=== PATIENT | female | born 1945 | race African-American/Black ===

== ENCOUNTER 2017-01-02 12:40 | Inpatient (IN) | payer OTHER, BC ==
[2017-01-02] MEDS ORDERED: HALOPERIDOL LACTATE 5 MG/ML IM ONE ×2 (13:32→14:11)
[2017-01-02] MEDS ORDERED: LORazepam 2 MG/ML SDV VIAL ONE ×3 (13:34→18:58)
[2017-01-02] MEDS ORDERED: HALOPERIDOL LACTATE 5 MG/ML ONE ×2 (13:34→14:30)
--- NOTE | 2017-01-02 13:54 | PDOC ---
History of Present Illness - General Chief Complaint: Psychiatric Stated Complaint: Altered Mental Status Time Seen by Provider: 01/02/17 12:49 History Source: Patient Exam Limitations: Other (uncooperative) - History of Present Illness Initial Comments: This is a 71 YOF with unknown PMH who was brought in by police with high blood pressure and psychiatric evaluation. The patient was found in our hospital wandering around on the floor, attempting to see a family member stating they were a patient. Security was called for the patient because the person she was looking for was not on record as a patient at our hospital. She was lead out of the hospital and was sitting on a bench and belligerent. Police were called and because the patient was already physically at [facility], she as brought into our ED when she was found to be hypertensive and altered. Here in the ED she is agitated and for the most part is not combative, but does occasionally swing at the examiner with her arm. Past History - Past Medical History Allergies/Adverse Reactions: Allergies amoxicillin trihydrate [From Augmentin] Allergy (Verified 01/02/17 12:47) aspirin Allergy (Verified 01/02/17 12:47) ibuprofen [From Motrin] Allergy (Verified 01/02/17 12:47) metformin HCl [From Glucophage] Allergy (Verified 01/02/17 12:47) potassium clavulanate [From Augmentin] Allergy (Verified 01/02/17 12:47) Home Medications: Ambulatory Orders Calcitriol [Calcitriol -] 0.25 mcg PO DAILY 01/03/17 Abatacept [Orencia] 125 mg SQ WEEKLY #1 syringe 01/07/17 Amlodipine Besylate [Norvasc -] 10 mg PO DAILY #30 tablet 01/07/17 Atorvastatin Ca [Lipitor] 20 mg PO HS #30 tablet 01/07/17 Folic Acid 1 tab PO DAILY #30 tablet 01/07/17 Methotrexate [Xatmep] 2.5 mg PO WEEKLY #1 solution 01/07/17 Sitagliptin Phosphate [Januvia -] 25 mg PO DAILY@0700 #30 tab 01/07/17 - Social History Smoking History: No Smoking Status: Never smoked Number of Cigarettes Per Day: 0 *Review of Systems - Review of Systems Able to Perform ROS?: No (decreased LOC, uncoop.) *Physical Exam - Vital Signs Last Vital Signs Temp Pulse Resp BP Pulse Ox 98.2 F 105 H 18 186/79 98 01/02/17 12:49 01/02/17 12:49 01/02/17 12:49 01/02/17 12:49 01/02/17 12:49 - Physical Exam General Appearance: Yes: Appropriately Dressed, Thin, Other (patient is intermittently not responsive and uncooperative/agitated/combative). No: Alcohol on Breath HEENT: positive: EOMI, LESLEE, Hearing Grossly Normal. negative: Scleral Icterus (R), Scleral Icterus (L), Nasal Congestion Neck: positive: Trachea midline, Supple. negative: Tender, Rigid Respiratory/Chest: positive: Lungs Clear, Normal Breath Sounds. negative: Respiratory Distress, Crackles, Rhonchi, Stridor, Wheezing Cardiovascular: positive: Regular Rhythm, Regular Rate. negative: Murmur Gastrointestinal/Abdominal: positive: Normal Bowel Sounds, Flat, Soft. negative : Tender, Organomegaly, Pulsatile Mass, Guarding Musculoskeletal: positive: Normal Inspection. negative: Decreased Range of Motion, Vertebral Tenderness Extremity: positive: Normal Capillary Refill, Normal Inspection, Normal Range of Motion. negative: Tender, Cyanosis Integumentary: positive: Normal Color, Dry, Warm. negative: Erythema, Rash, Bruising Neurologic: positive: Alert (intermittently), Motor Strength 5/5, Other ( patient initially not cooperating at all with neurological exam but moving all extremities, tracks examiner with eyes when awake) Plan - Progress Note Progress Note: 71 YOF with h/o IDDM, CKD, rheumatoid arthritis, HTN, HLD presents with agitation/AMS. Was a hospital visitor wandering on 5th floor looking for her nephew who she stated was inpatient. Gave personnel his name and it was not in our EMR and she was escorted outside by security. 911 was called d/t her behavior outside the building and brought her here as they were already on campus. Pt is uncooperative and gives minimal information on current symptoms and PMH. Closes eyes and disengages during conversation with providers, awakens only to sternal rub. Screaming in department, uncooperative, likely will require sedation. Will call emergency contacts, consult with case management, likely psych consult. DDX IBNLT intoxication, metabolic disorder, ACS, CVA/TIA. Unlikely to be [id number] onset psychosis for psychiatric reason as this is rare. 01/02/17 13:43 Attempted to call emergency contacts on record on our EMR. Numbers attempted are for Gonsalo Segundo nephew at [phone] (tried twice). Also Diamond Meyers (sister) at [phone] and [phone]. No answer or disconnected lines for all three numbers. Patient is given 5 of Haldol and 2 of Ativan IM and is subsequently calm. 01/02/17 14:00 Dr. Arroyo spoke with Dr. Camp with Psychiatry. Dr. Kim recommends collaboration with PMD and medical workup before psych eval. Will likely Obs patient after medical workup completed. 01/02/17 14:[address] Dunaway who cared for patient in prior admission in 2011. Dr. Dunaway is on for Dr. Nasrin Sanders who he notes is her PMD. Dr. Dunaway does not have clinic records for the patient; states those records are accessible by Dr. Sanders. Nasrin Sanders is called. 01/02/17 14:28 Nasrin Sanders calls back and states has not seen the patient recently. She will kindly search patient's clinic records and call back. Dr. Arroyo is also speaking with the nephew Gonsalo. Gonsalo states that the patient was psychiatrically healthy to his knowledge until 2 weeks ago. 01/02/17 14:40 Spoke with front office java developer for salvage winder Dr. Almazan in [place] where Ms. Teresa is a patient. She gives most recent medication list and states there are no psychiatric problems on their record. Dr. Sanders calls back and also corroborates that the patient has no psychiatric history and no drugs/EtOH. The last time Dr. Sanders saw the patient was in 2014 and the patient was noted to have switched providers. She is notes on Dr. Sanders's records to now be a patient of Dr. Nettie Gipson in [place]. Dr. Gipson is out of our network and thus hospitalist will be microblogged. 01/02/17 18:52 Troponin and CK resulted with slight elevation. BUN and Cr significantly elevated. Spoke with Dr. Lily Crowe who confirms Pt will go to IP Med/Surg under Dr. Keith. EKG results with t wave inversions in lateral leads. Repeat cardiac profile is sent. Patient's care is signed out to Dr. Marielle Henriquez. - Order(s) Order(s): Orders last 12 hours Category Date Time Status ELECTROCARDIOGRAM [CARD] Stat Cardiology 01/02/17 13:36 Ordered CBC WITH DIFFERENTIAL Stat Lab 01/02/17 13:35 Ordered DRUG SCREEN,UR ER- [facility] Stat Lab 01/02/17 13:36 Ordered URINALYSIS ([facility] ONLY) Stat Lab 01/02/17 13:35 Ordered - Laboratory CBC & Chemistry Diagram: 01/03/17 06:00 01/10/17 07:23 - Medications Given in the ED: ED Medications Discontinued Medications Generic Name Dose Route Start Last Admin Trade Name Freq PRN Reason Stop Dose Admin Haloperidol 5 mg 01/02/17 13:32 01/02/17 13:39 Haldol Injection (Fast Acting) - IM 01/02/17 13:33 5 mg ONCE ONE Administration Lorazepam 2 mg 01/02/17 13:33 01/02/17 13:39 Ativan Injection - IM 01/02/17 13:34 2 mg ONCE ONE Administration *DC/Admit/Observation/Transfer Diagnosis at time of Disposition: Troponin level elevated, Abnormal creatine kinase level, SAL (acute kidney injury) Altered mental state Qualifiers: Altered mental status type: unspecified Qualified Code(s): R41.82 - Altered mental status, unspecified - Discharge Dispostion Admit: Yes - Prescriptions - Referrals - Patient Instructions - Post Discharge Activity
[2017-01-02 15:21] LABS: ALBUMIN 3.6 g/dl (3.4-5.0); ANION GAP 16 (8-16); BILIRUBIN,TOTAL 0.5 mg/dL (0.2-1.0); CALCIUM 9.1 mg/dL (8.5-10.1); CO2 21 mmol/L (21-32); CREATININE 3.8 mg/dL (0.55-1.02); GLUCOSE,RANDOM 223 mg/dL (74-106); PHOSPHOROUS 3.6 mg/dL (2.5-4.9); SGOT/AST 28 U/L (15-37); SGPT/ALT 19 U/L (12-78)
[2017-01-02 15:31] LABS: ALK PHOS 74 U/L (45-117); CPK 488 IU/L (26-192); THYROID STIMULATING HORMONE 1.28 uIU/ml (0.358-3.74); TROPONIN I 0.08 ng/ml (0.00-0.05)
[2017-01-02 15:32] LABS: ALCOHOL < 5.0 mg/dl (0-5)
[2017-01-02 15:37] LABS: BASOPHIL 0.5 % (0-2.0); MCHC 34.5 g/dl (32.0-36.0); MEAN PLT VOLUME 9.4 fl (7.5-11.1); NEUTROPHILS 86.3 % (42.8-82.8); PLATELET COUNT 198 K/MM3 (134-434); RDW 14.8 % (11.6-15.6); SALICYLATE < 4.0 mg/dl (0.0-30.0); WHITE BLOOD COUNT 8.5 K/mm3 (4.0-10.0)
--- NOTE | 2017-01-02 16:57 | PDOC ---
Attending Attestation - Resident Resident Name: Isabell Wray - ED Attending Attestation I have performed the following: I have examined & evaluated the patient, The case was reviewed & discussed with the resident, I agree w/resident's findings & plan, Exceptions are as noted - HPI HPI: 01/02/17 16:51 71 year old F with past medical history of HTN, DM, rheumatoid arthritis presents with disorganized behavior. Patient is alert and awake, but quite disorganized. Unable to obtain a meaningful history. History from security and EMS. The patient was here at [facility], attempting to find her nephew , Gonsalo Esquivel, on the fifth floor. However, at registration, they had informed her that there was no patient at [facility] with that name. An argument ensued, and the patient was escorted out by security to the front of the hospital. The patient then returned back to the registration and became very agitated, upset, and disorganized. [employer] police and [facility] was called, and the patient was brought to the ED. The patient is here was quite agitated and upset. Unable to cooperate. There was patient and staff safety concerns, so the patient was given chemical sedation, haldol and ativan. The patient was calm but still disorganized. We had obtained collateral information from Gonsalo Esquivel. He is currently on vacation and will be flying back to [place] [employer] [place] today. He is not at [facility] hospitalized. States that she used to work for the [employer] and is typically not like this at all. He noticed that 2 weeks ago that she had significantly deteriorated, and was concerned for her well-being. Requests that she stay at the hospital. - Physicial Exam PE: 01/02/17 16:57 GENERAL: agitated, disorganized, but speaking in full sentences, no apparent distress NEURO: CN II-XII grossly intact. Moving all extremities spontaneously PSYCH: disorganized, agitated, tangential - Medical Decision Making 01/02/17 16:58 Vital Signs Temp Pulse Resp BP Pulse Ox 98.2 F 105 H 18 186/79 98 01/02/17 12:49 01/02/17 12:49 01/02/17 12:49 01/02/17 12:49 01/02/17 12:49 We will need to investigate into a potential organic cause for the patient's disorganized behavior. Head CT demonstrates some volume loss potentially suggestive of ?dementia. CBC, BMP 01/02/17 14:50 01/02/17 14:50 CMP Sodium 139 mmol/L (136-145) 01/02/17 14:50 Potassium 4.4 mmol/L (3.5-5.1) 01/02/17 14:50 Chloride 102 mmol/L (98-107) 01/02/17 14:50 Carbon Dioxide 21 mmol/L (21-32) D 01/02/17 14:50 Anion Gap 16 (8-16) 01/02/17 14:50 BUN 56 mg/dL (7-18) H D 01/02/17 14:50 Creatinine 3.8 mg/dL (0.55-1.02) H D 01/02/17 14:50 Creat Clearance w eGFR 11.64 (>60) 01/02/17 14:50 Random Glucose 223 mg/dL (74-106) H D 01/02/17 14:50 Calcium 9.1 mg/dL (8.5-10.1) 01/02/17 14:50 Phosphorus 3.6 mg/dL (2.5-4.9) 01/02/17 14:50 Magnesium 2.0 mg/dL (1.8-2.4) 01/02/17 14:50 Total Bilirubin 0.5 mg/dL (0.2-1.0) D 01/02/17 14:50 AST 28 U/L (15-37) 01/02/17 14:50 ALT 19 U/L (12-78) D 01/02/17 14:50 Alkaline Phosphatase 74 U/L (45-117) 01/02/17 14:50 Creatine Kinase 488 IU/L (26-192) H 01/02/17 14:50 Creatine Kinase Index 0.6 % (0.0-5.0) 01/02/17 14:50 CK-MB (CK-2) 3.020 ng/mL (0.5-3.6) 01/02/17 14:50 Troponin I 0.08 ng/ml (0.00-0.05) H 01/02/17 14:50 Total Protein 7.0 g/dl (6.4-8.2) 01/02/17 14:50 Albumin 3.6 g/dl (3.4-5.0) D 01/02/17 14:50 TSH 1.28 uIU/ml (0.358-3.74) 01/02/17 14:50 Labs demonstrate a mildly elevated troponin of 0.08 (unclear what the etiology is). Creatnine is 3.8 (though there may be some history of ?CKD). The patient will need further workup for patient's AMS vs. disorganized behavior. Dr. Tejada from psych was consulted. He will see the patient as a psych executive consultant. Will admit the patient for further workup.
[2017-01-02 17:34] LABS: URINE APPEARANCE SLCLOUDY; URINE BILIRUBIN NEGATIVE (NEGATIVE); URINE BLOOD NEGATIVE (NEGATIVE); URINE COLOR YELLOW; URINE GLUCOSE (UA) NEGATIVE (NEGATIVE); URINE KETONE NEGATIVE (NEGATIVE); URINE NITRITE NEGATIVE (NEGATIVE); URINE UROBILINOGEN NEGATIVE mg/dL (0.2-1.0)
[2017-01-02 18:13] LABS: URINE MARIJUANA THC NEGATIVE ng/ml (CUTOFF=50)
[2017-01-02 18:32] LABS: URINE PROTEIN 2+ (NEGATIVE)
[2017-01-02] MEDS ORDERED: LORazepam 2 MG/ML SDV VIAL IVPUSH ONE (18:39)
--- NOTE | 2017-01-02 18:43 | HP ---
CHIEF COMPLAINT: Agitation PCP: Dr. Nasrin Sanders HISTORY OF PRESENT ILLNESS: Unable to obtain information from patient due to current medical condition. Most information obtained from ED staff and medical records. Patient is a 71 year old female with a PMHx of Rheumatoid Arthritis, HTN, IDDMII , HLD who presented today for agitation and altered mental status. According to EMS, Police, and ED staff patient earlier today was found wandering around the 5th floor of our hospital asking for her nephew who is supposedly a patient here. When the security risk analyst informed the patient that there was no patient here by that name, she walked out of the hospital upset and became very belligerent. The police officers were called and they brought her straight into the ED. In the ED patient was found to be severely agitated, combative and altered to the point she was trying to physically attack the examiner. ED staff contacted her nephew who reports that he saw her two weeks ago and she was in her usual state of health and mind. He reports that she has no psychiatric history and takes no medications for any physciatric problems. 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 Her nephew states this behavior is very new to him and has never heard or seen this happen to her. Patient's Tin Flopper was also contacted, Dr. Almazan, in [place] who confirms that she is on no antipsychotic medications and has no history of any psychiatric problems. By the time I went to examine the patient she was somnolent and drowsy from the medications. ER course was notable for: (1) haldol 5 and Ativan 2mg X2 (2) Head CT negative for acute pathology (3) Recent Travel: Unable to obtain due to current medical condition PAST MEDICAL HISTORY: HTN, HLD, IDDMII, Rheumatoid Arthritis PAST SURGICAL HISTORY: Appendectomy Social History: Unable to obtain due to patients medical condition Family History: Unable to obtain due to patients medical condition Allergies: amoxicillin trihydrate [From Augmentin] Allergy (Verified 01/02/17 12 :47) aspirin Allergy (Verified 01/02/17 12:47) ibuprofen [From Motrin] Allergy (Verified 01/02/17 12:47) metformin HCl [From Glucophage] Allergy (Verified 01/02/17 12:47) potassium clavulanate [From Augmentin] Allergy (Verified 01/02/17 12:47) HOME MEDICATIONS: Home Medications Medication Instructions Recorded Cyclobenzaprine HCl [Flexeril -] 10 mg PO DAILY 09/02/11 Sitagliptin Phosphate [Januvia -] mg PO 09/02/11 Amlodipine Besylate [Norvasc -] 10 mg PO DAILY #0 tablet 09/19/11 Furosemide [Lasix -] 20 mg PO DAILY #0 tablet 09/19/11 Hydrocortisone 1% Cream [Hytone 1% 1 applic TP BID #0 tube 09/19/11 Cream -] Insulin (Levemir) [Levemir Flexpen 12 units SQ BIDAC #0 pen 09/19/11 -] Prednisone [Deltasone -] 7.5 mg PO DAILY #0 tablet 09/19/11 Tramadol HCl [Ultram -] 50 mg PO Q6H PRN #0 tablet 09/19/11 REVIEW OF SYSTEMS: Unable to obtain due to patients medical condition PHYSICAL EXAMINATION Vital Signs - 24 hr 01/02/17 12:49 Temperature 98.2 F Pulse Rate 105 H Respiratory 18 Rate Blood Pressure 186/79 O2 Sat by Pulse 98 Oximetry (%) GENERAL: Drowsy, somnolent, intermittently opening and closing eyes HEAD: Normal with no signs of trauma. EYES: Pupils equal, round and reactive to light. LUNGS: Breath sounds equal, clear to auscultation bilaterally. No wheezes, and no crackles. No accessory muscle use. HEART: Regular rate and rhythm, normal S1 and S2 without murmur, rub or gallop. ABDOMEN: Soft, nontender, not distended, normoactive bowel sounds, no guarding, no rebound, no masses. UPPER EXTREMITIES: 2+ pulses, warm, well-perfused. No cyanosis. No clubbing. No peripheral edema. LOWER EXTREMITIES: 2+ pulses, warm, well-perfused. No calf tenderness. No peripheral edema. NEUROLOGICAL: Cranial nerves II-XII intact. Normal speech. Normal gait. PSYCHIATRIC: Unable to assess due to patients medical condition but does move extremities spontaneously SKIN: Warm, dry, normal turgor, no rashes or lesions noted, normal capillary refill. Laboratory Results - last 24 hr 01/02/17 01/02/17 01/02/17 14:50 14:50 14:50 WBC 8.5 RBC 3.50 L Hgb 10.5 L Hct 30.5 L MCV 87.0 MCH 30.0 MCHC 34.5 RDW 14.8 Plt Count 198 D MPV 9.4 Neutrophils % 86.3 H Lymphocytes % 6.9 L D Monocytes % 6.3 Eosinophils % 0.0 D Basophils % 0.5 Sodium 139 Potassium 4.4 Chloride 102 Carbon Dioxide 21 D Anion Gap 16 BUN 56 H D Creatinine 3.8 H D Creat Clearance w eGFR 11.64 Random Glucose 223 H D Calcium 9.1 Phosphorus 3.6 Magnesium 2.0 Total Bilirubin 0.5 D AST 28 ALT 19 D Alkaline Phosphatase 74 Creatine Kinase 488 H Creatine Kinase Index 0.6 CK-MB (CK-2) 3.020 Troponin I 0.08 H Total Protein 7.0 Albumin 3.6 D TSH 1.28 Urine Color Urine Appearance Urine pH Ur Specific [place] Urine Protein Urine Glucose (UA) Urine Ketones Urine Blood Urine Nitrite Urine Bilirubin Urine Urobilinogen Salicylates < 4.0 Opiates Screen Methadone Screen Acetaminophen < 10 L Barbiturate Screen Phencyclidine Screen Ur Amphetamines Screen MDMA (Ecstasy) Screen Benzodiazepines Screen Cocaine Screen U Marijuana (THC) Screen Alcohol, Quantitative < 5.0 01/02/17 01/02/17 01/02/17 14:50 17:15 17:15 WBC RBC Hgb Hct MCV MCH MCHC RDW Plt Count MPV Neutrophils % Lymphocytes % Monocytes % Eosinophils % Basophils % Sodium Potassium Chloride Carbon Dioxide Anion Gap BUN Creatinine Creat Clearance w eGFR Random Glucose Calcium Phosphorus Magnesium Total Bilirubin AST ALT Alkaline Phosphatase Creatine Kinase Cancelled Creatine Kinase Index CK-MB (CK-2) Troponin I Cancelled Total Protein Albumin TSH Cancelled Urine Color Yellow Urine Appearance Slcloudy Urine pH 5.0 Ur Specific [place] 1.017 Urine Protein 2+ H Urine Glucose (UA) Negative Urine Ketones Negative Urine Blood Negative Urine Nitrite Negative Urine Bilirubin Negative Urine Urobilinogen Negative Salicylates Opiates Screen Negative Methadone Screen Negative Acetaminophen Barbiturate Screen Negative Phencyclidine Screen Negative Ur Amphetamines Screen Negative MDMA (Ecstasy) Screen Negative Benzodiazepines Screen Negative Cocaine Screen Negative U Marijuana (THC) Screen Negative Alcohol, Quantitative IMAGES: Head CT (01/02/17): Mild to moderate volume loss without evidence of acute intracranial pathology. ASSESSMENT/PLAN: Patient is a 71 year old female who was found wondering in the hospital and became very agitated and combative. Patient admitted for further monitoring and management. Acute Psychosis -New onset with no history of psychiatric problems. R/o stroke vs. tumor -CT negative -Electrolytes wnl, calcium wnl, TSH wnl -U/A wnl, leukocyte esterase pending -Urine toxicology negative -MRI without contrast ordered (due to CKD/SAL) to rule out stroke/masses/tumor -RPR ordered to rule out neurosyphilis -B12 ordered to rule out any deficiency -Lipitor 40mg ordered. -Unable to give Aspirin due to allergy on profile -Neurology consult placed -Psych consult placed -1 to 1 observation as patient is in danger of harming herself or others -If source of acute psychosis remains unknown will need to consider LP to rule out meningitis SAL on CKD? -Last known baseline in 2011 with BUN of 1.3 and Creatinine clearance of 40. -Today BUN 3.8 and CC of 11 -Will begin IV NS @83mls/hr -Urine electrolytes ordered -Kidney/Renal U/S HTN- Controlled -Will need to confirm home medication dosages. Told by ED staff that patient is on Hydralazine and HCTZ at home -Continue to monitor BP. If BP elevated, consider giving Hydralazine and HCTZ one time doses only until home dose confirmed. HLD -Lipitor 40mg started -Lipid panel ordered IDDMII -A1C ordered -BGM -ISS Rheumatoid Arthritis -Follows buttermaker Dr. Dr. Almazan in [place] -On Methotrexate. Need to confirm dosage in the morning -On Ornecia. Need to confirm dosage in the morning F/E/N -IV NS @83mls/hr -Electrolytes wnl -NPO Prophylaxis -High risk. Heparin 5000 units sq Q8H for DVT -No GI required Disposition -Full code -MRI pending. Patient requires 1 to 1 observation. Continues to require Inpatient and will remain overnight Visit type - Emergency Visit Emergency Visit: Yes ED Registration Date: 01/02/17 Care time: The patient presented to the Emergency Department on the above date and was hospitalized for further evaluation of their emergent condition. - New Patient This patient is new to me today: Yes Date on this admission: 01/02/17 - Critical Care Critical Care patient: No
[2017-01-02] MEDS ORDERED: SODIUM CHLORIDE 1,000 ML IV SCH ×2 (18:45→22:35)
[2017-01-02 18:51] LABS: URINE BACTERIA RARE /hpf (NONE SEEN); URINE HYALINE CAST 12 /lpf; URINE MUCUS RARE; URINE RBC 1; URINE WBC 1
[2017-01-02] MEDS ORDERED: HEPARIN NA (PORCINE) 5,000 UNITS/ML 1ML VIAL ONE (18:59)
[2017-01-02] MEDS: HEPARIN NA (PORCINE) 5,000 UNITS/ML 1ML VIAL SQ SCH ×2 (19:11→22:37)
[2017-01-02 19:23] LABS: TROPONIN I 0.13 ng/ml (0.00-0.05)
[2017-01-02] MEDS: ATORVASTATIN CA 40 MG TABLET (FP) PO SCH ×2 (20:10→22:37)
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
[2017-01-02 22:05] LABS: URINE LEUK ESTERASE Negative (NEGATIVE)
[2017-01-02] MEDS: INSULIN SLIDING SCALE (NOVOLOG) 1 VIAL SQ SCH (22:57)
[2017-01-03 00:16] VITALS: BMI 24.2
[2017-01-03 02:23] LABS: TROPONIN I 0.14 ng/ml (0.00-0.05)
[2017-01-03] MEDS: INSULIN SLIDING SCALE (NOVOLOG) 1 VIAL SQ SCH ×4 (06:06→21:45)
[2017-01-03] MEDS: HEPARIN NA (PORCINE) 5,000 UNITS/ML 1ML VIAL SQ SCH ×3 (06:06→21:44)
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
[2017-01-03 08:01] LABS: MCH 29.6 pg (25.7-33.7); MCHC 33.9 g/dl (32.0-36.0); MEAN CELL VOLUME 87.4 fl (80-96); MEAN PLT VOLUME 8.5 fl (7.5-11.1); PLATELET COUNT 155 K/MM3 (134-434); RDW 14.2 % (11.6-15.6); WHITE BLOOD COUNT 5.2 K/mm3 (4.0-10.0)
[2017-01-03 08:16] LABS: ALBUMIN 3.4 g/dl (3.4-5.0)
[2017-01-03 08:21] LABS: ALK PHOS 72 U/L (45-117); ANION GAP 10 (8-16); BILIRUBIN,TOTAL 0.7 mg/dL (0.2-1.0); CALCIUM 8.6 mg/dL (8.5-10.1); CO2 24 mmol/L (21-32); CREATININE 2.9 mg/dL (0.55-1.02); GLUCOSE,RANDOM 101 mg/dL (74-106); MAGNESIUM 2.2 mg/dL (1.8-2.4); PHOSPHOROUS 3.6 mg/dL (2.5-4.9); SGOT/AST 23 U/L (15-37); SGPT/ALT 16 U/L (12-78); TOT PROT 6.7 g/dl (6.4-8.2)
[2017-01-03 08:33] LABS: CHOLESTEROL 254 mg/dL (50-200)
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
--- NOTE | 2017-01-03 10:03 | EKG ---
Test Reason : Blood Pressure : / mmHG Vent. Rate : 062 BPM Atrial Rate : 062 BPM P-R Int : 182 ms QRS Dur : 092 ms QT Int : 454 ms P-R-T Axes : 049 067 112 degrees QTc Int : 460 ms NORMAL SINUS RHYTHM T WAVE ABNORMALITY, CONSIDER LATERAL ISCHEMIA ABNORMAL ECG WHEN COMPARED WITH ECG OF 02-SEP-2011 20:18, QT HAS LENGTHENED Confirmed by ROSIO SEE MD ([id number]) on 01/03/2017 10:02:45 AM Referred By: Confirmed By:ROSIO SEE MD
[2017-01-03 10:59] LABS: URINE POTASSIUM 41.6 MEQ/L
[2017-01-03 11:30] LABS: TROPONIN I 0.09 ng/ml (0.00-0.05)
[2017-01-03] MEDS: SODIUM CHLORIDE 1,000 ML IV SCH (11:30)
--- NOTE | 2017-01-03 14:47 | PN ---
Teaching Attending Note Name of Resident: Jose Garcia ATTENDING PHYSICIAN STATEMENT I saw and evaluated the patient. I reviewed the resident's note and discussed the case with the resident. I agree with the resident's findings and plan as documented. SUBJECTIVE: no fever or chills. has no cp or SOB. still thinks her nephew was in hospital. denies [place] , CP , weakness , numbness or tingling . OBJECTIVE: NAD , awake , alert and oriented x 3 CV: RRR, 3/6 SM at base and LLSB with radiation to carotids . 3/6 SM At apex with radiation to axilla Lungs ; CTAB ext : no edema Abd : sfot, NT, ND , NL BS Neuro: EOMI, round equal pupils , reactive to light. no facial droop. strength 5 /5 in upper and lower extremities proximally and distally. sensation to light touch is nL. reflexes 2+ knee jerk and biceps b/l ASSESSMENT AND PLAN: 71 y/o lady with h/o CKD , Rheumatoid Arthritis, IDDMII, HLD and other problems who presented with AMS and agitation 1- AMS with psychotic features: no known clear etiology. could be due to metabolic encephalopathy in the setitng of worsening uremia. RPR , not reactive, TSH nl. NEuro exam nl and her mental status improved . Suspicion for seizure is very low . MRI with no stroke or MAss It is not clear whether she is on Prednisone as out pt . if yes , this could cause phsycosis ,. - cont to monitor - hold off benzos and antiphsycotics - No need for LP at this point . 2- CKD with SAL : last cr in oput system 1.3 in 2011. No more recent one . she admits to CKD Cr improved with IVF . Likely pre-renal azotemia with a base line of CKD - check urine electrolytes - check renal US - cont IVF 100 cc/hr 3- H/o DM : she takes levemir TID at home . - cont SSI - will confirm with her PCP her insulin regimen 4- Elevated CPK: likely due to statin, vs mild Rhabdo. - dc atorvastatin - cont hydration 5- Elevated trop : likely due to decreased clearance in setting of renal failure. level improved EKG with TWI in lateral leads, and J point elevation in V2 - repeat EKG - will need a stress test as outpt - can start aspirin. 6- HTN: resume norvasc Meds need to be confirmed.
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
--- NOTE | 2017-01-03 15:49 | MSN ---
Progress Note (short form) - Note Progress Note: SUBJECTIVE CC: altered mental status with psychotic symptoms HPI: 71 year old female with PMH of RA, HTN, IDDMII, HLD was admitted from the ER following acute onset of agitation and altered mental status with psychotic symptoms. She was unable to give a history at the time of admission secondary to altered mental status. EMS, police and ED staff reported patient was found wandering on the 5th floor of [facility] asking for her nephew who she believed was a patient. When staff told her that her nephew was not a patient here, she became aggressive and belligerent. She was then taken to the ER and given 2 doses of Haldol 5 mg and 2 doses of Ativan [address] was negative for acute pathology and brain MRI was negative for any masses or infarcts. EKG at the time showed normal sinus rhythm with t wave inversion in lateral leads and compared with EKG done in 2011, her QT interval has lengthened. Today, patient was seen and examined. She can recall looking for her nephew on the 5th floor of the hospital and reports she does not know why her nephew was not found nor why staff did not tell her where her nephew was. No acute changes overnight. OBJECTIVE Last Vital Signs Temp Pulse Resp BP Pulse Ox 97.5 F L 74 18 158/74 98 01/03/17 10:34 01/03/17 10:34 01/03/17 10:34 01/03/17 10:34 01/02/17 23:09 General: patient Chest: Lungs: Abdomen: Extremities: CBC, BMP 01/03/17 06:00 01/03/17 06:00 CBC,CMP WBC 5.2 K/mm3 (4.0-10.0) D 01/03/17 06:00 RBC 3.34 M/mm3 (3.60-5.2) L 01/03/17 06:00 Hgb 9.9 GM/dL (10.7-15.3) L 01/03/17 06:00 Hct 29.2 % (32.4-45.2) L 01/03/17 06:00 MCV 87.4 fl (80-96) 01/03/17 06:00 MCH 29.6 pg (25.7-33.7) 01/03/17 06:00 MCHC 33.9 g/dl (32.0-36.0) 01/03/17 06:00 RDW 14.2 % (11.6-15.6) 01/03/17 06:00 Plt Count 155 K/MM3 (134-434) D 01/03/17 06:00 MPV 8.5 fl (7.5-11.1) 01/03/17 06:00 Neutrophils % 86.3 % (42.8-82.8) H 01/02/17 14:50 Lymphocytes % 6.9 % (8-40) L D 01/02/17 14:50 Monocytes % 6.3 % (3.8-10.2) 01/02/17 14:50 Eosinophils % 0.0 % (0-4.5) D 01/02/17 14:50 Basophils % 0.5 % (0-2.0) 01/02/17 14:50 Sodium 142 mmol/L (136-145) 01/03/17 06:00 Potassium 4.0 mmol/L (3.5-5.1) 01/03/17 06:00 Chloride 108 mmol/L (98-107) H 01/03/17 06:00 Carbon Dioxide 24 mmol/L (21-32) 01/03/17 06:00 Anion Gap 10 (8-16) 01/03/17 06:00 BUN 55 mg/dL (7-18) H 01/03/17 06:00 Creatinine 2.9 mg/dL (0.55-1.02) H D 01/03/17 06:00 Creat Clearance w eGFR 15.91 (>60) 01/03/17 06:00 POC Glucometer 137 UNITS (80-120) 01/03/17 11:28 Random Glucose 101 mg/dL (74-106) D 01/03/17 06:00 Hemoglobin A1c % 5.6 % (4.8-6.0) 01/03/17 06:00 Calcium 8.6 mg/dL (8.5-10.1) 01/03/17 06:00 Phosphorus 3.6 mg/dL (2.5-4.9) 01/03/17 06:00 Magnesium 2.2 mg/dL (1.8-2.4) 01/03/17 06:00 Total Bilirubin 0.7 mg/dL (0.2-1.0) D 01/03/17 06:00 AST 23 U/L (15-37) 01/03/17 06:00 ALT 16 U/L (12-78) 01/03/17 06:00 Alkaline Phosphatase 72 U/L (45-117) 01/03/17 06:00 Creatine Kinase 625 IU/L (26-192) H 01/03/17 11:00 Creatine Kinase Index 0.7 % (0.0-5.0) 01/03/17 11:00 CK-MB (CK-2) 4.470 ng/mL (0.5-3.6) H 01/03/17 11:00 Troponin I 0.09 ng/ml (0.00-0.05) H 01/03/17 11:00 Total Protein 6.7 g/dl (6.4-8.2) 01/03/17 06:00 Albumin 3.4 g/dl (3.4-5.0) 01/03/17 06:00 Triglycerides 72 mg/dL (35-160) 01/03/17 06:00 Cholesterol 254 mg/dL (50-200) H 01/03/17 06:00 Total LDL Cholesterol 166 mg/dL (5-100) H 01/03/17 06:00 HDL Cholesterol 64 mg/dL (40-60) H 01/03/17 06:00 Vitamin B12 1178 pg/ml (180-914) H 01/02/17 14:30 TSH 1.28 uIU/ml (0.358-3.74) 01/02/17 14:50 Current Medications Heparin Sodium (Porcine) (Heparin -) 5,000 unit SQ TID [facility] Last Admin: 01/03/17 15:13 Dose: Not Given Sodium Chloride (Normal Saline -) 1,000 mls @ 100 mls/hr IV ASDIR [facility] Last Admin: 01/03/17 11:30 Dose: 100 mls/hr Insulin Aspart (Novolog Vial Sliding Scale -) 1 vial SQ ACHS [facility] PRN Reason: Protocol Last Admin: 01/03/17 11:29 Dose: Not Given Risperidone (Risperdal -) 0.5 mg PO BID [facility] Home Medications Medication Instructions Recorded Cyclobenzaprine HCl [Flexeril -] 10 mg PO DAILY 09/02/11 Sitagliptin Phosphate [Januvia -] 50 mg PO DAILY 09/02/11 Amlodipine Besylate [Norvasc -] 10 mg PO DAILY #0 tablet 09/19/11 Furosemide [Lasix -] 20 mg PO DAILY #0 tablet 09/19/11 Hydrocortisone 1% Cream [Hytone 1% 1 applic TP BID #0 tube 09/19/11 Cream -] Prednisone [Deltasone -] 7.5 mg PO DAILY #0 tablet 09/19/11 Tramadol HCl [Ultram -] 50 mg PO Q6H PRN #0 tablet 09/19/11 Abatacept [Orencia] 125 mg SQ WEEKLY 01/03/17 Atorvastatin Ca [Lipitor] 10 mg PO DAILY 01/03/17 Calcitriol [Calcitriol -] 0.25 mcg PO DAILY 01/03/17 Chlorthalidone 25 mg PO DAILY 01/03/17 Folic Acid 1 tab PO DAILY 01/03/17 Insulin (Levemir) [Levemir Flexpen 20 units SQ DAILY 01/03/17 -] Methotrexate [Xatmep] 2.5 mg PO WEEKLY 01/03/[address] 01/02: Mild to moderate volume loss without evidence of acute intracranial pathology. BRAIN MRI 01/02: no infarct identified, no discrete mass lesion. EKG 01/02: normal sinus rhythm, t wave abnormality, consider lateral ischemia, when compared with ECG 09/02/11 20:18, QT has lengthened CXR 01/02: No acute chest pathology. since prior study of 09/08/14, again noted weak inspiration with large heart, sclerotic knob and prominent ly. ECHO 01/03: Mild concentric L ventricular hypertrophy, L ventricular systolic fxn is normal , E/A reversal consistent w/ but not diagnostic of poor LV compliance, R ventricle normal in size and function. Mild dilation of L atrium. Mild mitral regurg. Moderate tricuspid regurg. R ventricular systolic pressure elevated at 50-60 mmHg. Moderate aortic sclerosis. Aortic root is normal size. No pericardial effusion. US RENAL & URINARY BLADDER 01/03: both kidneys small and echogenic compatible with clinical history of chronic medial renal disease. Small B/L simple renal cysts. No renal stones or hydronephrosis, B/L. Partially distended urinary bladder w/o wall thickening. Both ureteral jets were not visualized. Trace postvoid urine residue. Limited visualization of uterus. PSYCH CONSULT (Dr. Tejada) 01/03: slowed psychomotor activity with constricted affect. well groomed, cooperative. coherent speech. circumstantial thought process. absent hallucinations. present delusions of persecutory, bizarre type. alert attention, oriented to time. impaired memory, immediate recall. 1/3 short term memory. 1/3 memory, remote with prompting. serial sevens not intact, simple calculations not intact. Abstraction proverb interpretation impaired, judgment moderately impaired. Impulse control moderately impaired. no suicidal or homicidal ideation. --> psych rec to start risperdal 0.5 mg po bid, continue with 1:1, waiting neuro eval ASSESSMENT: Patient is a 71 year old female with PMH RA, HTN, IDDMII, HLD was admitted from the ER following acute onset of agitation and altered mental status with psychotic symptoms. PLAN: #altered mental status with psychotic symptoms - add risperdal 0.5 mg po bid as per psych rec - f/u neuro result - continue to monitor electrolytes, continue 1:1 observation #CKD - last known baseline in 2011 with BUN 1.3, Cr clearance 40 - continue to monitor BUN and Cr; today BUN 55, Cr 2.9, Cr clearance 15.91 - no acute pathology found on kidney/bladder US #HTN - confirmed home med doses; consider switching HTN med to home med - chlorthalidone - continue to monitor BP #HLD - continue Lipitor with home med dosage - 10 mg PO daily - lipid panel out of range #IDDMII - HbA1c 5.6% (01/03/17) - continue home med, confirm insulin dosage with PCP #RA - continue home med, MTX #F/E/N - IV NS @ 100 mls/hr - electrolytes wnl - diabetic diet #DVT PPX - continue heparin
[2017-01-03] MEDS ORDERED: amLODIPine BESYLATE 5 MG TABLET (FP) PO SCH (17:15)
[2017-01-03] MEDS: risperiDONE 0.5 MG TABLET (FP) PO SCH ×2 (17:51→21:45)
[2017-01-03] MEDS ORDERED: amLODIPine BESYLATE 5 MG TABLET (FP) PO ONE (23:30)
[2017-01-04] MEDS: SODIUM CHLORIDE 1,000 ML IV SCH (01:00)
[2017-01-04] MEDS: INSULIN SLIDING SCALE (NOVOLOG) 1 VIAL SQ SCH ×4 (06:23→21:38)
[2017-01-04] MEDS: HEPARIN NA (PORCINE) 5,000 UNITS/ML 1ML VIAL SQ SCH ×3 (06:25→21:38)
[2017-01-04] MEDS: amLODIPine BESYLATE 10 MG TABLET (FP) PO SCH ×2 (09:08→12:36)
[2017-01-04] MEDS: risperiDONE 0.5 MG TABLET (FP) PO SCH ×2 (09:08→21:37)
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
[2017-01-04 10:29] LABS: ANION GAP 8 (8-16); CALCIUM 8.4 mg/dL (8.5-10.1); CO2 23 mmol/L (21-32); CPK 487 IU/L (26-192); CREATININE 2.1 mg/dL (0.55-1.02); GLUCOSE,RANDOM 134 mg/dL (74-106)
--- NOTE | 2017-01-04 15:01 | PN ---
Addendum entered and electronically signed by Lily Crowe, 01/04/17 18:39: Spoke to Neurologist who agreed to do LP. Consent obtained from patient and patient's nephew. LP performed with no complications CSF specimen sent to the lab Results pending. Will follow up Patient also gave verbal consent for HIV testing Neurologist recommended Cervical MRI to be done Original Note: Physical Exam: SUBJECTIVE: Patient seen and examined by me at bedside. Overnight events noted. Patient had eleavted BP and night medical team gave norvasc with adequate control. Patient offers no complaints today but continues to have a flat affect. She denies all blood work this morning but when Dr. Stein spoke to her she agreed to have blood drawn. Otherwise, patient denies fever, chills , nausea, vomiting, abdominal pain, chest pain, palpitations, shortness of breath, headaches. OBJECTIVE: Vital Signs Period Temp Pulse Resp BP Sys/Hanna Pulse Ox Last 24 Hr 97.2 F-98.2 F 72-84 18-20 158-194/76-94 98-98 GENERAL: The patient is awake, alert, and fully oriented, in no acute distress. EYES: PERRL, eye does not pass mid-line on left gaze, sclera anicteric, conjunctiva clear. No ptosis. ENT: Oropharynx clear without exudates, moist mucous membranes. LUNGS: Breath sounds equal, clear to auscultation bilaterally, no wheezes, no crackles, no accessory muscle use. HEART: Regular rate and rhythm without murmur, rub or gallop. ABDOMEN: Soft, nontender, nondistended, normoactive bowel sounds, no guarding, no rebound. EXTREMITIES: 2+ pulses, warm, well-perfused, no edema. NEUROLOGICAL: Cranial nerves II through XII grossly intact. Normal speech. Motor strength 5/5 bilaterally, sensory intact. No facial droop PSYCH: Normal mood, Flat affect Laboratory Results - last 24 hr 01/03/17 01/03/17 01/04/17 17:46 21:43 06:04 Sodium Potassium Chloride Carbon Dioxide Anion Gap BUN Creatinine POC Glucometer 134 128 97 Random Glucose Calcium Creatine Kinase Creatine Kinase Index CK-MB (CK-2) 01/04/17 01/04/17 09:20 11:30 Sodium 141 Potassium 4.1 Chloride 110 H Carbon Dioxide 23 Anion Gap 8 BUN 43 H D Creatinine 2.1 H D POC Glucometer 114 Random Glucose 134 H D Calcium 8.4 L Creatine Kinase 487 H Creatine Kinase Index 0.5 CK-MB (CK-2) 2.914 Active Medications Generic Name Dose Route Start Last Admin Trade Name Cherie PRN Reason Stop Dose Admin Amlodipine Besylate 10 mg 01/04/17 08:45 01/04/17 12:36 Norvasc - PO Not Given DAILY [facility] Heparin Sodium (Porcine) 5,000 unit 01/02/17 18:45 01/04/17 13:41 Heparin - SQ Not Given TID [facility] Insulin Aspart 1 vial 01/02/17 22:00 01/04/17 12:36 Novolog Vial Sliding Scale - SQ Not Given ACHS [facility] Protocol Risperidone 0.5 mg 01/03/17 15:15 01/04/17 09:08 Risperdal - PO 0.5 mg BID [facility] Administration ASSESSMENT/PLAN: Patient is a 71 year old female who was found wondering in the hospital and became very agitated and combative. Patient admitted for further monitoring and management. AMS with Acute Psychosis -New onset with no history of psychiatric problems. -Unknown source as of now. -Patient started on Risperidone 0.5mg PO BID. Will need to monitor QTC as outpatient due to a QTC of 460 here. -1 to 1 observation as per psych -Discussed case with psych who would like to try to admit patient to inpatient psych due to this new onset of delusions she needs to be medically cleared by neurology. Nephew reports that the bizarre behavior started one month ago and before that she was working and independent. -Will discuss with neurology on the need for LP in order to place for inpatient psych. -EEG ordered as per neurology -Will consent for LP -Will try to obtain verbal consent for HIV testing SAL on CKD- resolved -Patient baseline 2.3 and is now 2.1 -Will continue to monitor Elevated CPK -Possibly secondary to statin. -Trending down -Will keep off statins -Continue to trend HTN -Increased Norvasc to 10mg as patient continued to have elevated BP HLD -Patient had elevated CPK and held all statins IDDMII -BGM -ISS Rheumatoid Arthritis -Follows print decorator Dr. Dr. Almazan in [place] -On Methotrexate weekly -On Ornecia weekly F/E/N -On no fluids -Electrolytes wnl -Diabetic diet Prophylaxis -Heparin 5000 units sq Q8H for DVT -No GI required Disposition -Full code -continues to have 1 to 1 obs. Will likely need inpatient psych Visit type - Emergency Visit Emergency Visit: Yes ED Registration Date: 01/02/17 Care time: The patient presented to the Emergency Department on the above date and was hospitalized for further evaluation of their emergent condition. - New Patient This patient is new to me today: No - Critical Care Critical Care patient: No
[2017-01-04 17:55] LABS: CSF APPEARANCE CLEAR; CSF COLOR COLORLESS
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
--- NOTE | 2017-01-04 17:59 | PROC ---
Lumbar Puncture Risks and Benefits Explained: Yes Consent on Chart: Yes Sterile Technique: Yes Skin prep: Betadine Position: Right lateral decubitus Site: L4-L51 Local Anesthesia: 1% Lidocaine with epi CSF Color, Appearance: Clear Sterile Dressing Applied: Yes
[2017-01-04 18:04] LABS: GLUCOSE,CSF 77 mg/dL (50-80)
[2017-01-04 18:05] LABS: GLUCOSE,CSF 78 mg/dL (50-80)
[2017-01-04 18:18] LABS: CSF APPEARANCE CLEAR; CSF COLOR COLORLESS
[2017-01-04 19:25] LABS: HIV 1 & 2 AB NEGATIVE; HIV 1 AGp24 NEGATIVE
[2017-01-04 19:49] LABS: CSF RBC 1
[2017-01-05] MEDS: HEPARIN NA (PORCINE) 5,000 UNITS/ML 1ML VIAL SQ SCH ×3 (06:17→22:01)
[2017-01-05] MEDS: INSULIN SLIDING SCALE (NOVOLOG) 1 VIAL SQ SCH ×4 (06:17→22:01)
[2017-01-05 08:19] LABS: ANION GAP 10 (8-16); CALCIUM 8.5 mg/dL (8.5-10.1); CO2 22 mmol/L (21-32); GLUCOSE,RANDOM 107 mg/dL (74-106)
[2017-01-05 08:23] LABS: CPK 366 IU/L (26-192); CREATININE 1.9 mg/dL (0.55-1.02)
[2017-01-05] MEDS: amLODIPine BESYLATE 10 MG TABLET (FP) PO SCH (09:38)
[2017-01-05] MEDS: risperiDONE 0.5 MG TABLET (FP) PO SCH ×2 (09:38→22:04)
--- NOTE | 2017-01-05 11:43 | PN ---
Progress Note (short form) - Note Progress Note: sunny franklin up: Case discussed with Colin, reviewed Neuro Consult and spoke to staff. No acute changes in patients mental status, still seems delusional. Patients Nephew reports that, She has been horboring all kinds of things including knives etc. she appears to belive that some thing ominous going to happen to her Nephew. Neuro Consult and work up is essentially Negative. including Cat Scan and MRI. Alex: Continue with 1:1 2) Continue with Risperidone3) will plan to transfer to In patient Psych on a 2PC.
--- NOTE | 2017-01-05 11:55 | PN ---
Progress Note (short form) - Note Progress Note: Addendum: patient continues to believe that her Nephew has been Homeless since he was 18yrs old and that his Mom put him out. she claims police brought him to her apartment where he is currantly living. She is uanble to respond to reality testing tyhat her Nephew told us that he is not home less and he does not look like one. Patient is alert, oriented to time , Place and person.
--- NOTE | 2017-01-05 13:45 | PN ---
Progress Note (short form) - Note Progress Note: Subjective: denied HDA< weakness, visual changes , or pain. She still believes her nephew lives with her, adn insists on this fact despite confrontation. when asked about the multiple bottles of dish washing liquid, and iced tea and water bottles found at home, she said sh bought them on sail . Objective: Vital Signs: Last Vital Signs Temp Pulse Resp BP Pulse Ox 97.7 F 75 20 141/79 98 01/05/17 09:00 01/05/17 09:00 01/05/17 09:00 01/05/17 09:00 01/04/17 21:00 Laboratory Results - last 24 hr 01/04/17 01/04/17 01/04/17 17:30 17:30 17:30 ESR Sodium Potassium Chloride Carbon Dioxide Anion Gap BUN Creatinine POC Glucometer Random Glucose Calcium Creatine Kinase Creatine Kinase Index CK-MB (CK-2) C-Reactive Protein Specimen Type Cancelled Fluid Culture Cancelled CSF Appearance Clear CSF Color Colorless CSF WBC 1 CSF RBC 1 CSF Neutrophils No Result Required. CSF Lymphocytes No Result Required. CSF Eosinophils No Result Required. CSF Basophils No Result Required. CSF Macrophages No Result Required. CSF Plasma Cells No Result Required. CSF Diff Comment No Result Required. CSF Comment CSF Glucose 78 CSF Total Protein 47 H CSF Lyme Disease DNA CSF Herpes II IgG Ab Cancelled HSV I DNA Quant (PCR) Cancelled HSV II DNA Quant (PCR) Cancelled HIV 1&2 Antibody Screen HIV P24 Antigen H.influenzae Type B Ag Cancelled N. meningitidis Antigen Cancelled Group B Strep Antigen Cancelled S. pneumoniae Antigen Cancelled Organism ID Cancelled 01/04/17 01/04/17 01/04/17 17:30 17:30 17:35 ESR Sodium Potassium Chloride Carbon Dioxide Anion Gap BUN Creatinine POC Glucometer 146 Random Glucose Calcium Creatine Kinase Creatine Kinase Index CK-MB (CK-2) C-Reactive Protein Specimen Type Fluid Culture CSF Appearance Clear CSF Color Colorless CSF WBC 1 CSF RBC 1.00 CSF Neutrophils Y CSF Lymphocytes CSF Eosinophils CSF Basophils CSF Macrophages CSF Plasma Cells CSF Diff Comment CSF Comment CSF Glucose 77 CSF Total Protein 47 H CSF Lyme Disease DNA Cancelled CSF Herpes II IgG Ab HSV I DNA Quant (PCR) HSV II DNA Quant (PCR) HIV 1&2 Antibody Screen HIV P24 Antigen H.influenzae Type B Ag N. meningitidis Antigen Group B Strep Antigen S. pneumoniae Antigen Organism ID 01/04/17 01/04/17 01/04/17 18:20 18:20 18:20 ESR 70 H Sodium Potassium Chloride Carbon Dioxide Anion Gap BUN Creatinine POC Glucometer Random Glucose Calcium Creatine Kinase Creatine Kinase Index CK-MB (CK-2) C-Reactive Protein 0.4 H Specimen Type Fluid Culture CSF Appearance CSF Color CSF WBC CSF RBC CSF Neutrophils CSF Lymphocytes CSF Eosinophils CSF Basophils CSF Macrophages CSF Plasma Cells CSF Diff Comment CSF Comment CSF Glucose CSF Total Protein CSF Lyme Disease DNA CSF Herpes II IgG Ab HSV I DNA Quant (PCR) HSV II DNA Quant (PCR) HIV 1&2 Antibody Screen Negative HIV P24 Antigen Negative H.influenzae Type B Ag N. meningitidis Antigen Group B Strep Antigen S. pneumoniae Antigen Organism ID 01/04/17 01/05/17 01/05/17 21:36 06:15 06:30 ESR Sodium 142 Potassium 4.1 Chloride 110 H Carbon Dioxide 22 Anion Gap 10 BUN 36 H Creatinine 1.9 H POC Glucometer 145 120 Random Glucose 107 H D Calcium 8.5 Creatine Kinase 366 H Creatine Kinase Index 0.7 CK-MB (CK-2) 2.640 C-Reactive Protein Specimen Type Fluid Culture CSF Appearance CSF Color CSF WBC CSF RBC CSF Neutrophils CSF Lymphocytes CSF Eosinophils CSF Basophils CSF Macrophages CSF Plasma Cells CSF Diff Comment CSF Comment CSF Glucose CSF Total Protein CSF Lyme Disease DNA CSF Herpes II IgG Ab HSV I DNA Quant (PCR) HSV II DNA Quant (PCR) HIV 1&2 Antibody Screen HIV P24 Antigen H.influenzae Type B Ag N. meningitidis Antigen Group B Strep Antigen S. pneumoniae Antigen Organism ID 01/05/17 11:57 ESR Sodium Potassium Chloride Carbon Dioxide Anion Gap BUN Creatinine POC Glucometer 132 Random Glucose Calcium Creatine Kinase Creatine Kinase Index CK-MB (CK-2) C-Reactive Protein Specimen Type Fluid Culture CSF Appearance CSF Color CSF WBC CSF RBC CSF Neutrophils CSF Lymphocytes CSF Eosinophils CSF Basophils CSF Macrophages CSF Plasma Cells CSF Diff Comment CSF Comment CSF Glucose CSF Total Protein CSF Lyme Disease DNA CSF Herpes II IgG Ab HSV I DNA Quant (PCR) HSV II DNA Quant (PCR) HIV 1&2 Antibody Screen HIV P24 Antigen H.influenzae Type B Ag N. meningitidis Antigen Group B Strep Antigen S. pneumoniae Antigen Organism ID Physical Exam: NAD, awake , alert and oriented x 3 CV: RRR, 3/6 SM at base and LLSB with radiation to carotids . 3/6 SM At apex with radiation to axilla Lungs; CTAB Ext: no edema Neuro: EOMI, round equal pupils , reactive to light. no facial droop. strength 5 /5 in upper and lower extremities proximally and distally. sensation to light touch is nL. reflexes 2+ knee jerk and biceps b/l ASSESSMENT AND PLAN: 71 y/o lady with h/o CKD , Rheumatoid Arthritis, IDDM, HLD and other problems who presented with AMS and agitation 1- AMS with psychosis: work up so far neg. - LP with no signs of infection . follow other CSF labs - cont Risperidone started last night - QTC 460 , boarder line . needs to be monitored as outpt if respirdal is continued - d/w Dr. George , plan inpatient psych. - d/w Nephew , he is agreeable 2- CKD with SAL :base line Cr per his rhumatologist is 2.4 likely prerenal component. - Cr 1.9 . - will dc IVF 3- H/o DM : she takes levemir TID at home , but per phamacy 20 daily . - cont SSI now . A1c 5.6 . at DC she will not require insulin. will switch to po meds 4- Elevated CPK: likely due to statin, vs mild Rhabdo. - off atorvastatin 5- Elevated trop : likely due to decreased clearance in setting of renal failure. level improved - will need a stress test as outpt - start aspirin tomorrow 6- HTN: cont norvasc DIspo : possible inpt psych placement Visit type - Emergency Visit Emergency Visit: Yes ED Registration Date: 01/02/17 Care time: The patient presented to the Emergency Department on the above date and was hospitalized for further evaluation of their emergent condition. - New Patient This patient is new to me today: No - Critical Care Critical Care patient: No
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
--- NOTE | 2017-01-06 06:33 | PN ---
Physical Exam: SUBJECTIVE: Patient to seen and examined by me this AM - No major overnight events. Pt with no major complaints. Endorses good energy level, sleep and appetite - Pt denies any [place]/dizziness, CP, palpitations, SOB, N/V, diarrhea/constipation , dysuria. - Initially resistant to possibility of transfer to inpatient psych [facility]. No longer endorses that her nephew lives w/ her, but states he is going to live with her when she returns home OBJECTIVE: Vital Signs Period Temp Pulse Resp BP Sys/Hanna Pulse Ox Last 24 Hr 97.7 F-98.2 F 75-82 16-20 141-153/73-91 98 GENERAL: The patient is awake, alert, and fully oriented, in no acute distress. HEAD: Normal with no signs of trauma. EYES: PERRL, extraocular movements intact, sclera anicteric, conjunctiva clear. No ptosis. ENT: Ears normal, nares patent, oropharynx clear without exudates, moist mucous membranes. NECK: Trachea midline, full range of motion, supple. No JVD noted LUNGS: Breath sounds equal, clear to auscultation bilaterally, no wheezes, no crackles, no accessory muscle use. HEART: 3/6 systolic ejection murmur noted, best heard at RUSB w/ radiation to carotids. Regular rate and rhythm, S1, S2. No gallop or rub appreciated. ABDOMEN: Soft, nontender, nondistended, normoactive bowel sounds, no guarding, no rebound, no hepatosplenomegaly, no masses. EXTREMITIES: 2+ pulses, warm, well-perfused, no edema. NEUROLOGICAL: Cranial nerves II through XII grossly intact. 5/5 strength in all flexor/extensor groups in all extremities. Sensation to light touch preserved in all extremities. Normal speech and gait. PSYCH: Constricted affect. Denies any depressive or manic symptoms. Denies auditory or visual hallucinations. Denies any thought insertion/broadcasting. Laboratory Results - last 24 hr CBC, BMP 01/03/17 06:00 01/05/17 06:30 01/04/17 01/04/17 01/04/17 17:30 17:30 17:30 Sodium Potassium Chloride Carbon Dioxide Anion Gap BUN Creatinine POC Glucometer Random Glucose Calcium Creatine Kinase Creatine Kinase Index CK-MB (CK-2) Specimen Type Cancelled Fluid Culture Cancelled CSF Lyme Disease DNA Cancelled CSF Herpes II IgG Ab Cancelled HSV I DNA Quant (PCR) Cancelled HSV II DNA Quant (PCR) Cancelled H.influenzae Type B Ag Cancelled N. meningitidis Antigen Cancelled Group B Strep Antigen Cancelled S. pneumoniae Antigen Cancelled Organism ID Cancelled 01/05/17 01/05/17 01/05/17 06:15 06:30 11:57 Sodium 142 Potassium 4.1 Chloride 110 H Carbon Dioxide 22 Anion Gap 10 BUN 36 H Creatinine 1.9 H POC Glucometer 120 132 Random Glucose 107 H D Calcium 8.5 Creatine Kinase 366 H Creatine Kinase Index 0.7 CK-MB (CK-2) 2.640 Specimen Type Fluid Culture CSF Lyme Disease DNA CSF Herpes II IgG Ab HSV I DNA Quant (PCR) HSV II DNA Quant (PCR) H.influenzae Type B Ag N. meningitidis Antigen Group B Strep Antigen S. pneumoniae Antigen Organism ID 01/05/17 01/05/17 01/06/17 17:27 20:52 05:29 Sodium Potassium Chloride Carbon Dioxide Anion Gap BUN Creatinine POC Glucometer 116 164 126 Random Glucose Calcium Creatine Kinase Creatine Kinase Index CK-MB (CK-2) Specimen Type Fluid Culture CSF Lyme Disease DNA CSF Herpes II IgG Ab HSV I DNA Quant (PCR) HSV II DNA Quant (PCR) H.influenzae Type B Ag N. meningitidis Antigen Group B Strep Antigen S. pneumoniae Antigen Organism ID Active Medications Generic Name Dose Route Start Last Admin Trade Name Freq PRN Reason Stop Dose Admin Amlodipine Besylate 10 mg 01/04/17 08:45 01/05/17 09:38 Norvasc - PO 10 mg DAILY ANGELLA Administration Aspirin 81 mg 01/06/17 10:00 Ecotrin - PO DAILY ANGELLA Heparin Sodium (Porcine) 5,000 unit 01/02/17 18:45 01/05/17 22:01 Heparin - SQ 5,000 unit TID ANGELLA Administration Insulin Aspart 1 vial 01/02/17 22:00 01/05/17 22:01 Novolog Vial Sliding Scale - SQ 2 units ACHS ANGELLA Administration Protocol Risperidone 0.5 mg 01/03/17 15:15 01/05/17 22:04 Risperdal - PO 0.5 mg BID ANGELLA Administration Microbiology 01/04/17 17:30 Cerebral Spinal Fluid - Lumbar Puncture Gram Stain - Final 01/04/17 17:30 Cerebral Spinal Fluid - Lumbar Puncture CSF Culture - Preliminary NO GROWTH OBTAINED AFTER 24 HOURS INCUBATION, REINCUBATED. 01/02/17 17:15 Urine - Urine Clean Catch Urine Culture - Final NO GROWTH OBTAINED Recent Imaging: C-spine MRI 01/04 (per radiology read) - Central/right paracentral disc extrusion at C6-C7 mildly encroaching on the right aspect of the cord and compromising the right ventral C7 nerve root. Large left foraminal disc osteophytes at C5-6 causing severe left foraminal stenosis. Central disc protrusion at C4-C5 mildly reaching the anterior aspect of the cord. Moderate posterior facet arthritic changes. ASSESSMENT/PLAN: 71 y/o woman w/ pmh of RA, CKD, IDDM and HLD who initially presented with acute agitation and AMS w/ no prior psychiatric hx. 1. AMS- Current work-up negative for medical dz. Likely due to psychiatric condition. - Serial psych assessments - Continue Risperdal 0.5 mg BID. QTc 452 ms on most recent EKG. Will require outpt ekg monitoring. - CSF culture/stain negative for infection at this point - F/u encephalitis panel - 2PC per psych recommendations. Plan for transfer to inpatient psych facility, possibly tomorrow. - Communicate plan to nephew 2. CKD w/ SAL - baseline Cr 2.4 per prior notes - Cr 1.9 (01/05). BMP tomorrow AM - IVFs d/c given correction to baseline Cr 3. IDDM - A1C 5.6 during this admission. - D/c ISS - Started on Januvia 25mg daily 4. Elevated Troponin -> elevated on admission, possibly due to decreased renal clearance. Values normalized on 01/03 - Outpt cardiology f/u. Will require stress test - Started on ASA 81 mg daily 5. Elevated CPK - possibly due to statin vs. mild rhabdomyolysis - Atorvastatin held. Will restart at lower dose. 6. HTN - Continue Norvasc 10 mg PO daily 7. Cervical disc protrusion/stenosis - Confirmed on MRI of c-spine. No physical exam findings of cervical radiculopathy, pain on extension/flexion/rotation - Referral for neurosurgery for further work-up as outpt Plan discussed with attending, Dr. Sarita Ruggiero, PGY1 Visit type - Emergency Visit Emergency Visit: No - New Patient This patient is new to me today: Yes Date on this admission: 01/06/17 - Critical Care Critical Care patient: No
[2017-01-06] MEDS: INSULIN SLIDING SCALE (NOVOLOG) 1 VIAL SQ SCH ×3 (06:49→17:54)
[2017-01-06] MEDS: HEPARIN NA (PORCINE) 5,000 UNITS/ML 1ML VIAL SQ SCH ×3 (06:49→22:02)
[2017-01-06] MEDS: risperiDONE 0.5 MG TABLET (FP) PO SCH ×2 (09:37→22:02)
[2017-01-06] MEDS: amLODIPine BESYLATE 10 MG TABLET (FP) PO SCH (09:37)
--- NOTE | 2017-01-06 09:54 | EKG ---
Test Reason : Blood Pressure : / mmHG Vent. Rate : 074 BPM Atrial Rate : 074 BPM P-R Int : 166 ms QRS Dur : 084 ms QT Int : 408 ms P-R-T Axes : 048 067 139 degrees QTc Int : 452 ms NORMAL SINUS RHYTHM ABNORMAL ECG WHEN COMPARED WITH ECG OF 02-JAN-2017 17:45, NO SIGNIFICANT CHANGE WAS FOUND Confirmed by KANE LEROY MD ([id number]) on 01/06/2017 9:53:52 AM Referred By: Ana HUI Confirmed By:KANE LEROY MD
--- NOTE | 2017-01-06 12:57 | PN ---
Progress Note (short form) - Note Progress Note: Patient is still delusional and lacks insight into reality. Patient isMedically and Neurogically stable. Plan: Continue with 1;1 2) transfer to In patient psych on a 2PC.
--- NOTE | 2017-01-06 15:54 | PN ---
Teaching Attending Note Name of Resident: Mayito Ruggiero ATTENDING PHYSICIAN STATEMENT I saw and evaluated the patient. I reviewed the resident's note and discussed the case with the resident. I agree with the resident's findings and plan as documented. SUBJECTIVE: denies any pain, SOB , weakness, numbness or tingling OBJECTIVE: NAD, awake , alert and oriented x 3 CV: RRR, 3/6 SM at base and LLSB with radiation to carotids . 3/6 SM At apex with radiation to axilla Lungs; CTAB Ext: no edema Neuro: EOMI, round equal pupils , reactive to light. no facial droop. strength 5 /5 in upper and lower extremities proximally and distally. sensation to light touch is nL. reflexes 2+ knee jerk and biceps b/l ASSESSMENT AND PLAN: 71 y/o lady with h/o CKD , Rheumatoid Arthritis, IDDM, HLD and other problems who presented with AMS and agitation 1- AMS with psychosis: organic w/u neg to date - concern for psychiatric disorder as primary cause - cont respirdal - SCF cx neg. - C spine ct with disk bulging ( although central bulge is seen, neuro exam is nL and there is no hyperreflexia ) f/u as out pt with neuro sx - other serologies an CSF studdies need to be followed : Anti HU/Yo abs, Lyme , west nile , and toxo. Javier viru s and neuromyelitis . - transfer to Inpt psych when bed is available . 2PC 2- CKD with SAL :base line Cr per his rhumatologist is 2.4 likely prerenal component. - BMP today if pt agrees 3- H/o DM : she takes levemir TID at home , but per phamacy 20 daily . - cont SSI now . A1c 5.6 . at DC she will not require insulin. possibly januvia 4- Elevated CPK: likely due to statin, vs mild Rhabdo. - off atorvastatin 5- Elevated trop : likely due to decreased clearance in setting of renal failure. level improved - will need a stress test as outpt - aspirin started 6- HTN: cont norvasc Dispo : Tx to inpt psych when available
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
[2017-01-06] MEDS: sitaGLIPtin PHOSPHATE 25 MG TABLET (FP) PO SCH (17:56)
[2017-01-07] MEDS: HEPARIN NA (PORCINE) 5,000 UNITS/ML 1ML VIAL SQ SCH ×3 (06:18→21:14)
[2017-01-07] MEDS: sitaGLIPtin PHOSPHATE 25 MG TABLET (FP) PO SCH (06:18)
--- NOTE | 2017-01-07 06:47 | PN ---
Physical Exam: SUBJECTIVE: Patient seen and examined by me this AM - No major overnight events. Wishes to go home and does not believe she should be admitted to inpatient psych service. Counseled on the importance of further psychiatric care. Continues to endorse delusion that nephew is planning on living w/ her after she leaves hospital - Denies any fevers/chills, SOB, CP, palpitations, cough, N/V, abdominal pain, dysuria, constipation/diarrhea or peripheral numbness/weakness OBJECTIVE: Vital Signs Period Temp Pulse Resp BP Sys/Hanna Pulse Ox Last 24 Hr 97.5 F-98.2 F 62-86 16-18 151-162/73-82 98-98 GENERAL: The patient is awake, A&Ox3 to person, place and date. No acute distress. HEAD: Normal with no signs of trauma. EYES: PERRL, limited deviation BL when looking left; all other sclera anicteric , conjunctiva clear. No ptosis. ENT: Ears normal, nares patent, oropharynx clear without exudates, moist mucous membranes. NECK: Trachea midline, full range of motion, supple. No JVD noted LUNGS: Breath sounds equal, clear to auscultation bilaterally, no wheezes, no crackles, no accessory muscle use. HEART: 3/6 systolic ejection murmur noted, best heard at RUSB w/ radiation to carotids. Regular rate and rhythm, S1, S2. No gallop or rub appreciated. ABDOMEN: Soft, nontender, nondistended, normoactive bowel sounds, no guarding, no rebound, no hepatosplenomegaly, no masses. EXTREMITIES: 2+ pulses, warm, well-perfused, no edema. NEUROLOGICAL: Cranial nerves II through XII grossly intact. 5/5 strength in all flexor/extensor groups in all extremities. Sensation to light touch preserved in all extremities. Normal speech and gait. PSYCH: Constricted affect. Denies any depressive or manic symptoms. Denies auditory or visual hallucinations. Denies any thought insertion/broadcasting. Denies any suicidal/homicidal ideation. Able to recall 1/3 items. Able to perform serial sevens with no errors. Intermediate and long-term memory intact ( able to recall past five presidents, dinner). Abstract thought intact. Limited insight/judgment with regard to reason for hospitalizations. Laboratory Results - last 24 hr CBC, BMP 01/03/17 06:00 01/07/17 06:00 Laboratory Results - last 24 hr 01/06/17 01/06/17 01/07/17 11:29 17:12 00:55 Sodium Chloride Carbon Dioxide Anion Gap BUN Creatinine POC Glucometer 168 120 132 Random Glucose Calcium Triglycerides Cholesterol Total LDL Cholesterol HDL Cholesterol 01/07/17 01/07/17 01/07/17 06:00 06:00 06:17 Sodium 141 Chloride 108 H Carbon Dioxide 22 Anion Gap 11 BUN 40 H Creatinine 2.0 H POC Glucometer 111 Random Glucose 116 H Calcium 9.1 Triglycerides 149 D Cholesterol 264 H Total LDL Cholesterol 177 H HDL Cholesterol 62 H Active Medications Generic Name Dose Route Start Last Admin Trade Name Freq PRN Reason Stop Dose Admin Amlodipine Besylate 10 mg 01/04/17 08:45 01/06/17 09:37 Norvasc - PO 10 mg DAILY ANGELLA Administration Aspirin 81 mg 01/06/17 10:00 Ecotrin - PO DAILY [facility] Heparin Sodium (Porcine) 5,000 unit 01/02/17 18:45 01/07/17 06:18 Heparin - SQ 5,000 unit TID [facility] Administration Risperidone 0.5 mg 01/03/17 15:15 01/06/17 22:02 Risperdal - PO 0.5 mg BID ANGELLA Administration Sitagliptin Phosphate 25 mg 01/06/17 17:45 01/07/17 06:18 Januvia - PO 25 mg DAILY@0700 ANGELLA Administration Microbiology 01/04/17 17:30 Cerebral Spinal Fluid - Lumbar Puncture Gram Stain - Final 01/04/17 17:30 Cerebral Spinal Fluid - Lumbar Puncture CSF Culture - Final NO GROWTH AFTER 48 HOURS INCUBATION 01/02/17 17:15 Urine - Urine Clean Catch Urine Culture - Final NO GROWTH OBTAINED Imaging: Recent Imaging: C-spine MRI 01/04 (per radiology read) - Central/right paracentral disc extrusion at C6-C7 mildly encroaching on the right aspect of the cord and compromising the right ventral C7 nerve root. Large left foraminal disc osteophytes at C5-6 causing severe left foraminal stenosis. Central disc protrusion at C4-C5 mildly reaching the anterior aspect of the cord. Moderate posterior facet arthritic changes. ECHO 01/03 - Mild concentric LVH. LA dilatation. Elevated RV pressures to 50- 60. Mild MR, Moderate TR ASSESSMENT/PLAN: 71 y/o woman w/ pmh of RA, CKD, IDDM and HLD who initially presented with acute agitation and AMS w/ no prior psychiatric hx. 1. AMS- Current work-up negative for medical dz. Likely due to psychiatric condition. - Serial psych assessments - Continue Risperdal 0.5 mg BID. QTc 452 ms on most recent EKG. Will require outpt ekg monitoring. - CSF culture/stain negative for infection at this point - F/u encephalitis panel - 2PC completed. Plan for transfer to inpatient psych facility awaiting placement. - Will defer to psychiatric team for placement and coordinate w/ SW 2. CKD w/ SAL - baseline Cr 2.4 per prior notes - Cr 2.0 (01/07). Continue to trend Cr. 3. IDDM - A1C 5.6 during this admission. ISS d/c'ed 2/2 risk of hypoglycemia - Started on Januvia 25mg daily yesterday. d/c'ed ISS 4. Elevated Troponin -> elevated on admission, possibly due to decreased renal clearance. Values normalized on 01/03 - Outpt cardiology f/u. Will require stress test - ASA d/c'ed 2/2 pt allergy. - Total cholesterol 264, LDL 177. Atorvastatin restarted at 20mg PO daily. Will monitor for signs of rhabdo w/ f/u CPK 5. Elevated CPK - possibly due to statin vs. mild rhabdomyolysis - Atorvastatin restarted - f/u CPK in 2 days 6. HTN - Continue Norvasc 10 mg PO daily 7. Cervical disc protrusion/stenosis - Confirmed on MRI of c-spine. No physical exam findings of cervical radiculopathy, pain on extension/flexion/rotation - Referral for neurosurgery for further work-up as outpt Plan discussed with attending, Dr. Sarita Ruggiero, PGY1 Visit type - Emergency Visit Emergency Visit: No - New Patient This patient is new to me today: No - Critical Care Critical Care patient: No
[2017-01-07 07:52] LABS: ANION GAP 11 (8-16); CALCIUM 9.1 mg/dL (8.5-10.1); CO2 22 mmol/L (21-32); GLUCOSE,RANDOM 116 mg/dL (74-106)
[2017-01-07 08:01] LABS: CHOLESTEROL 264 mg/dL (50-200)
[2017-01-07] MEDS: amLODIPine BESYLATE 10 MG TABLET (FP) PO SCH (09:54)
[2017-01-07] MEDS: risperiDONE 0.5 MG TABLET (FP) PO SCH ×2 (09:54→21:13)
--- NOTE | 2017-01-07 13:23 | PN ---
Teaching Attending Note Name of Resident: Mayito Ruggiero ATTENDING PHYSICIAN STATEMENT I saw and evaluated the patient. I reviewed the resident's note and discussed the case with the resident. I agree with the resident's findings and plan as documented. SUBJECTIVE: No fever or chills. No pain or SOB. has no weakness, numbness or tingling OBJECTIVE: NAD, awake , alert and oriented x 3 , flat affect CV: RRR, 3/6 SM at base and LLSB with radiation to carotids . 3/6 SM At apex with radiation to axilla Lungs; CTAB Ext: no edema Neuro: EOMI, round equal pupils , reactive to light. no facial droop. strength 5 /5 in upper and lower extremities proximally and distally. sensation to light touch is nL. reflexes 2+ knee jerk and biceps b/l ASSESSMENT AND PLAN: 71 y/o lady with h/o CKD , Rheumatoid Arthritis, IDDM, HLD and other problems who presented with AMS and agitation 1- AMS with psychosis: organic w/u neg to date - concern for psychiatric disorder as primary cause - cont respirdal - C spine ct with disk bulging ( although central bulge is seen, neuro exam is nL and there is no hyperreflexia ) f/u as out pt with neuro sx - Other serologies an CSF studies need to be followed: Anti HU/Yo abs, Lyme , [place] , and toxo. Javier viru s and neuromyelitis . - transfer to Inpt psych when bed is available . 2PC done 2- CKD with SAL :base line Cr 2.4 likely prerenal component. - stable cr 3- H/o DM :A1c 5.6 too controlled and risk of hypoglycemia with insulin ( has been taking levemir 3 times a day ) - changed insulin to JAnuvia . will not dc on insulin 4- HLP : 10 yr CVv risk per [place] scale 66%. - resume and increase lipitor at 20 mg 5- Elevated trop : likely due to decreased clearance in setting of renal failure. level improved - will need a stress test as outpt - allergic to asa 6- HTN: cont norvasc Dispo : Tx to inpt psych when available
[2017-01-07] MEDS: ASPIRIN COATED 81 MG TABLET.EC PO SCH (14:56)
[2017-01-07] MEDS: ATORVASTATIN CA 20 MG TABLET (FP) PO SCH ×2 (15:21→21:14)
[2017-01-08] MEDS: HEPARIN NA (PORCINE) 5,000 UNITS/ML 1ML VIAL SQ SCH ×3 (06:05→21:50)
[2017-01-08] MEDS: sitaGLIPtin PHOSPHATE 25 MG TABLET (FP) PO SCH (06:06)
--- NOTE | 2017-01-08 06:39 | PN ---
Physical Exam: SUBJECTIVE: Patient seen and examined by me this AM - No major overnight events. Pt w/ no complaints. Good energy, appetite and sleep habits. Still with delusion about nephew living with her after d/c. Informed about plan for transfer today if placement approved at [facility]. - Denies fever/chills, CP, palpitations, cough, abdominal pain, N/V, dysuria, diarrhea/constipation, peripheral weakness/numbness. Denies any hallucinations or homicidal/suicical ideation OBJECTIVE: Vital Signs Period Temp Pulse Resp BP Sys/Hanna Pulse Ox Last 24 Hr 72 F-98.0 F 72-77 18-20 150-178/66-78 98-99 GENERAL: The patient is awake, A&Ox3 to person, place and date. No acute distress. HEAD: Normal with no signs of trauma. EYES: PERRL, still w/ limited deviation BL when looking left; sclera anicteric, conjunctiva clear. No ptosis. ENT: Ears normal, nares patent, oropharynx clear without exudates, moist mucous membranes. NECK: Trachea midline, supple. No JVD noted LUNGS: Breath sounds equal, clear to auscultation bilaterally, no wheezes, no crackles, no accessory muscle use. HEART: 3/6 systolic ejection murmur noted, best heard at RUSB w/ radiation to carotids. Regular rate and rhythm, S1, S2. No gallop or rub appreciated. ABDOMEN: Soft, nontender, nondistended, normoactive bowel sounds, no guarding, no rebound, no hepatosplenomegaly, no masses. EXTREMITIES: 2+ pulses, warm, well-perfused, no edema. PSYCH: Constricted affect. No hallucinations, suicidal/homicidal ideation. Laboratory Results - last 24 hr CBC, BMP 01/03/17 06:00 01/07/17 06:00 01/07/17 01/07/17 01/07/17 06:00 06:00 06:17 Sodium 141 Potassium 4.5 Chloride 108 H Carbon Dioxide 22 Anion Gap 11 BUN 40 H Creatinine 2.0 H POC Glucometer 111 Random Glucose 116 H Calcium 9.1 Triglycerides 149 D Cholesterol 264 H Total LDL Cholesterol 177 H HDL Cholesterol 62 H 01/07/17 01/07/17 01/08/17 11:22 17:35 06:03 Sodium Potassium Chloride Carbon Dioxide Anion Gap BUN Creatinine POC Glucometer 168 110 139 Random Glucose Calcium Triglycerides Cholesterol Total LDL Cholesterol HDL Cholesterol Active Medications Generic Name Dose Route Start Last Admin Trade Name Cherie PRN Reason Stop Dose Admin Amlodipine Besylate 10 mg 01/04/17 08:45 01/07/17 09:54 Norvasc - PO 10 mg DAILY ANGELLA Administration Atorvastatin Calcium 20 mg 01/07/17 12:15 01/07/17 21:14 Lipitor - PO 20 mg HS ANGELLA Administration Heparin Sodium (Porcine) 5,000 unit 01/02/17 18:45 01/08/17 06:05 Heparin - SQ 5,000 unit TID ANGELLA Administration Risperidone 0.5 mg 01/03/17 15:15 01/07/17 21:13 Risperdal - PO 0.5 mg BID ANGELLA Administration Sitagliptin Phosphate 25 mg 01/06/17 17:45 01/08/17 06:06 Januvia - PO 25 mg DAILY@0700 ANGELLA Administration Microbiology 01/04/17 17:30 Cerebral Spinal Fluid - Lumbar Puncture Gram Stain - Final 01/04/17 17:30 Cerebral Spinal Fluid - Lumbar Puncture CSF Culture - Final NO GROWTH AFTER 48 HOURS INCUBATION 01/02/17 17:15 Urine - Urine Clean Catch Urine Culture - Final NO GROWTH OBTAINED Recent Imaging: C-spine MRI 01/04 (per radiology read) - Central/right paracentral disc extrusion at C6-C7 mildly encroaching on the right aspect of the cord and compromising the right ventral C7 nerve root. Large left foraminal disc osteophytes at C5-6 causing severe left foraminal stenosis. Central disc protrusion at C4-C5 mildly reaching the anterior aspect of the cord. Moderate posterior facet arthritic changes. ECHO 01/03 - Mild concentric LVH. LA dilatation. Elevated RV pressures to 50- 60. Mild MR, Moderate TR ASSESSMENT/PLAN: 71 y/o woman w/ pmh of RA, CKD, IDDM and HLD who initially presented with acute agitation and AMS w/ no prior psychiatric hx. 1. AMS- Current work-up negative for medical dz. Likely due to psychiatric condition. - Serial psych assessments - Continue Risperdal 0.5 mg BID. QTc 452 ms on most recent EKG. Will require outpt ekg monitoring. - CSF culture/stain negative at this point - F/u encephalitis panel - Denied placement at [facility] today due to underlying chronic medical conditions/age/possible dementia component to AMS - Will continue to coordinate w/ SW for placement at inpatient psych facility. 2. CKD w/ SAL - baseline Cr 2.4 per prior notes - Cr 2.0 (01/07). Continue to trend Cr. 3. IDDM - A1C 5.6 during this admission. ISS d/c'ed 2/2 risk of hypoglycemia - Started on Januvia 25mg daily yesterday. d/c'ed ISS 4. Elevated Troponin -> elevated on admission, possibly due to decreased renal clearance. Values normalized on 01/03 - Outpt cardiology f/u. Will require stress test - Total cholesterol 264, LDL 177. Atorvastatin restarted yesterday at 20mg PO daily. Will monitor for signs of rhabdo w/ f/u CPK - [place] score calculated at 66% 5. Elevated CPK - possibly due to statin vs. mild rhabdomyolysis - Atorvastatin restarted yesterday - f/u CPK in 2 days 6. HTN - Continue Norvasc 10 mg PO daily 7. Cervical disc protrusion/stenosis - Confirmed on MRI of c-spine. No physical exam findings of cervical radiculopathy, pain on extension/flexion/rotation - Referral for neurosurgery for further work-up as outpt Dispo: Plan for discharge today if placement at [facility] psych navar[facility]te. Will coordinate w/ social work. Plan discussed with attending, Dr. Noelle Ruggiero, PGY1 Visit type - Emergency Visit Emergency Visit: No - New Patient This patient is new to me today: No - Critical Care Critical Care patient: No
--- NOTE | 2017-01-08 08:42 | PN ---
Teaching Attending Note Name of Resident: Mayito Ruggiero ATTENDING PHYSICIAN STATEMENT I saw and evaluated the patient. I reviewed the resident's note and discussed the case with the resident. I agree with the resident's findings and plan as documented. SUBJECTIVE: Patient is comfortable with no acute distress. Awake, oriented x3. No fever or chills, no shortness of breath. has no complains. Patient stated that she was looking for her nephew in the hospital that's how she ended up in the hospital. OBJECTIVE: Vital Signs Temperature 98.6 F 01/08/17 06:00 Pulse Rate 79 01/08/17 06:00 Respiratory Rate 20 01/08/17 06:00 Blood Pressure 156/84 01/08/17 06:00 O2 Sat by Pulse Oximetry (%) 99 01/07/17 20:55 WBC 5.2 K/mm3 (4.0-10.0) D 01/03/17 06:00 RBC 3.34 M/mm3 (3.60-5.2) L 01/03/17 06:00 Hgb 9.9 GM/dL (10.7-15.3) L 01/03/17 06:00 Hct 29.2 % (32.4-45.2) L 01/03/17 06:00 MCV 87.4 fl (80-96) 01/03/17 06:00 MCHC 33.9 g/dl (32.0-36.0) 01/03/17 06:00 RDW 14.2 % (11.6-15.6) 01/03/17 06:00 Plt Count 155 K/MM3 (134-434) D 01/03/17 06:00 MPV 8.5 fl (7.5-11.1) 01/03/17 06:00 CMP Sodium 141 mmol/L (136-145) 01/07/17 06:00 Potassium 4.5 mmol/L (3.5-5.1) 01/07/17 06:00 Chloride 108 mmol/L (98-107) H 01/07/17 06:00 Carbon Dioxide 22 mmol/L (21-32) 01/07/17 06:00 Anion Gap 11 (8-16) 01/07/17 06:00 BUN 40 mg/dL (7-18) H 01/07/17 06:00 Creatinine 2.0 mg/dL (0.55-1.02) H 01/07/17 06:00 Creat Clearance w eGFR 15.91 (>60) 01/03/17 06:00 Random Glucose 116 mg/dL (74-106) H 01/07/17 06:00 Calcium 9.1 mg/dL (8.5-10.1) 01/07/17 06:00 Total Bilirubin 0.7 mg/dL (0.2-1.0) D 01/03/17 06:00 AST 23 U/L (15-37) 01/03/17 06:00 ALT 16 U/L (12-78) 01/03/17 06:00 Alkaline Phosphatase 72 U/L (45-117) 01/03/17 06:00 Total Protein 6.7 g/dl (6.4-8.2) 01/03/17 06:00 Albumin 3.4 g/dl (3.4-5.0) 01/03/17 06:00 CARDIAC ENZYMES Creatine Kinase 366 IU/L (26-192) H 01/05/17 06:30 Troponin I 0.09 ng/ml (0.00-0.05) H 01/03/17 11:00 Current Medications Generic Name Dose Route Start Last Admin Trade Name Miquelq PRN Reason Stop Dose Admin Amlodipine Besylate 10 mg 01/04/17 08:45 01/07/17 09:54 Norvasc - PO 10 mg DAILY ANGELLA Administration Atorvastatin Calcium 20 mg 01/07/17 12:15 01/07/17 21:14 Lipitor - PO 20 mg HS ANGELLA Administration Heparin Sodium (Porcine) 5,000 unit 01/02/17 18:45 01/08/17 06:05 Heparin - SQ 5,000 unit TID ANGELLA Administration Risperidone 0.5 mg 01/03/17 15:15 01/07/17 21:13 Risperdal - PO 0.5 mg BID ANGELLA Administration Sitagliptin Phosphate 25 mg 01/06/17 17:45 01/08/17 06:06 Januvia - PO 25 mg DAILY@0700 ANGELLA Administration Home Medications Medication Instructions Recorded Calcitriol [Calcitriol -] 0.25 mcg PO DAILY 01/03/17 Abatacept [Orencia] 125 mg SQ WEEKLY #1 syringe 01/07/17 Amlodipine Besylate [Norvasc -] 10 mg PO DAILY #30 tablet 01/07/17 Atorvastatin Ca [Lipitor] 20 mg PO HS #30 tablet 01/07/17 Folic Acid 1 tab PO DAILY #30 tablet 01/07/17 Methotrexate [Xatmep] 2.5 mg PO WEEKLY #1 solution 01/07/17 Risperidone [Risperdal -] 0.5 mg PO BID #60 tablet 01/07/17 Sitagliptin Phosphate [Januvia -] 25 mg PO DAILY@0700 #30 tab 01/07/17 PE: per resident's note CVD: S1S2 positive, DENA 3/ LSB-->axilla EVENT PLANNER: Cn 2-12 grossly intact EXt: pulses are 2+ Pch: AAOx3 ASSESSMENT AND PLAN: Patient is a 71 y/o female presented to ED. with acute change of status looking for her nephew in ED., Patient with PMHx of CKD , Rheumatoid Arthritis, IDDM, HLD presented with AMS and agitation # s/p AMS with psychosis: organic w/u neg. so far . Cannot r/o psychiatric disorder as primary cause , patient is on respiradol now as per psychiatrist. C spine ct with disk bulging ( although central bulge is seen, neuro exam is nL and there is no hyperreflexia ) f/u as out pt with neuro sx Other serologies an CSF studies need to be followed: Anti HU/Yo abs, Lyme , [place] , and toxo. Javier viru s and neuromyelitis . Transfer to Inpt psych when bed is available . Possible to [facility] Tx discussed with geriatric social work professor. # CKD with SAL :base line Cr 2.4-->2.0 , improving , prerenal component, stable cr at this time. # H/o DM :A1c 5.6 on insulin , high risk of hypoglycemia with insulin ( has been taking levemir 3 times a day ), switched to oral Januvia 25mg po daily , will monitor. # Hx of HLD : 10 yr CVv risk per [place] scale 66%. resume and increase lipitor at 20 mg # Elevated trop : likely due to decreased clearance in setting of renal failure , level improved , stress test as an outpt. patient is allergic to asa # HTN Uncontrolled: on norvasc Dispo : Tx to inpt psych when bed is available DVT Px; hEPARIN SQ
[2017-01-08] MEDS: amLODIPine BESYLATE 10 MG TABLET (FP) PO SCH (09:50)
[2017-01-08] MEDS: risperiDONE 0.5 MG TABLET (FP) PO SCH ×2 (09:51→21:50)
[2017-01-08] MEDS: ATORVASTATIN CA 20 MG TABLET (FP) PO SCH (21:50)
[2017-01-09 00:06] LABS: TOXOPLASMA IGG,CSF < 3.0 IU/mL (.)
[2017-01-09 00:07] LABS: LYME IGG WB INTERP. Negative (.); LYME IGM WB. INTERP Negative (.); P18 AB Absent (.); P23 AB Absent (.); P28 AB Absent (.); P30 AB Absent (.); P39 AB Absent (.); P41 AB Absent (.); P45 AB Absent (.); P58 AB Absent (.); P66 AB Absent (.); P93 AB Absent (.)
[2017-01-09] MEDS: HEPARIN NA (PORCINE) 5,000 UNITS/ML 1ML VIAL SQ SCH ×2 (06:28→15:41)
[2017-01-09] MEDS: sitaGLIPtin PHOSPHATE 25 MG TABLET (FP) PO SCH (06:29)
[2017-01-09] MEDS: amLODIPine BESYLATE 10 MG TABLET (FP) PO SCH (10:06)
[2017-01-09] MEDS: risperiDONE 0.5 MG TABLET (FP) PO SCH ×2 (10:06→21:13)
[2017-01-09 16:11] LABS: EBVAB EARLY D AG IGG <5.0 U/mL (0.0-10.9)
--- NOTE | 2017-01-09 17:03 | PN ---
Progress Note (short form) - Note Progress Note: Subjective: no pain , [place] , or SOB. no weakness Objective: Vital Signs: Last Vital Signs Temp Pulse Resp BP Pulse Ox 97.7 F 78 18 143/84 100 01/09/17 15:00 01/09/17 15:00 01/09/17 15:00 01/09/17 15:00 01/09/17 09:00 Laboratory Results - last 24 hr 01/04/17 01/04/17 01/08/17 17:30 18:20 18:09 POC Glucometer 143 CSF Lyme IgG Ab 18 kDa Absent CSF Lyme IgG Ab 23 kDa Absent CSF Lyme IgG Ab 28 kDa Absent CSF Lyme IgG Ab 30 kDa Absent CSF Lyme IgG Ab 39 kDa Absent CSF Lyme IgG Ab 41 kDa Absent CSF Lyme IgG Ab 45 kDa Absent CSF Lyme IgG Ab 58 kDa Absent CSF Lyme IgG Ab 66 kDa Absent CSF Lyme IgG Ab 93 kDa Absent CSF Lyme IgM Ab 23 kDa Absent CSF Lyme IgM Ab 39 kDa Absent CSF Lyme IgM Ab 41 kDa Absent CSF CMV IgG Ab < 0.20 CSF Toxoplasma IgG Ab < 3.0 CSF [place] IgG Ab Negative CSF [place] IgM Ab Negative Neuromyelitis Optica Ab < 2 Lyme IgG Ab Interpret Negative Lyme IgM Ab Index Negative 01/08/17 01/09/17 21:49 06:10 POC Glucometer 167 137 CSF Lyme IgG Ab 18 kDa CSF Lyme IgG Ab 23 kDa CSF Lyme IgG Ab 28 kDa CSF Lyme IgG Ab 30 kDa CSF Lyme IgG Ab 39 kDa CSF Lyme IgG Ab 41 kDa CSF Lyme IgG Ab 45 kDa CSF Lyme IgG Ab 58 kDa CSF Lyme IgG Ab 66 kDa CSF Lyme IgG Ab 93 kDa CSF Lyme IgM Ab 23 kDa CSF Lyme IgM Ab 39 kDa CSF Lyme IgM Ab 41 kDa CSF CMV IgG Ab CSF Toxoplasma IgG Ab CSF [place] IgG Ab CSF [place] IgM Ab Neuromyelitis Optica Ab Lyme IgG Ab Interpret Lyme IgM Ab Index Physical Exam: NAD, awake , alert and oriented x 3 , flat affect CV: RRR, 3/6 SM at base and LLSB with radiation to carotids . 3/6 SM At apex with radiation to axilla Lungs; CTAB Ext: no edema ASSESSMENT AND PLAN: 71 y/o lady with h/o CKD , Rheumatoid Arthritis, IDDM, HLD and other problems who presented with AMS and agitation 1- AMS with psychosis: organic w/u neg to date - cont respirdal - follow pending serology and CSF studies - transfer to [facility] psych when bed is available . 2PC done 2- CKD with SAL :base line Cr 2.4 - stable cr 3- H/o DM : cont JAnuvia at dc 4- HLP : cont lipitor 5- Elevated trop : - will need a stress test as outpt - allergic to asa 6- HTN: cont norvasc Dispo : Tx to inpt psych when available Visit type - Emergency Visit Emergency Visit: Yes ED Registration Date: 01/02/17 Care time: The patient presented to the Emergency Department on the above date and was hospitalized for further evaluation of their emergent condition. - New Patient This patient is new to me today: No - Critical Care Critical Care patient: No
[2017-01-09] MEDS: ATORVASTATIN CA 20 MG TABLET (FP) PO SCH (21:13)
[2017-01-10] MEDS: sitaGLIPtin PHOSPHATE 25 MG TABLET (FP) PO SCH (06:42)
--- NOTE | 2017-01-10 07:40 | PN ---
Physical Exam: SUBJECTIVE: Patient seen and examined by me this AM - No major overnight event. Pt with no complaints, anxious about getting home to pay bills. Good energy, appetite, sleep - Denies any fever/chills, SOB, CP, [place]/dizziness, cough, N/V, dysuria, diarrhea/ constipation, peripheral numbness or weakness. Denies any suicidal/homicidal ideation, hallucinations. OBJECTIVE: Vital Signs Period Temp Pulse Resp BP Sys/Hanna Pulse Ox Last 24 Hr 96.6 F-98.8 F 68-78 18-20 143-156/69-89 100-100 Intake & Output 01/07/17 01/08/17 01/09/17 01/10/17 23:59 23:59 23:59 23:59 Intake Total 1290 300 570 100 Output Total 100 Balance 1190 300 570 100 Weight 68.084 kg 68.606 kg 68.663 kg GENERAL: Well-kept. awake, A&Ox3 No acute distress. Slightly anxious about going home, doing chores HEAD: Normal with no signs of trauma. EYES: PERRL, EOMI intact; sclera anicteric, conjunctiva clear. No ptosis. ENT: Ears normal, nares patent, oropharynx clear without exudates, moist mucous membranes. NECK: Trachea midline, supple. No JVD noted LUNGS: Breath sounds equal, clear to auscultation bilaterally, no wheezes, no crackles, no accessory muscle use. HEART: Still with 3/6 systolic ejection murmur best heard at RUSB w/ radiation to carotids. 2/6 systolic murmur at apex, radiating to axilla. Regular rate and rhythm, S1, S2. No gallop or rub appreciated. ABDOMEN: Soft, nontender, nondistended, normoactive bowel sounds, no guarding, no rebound, no hepatosplenomegaly, no masses. EXTREMITIES: 2+ pulses, warm, well-perfused, no edema. PSYCH: More appropriate affect, less constriction. No hallucinations, suicidal/ homicidal ideation, delusions. Laboratory Results - last 24 hr CBC, BMP 01/03/17 06:00 01/04/17 01/04/17 01/09/17 17:30 18:20 17:37 POC Glucometer 125 CSF CMV IgG Ab < 0.20 CSF [place] IgG Ab Negative CSF [place] IgM Ab Negative Neuromyelitis Optica Ab < 2 01/09/17 01/10/17 21:09 05:56 POC Glucometer 184 157 CSF CMV IgG Ab CSF [place] IgG Ab CSF [place] IgM Ab Neuromyelitis Optica Ab Active Medications Generic Name Dose Route Start Last Admin Trade Name Cherie PRN Reason Stop Dose Admin Amlodipine Besylate 10 mg 01/04/17 08:45 01/09/17 10:06 Norvasc - PO 10 mg DAILY ANGELLA Administration Atorvastatin Calcium 20 mg 01/07/17 12:15 01/09/17 21:13 Lipitor - PO 20 mg HS ANGELLA Administration Risperidone 0.5 mg 01/03/17 15:15 01/09/17 21:13 Risperdal - PO 0.5 mg BID ANGELLA Administration Sitagliptin Phosphate 25 mg 01/06/17 17:45 01/10/17 06:42 Januvia - PO 25 mg DAILY@0700 ANGELLA Administration Microbiology 01/04/17 17:30 Cerebral Spinal Fluid - Lumbar Puncture Gram Stain - Final 01/04/17 17:30 Cerebral Spinal Fluid - Lumbar Puncture CSF Culture - Final NO GROWTH AFTER 48 HOURS INCUBATION 01/02/17 17:15 Urine - Urine Clean Catch Urine Culture - Final NO GROWTH OBTAINED Recent Imaging: C-spine MRI 01/04 (per radiology read) - Central/right paracentral disc extrusion at C6-C7 mildly encroaching on the right aspect of the cord and compromising the right ventral C7 nerve root. Large left foraminal disc osteophytes at C5-6 causing severe left foraminal stenosis. Central disc protrusion at C4-C5 mildly reaching the anterior aspect of the cord. Moderate posterior facet arthritic changes. ECHO 01/03 - Mild concentric LVH. LA dilatation. Elevated RV pressures to 50- 60. Mild MR, Moderate TR ASSESSMENT/PLAN: 71 y/o woman w/ pmh of RA, CKD, IDDM and HLD who initially presented with acute agitation and AMS w/ no prior psychiatric hx. Pt has received an exhaustive work -up for an organic cause of acute AMS episode last week. Pt has since improved, at her described baseline per neighbors, with preserved cognition and appropriate affect and no psychotic symptoms. Can discharge home today w/ nephew. 1. AMS- Current work-up negative for medical dz. Likely due to psychiatric condition. - D/c risperdal per psych recs. - CSF culture/stain negative at this point - F/u encephalitis panel - D/c home due to resolution of psychotic symptoms and significant improvement. Plan for outpt psych f/u. 2. CKD w/ SAL - baseline Cr 2.4 per prior notes - Cr 2.0 (01/07) - Plan for outpt BMP in one week w/ f/u w/ PCP 3. IDDM - A1C 5.6 during this admission. - Continue on Januvia 25mg as home med - BG well controlled during admission. 4. Elevated Troponin -> elevated on admission, possibly due to decreased renal clearance. Values normalized on 01/03 - Outpt cardiology f/u. Will require stress test - Total cholesterol 264, LDL 177. Atorvastatin restarted yesterday at 20mg PO daily. Will monitor for signs of rhabdo w/ f/u CPK - [place] score calculated at 66% 5. Elevated CPK - possibly due to statin vs. mild rhabdomyolysis - Continue atorvastatin 20mg as home med. 6. HTN - Continue Norvasc 10 mg PO daily as home med 7. Cervical disc protrusion/stenosis - Confirmed on MRI of c-spine. No physical exam findings of cervical radiculopathy, pain on extension/flexion/rotation - Referral for neurosurgery for further work-up as outpt. Instructions provided to pt in packet. Dispo: Plan for discharge today with outpt follow-up w/ psychiatrist and PCP in one week. Plan discussed with attending, Dr. Noelle Ruggiero, PGY1 Visit type - Emergency Visit Emergency Visit: No - New Patient This patient is new to me today: No - Critical Care Critical Care patient: No
[2017-01-10 08:31] LABS: ANION GAP 9 (8-16); CALCIUM 9.1 mg/dL (8.5-10.1); CO2 24 mmol/L (21-32); GLUCOSE,RANDOM 143 mg/dL (74-106)
[2017-01-10] MEDS: risperiDONE 0.5 MG TABLET (FP) PO SCH (09:55)
[2017-01-10] MEDS: amLODIPine BESYLATE 10 MG TABLET (FP) PO SCH (09:55)
--- NOTE | 2017-01-10 11:45 | PN ---
Progress Note (short form) - Note Progress Note: Psych follow up, Patient seen for psych follow up: Patient had been on 1:1 ang small dose of Risperidone. Staff reports indicate that she has been doing well. No reports of acute agitationor psychotic behaviour. she has been sleeping and eating well. Family and friends report that she has reached her base line state. MS: alert, oriented, good eye contact, relates well and is very appropriate. not displaying any acute delusions or paranoid ideas. Cognition is intact.mood euthymis, not suicidal or Homicidal at tyhis time. PLan;; 1) D/C 1:1 2) d/c Risperidone 3) Discharge home when medically stable. 4) No psych folow up needed.
--- NOTE | 2017-01-10 14:07 | DS ---
Physical Exam: SUBJECTIVE: Patient seen and examined by me this AM - No major overnight event. Pt with no complaints, anxious about getting home to pay bills. Good energy, appetite, sleep - Denies any fever/chills, SOB, CP, [place]/dizziness, cough, N/V, dysuria, diarrhea/ constipation, peripheral numbness or weakness. Denies any suicidal/homicidal ideation, hallucinations. OBJECTIVE: Vital Signs Period Temp Pulse Resp BP Sys/Hanna Pulse Ox Last 24 Hr 97.5 F-98.8 F 68-78 18-20 143-180/69-89 100-100 PHYSICAL EXAM GENERAL: Well-kept. awake, A&Ox3 No acute distress. Slightly anxious about going home, doing chores HEAD: Normal with no signs of trauma. EYES: PERRL, EOMI intact; sclera anicteric, conjunctiva clear. No ptosis. ENT: Ears normal, nares patent, oropharynx clear without exudates, moist mucous membranes. NECK: Trachea midline, supple. No JVD noted LUNGS: Breath sounds equal, clear to auscultation bilaterally, no wheezes, no crackles, no accessory muscle use. HEART: Still with 3/6 systolic ejection murmur best heard at RUSB w/ radiation to carotids. 2/6 systolic murmur at apex, radiating to axilla. Regular rate and rhythm, S1, S2. No gallop or rub appreciated. ABDOMEN: Soft, nontender, nondistended, normoactive bowel sounds, no guarding, no rebound, no hepatosplenomegaly, no masses. EXTREMITIES: 2+ pulses, warm, well-perfused, no edema. PSYCH: More appropriate affect, less constriction. No hallucinations, suicidal/ homicidal ideation, delusions. LABS Laboratory Results - last 24 hr CBC, BMP 01/03/17 06:00 01/10/17 07:23 01/04/17 01/09/17 01/09/17 17:30 17:37 21:09 Sodium Potassium Chloride Carbon Dioxide Anion Gap BUN Creatinine POC Glucometer 125 184 Random Glucose Calcium CSF CMV IgG Ab < 0.20 CSF [place] IgG Ab Negative CSF [place] IgM Ab Negative 01/10/17 01/10/17 01/10/17 05:56 07:23 13:04 Sodium 141 Potassium 4.4 Chloride 108 H Carbon Dioxide 24 Anion Gap 9 BUN 46 H Creatinine 2.0 H POC Glucometer 157 184 Random Glucose 143 H D Calcium 9.1 CSF CMV IgG Ab CSF [place] IgG Ab CSF [place] IgM Ab HOSPITAL COURSE: Date of Admission:01/02/17 Date of Discharge: 01/10/17 71 y/o woman w/ pmh of RA, CKD, IDDM and HLD who initially presented with acute agitation and AMS w/ no prior psychiatric hx, initially searching the hospital for her nephew and becoming belligerent and aggressive upon being informed he was not a pt there. Since then, pt w/ fixed delusion that her nephew was homeless and would be living with her upon discharge; nephew was contacted and denied this. Pt has received an unrevealing, exhaustive work-up for an organic cause of her acute AMS episode and was cleared by neurology for any neurologic dz, however still with pending encephalitis panel. All imaging has been negative , listed below. Pt began improving during the last few days of her admission, at her described baseline per neighbors, with preserved cognition and appropriate affect and no further psychotic symptoms, including this fixed delusion. Numerous continuous attempts were made to transfer to inpatient psych facility, however she was denied repeatedly at [facility] due to her age, chronic renal function and possibility her psychosis was simply owing to a developing dementia. She was cleared by psychiatry for no further psychotic symptoms with a return to baseline and was discharged with nephew on 01/10 with outpt following with neurology, psychiatry , rheumatology, neurosurgery and PCP. Imaging: C-spine MRI 01/04 (per radiology read) - Central/right paracentral disc extrusion at C6-C7 mildly encroaching on the right aspect of the cord and compromising the right ventral C7 nerve root. Large left foraminal disc osteophytes at C5-6 causing severe left foraminal stenosis. Central disc protrusion at C4-C5 mildly reaching the anterior aspect of the cord. Moderate posterior facet arthritic changes. ECHO 01/03 - Mild concentric LVH. LA dilatation. Elevated RV pressures to 50- 60. Mild MR, Moderate TR Renal/bladder U/S 01/03 - IMPRESSION: Both kidneys are small and echogenic compatible with the clinical history of chronic medical renal disease. Small bilateral simple renal cysts, as described above. No renal stones or hydronephrosis, bilaterally. Partially distended urinary bladder without wall thickening. Both ureteral jets were not visualized. There is only a trace of postvoid urine residue. Limited visualization of the uterus, as described above. Brain MRI 01/02 - No infarct is identified. There is no discrete mass lesion. Cultures: Microbiology 01/04/17 17:30 Cerebral Spinal Fluid - Lumbar Puncture Gram Stain - Final 01/04/17 17:30 Cerebral Spinal Fluid - Lumbar Puncture CSF Culture - Final NO GROWTH AFTER 48 HOURS INCUBATION 01/02/17 17:15 Urine - Urine Clean Catch Urine Culture - Final NO GROWTH OBTAINED Consults: Neurology - Cleared for any active neurologic dz. CSF, brain imaging, organic causes negative for acute psychosis. Psychiatry - Cleared for d/c home. No longer in acute psychotic episode. Physical Therapy: Pt with no ambulatory defects. No restrictions on ambulation. Pt has been cleared by neurology and psychiatry and no longer endorses any other psychotic symptoms. She is cleared for discharge home with outpt follow- up per discharge packet. Minutes to complete discharge: 35 Discharge Summary Reason For Visit: ACUTE KIDNEY INJURY, AB.CREATINE KINASE LEVEL, ETL Current Active Problems SAL (acute kidney injury) (Acute) Abnormal creatine kinase level (Acute) Altered mental state (Acute) Troponin level elevated (Acute) Condition: Stable - Instructions Diet, Activity, Other Instructions: Please continue these medications at home: ( new medications ) Januvia 25 mg daily 1 tablet Norvasc 10 mg daily We have made the following changes to your home medications: Discontinued - Levemir 20 unit SQ injection Follow-up: Follow Up with Neurosurgery Dr.Tom Keys in 2 weeks. Patient had an abnormal Cervical spine MRI. Please follow up with Dr. Mead, neurologist, for an outpatient visit in one week upon discharge. Be sure to notify staff of current pending labs and CSF/ encephalitis panel at [facility] ( Anti HU/Yo abs, Lyme , [place] , herpes and toxo. Javier virus and neuromyelitis ), so that they may request a copy from our medical records department to further guide treatment. Please call [phone] to schedule an appointment. Please follow-up with a psychiatrist, for an outpatient visit in one week upon discharge. You need a neuro surgery follow up to evaluate your cervical spine bulged disks. We have included a referral to a preferred Neurosurgeon, Dr. Keys, in this discharge packet. His contact information is provided. Please call his office to schedule an appt within 2 weeks. You need a stress test as out patient to evaluate your heart Please follow-up with an outpatient gsa coordinator for a cardiac stress test to further evaluate your heart function. Contact information for a gsa coordinator affiliated with [facility] has been provided, Dr. Murrieta. Outpatient lab work: Please have your labs, a basic metabolic panel, repeated in one week. Diet/Activity: No restrictions Please return to hospital if you have any thoughts of hurting yourself or others , seeing/hearing things that aren't there, or feel severely depressed or excessively energetic for more than 1 week. If you experience any new symptoms, please return to the hospital. Referrals: Junaid Mead DO [Staff Physician] - 1 Week Jamel Murrieta MD [Staff Physician] - Alvin Keys MD [Staff Physician] - 2 Weeks Disposition: HOME - Home Medications Comprehensive Discharge Medication List: Ambulatory Orders Calcitriol [Calcitriol -] 0.25 mcg PO DAILY 01/03/17 Abatacept [Orencia] 125 mg SQ WEEKLY #1 syringe 01/07/17 Amlodipine Besylate [Norvasc -] 10 mg PO DAILY #30 tablet 01/07/17 Atorvastatin Ca [Lipitor] 20 mg PO HS #30 tablet 01/07/17 Folic Acid 1 tab PO DAILY #30 tablet 01/07/17 Methotrexate [Xatmep] 2.5 mg PO WEEKLY #1 solution 01/07/17 Sitagliptin Phosphate [Januvia -] 25 mg PO DAILY@0700 #30 tab 01/07/17 This patient is new to me today: No Emergency Visit: No Critical Care patient: No - Discharge Referral Referred to [facility] Med P.C.: No
--- NOTE | 2017-01-10 14:29 | PN ---
Teaching Attending Note Name of Resident: aMyito Ruggiero ATTENDING PHYSICIAN STATEMENT I saw and evaluated the patient. I reviewed the resident's note and discussed the case with the resident. I agree with the resident's findings and plan as documented. SUBJECTIVE: Patient is comfortable with no acute distress. No fever or chills, back to her Baseline. AAOx3. OBJECTIVE: CBCD WBC 5.2 K/mm3 (4.0-10.0) D 01/03/17 06:00 RBC 3.34 M/mm3 (3.60-5.2) L 01/03/17 06:00 Hgb 9.9 GM/dL (10.7-15.3) L 01/03/17 06:00 Hct 29.2 % (32.4-45.2) L 01/03/17 06:00 MCV 87.4 fl (80-96) 01/03/17 06:00 MCHC 33.9 g/dl (32.0-36.0) 01/03/17 06:00 RDW 14.2 % (11.6-15.6) 01/03/17 06:00 Plt Count 155 K/MM3 (134-434) D 01/03/17 06:00 MPV 8.5 fl (7.5-11.1) 01/03/17 06:00 CMP Sodium 141 mmol/L (136-145) 01/10/17 07:23 Potassium 4.4 mmol/L (3.5-5.1) 01/10/17 07:23 Chloride 108 mmol/L (98-107) H 01/10/17 07:23 Carbon Dioxide 24 mmol/L (21-32) 01/10/17 07:23 Anion Gap 9 (8-16) 01/10/17 07:23 BUN 46 mg/dL (7-18) H 01/10/17 07:23 Creatinine 2.0 mg/dL (0.55-1.02) H 01/10/17 07:23 Creat Clearance w eGFR 15.91 (>60) 01/03/17 06:00 Random Glucose 143 mg/dL (74-106) H D 01/10/17 07:23 Calcium 9.1 mg/dL (8.5-10.1) 01/10/17 07:23 Total Bilirubin 0.7 mg/dL (0.2-1.0) D 01/03/17 06:00 AST 23 U/L (15-37) 01/03/17 06:00 ALT 16 U/L (12-78) 01/03/17 06:00 Alkaline Phosphatase 72 U/L (45-117) 01/03/17 06:00 Total Protein 6.7 g/dl (6.4-8.2) 01/03/17 06:00 Albumin 3.4 g/dl (3.4-5.0) 01/03/17 06:00 CARDIAC ENZYMES Creatine Kinase 366 IU/L (26-192) H 01/05/17 06:30 Troponin I 0.09 ng/ml (0.00-0.05) H 01/03/17 11:00 Current Medications Generic Name Dose Route Start Last Admin Trade Name Miquelq PRN Reason Stop Dose Admin Amlodipine Besylate 10 mg 01/04/17 08:45 01/10/17 09:55 Norvasc - PO 10 mg DAILY ANGELLA Administration Atorvastatin Calcium 20 mg 01/07/17 12:15 01/09/17 21:13 Lipitor - PO 20 mg HS ANGELLA Administration Sitagliptin Phosphate 25 mg 01/06/17 17:45 01/10/17 06:42 Januvia - PO 25 mg DAILY@0700 ANGELLA Administration Home Medications Medication Instructions Recorded Calcitriol [Calcitriol -] 0.25 mcg PO DAILY 01/03/17 Abatacept [Orencia] 125 mg SQ WEEKLY #1 syringe 01/07/17 Amlodipine Besylate [Norvasc -] 10 mg PO DAILY #30 tablet 01/07/17 Atorvastatin Ca [Lipitor] 20 mg PO HS #30 tablet 01/07/17 Folic Acid 1 tab PO DAILY #30 tablet 01/07/17 Methotrexate [Xatmep] 2.5 mg PO WEEKLY #1 solution 01/07/17 Sitagliptin Phosphate [Januvia -] 25 mg PO DAILY@0700 #30 tab 01/07/17 PE: per resident's note CVD: S1S2 positive, DENA 3/6 LSB-->[employer]: Cn 2-12 grossly intact, nfd EXt: pulses are 2+ Pch: AAOx3 ASSESSMENT AND PLAN: Patient is a 71 y/o female presented to ED. with acute change of status looking for her nephew in ED., Patient with PMHx of CKD , Rheumatoid Arthritis, IDDM, HLD presented with AMS and agitation # s/p AMS with psychosis: pATIENT is back to her baseline. As per Staff reports , and as per family members, patient is back to her baseline. As per Pschy. who spoke to her nephew , patient is back to her baseline. Patient is feeling well, not agitated or psychotic behaviour. she has been sleeping and eating well. Patient denies any suicidal or Homicidal ideas . as per psych. patient can be discharged home. And can D/C 1:1, d/c Risperidone, No psych folow up needed as per psych. Organic w/u neg. so far . Cannot r/o psychiatric disorder as primary cause , patient is on respiradol now as per psychiatrist. C-spine ct with disk bulging ( although central bulge is seen, neuro exam is nL and there is no hyperreflexia ) f/u as out pt with neuro sx Pasquale Keys. # CKD with SAL :base line Cr 2.4-->2.0 , improving , prerenal component, stable cr at this time. # H/o DM :A1c 5.6 on insulin , high risk of hypoglycemia with insulin ( has been taking levemir 3 times a day ), switched to oral Januvia 25mg po daily , will monitor. # Hx of HLD : 10 yr CVv risk per [place] scale 66%. resume and increase lipitor at 20 mg # Elevated trop : likely due to decreased clearance in setting of renal failure , level improved , stress test as an outpt. patient is allergic to asa # HTN Uncontrolled: on norvasc Patient is cleared for discharge to home as per psych.
[2017-01-10 15:52] VITALS: BP 146/74; PULSE 64; TEMP 97.4
[2017-01-13 10:07] LABS: ANTI HU <1:10 Titer (.); ANTI YO AB <1:10 titer (.)
[2017-01-17 00:06] LABS: HSV 1/2 CSF 0.19 IV (<=0.89); HSV 1/2 IGG CSF <0.34 IV (<=0.89); MUMPS AB IGG CSF < 5.0 AU/mL (<=10.9); MUMPS AB IGM CSF 0.14 IV (<=0.79); VARICELLA-ZOSTER IGM CSF 0.01 ISR (<=0.90); VARICELLA-ZOSTER IgG CSF 14 IV (.)
== END 2017-01-10 16:39 | disposition home or self-care (01) | DRG 682 ==
LOC: JER 12:40 → JERBED 18:47 → J8W 23:41
PROVIDERS: ADMIT Internal Medicine; ATTEND Internal Medicine
PROC: 009U3ZX Drainage of Spinal Canal, Percutaneous Approach, Diagnostic (ICD-10-PCS; principal; 2017-01-04)
DX: N17.9 Acute kidney failure, unspecified (principal); G93.41 Metabolic encephalopathy; M62.82 Rhabdomyolysis; N13.30 Unspecified hydronephrosis; I12.9 Hypertensive chronic kidney disease with stage 1 through stage 4 chronic kidney disease, or unspecified chronic kidney disease; E11.22 Type 2 diabetes mellitus with diabetic chronic kidney disease; N18.9 Chronic kidney disease, unspecified; M06.9 Rheumatoid arthritis, unspecified; R41.82 Altered mental status, unspecified; M48.02 Spinal stenosis, cervical region; N28.1 Cyst of kidney, acquired; F22 Delusional disorders; F03.90 Unspecified dementia, unspecified severity, without behavioral disturbance, psychotic disturbance, mood disturbance, and anxiety
CPT/HCPCS: 36415; 70450-TC; 70551-TC; 71010-TC; 72141-TC; 76775-TC; 76856-TC; 80048; 80053; 80061; 80307; 81003; 81015; 82436; 82550; 82553; 82570; 82607; 82784; 82945; 83036; 83520; 83721; 83735; 83873; 83916; 84100; 84133; 84157; 84300; 84443; 84484; 85025; 85027; 85651; 86140; 86256; 86592; 86593; 86617; 86644; 86663; 86664; 86665; 86694; 86735; 86765; 86777; 86787; 86788; 86789; 87070; 87086; 87205; 87389; 87476; 87529; 87798; 87802; 87899; 89050; 93005; 93010; 93306-TC; 95816; 97116-GP; 97161-GP; 99284-25; J1644

== ENCOUNTER 2019-03-07 15:14 | Inpatient (IN) | payer OTHER, BC ==
--- NOTE | 2019-03-07 17:41 | PDOC ---
Documentation entered by Fartun Maier SCRIBE, acting as scribe for Sherine Esquivel MD. Sherine Esquivel MD: This documentation has been prepared by the kpibe, Fartun Maier SCRIBE, under my direction and personally reviewed by me in its entirety. I confirm that the documentation accurately reflects all work, treatment, procedures, and medical decision making performed by me. Attending Attestation - Resident Resident Name: Gonsalo Mederos - ED Attending Attestation I have performed the following: I have examined & evaluated the patient, The case was reviewed & discussed with the resident, I agree w/resident's findings & plan, Exceptions are as noted - HPI HPI: 03/07/19 17:37 73 yo female d/c from intermediate several weeks ago with a plan for visiting nurse to do wound care for her stage 3 decubitus ulcer but the cut off saw operator never showed up - Physicial Exam PE: 03/07/19 17:38 Alert ,conversant 73 yo female presents with no acute distress head ncat neck supple lungs no wheezing cvs [id number] abd nontender Skin stage 4 foul smelling decubitus ulcer neuro alert amd conversant - Medical Decision Making 03/07/19 17:41 plan labs/wound culture 03/07/19 17:47 03/07/19 17:49 03/07/19 20:41 Patient shows worsening renal function with a creatinine of 2.5 CBC shows a pancytopenia with a lowered WBC, hemoglobin hematocrit. Today's hemoglobin 7.8 and hematocrit is 29 in comparison to her prior 3 years ago that showed hemoglobin 9.9 and She has mild UTI Stage III decubitus ulcer Impression sepsis, patient meets SIRS criteria 03/07/19 22:20 sepsis admit med/surg
--- NOTE | 2019-03-07 17:46 | PDOC ---
History of Present Illness - General Chief Complaint: Wound Stated Complaint: ABCESS Time Seen by Provider: 03/07/19 16:09 History Source: Patient Exam Limitations: No Limitations - History of Present Illness Initial Comments: 03/07/19 17:38 Edilma Teresa is a 73F with PMH IDDM, HTN, HLD, rheumatoid arthritis presenting with weakness, chills, and right buttock ulcer. Patient and sister at bedside. Per patient and sister, was recently brought to [facility] by sister for becoming unresponsive, unable to get in contact with patient for 3 days, found down at home with BGM 500. Says she was stabilized and sent to [place] for rehab. Sister says that rehab experience was poor , not walking well, not eating well. Has had chronic R buttock ulcer that sister says was not taken care of well. Discharged home 4 days ago with home wound aide but this person never came. Ever since, she has been feeling weak, fever/chills, unable to walk, sore/raspy throat, with nausea/diarrhea and poor PO intake. Patient called EMS today for weakness, fevers/chills, nausea, and buttock pain/discharge. Previous admission to [facility] for AMS and confusion with SAL. Past History - Past Medical History Allergies/Adverse Reactions: Allergies Allergy/AdvReac Type Severity Reaction Status Date / Time amoxicillin trihydrate Allergy Verified 03/07/19 15:32 [From Augmentin] aspirin Allergy Verified 03/07/19 15:32 ibuprofen [From Motrin] Allergy Verified 03/07/19 15:32 metformin HCl Allergy Verified 03/07/19 15:32 [From Glucophage] potassium clavulanate Allergy Verified 03/07/19 15:32 [From Augmentin] Home Medications: Ambulatory Orders Atorvastatin Ca [Lipitor] 20 mg PO HS #30 tablet 01/07/17 Hydralazine HCl 25 mg PO DAILY 03/07/19 Metoprolol Succinate [Toprol Xl] 100 mg PO DAILY 03/07/19 Omeprazole 20 mg PO DAILY 03/07/19 Anemia: No COPD: No Diabetes: Yes HTN: Yes - Surgical History Abdominal Surgery: Yes Appendectomy: Yes - Psycho Social/Smoking Cessation Hx Smoking Status: No Smoking History: Never smoked Have you smoked in the past 12 months: No Number of Cigarettes Smoked Daily: 0 Hx Alcohol Use: No Drug/Substance Use Hx: No Substance Use Type: None Hx Substance Use Treatment: No Review of Systems - Review of Systems Able to Perform ROS?: Yes Constitutional: Yes: Chills, Fever, Weakness HEENTM: No: Symptoms Reported Respiratory: Yes: Cough. No: Shortness of Breath, Wheezing Cardiac (ROS): No: Chest Pain, Edema, Lightheadedness, Palpitations, Syncope ABD/GI: Yes: Diarrhea, Nausea, Poor Appetite, Poor Fluid Intake, Vomiting. No: Difficulty Swallowing : No: Symptoms Reported Musculoskeletal: No: Symptoms Reported Integumentary: Yes: Other (right buttock wound) Neurological: Yes: Weakness, Unsteady Gait. No: Headache, Numbness, Paresthesia , Dizziness Endocrine: No: Symptoms Reported Hematologic/Lymphatic: No: Symptoms Reported All Other Systems: Reviewed and Negative *Physical Exam - Vital Signs Last Vital Signs Temp Pulse Resp BP Pulse Ox 97.7 F 91 H 16 190/102 H 100 03/07/19 15:29 03/07/19 17:30 03/07/19 17:30 03/07/19 17:30 03/07/19 17:30 - Physical Exam General Appearance: Yes: Nourished, Appropriately Dressed. No: Apparent Distress HEENT: positive: EOMI, LESLEE, Normal ENT Inspection, Normal Voice, Symmetrical, Hearing Grossly Normal. negative: Pharynx Normal, Scleral Icterus (R), Scleral Icterus (L), Pharyngeal Erythema, Tonsillar Exudate, Tonsillar Erythema, Nasal Congestion Neck: positive: Trachea midline, Normal Thyroid, Supple. negative: Tender, Rigid, Lymphadenopathy (R), Lymphadenopathy (L) Respiratory/Chest: positive: Lungs Clear, Normal Breath Sounds. negative: Chest Tender, Respiratory Distress, Accessory Muscle Use, Crackles, Rales, Rhonchi, Stridor, Wheezing Cardiovascular: positive: Murmur (systolic), Irregularly Irregular Gastrointestinal/Abdominal: positive: Normal Bowel Sounds, Flat, Soft. negative : Tender, Organomegaly, Pulsatile Mass, Guarding, Rebound Musculoskeletal: positive: Normal Inspection. negative: CVA Tenderness, Vertebral Tenderness Extremity: positive: Normal Capillary Refill, Normal Range of Motion, Pedal Edema (3+ bilaterally), Other (DP pulses intact bilaterally). negative: Tender Integumentary: positive: Normal Color, Dry, Warm, Other (Stage 3 ulcer to R buttock measuring 5cm x 4cm with serous discharge, tender to palpation) Neurologic: positive: Fully Oriented, Alert, Normal Mood/Affect, Normal Response , Numbness (BLE from feet to knees). negative: Motor Strength 5/5 (3/5 quadriceps strength bilaterally, moving toes spontaneously) ED Treatment Course - LABORATORY CBC & Chemistry Diagram: 03/07/19 18:30 03/07/19 18:30 Medical Decision Making - Medical Decision Making 03/07/19 19:01 Patient presents with untreated ulcer to right buttock with complaint of fever/ chills, nausea, poor PO intake, diarrhea, likely has sepsis from wound infection. Patient denies history of AFIB but noted on exam with known systolic murmur. Rectal temp 101.2. Sepsis labs ordered including CMP/CBC/lactate/coags/CP, ECG, CXR, BC, BNP, UA/UC , CXR, ECG. Wound culture of ulcer obtained. 1L NS order for rehydration. 03/07/19 19:34 ECG shows sinus rhythm with sinus arrhythmia, HR 90, QRS 80, QTc 484, no TWI or ischemic changes. 03/07/19 20:25 Labs notable for: - WBC 2.7, down from 5.2 - RBC 3.06, down from 3.34 - Hgb 7.8, down from 9.9 - ANC 1.2 - K 3.1, repleting with 40 mEq PO K - BUN 46.4 - Cr 2.5, up from 2.0, has been as high as 3.8 - BNP 78130 - Alb 1.9 - UA +bacteria with no LE or nitrites, treating with ceftriaxone, patient does not remember PCN allergy, giving with caution - FOBT negative Exhibits pancytopenia and acute on chronic kidney injury. Repleting K, fluids running slowly for SAL with clinical signs of dehydration, caution for overload given edema and CHF. Concerned for overload but low K, high Cr, no evidence of SOB or rales, not giving Lasix at this time. 03/07/19 23:[address] Villavicencio with admitting team, good for admission to Med Surg under Dr. Graves. Discharge - Discharge Information Problems reviewed: Yes Clinical Impression/Diagnosis: Ulcer, Acute kidney injury superimposed on CKD, Hypokalemia CHF exacerbation Qualifiers: Heart failure type: unspecified Qualified Code(s): I50.9 - Heart failure, unspecified Sepsis Qualifiers: Sepsis type: sepsis due to unspecified organism Sepsis acute organ dysfunction status: with acute organ dysfunction Severe sepsis acute organ dysfunction type : acute renal failure Acute renal failure type: unspecified Severe sepsis shock status: without septic shock Qualified Code(s): A41.9 - Sepsis, unspecified organism UTI (urinary tract infection) Qualifiers: Urinary tract infection type: acute cystitis Hematuria presence: without hematuria Qualified Code(s): N30.00 - Acute cystitis without hematuria Condition: Stable - Admission Yes - Follow up/Referral Referrals: Nasrin Sanders MD [Primary Care Provider] - - Patient Discharge Instructions - Post Discharge Activity
[2019-03-07] MEDS ORDERED: SODIUM CHLORIDE 1,973 ML IV ONE (18:04)
[2019-03-07 19:08] LABS: BASO % 0.3 % (0-2.0); EOS % 0.2 % (0-4.5); HEMATOCRIT 23.4 % (32.4-45.2); HEMOGLOBIN 7.8 GM/dL (10.7-15.3); LYMPH % 30.1 % (8-40); MCH 25.5 pg (25.7-33.7); MCHC 33.3 g/dl (32.0-36.0); MEAN CELL VOLUME 76.4 fl (80-96); MEAN PLT VOLUME 9.2 fl (7.5-11.1); MONO % 25.6 % (3.8-10.2); NEUT % 43.8 % (42.8-82.8); PLATELET COUNT 162 K/MM3 (134-434); RBC 3.06 M/mm3 (3.60-5.2); VENOUS PH 7.43 (7.31-7.41); WHITE BLOOD COUNT 2.7 K/mm3 (4.0-10.0)
[2019-03-07 19:09] LABS: VENOUS PC02 40.8 mmHg (38-52); VENOUS PO2 < 49 mmHg (28-48)
[2019-03-07 19:20] LABS: INR 1.06 (0.83-1.09); PROTHROMBIN TIME (PATIENT) 12.5 SEC (9.7-13.0)
[2019-03-07 19:30] LABS: EPI CELLS 0.4 /HPF (0-5/HPF); HYALINE CASTS 9 /lpf (0-8); URINE APPEARANCE CLOUDY; URINE BACTERIA 25.8 /hpf (NEGATIVE); URINE BILIRUBIN NEGATIVE (NEGATIVE); URINE COLOR YELLOW; URINE GLUCOSE (UA) NEGATIVE (NEGATIVE); URINE KETONE NEGATIVE (NEGATIVE); URINE LEUK ESTERASE NEGATIVE (NEGATIVE); URINE NITRITE NEGATIVE (NEGATIVE); URINE PROTEIN 3+ (NEGATIVE); URINE RBC 3 /hpf (0-4)
[2019-03-07] MEDS ORDERED: ACETAMINOPHEN 1000 MG/100 ML VIAL (NON FORMULARY) IVPB ONE (19:43)
[2019-03-07] MEDS ORDERED: ACETAMINOPHEN INJECTION 100 ML IVPB ONE (19:46)
[2019-03-07 19:52] LABS: ALBUMIN 1.9 g/dl (3.4-5.0); BILIRUBIN,TOTAL 0.5 mg/dL (0.2-1); BLOOD UREA NITROGEN 46.4 mg/dL (7-18); CALCIUM 7.9 mg/dL (8.5-10.1); CREATININE 2.5 mg/dL (0.55-1.3); N-TERMINAL BNP 14908.7 pg/ml (5-450); POTASSIUM 3.1 mmol/L (3.5-5.1); TOT PROT 6.2 g/dl (6.4-8.2)
[2019-03-07 20:00] LABS: URINE WBC 65.3 /hpf (0-5)
[2019-03-07] MEDS ORDERED: POTASSIUM CHLORIDE TABS 20 MEQ TABLET.ER (FP) PO ONE ×2 (20:29→20:41)
[2019-03-07] MEDS ORDERED: CEFTRIAXONE 1,000 MG in DEXTROSE 5%-WATER - 50 ML IVPB ONE (20:50)
[2019-03-07] MEDS ORDERED: CEFTRIAXONE 1 GM/50 ML BAG ONE (21:00)
--- NOTE | 2019-03-07 21:27 | PN ---
Teaching Attending Note Name of Resident: Jayesh Grajeda ATTENDING PHYSICIAN STATEMENT I saw and evaluated the patient. I reviewed the resident's note and discussed the case with the resident. I agree with the resident's findings and plan as documented. SUBJECTIVE: Patient is a 73 year old woman with a PMH of Insulin-treated DM, HTN, HLD and Rheumatoid arthritis presenting with weakness, chills, and right buttock ulcer. Patient and sister at bedside. Per patient and sister, was recently brought to [facility] by sister for becoming unresponsive, unable to get in contact with patient for 3 days, found down at home with BGM 500. Says she was stabilized and sent to [place] for rehab. Sister says that rehab experience was poor , not walking well, not eating well. Has had chronic right buttock ulcer that sister says was not taken care of well. Discharged home 4 days ago with home wound aide but this person never came. Ever since, she has been feeling weak, with fever, chills, unable to walk, sore/raspy throat, with nausea, diarrhea and poor PO intake. Denies alcohol, tobacco or illicit drug use. No sick contacts or recent travels. FH of cancer and [place]. OBJECTIVE: Alert Vital Signs Period Temp Pulse Resp BP Sys/Hanna Pulse Ox Last 24 Hr 97.7 F-101.2 F 80-96 16-18 150-194/85-105 97-100 HEENT: No Jaundice, eye redness or discharge, PERRLA, EOMI. Dry mucous membranes , Normocephalic, atraumatic. External ears are normal and hearing is grossly intact. No nasal discharge. Neck: Supple, nontender. No palpable adenopathy or thyromegaly. No JVD Chest: Good effort. Clear to auscultation and percussion. Heart: Regular. No S3 or rub: 2/6 HSM. Abdomen: Not distended, soft, nontender and no HSM. No rebound or guarding. Normal bowel sounds. Ext: Peripheral pulses intact. Leg edema. Skin: Warm and dry. No petechiae, rash or ecchymosis. Grade 3 right buttock ulcer. Neuro: Alert. Oriented x3. CN 2-12 grossly intact. Sensation grossly intact in all four extremities and DTR are symmetric. Psych: Appropriate mood and affect. Good insight. Home Medications Medication Instructions Recorded Atorvastatin Ca [Lipitor] 20 mg PO HS #30 tablet 01/07/17 Hydralazine HCl 25 mg PO DAILY 03/07/19 Metoprolol Succinate [Toprol Xl] 100 mg PO DAILY 03/07/19 Omeprazole 20 mg PO DAILY 03/07/19 Abnormal Lab Results 03/07/19 03/07/19 03/07/19 18:30 18:30 18:30 WBC 2.7 L RBC 3.06 L Hgb 7.8 L Hct 23.4 L D MCV 76.4 L MCH 25.5 L D RDW 19.0 H Absolute Neuts (auto) 1.2 L Monocytes % 25.6 H D VBG pH 7.43 H POC VBG pO2 < 49 H VBG O2 Sat ([place]) 26.4 L VBG Base Excess 2.8 H Potassium 3.1 L BUN 46.4 H Creatinine 2.5 H Random Glucose 114 H Calcium 7.9 L Creatine Kinase 21 L B-Natriuretic Peptide 96463.7 H Total Protein 6.2 L Albumin 1.9 L Urine Protein 03/07/19 18:30 WBC RBC Hgb Hct MCV MCH RDW Absolute Neuts (auto) Monocytes % VBG pH POC VBG pO2 VBG O2 Sat ([place]) VBG Base Excess Potassium BUN Creatinine Random Glucose Calcium Creatine Kinase B-Natriuretic Peptide Total Protein Albumin Urine Protein 3+ H ASSESSMENT AND PLAN: 1. Sepsis of unclear source - CXR shows cardiomegaly with no obvious infiltrates - possible RLL atelectasis. UA shows pyuria but no other evidence of infection. Will get a CT of chest to rule out pneumonia and CT abdomen/pelvis to evaluate diarrhea. Will commence appropriate antibiotics once CT scan result is available. Send stool for C. diff, ova/parasites and stool studies. Hypokalemia likely due to diarrheal losses. Checking Mg+ and will give IV and PO KCL. Provide daily wound care of buttock ulcer and consult Wound Care service. Repeat ECHO. Will continue comprehensive care for all of patients comorbid conditions. 2. Severe Hypoalbuminemia - Possibly due to combined effects of proteinuria, malnutrition and inflammation associated with comorbid chronic conditions. Will ensure adequate dietary protein intake and also consult launch manager. 3. DM For now, we will hold the home diabetes drugs and implement sliding scale insulin regimen. Provide comprehensive diabetes care with patient teaching and counseling about the importance of adherence to prescribed diabetes regimen, euglycemia, eye care and foot care. 4. CKD - Has risk factors for CKD and proteinuria. Superimposed SAL due to diarrheal fluid losses. Will get kidney sonogram and hydrate gently. Will consult nephrology and avoid nephrotoxic agents such as NSAIDS, aminoglycosides , contrast dyes and certain Alternative medicine products. 5. Low MCV Anemia - Likely due to CKD and ?iron deficiency. Consult GI for colonoscopy. Will do basic anemia work up including serial stool guaiacs, reticulocyte count and iron studies. Would benefit from Procrit therapy once iron replete. 6. Hypertension - Restart suitable outpatient antihypertensive drugs when clinically appropriate. Revise regimen to ensure [id number] excellent BP control and memorial counselor patient on the injurious effects of uncontrolled hypertension. Nonpharmacologic measures to control hypertension like weight loss , salt restriction and exercise discussed. Importance of adherence to treatment regimen and attainment of normotension emphasized. 7. DVT prophylaxis - Heparin 5000u sq tid. 8. Advance directives - Full code
[2019-03-07 21:40] LABS: ANISOCYTOSIS 1+; MACROCYTOSIS 1+; OVALOCYTE 1+; PLATELET ESTIMATE ADEQUATE; TARGET CELLS 1+
[2019-03-08] MEDS ORDERED: SODIUM CHLORIDE 1,000 ML IV SCH (01:00)
[2019-03-08] MEDS ORDERED: KCL 10 MEQ IVPB 20 MEQ/200 ML INFUS.BAG IVPB ONE (03:30)
[2019-03-08] MEDS: KCL 10 MEQ IVPB 10 MEQ/100 ML INFUS.BAG IVPB SCH ×2 (03:33→04:13)
--- NOTE | 2019-03-08 07:03 | HP ---
CHIEF COMPLAINT: Weakness, chills, pain in her rt. sided sacral ulcer for 4 days and diarrhea for 3 weeks PCP: Dr. Dania Bryant HISTORY OF PRESENT ILLNESS: This is a 73 YO female with PMH of DM, HTN, RA, asthma. She presented to the ER with complaints of weakness, chills, pain in her rt. sided sacral ulcer for 4 days and diarrhea for 3 weeks. The patient is AOx1 and struggles to remember details from the past month of her life. 4 weeks ago she was found down in her apartment by her sister, EMS was called and she was fou to have a BG of 500. She was admitted to [facility] (as per the patient), after which she was discharged to a [place]. She left the NH due to unsatisfactory care 4 days ago, after which she developed weakness, chills, pain in her rt. sided sacral ulcer. She has had the sacral ulcer for the past 4 weeks, but the pain has worsened over the past 4 days, with no discharge except for one episode of a few drops of blood noticed by her sister. She has had 2-3 episodes of diarrhea for the past 3 weeks, non bloody, but has had no episodes today. She endorses associated SOB, but denies any vomiting, dysuria, or dizziness. ER course was notable for: (1) H &H 7.8/23.4 (2) BUN/Cr 46.4/2.5 (46/2 from 2017) (3) Ceftriaxone 1g given Recent Travel: None PAST MEDICAL HISTORY: As listed in HPI PAST SURGICAL HISTORY: lupectomy right breast Social History: Smoking:none Alcohol:none Drugs: none Allergies amoxicillin trihydrate [From Augmentin] Allergy (Verified 03/07/19 15:32 aspirin Allergy (Verified 03/07/19 15:32) ibuprofen [From Motrin] Allergy (Verified 03/07/19 15:32) metformin HCl [From Glucophage] Allergy (Verified 03/07/19 15:32) potassium clavulanate [From Augmentin] Allergy (Verified 03/07/19 15:32) HOME MEDICATIONS: Home Medications Medication Instructions Recorded Atorvastatin Ca [Lipitor] 20 mg PO HS #30 tablet 01/07/17 Hydralazine HCl 25 mg PO DAILY 03/07/19 Metoprolol Succinate [Toprol Xl] 100 mg PO DAILY 01/19/20 Omeprazole 20 mg PO DAILY 03/07/19 REVIEW OF SYSTEMS CONSTITUTIONAL: nasuea, chills Absent: fever, chills, diaphoresis, generalized weakness, malaise, loss of appetite, weight change HEENT: Absent: rhinorrhea, nasal congestion, throat pain, throat swelling, difficulty swallowing, mouth swelling, ear pain, eye pain, visual changes CARDIOVASCULAR: Absent: chest pain, syncope, palpitations, irregular heart rate, lightheadedness , peripheral edema RESPIRATORY: Absent: cough, shortness of breath, dyspnea with exertion, orthopnea, wheezing, stridor, hemoptysis GASTROINTESTINAL: nausea, diarrhea Absent: abdominal pain, abdominal distension, nausea, vomiting, diarrhea, constipation, melena, hematochezia GENITOURINARY: Absent: dysuria, frequency, urgency, hesitancy, hematuria, flank pain, genital pain MUSCULOSKELETAL: Absent: myalgia, arthralgia, joint swelling, back pain, neck pain SKIN: Absent: rash, itching, pallor HEMATOLOGIC/IMMUNOLOGIC: Absent: easy bleeding, easy bruising, lymphadenopathy, frequent infections ENDOCRINE: Absent: unexplained weight gain, unexplained weight loss, heat intolerance, cold intolerance NEUROLOGIC: Absent: headache, focal weakness or paresthesias, dizziness, unsteady gait, seizure, mental status changes, bladder or bowel incontinence PSYCHIATRIC: Absent: anxiety, depression, suicidal or homicidal ideation, hallucinations. PHYSICAL EXAMINATION Vital Signs - 24 hr 03/07/19 03/07/19 03/07/19 15:29 17:30 18:09 Temperature 97.7 F 101.2 F H Pulse Rate 80 96 H Pulse Rate [ 91 H 96 H Left Radial] Respiratory 18 16 16 Rate Blood Pressure 150/105 H 194/85 H Blood Pressure 190/102 H 164/85 [Left Arm] O2 Sat by Pulse 100 100 97 Oximetry (%) 03/07/19 03/07/19 03/08/19 20:05 23:59 01:52 Temperature 100.1 F H Pulse Rate Pulse Rate [ 113 H Left Radial] Respiratory 20 Rate Blood Pressure Blood Pressure 190/78 H 173/87 H [Left Arm] O2 Sat by Pulse 98 98 Oximetry (%) GENERAL: AOx1 HEAD: Normal with no signs of trauma. EYES: Pupils equal, round and reactive to light, extraocular movements intact, sclera anicteric, conjunctiva clear. No lid lag. EARS, NOSE, THROAT: Ears normal, nares patent, oropharynx clear without exudates. Moist mucous membranes. NECK: Normal range of motion, supple without lymphadenopathy, JVD, or masses. LUNGS: decreased B/L, no wheezing or crackles HEART: Tachycardic, holosystolic murmur 3/6 ABDOMEN: Soft, nontender, not distended, normoactive bowel sounds, no guarding, no rebound, no masses. No hepatomegaly or splenomegaly. MUSCULOSKELETAL: Normal range of motion at all joints. No bony deformities or tenderness. No CVA tenderness. LOWER EXTREMITIES: 2+ pulses, warm, well-perfused. No calf tenderness. No peripheral edema. NEUROLOGICAL: motor 4/5, semsations intact PSYCHIATRIC: Cooperative. Good eye contact. Appropriate mood and affect. SKIN: Grade 3 decubitus ulcer on medial aspect of right buttock, no discharge or erythema, Laboratory Results - last 24 hr 03/07/19 03/07/19 03/07/19 18:30 18:30 18:30 WBC 2.7 L RBC 3.06 L Hgb 7.8 L Hct 23.4 L D MCV 76.4 L MCH 25.5 L D MCHC 33.3 RDW 19.0 H Plt Count 162 MPV 9.2 Absolute Neuts (auto) 1.2 L Total Counted 100 Neutrophils % 43.8 D Neutrophils % (Manual) 35.0 L Band Neutrophils % 8.0 Lymphocytes % 30.1 D Lymphocytes % (Manual) 32.0 Monocytes % 25.6 H D Monocytes % (Manual) 23 H Eosinophils % 0.2 D Eosinophils % (Manual) 1.0 Basophils % 0.3 Nucleated RBC % 0 Differential Comment Man diff performed Platelet Estimate Adequate Platelet Comment Slide scanned. Polychromasia 1+ Poikilocytosis 1+ Anisocytosis 1+ Macrocytosis 1+ Target Cells 1+ Ovalocytes 1+ PT with INR 12.50 INR 1.06 PTT (Actin FS) 30.0 VBG pH POC VBG pCO2 POC VBG pO2 VBG HCO3 VBG O2 Sat ([place]) VBG Base Excess Sodium Potassium Chloride Carbon Dioxide Anion Gap BUN Creatinine Est GFR (CKD-EPI)AfAm Est GFR (CKD-EPI)NonAf POC Glucometer Random Glucose Lactic Acid Calcium Total Bilirubin AST ALT Alkaline Phosphatase Creatine Kinase Troponin I 0.04 B-Natriuretic Peptide Total Protein Albumin Urine Color Urine Appearance Urine pH Ur Specific [place] Urine Protein Urine Glucose (UA) Urine Ketones Urine Blood Urine Nitrite Urine Bilirubin Urine Urobilinogen Ur Leukocyte Esterase Urine WBC (Auto) Urine RBC (Auto) Urine Casts (Auto) U Epithel Cells (Auto) Urine Bacteria (Auto) Stool Occult Blood 03/07/19 03/07/19 03/07/19 18:30 18:30 18:30 WBC RBC Hgb Hct MCV MCH MCHC RDW Plt Count MPV Absolute Neuts (auto) Total Counted Neutrophils % Neutrophils % (Manual) Band Neutrophils % Lymphocytes % Lymphocytes % (Manual) Monocytes % Monocytes % (Manual) Eosinophils % Eosinophils % (Manual) Basophils % Nucleated RBC % Differential Comment Platelet Estimate Platelet Comment Polychromasia Poikilocytosis Anisocytosis Macrocytosis Target Cells Ovalocytes PT with INR INR PTT (Actin FS) VBG pH 7.43 H POC VBG pCO2 40.8 POC VBG pO2 < 49 H VBG HCO3 26.8 VBG O2 Sat ([place]) 26.4 L VBG Base Excess 2.8 H Sodium 138 Potassium 3.1 L Chloride 102 Carbon Dioxide 28 Anion Gap 8 BUN 46.4 H Creatinine 2.5 H Est GFR (CKD-EPI)AfAm 21.08 Est GFR (CKD-EPI)NonAf 18.19 POC Glucometer Random Glucose 114 H Lactic Acid 1.4 Calcium 7.9 L Total Bilirubin 0.5 AST 22 ALT 13 Alkaline Phosphatase 114 Creatine Kinase 21 L Troponin I B-Natriuretic Peptide 02261.7 H Total Protein 6.2 L Albumin 1.9 L Urine Color Urine Appearance Urine pH Ur Specific [place] Urine Protein Urine Glucose (UA) Urine Ketones Urine Blood Urine Nitrite Urine Bilirubin Urine Urobilinogen Ur Leukocyte Esterase Urine WBC (Auto) Urine RBC (Auto) Urine Casts (Auto) U Epithel Cells (Auto) Urine Bacteria (Auto) Stool Occult Blood 03/07/19 03/07/19 03/08/19 18:30 19:46 01:09 WBC RBC Hgb Hct MCV MCH MCHC RDW Plt Count MPV Absolute Neuts (auto) Total Counted Neutrophils % Neutrophils % (Manual) Band Neutrophils % Lymphocytes % Lymphocytes % (Manual) Monocytes % Monocytes % (Manual) Eosinophils % Eosinophils % (Manual) Basophils % Nucleated RBC % Differential Comment Platelet Estimate Platelet Comment Polychromasia Poikilocytosis Anisocytosis Macrocytosis Target Cells Ovalocytes PT with INR INR PTT (Actin FS) VBG pH POC VBG pCO2 POC VBG pO2 VBG HCO3 VBG O2 Sat ([place]) VBG Base Excess Sodium Potassium Chloride Carbon Dioxide Anion Gap BUN Creatinine Est GFR (CKD-EPI)AfAm Est GFR (CKD-EPI)NonAf POC Glucometer 123 Random Glucose Lactic Acid Calcium Total Bilirubin AST ALT Alkaline Phosphatase Creatine Kinase Troponin I B-Natriuretic Peptide Total Protein Albumin Urine Color Yellow Urine Appearance Cloudy Urine pH 5.0 Ur Specific [place] 1.020 Urine Protein 3+ H Urine Glucose (UA) Negative Urine Ketones Negative Urine Blood Trace Urine Nitrite Negative Urine Bilirubin Negative Urine Urobilinogen 1.0 Ur Leukocyte Esterase Negative Urine WBC (Auto) 65.3 Urine RBC (Auto) 3 Urine Casts (Auto) 9 U Epithel Cells (Auto) 0.4 Urine Bacteria (Auto) 25.8 Stool Occult Blood Negative ASSESSMENT/PLAN: 73 YO female with PMH of DM, HTN, RA, asthma. She presented to the ER with complaints of weakness, chills, pain in her rt. sided sacral ulcer for 4 days and diarrhea for 3 weeks. Admitted for management of sepsis. #Sepsis - 2/2 GI vs respiratory source - CXR: B/L lower lobe infiltrates, cardiomegaly - CT chest B/L evidece of pneumonitis - CT AP ordered - Ceftriaxone 1g given in ER - Stool O and P, C Diff - Wound care consulted #Possible CHF - BNP 14.9k - Echo ordered #Anemia - CKD vs Fe deficiency - Fe studies ordered - GI consult placed for colonoscopy #Hypokalemia - Likely due to diarrhea - Repleted with 40 meq PO and 40 meq IV #Hx of HTN - Resume meds #FEN - N/S @ 50, hydrating gently d/t hx of CHF - Mg ordered #DVT - Lovenox 40mg Visit type - Emergency Visit Emergency Visit: Yes ED Registration Date: 03/07/19 Care time: The patient presented to the Emergency Department on the above date and was hospitalized for further evaluation of their emergent condition. - New Patient This patient is new to me today: Yes Date on this admission: 03/08/19 - Critical Care Critical Care patient: No ATTENDING PHYSICIAN STATEMENT I saw and evaluated the patient. I reviewed the resident's note and discussed the case with the resident. I agree with the resident's findings and plan as documented. SUBJECTIVE: OBJECTIVE: ASSESSMENT AND PLAN:
[2019-03-08 07:53] LABS: IRON SERUM 13 ug/dL (50-175); TOTAL IRON BINDING CAPACITY 137 ug/dL (250-450)
[2019-03-08 09:51] LABS: MAGNESIUM 1.5 mg/dL (1.8-2.4)
--- NOTE | 2019-03-08 09:59 | EKG ---
Test Reason : Blood Pressure : / mmHG Vent. Rate : 090 BPM Atrial Rate : 090 BPM P-R Int : 132 ms QRS Dur : 080 ms QT Int : 396 ms P-R-T Axes : 073 075 022 degrees QTc Int : 484 ms SINUS RHYTHM WITH MARKED SINUS ARRHYTHMIA ANTERIOR INFARCT , AGE UNDETERMINED ABNORMAL ECG WHEN COMPARED WITH ECG OF 04-JAN-2017 14:10, T WAVE VARIATION Confirmed by CRISTINA ALLISON MD ([id number]) on 03/08/2019 9:58:50 AM Referred By: Confirmed By:CRISTINA ALLISON MD
[2019-03-08] MEDS ORDERED: MAGNESIUM SULF 50% (8.12 MEQ/2 ML-1 GM VIAL) IVPB ONE (11:14)
[2019-03-08 12:42] LABS: ANION GAP 12 MMOL/L (8-16); BLOOD UREA NITROGEN 47.4 mg/dL (7-18); CALCIUM 7.8 mg/dL (8.5-10.1); CHLORIDE 106 mmol/L (98-107); CO2 21 mmol/L (21-32); CREATININE 2.3 mg/dL (0.55-1.3); GLUCOSE,RANDOM 146 mg/dL (74-106); POTASSIUM 3.5 mmol/L (3.5-5.1); SODIUM 139 mmol/L (136-145)
[2019-03-08 13:17] LABS: BASO % 0.3 % (0-2.0); EOS % 0.1 % (0-4.5); HEMATOCRIT 21.6 % (32.4-45.2); HEMOGLOBIN 7.2 GM/dL (10.7-15.3); LYMPH % 25.3 % (8-40); MCH 25.5 pg (25.7-33.7); MCHC 33.5 g/dl (32.0-36.0); MEAN CELL VOLUME 76.1 fl (80-96); MEAN PLT VOLUME 8.8 fl (7.5-11.1); MONO % 22.8 % (3.8-10.2); NEUT % 51.5 % (42.8-82.8); PLATELET COUNT 156 K/MM3 (134-434); RBC 2.84 M/mm3 (3.60-5.2); WHITE BLOOD COUNT 3.3 K/mm3 (4.0-10.0)
[2019-03-08 13:48] LABS: BLOOD UREA NITROGEN 47.3 mg/dL (7-18); CALCIUM 7.8 mg/dL (8.5-10.1); CREATININE 2.3 mg/dL (0.55-1.3); POTASSIUM 3.7 mmol/L (3.5-5.1)
--- NOTE | 2019-03-08 14:34 | CON.CARD ---
Consult Consult Specialty:: Cardiology Referred by:: Hospitalist Medicine Reason for Consultation:: Elevated BNP - History of Present Illness Chief Complaint: Dyspnea History of Present Illness: Patient is a 73 year old woman with a PMH of Insulin-treated DM, HTN, HLD and Rheumatoid arthritis presenting with weakness, chills, and right buttock ulcer was recently brought to [facility] by sister for becoming unresponsive , unable to get in contact with patient for 3 days, found down at home with BGM 500. Says she was stabilized and sent to [place] for rehab. Sister says that rehab experience was poor, not walking well, not eating well. Has had chronic right buttock ulcer that sister says was not taken care of well. Discharged home 4 days ago with home wound aide but this person never came. Ever since, she has been feeling weak, with fever, chills, unable to walk, sore/raspy throat, with nausea, diarrhea and poor PO intake. Denies alcohol, tobacco or illicit drug use. No sick contacts or recent travels. She reports dyspnea and orthopnea, LE edema w/o chest pain, near or true syncope, palpitations. FH of cancer and [place]. - History Source History Provided By: Patient Limitations to Obtaining History: No Limitations - Past Medical History Cardio/Vascular: Yes: HTN Rheumatology: Yes: Rheumatoid Arthritis Endocrine: Yes: Diabetes Mellitus - Alcohol/Substance Use Hx Alcohol Use: No - Smoking History Smoking history: Never smoked Have you smoked in the past 12 months: No Aproximately how many cigarettes per day: 0 - Social History Usual Living Arrangement: Alone Home Medications - Allergies Allergies/Adverse Reactions: Allergies Allergy/AdvReac Type Severity Reaction Status Date / Time amoxicillin trihydrate Allergy Verified 03/07/19 15:32 [From Augmentin] aspirin Allergy Verified 03/07/19 15:32 ibuprofen [From Motrin] Allergy Verified 03/07/19 15:32 metformin HCl Allergy Verified 03/07/19 15:32 [From Glucophage] potassium clavulanate Allergy Verified 03/07/19 15:32 [From Augmentin] - Home Medications Home Medications: Ambulatory Orders Atorvastatin Ca [Lipitor] 20 mg PO HS #30 tablet 01/07/17 Hydralazine HCl 25 mg PO DAILY 03/07/19 Metoprolol Succinate [Toprol Xl] 100 mg PO DAILY 03/07/19 Omeprazole 20 mg PO DAILY 03/07/19 Review of Systems - Review of Systems Cardiovascular: reports: Edema Respiratory: reports: Exercise Intolerance, SOB, SOB on Exertion Vital Signs: Vital Signs Temperature 97.8 F 03/08/19 12:32 Pulse Rate 93 H 03/08/19 12:32 Respiratory Rate 03/08/19 12:32 Blood Pressure 153/69 03/08/19 12:32 O2 Sat by Pulse Oximetry (%) 97 03/08/19 11:07 Constitutional: Yes: No Distress, Calm, Thin Neck: Yes: Supple Respiratory: Yes: Regular, Diminished Gastrointestinal: Yes: Soft, Hypoactive Bowel Sounds Cardiovascular: Yes: Regular Rate and Rhythm JVD: No Carotid Bruit: No Heart Sounds: Yes: S1, S2 Murmur: Yes: Systolic Murmur, Grade 1 Edema: Yes Edema: LLE: 1+, RLE: 1+ - Other Data Labs, Other Data: CBC, BMP 03/08/19 12:30 03/08/19 12:30 INR, PTT INR 1.06 (0.83-1.09) 03/07/19 18:30 Troponin, BNP 03/07/19 03/07/19 03/08/19 18:30 18:30 06:30 Troponin I 0.04 < 0.02 B-Natriuretic Peptide 33409.7 H 03/08/19 12:30 Troponin I < 0.02 B-Natriuretic Peptide Troponin, BNP 03/07/19 03/07/19 03/08/19 18:30 18:30 06:30 Troponin I 0.04 < 0.02 B-Natriuretic Peptide 47215.7 H 03/08/19 12:30 Troponin I < 0.02 B-Natriuretic Peptide NSR @ 90 PAC, PRWP Ejection Fraction %: LVEF > or = 40 % Imaging - Results Chest X-ray: Report Reviewed (NAD) Cat Scan: Report Reviewed (Right presacral decubitus ulcer, left adrenal adenoma , mild-mild upper lobe ground glass (pneumonitis vs small airway dz), LLL small acute infiltrate) Problem List - Problems (1) Acute kidney injury superimposed on CKD Code(s): N17.9 - ACUTE KIDNEY FAILURE, UNSPECIFIED; N18.9 - CHRONIC KIDNEY DISEASE, UNSPECIFIED (2) CHF exacerbation Code(s): I50.9 - HEART FAILURE, UNSPECIFIED Qualifiers: Heart failure type: diastolic Qualified Code(s): I50.33 - Acute on chronic diastolic (congestive) heart failure (3) Sepsis Code(s): A41.9 - SEPSIS, UNSPECIFIED ORGANISM Qualifiers: Sepsis type: sepsis due to unspecified organism Sepsis acute organ dysfunction status: with acute organ dysfunction Severe sepsis acute organ dysfunction type: acute renal failure Acute renal failure type: unspecified Severe sepsis shock status: without septic shock Qualified Code(s): A41.9 - Sepsis, unspecified organism; R65.20 - Severe sepsis without septic shock; N17.9 - Acute kidney failure, unspecified (4) Altered mental state Code(s): R41.82 - ALTERED MENTAL STATUS, UNSPECIFIED Qualifiers: Altered mental status type: unspecified Qualified Code(s): R41.82 - Altered mental status, unspecified (5) Pneumonitis Code(s): J18.9 - PNEUMONIA, UNSPECIFIED ORGANISM (6) Sacral decubitus ulcer Code(s): L89.159 - PRESSURE ULCER OF SACRAL REGION, UNSPECIFIED STAGE Assessment/Plan 01/03/2017 Mild cLVH, nomal LV fxn, abnl LV compliance, normal RV size and fxn, mild LAE, mild MR, mod TR RVSP 50-60 mmHg 1. Sepsis with bilateral pneumonitis 2. Diastolic dysfunction 3. Type 2 DM 4. Acute on CKD with proteinuria 5. Hypertensive heart disease 6. Right sacral decub ulcer 7. Microcytic anemia 8. Rheumatoid arthritis 9. Hyperlipidemia P:1. F/u repeat echo and renal U/S results 2. Empiric abx course, wound care 3. Continue Lipitor 20 qhs, Toprol XL 100 qd 4. DVT and GI prophylaxis 5. Thank you for consultative opportunity
--- NOTE | 2019-03-08 14:34 | CONSULT ---
- Consultation REQUESTING PROVIDER: CONSULT REQUEST: We have been asked to surgically evaluate this patient for sacral decubitus. PCP:Salo Florentino MD HISTORY OF PRESENT ILLNESS: Obtained from EMR Patient is a 73 year old woman with a PMH of IDDM, HTN, HLD and Rheumatoid arthritis presenting with weakness, chills, and sacral ulcer. Per patient's sister, she was recently brought to [facility] in [place] by sister after she was unable to contact the patient for 3 days, found down at home with BGM 500. She was stabilized at [place] and sent to [place] for rehab. Sister states that the rehab experience was poor, not walking well, not eating well and claims she developed a sacral ulcer for 4 days in the setting of diarrhea for 3 weeks.The patient was discharged home 4 days ago with home with VNS but they never came. Ever since, she has been feeling weak, with fever, chills, unable to walk, sore/raspy throat, with nausea, diarrhea and poor PO intake. Recent Travel: None PAST MEDICAL HISTORY: As listed in HPI PAST SURGICAL HISTORY: lupectomy right breast Social History: Smoking:none Alcohol:none Drugs: none Allergies amoxicillin trihydrate [From Augmentin] Allergy (Verified 03/07/19 15:32 aspirin Allergy (Verified 03/07/19 15:32) ibuprofen [From Motrin] Allergy (Verified 03/07/19 15:32) metformin HCl [From Glucophage] Allergy (Verified 03/07/19 15:32) potassium clavulanate [From Augmentin] Allergy (Verified 03/07/19 15:32) HOME MEDICATIONS: Home Medications Medication Instructions Recorded Atorvastatin Ca [Lipitor] 20 mg PO HS #30 tablet 01/07/17 Hydralazine HCl 25 mg PO DAILY 03/07/19 Metoprolol Succinate [Toprol Xl] 100 mg PO DAILY 03/07/19 Omeprazole 20 mg PO DAILY 03/07/19 REVIEW OF SYSTEMS Unable to obtain PHYSICAL EXAMINATION Vital Signs - 24 hr 03/07/19 03/07/19 03/07/19 15:29 17:30 18:09 Temperature 97.7 F 101.2 F H Pulse Rate 80 96 H Pulse Rate [ 91 H 96 H Left Radial] Respiratory 18 16 16 Rate Blood Pressure 150/105 H 194/85 H Blood Pressure 190/102 H 164/85 [Left Arm] O2 Sat by Pulse 100 100 97 Oximetry (%) 03/07/19 03/07/19 03/08/19 20:05 23:59 01:52 Temperature 100.1 F H Pulse Rate Pulse Rate [ 113 H Left Radial] Respiratory 20 Rate Blood Pressure Blood Pressure 190/78 H 173/87 H [Left Arm] O2 Sat by Pulse 98 98 Oximetry (%) GENERAL: AOx1 HEAD: Normal with no signs of trauma. EYES: anicteric, conjunctiva clear. No lid lag. LUNGS: Unlabored resp on RA, no auditory wheezes or crackles MUSCULOSKELETAL: moving all extremities without limitation. LOWER EXTREMITIES: 2+ pulses, warm, well-perfused. No calf tenderness. No peripheral edema. NEUROLOGICAL: motor 4/5, semsations intact PSYCHIATRIC: Cooperative. Good eye contact. Appropriate mood and affect. SKIN: Grade 3 decubitus ulcer right side of sacrum @ 6x4cm with 4.5cm undermining inferior with 1-2cm undermining circumferentialy around the remainder. purulant and foul d/c noted with pain on probing Laboratory Results - last 24 hr 03/07/19 03/07/19 03/07/19 18:30 18:30 18:30 WBC 2.7 L RBC 3.06 L Hgb 7.8 L Hct 23.4 L D MCV 76.4 L MCH 25.5 L D MCHC 33.3 RDW 19.0 H Plt Count 162 MPV 9.2 Absolute Neuts (auto) 1.2 L Total Counted 100 Neutrophils % 43.8 D Neutrophils % (Manual) 35.0 L Band Neutrophils % 8.0 Lymphocytes % 30.1 D Lymphocytes % (Manual) 32.0 Monocytes % 25.6 H D Monocytes % (Manual) 23 H Eosinophils % 0.2 D Eosinophils % (Manual) 1.0 Basophils % 0.3 Nucleated RBC % 0 Differential Comment Man diff performed Platelet Estimate Adequate Platelet Comment Slide scanned. Polychromasia 1+ Poikilocytosis 1+ Anisocytosis 1+ Macrocytosis 1+ Target Cells 1+ Ovalocytes 1+ PT with INR 12.50 INR 1.06 PTT (Actin FS) 30.0 VBG pH POC VBG pCO2 POC VBG pO2 VBG HCO3 VBG O2 Sat ([place]) VBG Base Excess Sodium Potassium Chloride Carbon Dioxide Anion Gap BUN Creatinine Est GFR (CKD-EPI)AfAm Est GFR (CKD-EPI)NonAf POC Glucometer Random Glucose Lactic Acid Calcium Total Bilirubin AST ALT Alkaline Phosphatase Creatine Kinase Troponin I 0.04 B-Natriuretic Peptide Total Protein Albumin Urine Color Urine Appearance Urine pH Ur Specific Halma Urine Protein Urine Glucose (UA) Urine Ketones Urine Blood Urine Nitrite Urine Bilirubin Urine Urobilinogen Ur Leukocyte Esterase Urine WBC (Auto) Urine RBC (Auto) Urine Casts (Auto) U Epithel Cells (Auto) Urine Bacteria (Auto) Stool Occult Blood 03/07/19 03/07/19 03/07/19 18:30 18:30 18:30 WBC RBC Hgb Hct MCV MCH MCHC RDW Plt Count MPV Absolute Neuts (auto) Total Counted Neutrophils % Neutrophils % (Manual) Band Neutrophils % Lymphocytes % Lymphocytes % (Manual) Monocytes % Monocytes % (Manual) Eosinophils % Eosinophils % (Manual) Basophils % Nucleated RBC % Differential Comment Platelet Estimate Platelet Comment Polychromasia Poikilocytosis Anisocytosis Macrocytosis Target Cells Ovalocytes PT with INR INR PTT (Actin FS) VBG pH 7.43 H POC VBG pCO2 40.8 POC VBG pO2 < 49 H VBG HCO3 26.8 VBG O2 Sat ([place]) 26.4 L VBG Base Excess 2.8 H Sodium 138 Potassium 3.1 L Chloride 102 Carbon Dioxide 28 Anion Gap 8 BUN 46.4 H Creatinine 2.5 H Est GFR (CKD-EPI)AfAm 21.08 Est GFR (CKD-EPI)NonAf 18.19 POC Glucometer Random Glucose 114 H Lactic Acid 1.4 Calcium 7.9 L Total Bilirubin 0.5 AST 22 ALT 13 Alkaline Phosphatase 114 Creatine Kinase 21 L Troponin I B-Natriuretic Peptide 09675.7 H Total Protein 6.2 L Albumin 1.9 L Urine Color Urine Appearance Urine pH Ur Specific Halma Urine Protein Urine Glucose (UA) Urine Ketones Urine Blood Urine Nitrite Urine Bilirubin Urine Urobilinogen Ur Leukocyte Esterase Urine WBC (Auto) Urine RBC (Auto) Urine Casts (Auto) U Epithel Cells (Auto) Urine Bacteria (Auto) Stool Occult Blood 03/07/19 03/07/19 03/08/19 18:30 19:46 01:09 WBC RBC Hgb Hct MCV MCH MCHC RDW Plt Count MPV Absolute Neuts (auto) Total Counted Neutrophils % Neutrophils % (Manual) Band Neutrophils % Lymphocytes % Lymphocytes % (Manual) Monocytes % Monocytes % (Manual) Eosinophils % Eosinophils % (Manual) Basophils % Nucleated RBC % Differential Comment Platelet Estimate Platelet Comment Polychromasia Poikilocytosis Anisocytosis Macrocytosis Target Cells Ovalocytes PT with INR INR PTT (Actin FS) VBG pH POC VBG pCO2 POC VBG pO2 VBG HCO3 VBG O2 Sat ([place]) VBG Base Excess Sodium Potassium Chloride Carbon Dioxide Anion Gap BUN Creatinine Est GFR (CKD-EPI)AfAm Est GFR (CKD-EPI)NonAf POC Glucometer 123 Random Glucose Lactic Acid Calcium Total Bilirubin AST ALT Alkaline Phosphatase Creatine Kinase Troponin I B-Natriuretic Peptide Total Protein Albumin Urine Color Yellow Urine Appearance Cloudy Urine pH 5.0 Ur Specific Halma 1.020 Urine Protein 3+ H Urine Glucose (UA) Negative Urine Ketones Negative Urine Blood Trace Urine Nitrite Negative Urine Bilirubin Negative Urine Urobilinogen 1.0 Ur Leukocyte Esterase Negative Urine WBC (Auto) 65.3 Urine RBC (Auto) 3 Urine Casts (Auto) 9 U Epithel Cells (Auto) 0.4 Urine Bacteria (Auto) 25.8 Stool Occult Blood Negative Abdomen/Pelvis CT: Right sided presacral decubitus ulcer containing edema. Problem List - Problems (1) Ulcer Assessment/Plan: 73 YO female with PMH of DM, HTN, RA, asthma. She presented to the ER with complaints of weakness, chills, pain in her rt. sided sacral ulcer and diarrhea for 3 weeks. Admitted for management of sepsis. -NPO after midnight for Debridement in OR with Dr Robles tomorrow 03/09/19 -medical optimization - sepsis work up - IV ABX per ID - Stool O and P, C Diff Evaluation and plan discussed with Dr Robles Code(s): [id number] -
[2019-03-08] MEDS: HEPARIN NA (PORCINE) 5,000 UNITS/ML 1ML VIAL SQ SCH ×2 (14:57→22:29)
[2019-03-08] MEDS: ASCORBIC ACID 500 MG TABLET (FP) PO SCH (14:57)
[2019-03-08] MEDS: FERROUS SO4 325 MG TABLET (FP) PO SCH (14:57)
[2019-03-08 15:03] LABS: ANISOCYTOSIS 1+; MACROCYTOSIS 0; PLATELET ESTIMATE DECREASED; TARGET CELLS 1+; TEAR DROP CELLS 1+
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
--- NOTE | 2019-03-08 20:13 | PN ---
Physical Exam: 73 F h/o T2DM, HTN, HLD and Rheumatoid arthritis presenting with weakness, chills, and right buttock ulcer. Endorses bad experience at recent stay of short term SNF facility and where her R buttock ulcer was not properly taken care of. Since discharge from there complains of poor oral intake and symptoms of URI. GA lying in bed, AAox3, speaking in full sentences HEENT: No Jaundice, eye redness or discharge, PERRLA, EOMI. Dry mucous membranes , Normocephalic, atraumatic. External ears are normal and hearing is grossly intact. No nasal discharge. Neck: Supple, nontender. No palpable adenopathy or thyromegaly. No JVD Chest: Good effort. Clear to auscultation and percussion. Heart: Regular. No S3 or rub: 2/6 HSM. Abdomen: Not distended, soft, nontender and no HSM. No rebound or guarding. Normal bowel sounds. Ext: Peripheral pulses intact. Leg edema. Skin: Warm and dry. No petechiae, rash or ecchymosis. Grade 2-3 right buttock ulcer with slight pus/fibrinous discharge Neuro: Alert. Oriented x3. CN 2-12 grossly intact. Sensation grossly intact in all four extremities and DTR are symmetric. Psych: Appropriate mood and affect. Good insight. Vital Signs - 24 hr 03/07/19 03/08/19 03/08/19 23:59 01:52 06:52 Temperature 100.1 F H 97.3 F L Pulse Rate Pulse Rate [ 113 H 87 Left Radial] Respiratory 20 18 Rate Blood Pressure Blood Pressure 190/78 H 173/87 H 153/80 [Left Arm] O2 Sat by Pulse 98 98 Oximetry (%) 03/08/19 03/08/19 03/08/19 11:07 12:32 14:54 Temperature 98 F 97.8 F 97.1 F L Pulse Rate 93 H 87 Pulse Rate [ 88 Left Radial] Respiratory 18 20 20 Rate Blood Pressure 153/69 154/64 Blood Pressure 174/82 H [Left Arm] O2 Sat by Pulse 97 Oximetry (%) Microbiology 03/07/19 18:30 Blood - Peripheral Venous Blood Culture - Preliminary NO GROWTH OBTAINED AFTER 24 HOURS, INCUBATION TO CONTINUE FOR 4 DAYS. 03/07/19 18:30 Blood - Peripheral Venous Blood Culture - Preliminary NO GROWTH OBTAINED AFTER 24 HOURS, INCUBATION TO CONTINUE FOR 4 DAYS. 03/07/19 17:29 Buttock - Left Gram Stain - Final Laboratory Results - last 24 hr 03/07/19 03/07/19 03/08/19 18:30 19:46 01:09 WBC RBC Hgb Hct MCV MCH MCHC RDW Plt Count MPV Absolute Neuts (auto) Total Counted 100 Neutrophils % Neutrophils % (Manual) 35.0 L Band Neutrophils % 8.0 Lymphocytes % Lymphocytes % (Manual) 32.0 Monocytes % Monocytes % (Manual) 23 H Eosinophils % Eosinophils % (Manual) 1.0 Basophils % Basophils % (Manual) Myelocytes % (Man) Promyelocytes % (Man) Blast Cells % (Manual) Nucleated RBC % Metamyelocytes Differential Comment Man diff performed Hypochromia Platelet Estimate Adequate Platelet Comment Slide scanned. Polychromasia 1+ Poikilocytosis 1+ Anisocytosis 1+ Microcytosis Macrocytosis 1+ Spherocytes Target Cells 1+ Tear Drop Cells Ovalocytes 1+ Sodium Potassium Chloride Carbon Dioxide Anion Gap BUN Creatinine Est GFR (CKD-EPI)AfAm Est GFR (CKD-EPI)NonAf POC Glucometer 123 Random Glucose Calcium Magnesium Iron TIBC Iron Saturation Unsaturated IBC Troponin I Stool Occult Blood Negative 03/08/19 03/08/19 03/08/19 06:30 12:30 12:30 WBC 3.3 L RBC 2.84 L Hgb 7.2 L Hct 21.6 L MCV 76.1 L MCH 25.5 L MCHC 33.5 RDW 19.0 H Plt Count 156 MPV 8.8 Absolute Neuts (auto) 1.7 Total Counted Neutrophils % 51.5 Neutrophils % (Manual) 51.1 Band Neutrophils % 15.6 Lymphocytes % 25.3 Lymphocytes % (Manual) 17.7 D Monocytes % 22.8 H Monocytes % (Manual) 7 Eosinophils % 0.1 Eosinophils % (Manual) 0.0 D Basophils % 0.3 Basophils % (Manual) 0.0 Myelocytes % (Man) 0 Promyelocytes % (Man) 0 Blast Cells % (Manual) 0 Nucleated RBC % 2 H Metamyelocytes 0 Differential Comment Hypochromia 0 Platelet Estimate Decreased Platelet Comment Present Polychromasia 1+ Poikilocytosis 1+ Anisocytosis 1+ Microcytosis 1+ Macrocytosis 0 Spherocytes 1+ Target Cells 1+ Tear Drop Cells 1+ Ovalocytes Sodium 139 140 Potassium 3.5 3.7 Chloride 106 106 Carbon Dioxide 21 22 Anion Gap 12 12 BUN 47.4 H 47.3 H Creatinine 2.3 H 2.3 H Est GFR (CKD-EPI)AfAm 23.31 23.31 Est GFR (CKD-EPI)NonAf 20.12 20.12 POC Glucometer Random Glucose 146 H 146 H Calcium 7.8 L 7.8 L Magnesium 1.5 L Iron 13 L TIBC 137 L Iron Saturation 9 L Unsaturated IBC 124 L Troponin I < 0.02 Stool Occult Blood 03/08/19 03/08/19 12:30 16:53 WBC RBC Hgb Hct MCV MCH MCHC RDW Plt Count MPV Absolute Neuts (auto) Total Counted Neutrophils % Neutrophils % (Manual) Band Neutrophils % Lymphocytes % Lymphocytes % (Manual) Monocytes % Monocytes % (Manual) Eosinophils % Eosinophils % (Manual) Basophils % Basophils % (Manual) Myelocytes % (Man) Promyelocytes % (Man) Blast Cells % (Manual) Nucleated RBC % Metamyelocytes Differential Comment Hypochromia Platelet Estimate Platelet Comment Polychromasia Poikilocytosis Anisocytosis Microcytosis Macrocytosis Spherocytes Target Cells Tear Drop Cells Ovalocytes Sodium Potassium Chloride Carbon Dioxide Anion Gap BUN Creatinine Est GFR (CKD-EPI)AfAm Est GFR (CKD-EPI)NonAf POC Glucometer 171 Random Glucose Calcium Magnesium Iron TIBC Iron Saturation Unsaturated IBC Troponin I < 0.02 Stool Occult Blood Current Medications Generic Name Dose Route Start Last Admin Trade Name Freq PRN Reason Stop Dose Admin Ascorbic Acid 500 mg 03/08/19 14:00 03/08/19 14:57 Vitamin C - PO 500 mg DAILY ANGELLA Administration Atorvastatin Calcium 20 mg 03/08/19 22:00 Lipitor - PO HS ANGELLA Ferrous Sulfate 325 mg 03/08/19 14:00 03/08/19 14:57 Feosol - PO 325 mg DAILY ANGELLA Administration Heparin Sodium (Porcine) 5,000 unit 03/08/19 14:00 03/08/19 14:57 Heparin - SQ 5,000 unit TID ANGELLA Administration Sodium Chloride 1,000 mls @ 50 mls/hr 03/08/19 01:00 03/08/19 02:28 Normal Saline - IV 03/09/19 00:58 50 mls/hr ASDIR ANGELLA Administration Metoprolol Succinate 100 mg 03/08/19 20:15 Toprol Xl - PO DAILY ANGELLA A/P: 73 F h/o T2DM, HTN, HLD, chronic R buttock ulcer presents with fever of unknown source, possibly due to infected sacral decubitus ulcer. Sacral decubitus ulcer fever on recent VS, underlying neutropenia, anemia Surgery evaluation, empiric Zosyn, they will consider sending pt. to OR in AM for debridement, cont. frequent turns, wound care referral HTN restart home meds Cardiology evaluation: Dr Ward SAL on ?CKD Renal US, gentle IV hydration, send SAL workup, avoid nephrotoxins Renal consult: Dr White Pancytopenia anemia, neutropenia, send HIV (when pt. consents), hepatitis panel send anemia workup, replete iron GI evaluation: Dr. Phan, recommending EGD/Colonoscopy HLD restart statin DVT ppx: Heparin SC NPO MN for surgery debridement Visit type - Emergency Visit Emergency Visit: Yes ED Registration Date: 03/07/19 Care time: The patient presented to the Emergency Department on the above date and was hospitalized for further evaluation of their emergent condition. - New Patient This patient is new to me today: Yes Date on this admission: 03/08/19 - Critical Care Critical Care patient: No - Discharge Referral Referred to [facility] Med P.C.: No
[2019-03-08] MEDS: ATORVASTATIN CA 20 MG TABLET (FP) PO SCH (22:29)
[2019-03-09] MEDS: HEPARIN NA (PORCINE) 5,000 UNITS/ML 1ML VIAL SQ SCH ×3 (06:19→21:35)
--- NOTE | 2019-03-09 08:45 | PN ---
Progress Note, Physician Chief Complaint: 24 HR events - WBC remains suppressed - 2.7 today down from 3.3 yesterday - H/H remains low 7.4/22.4 - debridement cancelled due to patient consuming liquids - BP uncontrolled -hydralazine restarted History of Present Illness: 73 YO female with PMH of DM, HTN, RA, asthma. She presented to the ER with complaints of weakness, chills, pain in her rt. sided sacral ulcer for 4 days and diarrhea for 3 weeks. 4 weeks ago she was found down in her apartment by her sister, EMS was called and she was fou to have a BG of 500. She was admitted to [facility] (as per the patient), after which she was discharged to a [facility]. She left the NH due to unsatisfactory care 4 days ago, after which she developed weakness, chills, pain in her rt. sided sacral ulcer. She has had the sacral ulcer for the past 4 weeks, but the pain has worsened over the past 4 days, with no discharge except for one episode of a few drops of blood noticed by her sister. She has had 2-3 episodes of diarrhea for the past 3 weeks, non bloody, but has had no episodes today. She endorses associated SOB, but denies any vomiting, dysuria, or dizziness. - Current Medication List Current Medications: Active Medications Ascorbic Acid (Vitamin C -) 500 mg PO DAILY [facility] Last Admin: 03/08/19 14:57 Dose: 500 mg Atorvastatin Calcium (Lipitor -) 20 mg PO HS [facility] Last Admin: 03/08/19 22:29 Dose: 20 mg Ferrous Sulfate (Feosol -) 325 mg PO DAILY [facility] Last Admin: 03/08/19 14:57 Dose: 325 mg Heparin Sodium (Porcine) (Heparin -) 5,000 unit SQ TID [facility] Last Admin: 03/09/19 06:19 Dose: Not Given Metoprolol Succinate (Toprol Xl -) 100 mg PO DAILY [facility] Last Admin: 03/08/19 22:29 Dose: 100 mg - Objective Vital Signs: Vital Signs Temperature 98.2 F 03/09/19 05:25 Pulse Rate 80 03/09/19 05:25 Respiratory Rate 20 03/09/19 05:25 Blood Pressure 153/87 03/09/19 05:25 O2 Sat by Pulse Oximetry (%) 97 03/08/19 11:07 Constitutional: Yes: No Distress, Calm Eyes: Yes: Conjunctiva Clear HENT: Yes: Atraumatic, Normocephalic Neck: Yes: Supple Cardiovascular: Yes: Murmur (holosystolic murmur across precordium) Respiratory: Yes: Regular, CTA Bilaterally Gastrointestinal: Yes: Normal Bowel Sounds, Soft, Abdomen, Obese ...Rectal Exam: Yes: Deferred Musculoskeletal: Yes: WNL Extremities: Yes: WNL Edema: Yes Edema: LLE: 1+, RLE: 1+ Peripheral Pulses WNL: Yes Peripheral Pulses: Left Radial: 2+, Right Radial: 2+ Integumentary: Yes: Pressure Ulcer (sacral) Neurological: Yes: Alert, Oriented ...Motor Strength: WNL Psychiatric: Yes: Alert, Oriented Labs: INR, PTT INR 1.06 (0.83-1.09) 03/07/19 18:30 - ....Imaging Other: Report Reviewed (ECHO 03/09/19 Impression: There is severe concentric LVH. LV is hyperdynamic. DiastoliC dysfunction, GraDE iii (RESTRICTIVE PATTERN) , consistenet with mardekly increased left atrial pressure. Moderate MR. Severe pHTN. Moderate aortic sclerosis, moderate aortic stenosis.) Problem List - Problems (1) Pressure injury of deep tissue of sacral region Assessment/Plan: NPO after MN for debridement on 03/10 santyl BID for wound care Code(s): L89.156 - PRESSURE-INDUCED DEEP TISSUE DAMAGE OF SACRAL REGION (2) Anemia Assessment/Plan: heme consult for leukopenia/anemia trend WBC, H/H tranfuse for hgb < 7.0 vitamin C + iron once daily GI following Code(s): D64.9 - ANEMIA, UNSPECIFIED (3) HTN (hypertension) Assessment/Plan: increase hydral 25mg BID echo report in MR, pt noted with severe pHTN, mod MR and Moderate cardiology following cont Toprol XL Code(s): I10 - ESSENTIAL (PRIMARY) HYPERTENSION (4) Hypercholesterolemia Assessment/Plan: ontinue statin Code(s): E78.00 - PURE HYPERCHOLESTEROLEMIA, UNSPECIFIED (5) CKD (chronic kidney disease) Assessment/Plan: trend serum Cr renal following Code(s): N18.9 - CHRONIC KIDNEY DISEASE, UNSPECIFIED Impression/Plan Impression/Plan: DVT ppx: Heparin SC Code status: Full Visit type - Emergency Visit Emergency Visit: Yes ED Registration Date: 03/07/19 Care time: The patient presented to the Emergency Department on the above date and was hospitalized for further evaluation of their emergent condition. - New Patient This patient is new to me today: Yes Date on this admission: 03/09/19 - Critical Care Critical Care patient: No - Discharge Referral Referred to [facility] Med P.C.: No
[2019-03-09 08:56] LABS: BASO % 0.4 % (0-2.0); EOS % 0.4 % (0-4.5); HEMATOCRIT 22.4 % (32.4-45.2); HEMOGLOBIN 7.4 GM/dL (10.7-15.3); LYMPH % 30.8 % (8-40); MCH 25.6 pg (25.7-33.7); MCHC 33.1 g/dl (32.0-36.0); MEAN CELL VOLUME 77.4 fl (80-96); MEAN PLT VOLUME 8.8 fl (7.5-11.1); NEUT % 43.4 % (42.8-82.8); PLATELET COUNT 161 K/MM3 (134-434); RBC 2.89 M/mm3 (3.60-5.2); RDW 19.3 % (11.6-15.6); WHITE BLOOD COUNT 2.7 K/mm3 (4.0-10.0)
[2019-03-09 09:08] LABS: CALCIUM 8.1 mg/dL (8.5-10.1); CREATININE 2.2 mg/dL (0.55-1.3); POTASSIUM 3.7 mmol/L (3.5-5.1)
--- NOTE | 2019-03-09 09:38 | CONSULT ---
Consultation: REQUESTING PROVIDER: Dr. Badillo CONSULT REQUEST: elevated Cr HISTORY OF PRESENT ILLNESS: 73 y/o female with PMH of DM, HTN, RA, asthma, nephrectomy many years ago , presents to the ED from the [facility] with complaints of diarrhea for the past 3 weeks in addition to a sacral decubitus ulcer- patient states that she has been feeling queasy and has not been able to tolerate solid foods for a few weeks and has been having episodes of diarrhea, however denies nausea/vomiting fevers- in addition she has a right buttock ulcer that has not been properly taken care of at the [place]- we were consulted due to elevated Cr (baseline from 2017 2.0) patients Cr was 2,5 on arrival; renal US showed B/L renal cysts and chronic medical renal disease REVIEW OF SYSTEMS: CONSTITUTIONAL: Absent: fever, chills, diaphoresis, generalized weakness, malaise, loss of appetite, weight change HEENT: Absent: rhinorrhea, nasal congestion, throat pain, throat swelling, difficulty swallowing, mouth swelling, ear pain, eye pain, visual changes CARDIOVASCULAR: Absent: chest pain, syncope, palpitations, irregular heart rate, lightheadedness , peripheral edema RESPIRATORY: Absent: cough, shortness of breath, dyspnea with exertion, orthopnea, wheezing, stridor, hemoptysis GASTROINTESTINAL: Present: diarrhea, Absent: abdominal pain, abdominal distension, nausea, vomiting, constipation, melena, hematochezia GENITOURINARY: Absent: dysuria, frequency, urgency, hesitancy, hematuria, flank pain, genital pain MUSCULOSKELETAL: Absent: myalgia, arthralgia, joint swelling, back pain, neck pain SKIN: Absent: rash, itching, pallor HEMATOLOGIC/IMMUNOLOGIC: Absent: easy bleeding, easy bruising, lymphadenopathy, frequent infections ENDOCRINE: Absent: unexplained weight gain, unexplained weight loss, heat intolerance, cold intolerance NEUROLOGIC: Absent: headache, focal weakness or paresthesias, dizziness, unsteady gait, seizure, mental status changes, bladder or bowel incontinence PSYCHIATRIC: Absent: anxiety, depression, suicidal or homicidal ideation, hallucinations. PHYSICAL EXAMINATION Vital Signs - 24 hr 03/08/19 03/08/19 03/08/19 11:07 12:32 14:54 Temperature 98 F 97.8 F 97.1 F L Pulse Rate 93 H 87 Pulse Rate [ 88 Left Radial] Respiratory 18 20 20 Rate Blood Pressure 153/69 154/64 Blood Pressure 174/82 H [Left Arm] O2 Sat by Pulse 97 Oximetry (%) 03/08/19 03/09/19 20:00 05:25 Temperature 98.2 F 98.2 F Pulse Rate 80 80 Pulse Rate [ Left Radial] Respiratory 21 H 20 Rate Blood Pressure 147/82 153/87 Blood Pressure [Left Arm] O2 Sat by Pulse Oximetry (%) GENERAL: Awake, alert, and fully oriented, in no acute distress. EYES: PEERLA; EOMI: no scleral icterus NECK: no JVD; no lymphadenopathy LUNGS:CTA B/L: no rales, rhonchi or wheezing HEART: RRR s1;s2 no murmurs/rubs/gallops ABDOMEN: Soft, NT/ND+BS in all 4 quadrants MUSCULOSKELETAL: Normal range of motion at all joints. No bony deformities or tenderness. No CVA tenderness. EXTREMITIES: warm; well-perfused- no clubbing/cyanosis or edema - left buttock ulcer with slight drainage present NEUROLOGICAL: Cranial nerves II-XII intact. Normal speech. Normal gait. PSYCHIATRIC: Cooperative. Good eye contact. Appropriate mood and affect. SKIN: Warm, dry, normal turgor, no rashes or lesions noted. Laboratory Results - last 24 hr 03/08/19 03/08/19 03/08/19 06:30 12:30 12:30 WBC 3.3 L RBC 2.84 L Hgb 7.2 L Hct 21.6 L MCV 76.1 L MCH 25.5 L MCHC 33.5 RDW 19.0 H Plt Count 156 MPV 8.8 Absolute Neuts (auto) 1.7 Neutrophils % 51.5 Neutrophils % (Manual) 51.1 Band Neutrophils % 15.6 Lymphocytes % 25.3 Lymphocytes % (Manual) 17.7 D Monocytes % 22.8 H Monocytes % (Manual) 7 Eosinophils % 0.1 Eosinophils % (Manual) 0.0 D Basophils % 0.3 Basophils % (Manual) 0.0 Myelocytes % (Man) 0 Promyelocytes % (Man) 0 Blast Cells % (Manual) 0 Nucleated RBC % 2 H Metamyelocytes 0 Hypochromia 0 Platelet Estimate Decreased Platelet Comment Present Polychromasia 1+ Poikilocytosis 1+ Anisocytosis 1+ Microcytosis 1+ Macrocytosis 0 Spherocytes 1+ Target Cells 1+ Tear Drop Cells 1+ Sodium 139 140 Potassium 3.5 3.7 Chloride 106 106 Carbon Dioxide 21 22 Anion Gap 12 12 BUN 47.4 H 47.3 H Creatinine 2.3 H 2.3 H Est GFR (CKD-EPI)AfAm 23.31 23.31 Est GFR (CKD-EPI)NonAf 20.12 20.12 POC Glucometer Random Glucose 146 H 146 H Calcium 7.8 L 7.8 L Magnesium 1.5 L Iron 13 L TIBC 137 L Iron Saturation 9 L Unsaturated IBC 124 L Ferritin Troponin I < 0.02 TSH 03/08/19 03/08/19 03/09/19 12:30 16:53 08:15 WBC 2.7 L RBC 2.89 L Hgb 7.4 L Hct 22.4 L MCV 77.4 L MCH 25.6 L MCHC 33.1 RDW 19.3 H Plt Count 161 MPV 8.8 Absolute Neuts (auto) 1.2 L Neutrophils % 43.4 Neutrophils % (Manual) Band Neutrophils % Lymphocytes % 30.8 D Lymphocytes % (Manual) Monocytes % 25.0 H Monocytes % (Manual) Eosinophils % 0.4 D Eosinophils % (Manual) Basophils % 0.4 Basophils % (Manual) Myelocytes % (Man) Promyelocytes % (Man) Blast Cells % (Manual) Nucleated RBC % 0 Metamyelocytes Hypochromia Platelet Estimate Platelet Comment Polychromasia Poikilocytosis Anisocytosis Microcytosis Macrocytosis Spherocytes Target Cells Tear Drop Cells Sodium Potassium Chloride Carbon Dioxide Anion Gap BUN Creatinine Est GFR (CKD-EPI)AfAm Est GFR (CKD-EPI)NonAf POC Glucometer 171 Random Glucose Calcium Magnesium Iron TIBC Iron Saturation Unsaturated IBC Ferritin Troponin I < 0.02 TSH 03/09/19 03/09/19 08:15 08:15 WBC RBC Hgb Hct MCV MCH MCHC RDW Plt Count MPV Absolute Neuts (auto) Neutrophils % Neutrophils % (Manual) Band Neutrophils % Lymphocytes % Lymphocytes % (Manual) Monocytes % Monocytes % (Manual) Eosinophils % Eosinophils % (Manual) Basophils % Basophils % (Manual) Myelocytes % (Man) Promyelocytes % (Man) Blast Cells % (Manual) Nucleated RBC % Metamyelocytes Hypochromia Platelet Estimate Platelet Comment Polychromasia Poikilocytosis Anisocytosis Microcytosis Macrocytosis Spherocytes Target Cells Tear Drop Cells Sodium 139 Potassium 3.7 Chloride 106 Carbon Dioxide 25 Anion Gap 9 BUN 45.0 H Creatinine 2.2 H Est GFR (CKD-EPI)AfAm 24.60 Est GFR (CKD-EPI)NonAf 21.23 POC Glucometer Random Glucose 175 H Calcium 8.1 L Magnesium Iron TIBC Iron Saturation Unsaturated IBC Ferritin 508.7 H Troponin I TSH 0.96 Active Medications Generic Name Dose Route Start Last Admin Trade Name Freq PRN Reason Stop Dose Admin Ascorbic Acid 500 mg 03/08/19 14:00 03/08/19 14:57 Vitamin C - PO 500 mg DAILY ANGELLA Administration Atorvastatin Calcium 20 mg 03/08/19 22:00 03/08/19 22:29 Lipitor - PO 20 mg HS ANGELLA Administration Ferrous Sulfate 325 mg 03/08/19 14:00 03/08/19 14:57 Feosol - PO 325 mg DAILY ANGELLA Administration Heparin Sodium (Porcine) 5,000 unit 03/08/19 14:00 03/09/19 06:19 Heparin - SQ Not Given TID ANGELLA Hydralazine HCl 25 mg 03/09/19 10:00 Apresoline - PO DAILY ANGELLA Metoprolol Succinate 100 mg 03/08/19 20:15 03/08/19 22:29 Toprol Xl - PO 100 mg DAILY ANGELLA Administration ASSESSMENT/PLAN: 73 y/o female with PMH of DM, HTN, RA, asthma, nephrectomy many years ago , presents [facility] from the [facility] with complaints of diarrhea for the past 3 weeks in addition to a left sacral decubitus ulcer found to have an elevated Cr #SAL on CKD renal US results noted f/u urine studies NPO after MN for sacral debridement repeat BMP in AM avoid NSAIDS; avoid nephrotoxic drugs Dispo: We will continue to follow the patient. Thank you for this consultative opportunity. Problem List - Problems (1) Acute kidney injury superimposed on CKD Code(s): N17.9 - ACUTE KIDNEY FAILURE, UNSPECIFIED; N18.9 - CHRONIC KIDNEY DISEASE, UNSPECIFIED (2) Rheumatoid arthritis Code(s): M06.9 - RHEUMATOID ARTHRITIS, UNSPECIFIED (3) Sacral decubitus ulcer Code(s): L89.159 - PRESSURE ULCER OF SACRAL REGION, UNSPECIFIED STAGE Visit type - Emergency Visit Emergency Visit: Yes ED Registration Date: 03/07/19 Care time: The patient presented to the Emergency Department on the above date and was hospitalized for further evaluation of their emergent condition. - New Patient This patient is new to me today: Yes Date on this admission: 03/09/19 - Critical Care Critical Care patient: No ATTENDING PHYSICIAN STATEMENT I saw and evaluated the patient. I reviewed the resident's note and discussed the case with the resident. I agree with the resident's findings and plan as documented. SUBJECTIVE: OBJECTIVE: ASSESSMENT AND PLAN:
--- NOTE | 2019-03-09 09:42 | SPA.PREOP ---
- PRE-OP NOTE Dx: Sacral Ulcer Planned Procedure: Sacral Debridement, possible VAC Surgeon: Yoseph Robles Last Vital Signs Temp Pulse Resp BP Pulse Ox 98.2 F 80 20 153/87 97 03/09/19 05:25 03/09/19 05:25 03/09/19 05:25 03/09/19 05:25 03/08/19 11:07 Lab Results WBC 2.7 K/mm3 (4.0-10.0) L 03/09/19 08:15 RBC 2.89 M/mm3 (3.60-5.2) L 03/09/19 08:15 Hgb 7.4 GM/dL (10.7-15.3) L 03/09/19 08:15 Hct 22.4 % (32.4-45.2) L 03/09/19 08:15 MCV 77.4 fl (80-96) L 03/09/19 08:15 MCHC 33.1 g/dl (32.0-36.0) 03/09/19 08:15 RDW 19.3 % (11.6-15.6) H 03/09/19 08:15 Plt Count 161 K/MM3 (134-434) 03/09/19 08:15 Sodium 139 mmol/L (136-145) 03/09/19 08:15 Potassium 3.7 mmol/L (3.5-5.1) 03/09/19 08:15 Chloride 106 mmol/L (98-107) 03/09/19 08:15 Carbon Dioxide 25 mmol/L (21-32) 03/09/19 08:15 Anion Gap 9 MMOL/L (8-16) 03/09/19 08:15 BUN 45.0 mg/dL (7-18) H 03/09/19 08:15 Creatinine 2.2 mg/dL (0.55-1.3) H 03/09/19 08:15 Random Glucose 175 mg/dL (74-106) H 03/09/19 08:15 Calcium 8.1 mg/dL (8.5-10.1) L 03/09/19 08:15 INR 1.06 (0.83-1.09) 03/07/19 18:30 - ASSESSMENT/PLAN 1. NPO after midnight except po meds 2. GI/DVT PPX 3. Medical optimization / clearance 4. Consent to be obtained by surgeon after risks, benefits and alternatives discussed with patient and or Health Care Proxy. Visit type - Case Type Case Type: ED Admission - Emergency Emergency Visit: Yes ED Registration Date: 03/07/19 Care time: The patient presented to the Emergency Department on the above date and was hospitalized for further evaluation of their emergent condition. - New patient This patient is new to me today: Yes Date on this admission: 03/09/19
[2019-03-09] MEDS ORDERED: hydrALAZINE HCL 25 MG TABLET (FP) PO SCH (10:00)
[2019-03-09] MEDS: ASCORBIC ACID 500 MG TABLET (FP) PO SCH (10:35)
[2019-03-09] MEDS: FERROUS SO4 325 MG TABLET (FP) PO SCH (10:35)
--- NOTE | 2019-03-09 11:21 | PN ---
Progress Note, Physician Chief Complaint: Events noted Not in distress History of Present Illness: Patient was seen and examined. Awake and alert. Chart was reviewed Denies chest pain, SOB or palpitations - Current Medication List Current Medications: Active Medications Ascorbic Acid (Vitamin C -) 500 mg PO DAILY [facility] Last Admin: 03/09/19 10:35 Dose: 500 mg Atorvastatin Calcium (Lipitor -) 20 mg PO HS [facility] Last Admin: 03/08/19 22:29 Dose: 20 mg Ferrous Sulfate (Feosol -) 325 mg PO DAILY [facility] Last Admin: 03/09/19 10:35 Dose: 325 mg Heparin Sodium (Porcine) (Heparin -) 5,000 unit SQ TID [facility] Last Admin: 03/09/19 06:19 Dose: Not Given Hydralazine HCl (Apresoline -) 25 mg PO DAILY [facility] Last Admin: 03/09/19 10:36 Dose: 25 mg Metoprolol Succinate (Toprol Xl -) 100 mg PO DAILY [facility] Last Admin: 03/09/19 10:35 Dose: 100 mg - Objective Vital Signs: Vital Signs Temperature 98.2 F 03/09/19 05:25 Pulse Rate 80 03/09/19 05:25 Respiratory Rate 20 03/09/19 05:25 Blood Pressure 153/87 03/09/19 05:25 O2 Sat by Pulse Oximetry (%) 97 03/08/19 11:07 Eyes: Yes: PERRL HENT: Yes: Atraumatic Neck: Yes: Supple Cardiovascular: Yes: Regular Rate and Rhythm, Murmur (SM) Respiratory: Yes: CTA Bilaterally Gastrointestinal: Yes: Normal Bowel Sounds, Soft. No: Tenderness Edema: No Labs: CBC, BMP 03/09/19 08:15 03/09/19 08:15 INR, PTT INR 1.06 (0.83-1.09) 03/07/19 18:30 Problem List - Problems (1) HTN (hypertension) Code(s): I10 - ESSENTIAL (PRIMARY) HYPERTENSION (2) T2DM (type 2 diabetes mellitus) Code(s): E11.9 - TYPE 2 DIABETES MELLITUS WITHOUT COMPLICATIONS (3) Hypercholesterolemia Code(s): E78.00 - PURE HYPERCHOLESTEROLEMIA, UNSPECIFIED (4) Rheumatoid arthritis Code(s): M06.9 - RHEUMATOID ARTHRITIS, UNSPECIFIED (5) Acute kidney injury superimposed on CKD Code(s): N17.9 - ACUTE KIDNEY FAILURE, UNSPECIFIED; N18.9 - CHRONIC KIDNEY DISEASE, UNSPECIFIED (6) Anemia Code(s): D64.9 - ANEMIA, UNSPECIFIED (7) Pneumonitis Code(s): J18.9 - PNEUMONIA, UNSPECIFIED ORGANISM (8) Sacral decubitus ulcer Code(s): L89.159 - PRESSURE ULCER OF SACRAL REGION, UNSPECIFIED STAGE (9) Sepsis Code(s): A41.9 - SEPSIS, UNSPECIFIED ORGANISM Qualifiers: Sepsis type: sepsis due to unspecified organism Sepsis acute organ dysfunction status: with acute organ dysfunction Severe sepsis acute organ dysfunction type: acute renal failure Acute renal failure type: unspecified Severe sepsis shock status: without septic shock Qualified Code(s): A41.9 - Sepsis, unspecified organism; R65.20 - Severe sepsis without septic shock; N17.9 - Acute kidney failure, unspecified (10) UTI (urinary tract infection) Code(s): N39.0 - URINARY TRACT INFECTION, SITE NOT SPECIFIED Qualifiers: Urinary tract infection type: acute cystitis Hematuria presence: without hematuria Qualified Code(s): N30.00 - Acute cystitis without hematuria Assessment/Plan 1. Sepsis with bilateral pneumonitis 2. Diastolic dysfunction 3. Type 2 DM 4. Acute on CKD with proteinuria 5. Hypertensive cardiovascular disease 6. Right sacral decubiti ulcer 7. Microcytic anemia 8. Rheumatoid arthritis 9. Hyperlipidemia PLAN: 1. Echocardiography to assess LV/RV and valvular function 2. Renal US noted 3. Empiric antibiotic coverage and wound care 4. Continue Lipitor 20 mg QHS and Toprol XL 100 mg QD 5. DVT and GI prophylaxis Jamel Murrieta MD
[2019-03-09 11:42] LABS: ANISOCYTOSIS 1+; MACROCYTOSIS 0; PLATELET ESTIMATE NORMAL; TARGET CELLS 1+
--- NOTE | 2019-03-09 11:47 | PN ---
HC Provider Note Provider Note: Anesthesia Pre-Op Evaluation Pt with known cardiac dysfunction CHF, sepsis Awaiting echo as per cardiology note from 03/08/19 Emmett New M.D.
[2019-03-09 11:51] VITALS: BMI 23.8
--- NOTE | 2019-03-09 14:26 | PN ---
Teaching Attending Note Name of Resident: Ángela Rudd (Nephrology) ATTENDING PHYSICIAN STATEMENT I saw and evaluated the patient. I reviewed the resident's note and discussed the case with the resident. I agree with the resident's findings and plan as documented. Renal Pt is a 73 year old female with pmhx of DM, HTN, RA, CKD and asthma who presents with diarrhea. I was called to evaluate her for elevated insurance administrative assistant. SHe has history of ckd. She says that she had kidney surgery many years ago but gomez not remember the details. pmhx ckd htn dm RA allergies amoxicillin, aspirin, ibuprofen, metformin social hx lives in [place] ros discomfort from right buttock ulcer family hx non contrib Current Medications Generic Name Dose Route Start Last Admin Trade Name Freq PRN Reason Stop Dose Admin Ascorbic Acid 500 mg 03/08/19 14:00 03/09/19 10:35 Vitamin C - PO 500 mg DAILY [facility] Administration Atorvastatin Calcium 20 mg 03/08/19 22:00 03/08/19 22:29 Lipitor - PO 20 mg HS [facility]GE[facility] Administration Ferrous Sulfate 325 mg 03/08/19 14:00 03/09/19 10:35 Feosol - PO 325 mg DAILY [facility] Administration Heparin Sodium (Porcine) 5,000 unit 03/08/19 14:00 03/09/19 06:19 Heparin - SQ Not Given TID [facility]GELLA Hydralazine HCl 25 mg 03/09/19 10:00 03/09/19 10:36 Apresoline - PO 25 mg DAILY [facility] Administration Metoprolol Succinate 100 mg 03/08/19 20:15 03/09/19 10:35 Toprol Xl - PO 100 mg DAILY [facility] Administration Laboratory Tests 01/10/17 03/07/19 03/07/19 07:23 18:30 18:30 Creatinine 2.0 H 2.5 H Urine Protein 3+ H Urine Blood Trace 03/09/19 08:15 Creatinine 2.2 H Urine Protein Urine Blood Last Vital Signs Temp Pulse Resp BP Pulse Ox 98 F 76 20 168/80 97 03/09/19 09:00 03/09/19 09:00 03/09/19 09:00 03/09/19 09:00 03/08/19 11:07 cardio s1s2 pulm clear GI soft ext plus 1 edema neuro awake and alert Impression 1. CKD with acute component 2. htn 3. dm 4. RA 5. diarrhea 6. bilateral renal cysts Plan - insurance administrative assistant is improving - hold off fluids for now - check echo - avoid nsaids - insurance administrative assistant not far from baseline - will evaluate for diuretics daily
--- NOTE | 2019-03-09 15:43 | ECHO ---
Name: SOLANOSHELBY Faiban Exam:Adult Echocardiogram Study Date: 03/09/2019 01:41 PM Age: 73 yrs Height: 65 in Weight: 145 lb BSA: 1.7 m2 MMode/2D Measurements & Calculations IVSd: 1.1 cm Ao root diam: 1.8 cm LVIDd: 3.8 cm LA dimension: 3.9 cm LVIDs: 2.2 cm ACS: 1.7 cm LVPWd: 1.4 cm IVSs: 1.4 cm LVPWs: 1.7 cm EDV(Teich): 61.1 ml ESV(Teich): 15.8 ml LVOT diam: 1.6 cm LAV(MOD-sp4): 68.5 ml RV S Betito: 15.0 cm/sec Doppler Measurements & Calculations MV E max betito: 126.5 cm/sec Ao V2 max: 320.1 cm/sec MV A max betito: 105.7 cm/sec Ao max P.0 mmHg MV E/A: 1.2 Ao V2 mean: 212.4 cm/sec MV dec time: 0.21 sec Ao mean P.9 mmHg Ao V2 VTI: 72.6 cm CONRAD(I,D): 0.98 cm2 CONRAD(V,D): 0.94 cm2 LV V1 max P.1 mmHg MR max betito: 515.8 cm/sec LV V1 mean P.9 mmHg MR max P.4 mmHg LV V1 max: 150.8 cm/sec LV V1 mean: 102.2 cm/sec LV V1 VTI: 35.6 cm SV(LVOT): 71.4 ml TR max betito: 401.8 cm/sec TR max P.6 mmHg PA V2 max: 82.2 cm/sec Med Peak E' Betito: 8.3 cm/sec PA max P.0 mmHg Med E/e': 15.3 Lat Peak E' Betito: 7.3 cm/sec Lat E/e': 17.4 Procedure A two-dimensional transthoracic echocardiogram with color flow and Doppler was performed. Left Ventricle There is severe concentric left ventricular hypertrophy. The left ventricle is hyperdynamic. Diastoli c dysfunction, Grade III (restrictive pattern), consistent with markedly increased left atrial pressure . Right Ventricle The right ventricle is normal in size and function. Atria Normal left and right atrial size and function. Mitral Valve The mitral valve is normal in structure and function. There is moderate mitral regurgitation. Tricuspid Valve The tricuspid valve is normal in structure and function. There is mild tricuspid regurgitation. Assum ing the RA pressure is 10 mmHg. There is severe pulmonary hypertension. Right ventricular systolic pressure i s elevated at 74 mmhg. Aortic Valve The aortic valve is not well visualized. There is moderate aortic sclerosis.;. Moderate valvular aort ic stenosis. Aortic mean pressure gradient= 21. The calculated aortic valve area using the continuity eq uation is 1.0 cm2. Pulmonic Valve The pulmonic valve is not well visualized. Great Vessels The aortic root is not well visualized. Pericardium/Pleura Small pericardial effusion. There are no echocardiographic indications of cardiac tamponade. Interpretation Summary There is severe concentric left ventricular hypertrophy. The left ventricle is hyperdynamic. Diastolic dysfunction, Grade III (restrictive pattern), consistent with markedly increased left atria l pressure. There is moderate mitral regurgitation. There is severe pulmonary hypertension. There is moderate aortic sclerosis.; Moderate valvular aortic stenosis. Matt Rivera 03/09/2019 03:43 PM
[2019-03-09] MEDS: COLLAGENASE CLOSTRIDIUM HIST. 30 GRAMS TUBE TP SCH (17:45)
--- NOTE | 2019-03-09 17:47 | PN.GI ---
GI Progress Note Subjective: No overt bleeding No focal GI complaints - Objective Vital Signs: Vital Signs Temperature 98 F 03/09/19 09:00 Pulse Rate 76 03/09/19 09:00 Respiratory Rate 20 03/09/19 09:00 Blood Pressure 168/80 03/09/19 09:00 O2 Sat by Pulse Oximetry (%) 97 03/08/19 11:07 Constitutional: Calm Eyes: No: Sclera Icterus Cardiovascular: Yes: Regular Rate and Rhythm Respiratory: Yes: CTA Bilaterally. No: Diminished Gastrointestinal Inspection: No: Distention ...Auscultate: Yes: Normoactive Bowel Sounds ...Palpate: Yes: Soft. No: Hepatomegaly, Splenomegaly, Tenderness ...Percussion: No: Tympanitic Edema: No (No LE edema) Neurological: Yes: Alert Labs: CBC, BMP 03/09/19 08:15 03/09/19 08:15 INR, PTT INR 1.06 (0.83-1.09) 03/07/19 18:30 Hepatic Panel Total Bilirubin 0.5 mg/dL (0.2-1) 03/07/19 18:30 AST 22 U/L (15-37) 03/07/19 18:30 ALT 13 U/L (13-61) 03/07/19 18:30 Alkaline Phosphatase 114 U/L (45-117) 03/07/19 18:30 Albumin 1.9 g/dl (3.4-5.0) L 03/07/19 18:30 Problem List - Problems (1) Diarrhea Assessment/Plan: No diarrhea currently Code(s): R19.7 - DIARRHEA, UNSPECIFIED (2) Anemia Assessment/Plan: Profound anemia. Explained to Ms. Teresa that in order to exclude sources of GI blood loss such as bleeding blood vessels, polyps or cancer of the GI tract such as colon cancer, colonoscopy could be undertaken followed by possible upper endoscopy. This, of course would be once neutropenia has been addressed. We discussed potential risks of the procedure like but not limited to bleeding , perforation requiring surgery to repair, infection, sedation medication effects all of which could be potentially life threatening. Her nurse was present during our conversation. Ms. Teresa did not agree to the procedures and said she would think about this these options. Condsider heme evaluation Recall when amenable to endoscopic evaluation Code(s): D64.9 - ANEMIA, UNSPECIFIED
[2019-03-09] MEDS: ATORVASTATIN CA 20 MG TABLET (FP) PO SCH (21:35)
[2019-03-09] MEDS: hydrALAZINE HCL 25 MG TABLET (FP) PO SCH (21:35)
[2019-03-10] MEDS: HEPARIN NA (PORCINE) 5,000 UNITS/ML 1ML VIAL SQ SCH (06:16)
[2019-03-10 09:10] LABS: HEMATOCRIT 22.1 % (32.4-45.2); HEMOGLOBIN 7.4 GM/dL (10.7-15.3); MCH 25.9 pg (25.7-33.7); MCHC 33.5 g/dl (32.0-36.0); MEAN CELL VOLUME 77.5 fl (80-96); MEAN PLT VOLUME 8.9 fl (7.5-11.1); PLATELET COUNT 163 K/MM3 (134-434); RBC 2.85 M/mm3 (3.60-5.2); RDW 19.3 % (11.6-15.6); WHITE BLOOD COUNT 2.3 K/mm3 (4.0-10.0)
[2019-03-10 10:07] LABS: ALBUMIN 1.7 g/dl (3.4-5.0); BILIRUBIN,TOTAL 0.5 mg/dL (0.2-1); BLOOD UREA NITROGEN 42.5 mg/dL (7-18); CALCIUM 8.1 mg/dL (8.5-10.1); CREATININE 1.8 mg/dL (0.55-1.3); MAGNESIUM 2.1 mg/dL (1.8-2.4); POTASSIUM 3.3 mmol/L (3.5-5.1); TOT PROT 5.6 g/dl (6.4-8.2)
[2019-03-10] MEDS: hydrALAZINE HCL 25 MG TABLET (FP) PO SCH ×2 (10:13→21:10)
[2019-03-10] MEDS: FERROUS SO4 325 MG TABLET (FP) PO SCH (10:13)
[2019-03-10] MEDS: ASCORBIC ACID 500 MG TABLET (FP) PO SCH (10:13)
[2019-03-10] MEDS ORDERED: VANCOMYCIN 1 GM in D5W (PRE-DOCKED) 1,000 MG/250 ML IVPB ONE ×2 (11:47→16:15)
--- NOTE | 2019-03-10 11:47 | PN ---
Progress Note, Physician History of Present Illness: Patient is a 73 year old woman with a PMH of Insulin-treated DM, HTN, HLD and Rheumatoid arthritis presenting with weakness, chills, and right buttock ulcer was recently brought to [facility] by sister for becoming unresponsive , unable to get in contact with patient for 3 days, found down at home with BGM 500. Says she was stabilized and sent to [place] for rehab. Sister says that rehab experience was poor, not walking well, not eating well. Has had chronic right buttock ulcer that sister says was not taken care of well. Discharged home 4 days ago with home wound aide but this person never came. Ever since, she has been feeling weak, with fever, chills, unable to walk, sore/raspy throat, with nausea, diarrhea and poor PO intake. Denies alcohol, tobacco or illicit drug use. No sick contacts or recent travels. She reports dyspnea and orthopnea, LE edema w/o chest pain, near or true syncope, palpitations. FH of cancer and IA. - Current Medication List Current Medications: Active Medications Ascorbic Acid (Vitamin C -) 500 mg PO DAILY [facility] Last Admin: 03/10/19 10:13 Dose: 500 mg Atorvastatin Calcium (Lipitor -) 20 mg PO HS [facility] Last Admin: 03/09/19 21:35 Dose: 20 mg Collagenase (Santyl -) 1 applic TP DAILY [facility]; Protocol Last Admin: 03/09/19 17:45 Dose: 1 applic Ferrous Sulfate (Feosol -) 325 mg PO DAILY [facility] Last Admin: 03/10/19 10:13 Dose: 325 mg Heparin Sodium (Porcine) (Heparin -) 5,000 unit SQ TID [facility] Last Admin: 03/10/19 06:16 Dose: Not Given Hydralazine HCl (Apresoline -) 25 mg PO BID [facility] Last Admin: 03/10/19 10:13 Dose: 25 mg Metoprolol Succinate (Toprol Xl -) 100 mg PO DAILY [facility] Last Admin: 03/10/19 10:13 Dose: 100 mg - Objective Vital Signs: Vital Signs Temperature 97.9 F 03/10/19 10:39 Pulse Rate 69 03/10/19 10:39 Respiratory Rate 18 03/10/19 10:39 Blood Pressure 190/89 H 03/10/19 10:39 O2 Sat by Pulse Oximetry (%) 96 03/09/19 21:00 Labs: CBC, BMP 03/10/19 08:02 03/10/19 08:02 INR, PTT INR 1.06 (0.83-1.09) 03/07/19 18:30 Problem List - Problems (1) Acute kidney injury superimposed on CKD Code(s): N17.9 - ACUTE KIDNEY FAILURE, UNSPECIFIED; N18.9 - CHRONIC KIDNEY DISEASE, UNSPECIFIED (2) CHF exacerbation Code(s): I50.9 - HEART FAILURE, UNSPECIFIED Qualifiers: Heart failure type: diastolic Qualified Code(s): I50.33 - Acute on chronic diastolic (congestive) heart failure (3) Sepsis Code(s): A41.9 - SEPSIS, UNSPECIFIED ORGANISM Qualifiers: Sepsis type: sepsis due to unspecified organism Sepsis acute organ dysfunction status: with acute organ dysfunction Severe sepsis acute organ dysfunction type: acute renal failure Acute renal failure type: unspecified Severe sepsis shock status: without septic shock Qualified Code(s): A41.9 - Sepsis, unspecified organism; R65.20 - Severe sepsis without septic shock; N17.9 - Acute kidney failure, unspecified (4) Altered mental state Code(s): R41.82 - ALTERED MENTAL STATUS, UNSPECIFIED Qualifiers: Altered mental status type: unspecified Qualified Code(s): R41.82 - Altered mental status, unspecified (5) Pneumonitis Code(s): J18.9 - PNEUMONIA, UNSPECIFIED ORGANISM (6) Sacral decubitus ulcer Code(s): L89.159 - PRESSURE ULCER OF SACRAL REGION, UNSPECIFIED STAGE Assessment/Plan 03/09/2019 Echogenic kidneys c/w chronic medical renal dz, bilateral renal cysts 03/10/2019 Severe cLVH, hyperdynamic LV fxn, grade III restrictive pattern, c/w markedly increased LAP, mod MR, severe pulm HTN, mod MG 21 mmHg CONRAD 1.0 cm^2 01/03/2017 Mild cLVH, nomal LV fxn, abnl LV compliance, normal RV size and fxn, mild LAE, mild MR, mod TR RVSP 50-60 mmHg 1. Sepsis with bilateral pneumonitis 2. Diastolic dysfunction 3. Type 2 DM 4. Acute on CKD with proteinuria 5. Hypertensive cardiovascular disease 6. Right sacral decubiti ulcer 7. Microcytic anemia 8. Rheumatoid arthritis 9. Hyperlipidemia PLAN: 1. 3. Empiric antibiotic coverage and wound care 4. Continue Lipitor 20 mg QHS and Toprol XL 100 mg QD 5. DVT and GI prophylaxis Profound anemia. Explained to Ms. Teresa that in order to exclude sources of GI blood loss such as bleeding blood vessels, polyps or cancer of the GI tract such as colon cancer, colonoscopy could be undertaken followed by possible upper endoscopy. This, of course would be once neutropenia has been addressed. We discussed potential risks of the procedure like but not limited to bleeding , perforation requiring surgery to repair, infection, sedation medication effects all of which could be potentially life threatening. Her nurse was present during our conversation. Ms. Teresa did not agree to the procedures and said she would think about this these options. Condsider heme evaluation Recall when amenable to endoscopic evaluation Ascorbic Acid (Vitamin C -) 500 mg PO DAILY [facility] Last Admin: 03/10/19 10:13 Dose: 500 mg Atorvastatin Calcium (Lipitor -) 20 mg PO HS [facility] Last Admin: 03/09/19 21:35 Dose: 20 mg Collagenase (Santyl -) 1 applic TP DAILY [facility]; Protocol Last Admin: 03/09/19 17:45 Dose: 1 applic Ferrous Sulfate (Feosol -) 325 mg PO DAILY [facility] Last Admin: 03/10/19 10:13 Dose: 325 mg Heparin Sodium (Porcine) (Heparin -) 5,000 unit SQ TID [facility] Last Admin: 03/10/19 06:16 Dose: Not Given Hydralazine HCl (Apresoline -) 25 mg PO BID [facility] Last Admin: 03/10/19 10:13 Dose: 25 mg Metoprolol Succinate (Toprol Xl -) 100 mg PO DAILY [facility] Last Admin: 03/10/19 10:13 Dose: 100 mg 73 y/o lady with h/o HTN, DM, RA, asthma, CKD, who presented with increased weakness , diarrhea and worsening wound in sacral area. She was found to be septic 1- Sepsis due to infected sacral decub. Doubt that the lung or the urine are the cause. - was not on Abx. Allergic to PCN. Not sure of allergy. - Ideally would use meropenem and vanco, but will consult with Id regarding the allergy hx. will give aztreonam 500 mg q 8h , renaly dosed ( Cr cl 23%) and vanco 1 g now, and then q 48 hours. - for debridement in OR, but not on the schedule yet. - wound cx reviewed. citrobacter and pending organisms including staph. urine cx reviewed. - No abscess on CT - consult ID 2- lekopenia and microcytic anemia : likely anemia of chronic disease, chronic but worse. can't r/o occult source of bleeding. - leukopenia is new, and could be due to infection /sepsis. - declined endoscopy for now. will have as out pt - heme consult was placed previously - monitor counts. 3- SAL on CKD: renal US reviewed. - f/u on renal cysts as out pt. - monitor cr 4- lung findings of possible pneumonitits and thickening. doubt acute issues. no pulm sx. no signs of fluid overload on exam. - need to be monitored 5- HTN: cont HZN and BB 6- L adrenal nodule, stable form before 2.3 cm. f/u as outpt 7- Mod , MR and pulmonary HTN: monitor . echo reviewed.
[2019-03-10] MEDS ORDERED: ACETAMINOPHEN 1000 MG/100 ML VIAL (NON FORMULARY) IVPB PRN ×2 (11:48→15:41)
[2019-03-10] MEDS ORDERED: AZTREONAM 0.5 GM in DEXTROSE 5%-WATER - 50 ML IVPB SCH ×4 (12:00→18:00)
[2019-03-10] MEDS ORDERED: DEXTROSE 5%-WATER - 50 ML IVPB ONE (12:05)
[2019-03-10] MEDS ORDERED: AZTREONAM 1 GM VIAL (RESTRICTED TO ID) ONE (12:05)
--- NOTE | 2019-03-10 13:07 | PN ---
Teaching Attending Note Name of Resident: Junior Rowe ATTENDING PHYSICIAN STATEMENT I saw and evaluated the patient. I reviewed the resident's note and discussed the case with the resident. I agree with the resident's findings and plan as documented. SUBJECTIVE: Has pain in her sacral area. no fever or chills/ has no SOB or cough. no abd pain. OBJECTIVE: NAD, awake, cooperative. looks in pain. MMM, no facial droop. CV: RRR, 3/6 SM all over precordium with radiation to L axilla. Abd: soft, NT, ND, NL BS Ext : No edema on LE . Skin : deep round sacral decub with purulent drainage and with slough. 4x4 cm . ASSESSMENT AND PLAN: 73 y/o lady with h/o HTN, DM, RA, asthma, CKD, who presented with increased weakness , diarrhea and worsening wound in sacral area. She was found to be septic 1- Sepsis due to infected sacral decub. Doubt that the lung or the urine are the cause. - was not on Abx. Allergic to PCN. Not sure of allergy. - Ideally would use meropenem and vanco, but will consult with Id regarding the allergy hx. will give aztreonam 500 mg q 8h , renaly dosed ( Cr cl 23%) and vanco 1 g now, and then q 48 hours. - for debridement in OR, but not on the schedule yet. - wound cx reviewed. citrobacter and pending organisms including staph. urine cx reviewed. - No abscess on CT - consult ID 2- lekopenia and microcytic anemia : likely anemia of chronic disease, chronic but worse. can't r/o occult source of bleeding. - leukopenia is new, and could be due to infection /sepsis. - declined endoscopy for now. will have as out pt - heme consult was placed previously - monitor counts. 3- SAL on CKD: renal US reviewed. - f/u on renal cysts as out pt. - monitor cr 4- lung findings of possible pneumonitits and thickening. doubt acute issues. no pulm sx. no signs of fluid overload on exam. - need to be monitored 5- HTN: cont HZN and BB 6- L adrenal nodule, stable form before 2.3 cm. f/u as outpt 7- Mod , MR and pulmonary HTN: monitor . echo reviewed. hold DVT px in case she goes to OR today
--- NOTE | 2019-03-10 13:27 | PN ---
Progress Note (short form) - Note Progress Note: Attempted to readdress possible endoscopic evaluation with pt however she became frustrated and said she did not want the test. Did not want to answer further questions. Please recall GI if pt wants to pursue or to readdress endoscopy, otherwise can follow up as outpt.
[2019-03-10] MEDS ORDERED: LIDOCAINE HCL 1%, 10 MG/ML (20ML VIAL) ONE (13:51)
[2019-03-10] MEDS ORDERED: PROPOFOL 20 ML ONE (14:09)
[2019-03-10] MEDS ORDERED: ONDANSETRON 4 MG/2 ML VIAL IVPUSH PRN (15:45)
[2019-03-10] MEDS ORDERED: LACTATED RINGERS SOLUTION 1,000 ML IV SCH (15:45)
[2019-03-10] MEDS: COLLAGENASE CLOSTRIDIUM HIST. 30 GRAMS TUBE TP SCH (15:52)
--- NOTE | 2019-03-10 16:19 | PN ---
Progress Note (short form) - Note Progress Note: ID consult dictated seen in [facility] after ulcer debridement and vac placement unknown augmentin allergy many years ago-?diarrhea got ceftriaxone in the ED without issue leukopenia/microcytic anemia- new, hematology eval, has declined endoscopy diabetes penicillin allergy unable to view ulcer based on cultures will treat with cefepime/flagyl (?neutropenia- needs cbc with diff in am)-adjust for ckd vancomycin one dose until staph aureus in wound is identified Problem List - Problems (1) Fever Code(s): R50.9 - FEVER, UNSPECIFIED (2) Infected pressure ulcer Code(s): L89.90 - PRESSURE ULCER OF UNSPECIFIED SITE, UNSPECIFIED STAGE; L08.9 - LOCAL INFECTION OF THE SKIN AND SUBCUTANEOUS TISSUE, UNSP (3) Leukopenia Code(s): D72.819 - DECREASED WHITE BLOOD CELL COUNT, UNSPECIFIED (4) Anemia Code(s): D64.9 - ANEMIA, UNSPECIFIED (5) T2DM (type 2 diabetes mellitus) Code(s): E11.9 - TYPE 2 DIABETES MELLITUS WITHOUT COMPLICATIONS (6) Allergy to antibiotic Code(s): Z88.1 - ALLERGY STATUS TO OTHER ANTIBIOTIC AGENTS STATUS (7) CKD (chronic kidney disease) Code(s): N18.9 - CHRONIC KIDNEY DISEASE, UNSPECIFIED
[2019-03-10] MEDS ORDERED: hydrALAZINE HCL 20 MG/ML VIAL ONE (16:22)
[2019-03-10] MEDS ORDERED: CEFTRIAXONE 1 GM in DEXTROSE 5%-WATER - 50 ML IVPB SCH (16:30)
[2019-03-10] MEDS ORDERED: hydrALAZINE HCL 20 MG/ML VIAL IVPUSH ONE (16:35)
[2019-03-10] MEDS ORDERED: KCL 10 MEQ IVPB 10 MEQ/100 ML INFUS.BAG IVPB SCH (16:45)
--- NOTE | 2019-03-10 17:55 | PN ---
Physical Exam: SUBJECTIVE: Patient seen and examined at bedside. Overnight she was kept NPO for debridement today. This AM she states she is in pain; at lesion site on gluteal region. She will be going for this AM. OBJECTIVE: Vital Signs Temp Pulse Resp BP Pulse Ox 97.8 F 69 18 157/75 97 03/10/19 22:59 03/10/19 22:59 03/10/19 22:59 03/10/19 22:59 03/10/19 21:00 GENERAL: AOx2 to person and place, in mild acute distress. HEAD: NCAT EYES: ALLEY, EOMI, conjunctiva clear. ENT: Ears normal, nares patent, oropharynx clear without exudates. Moist mucous membranes. NECK: Normal range of motion, supple without lymphadenopathy, JVD, or masses. LUNGS: Decreased air entry but CTAB otheriwse. No wheezes, and no crackles. No accessory muscle use. HEART: RRR s1 s2, systolic murmur 3/6 R and L USB ABDOMEN: Soft, BS present in all 4 quadrants, non-distended, no JVD, MUSCULOSKELETAL: No bony deformities or tenderness. No CVA tenderness. UPPER EXTREMITIES: 2+ pulses, warm, well-perfused. No cyanosis. No clubbing. No peripheral edema. LOWER EXTREMITIES: 2+ pulses, warm, well-perfused. No calf tenderness. No peripheral edema. NEUROLOGICAL: No focal deficits. Cranial nerves II-XII intact. Normal speech. Gait not appreciated. PSYCHIATRIC: Cooperative. Good eye contact. Appropriate mood and affect. SKIN: Grade 3 decubitus ulcer on medial aspect of right glureal region. No discharge or erythema. Covered in dressing approximately 6x6 cm. Laboratory Results - last 24 hr 03/10/19 03/10/19 03/10/19 06:10 08:02 08:02 WBC 2.3 L RBC 2.85 L Hgb 7.4 L Hct 22.1 L MCV 77.5 L MCH 25.9 MCHC 33.5 RDW 19.3 H Plt Count 163 MPV 8.9 Sodium 141 Potassium 3.3 L Chloride 107 Carbon Dioxide 24 Anion Gap 10 BUN 42.5 H Creatinine 1.8 H Est GFR (CKD-EPI)AfAm 31.36 Est GFR (CKD-EPI)NonAf 27.06 POC Glucometer 228 Random Glucose 222 H Calcium 8.1 L Magnesium 2.1 Total Bilirubin 0.5 AST 19 ALT 13 Alkaline Phosphatase 116 Total Protein 5.6 L Albumin 1.7 L 03/10/19 03/10/19 11:17 17:20 WBC RBC Hgb Hct MCV MCH MCHC RDW Plt Count MPV Sodium Potassium Chloride Carbon Dioxide Anion Gap BUN Creatinine Est GFR (CKD-EPI)AfAm Est GFR (CKD-EPI)NonAf POC Glucometer 214 211 Random Glucose Calcium Magnesium Total Bilirubin AST ALT Alkaline Phosphatase Total Protein Albumin Active Medications Acetaminophen (Ofirmev Injection -) 1,000 mg IVPB Q6H PRN PRN Reason: PAIN LEVEL 1-5 Last Admin: 03/10/19 18:05 Dose: 1,000 mg Ascorbic Acid (Vitamin C -) 500 mg PO DAILY [facility] Atorvastatin Calcium (Lipitor -) 20 mg PO HS [facility] Last Admin: 03/10/19 21:10 Dose: 20 mg Ferrous Sulfate (Feosol -) 325 mg PO DAILY [facility] Heparin Sodium (Porcine) (Heparin -) 5,000 unit SQ TID [facility] Hydralazine HCl (Apresoline -) 25 mg PO BID [facility] Last Admin: 03/10/19 21:10 Dose: 25 mg Metronidazole (Flagyl 500mg Premixed Ivpb -) 500 mg in 100 mls @ 100 mls/hr IVPB Q8H-IV [facility] Last Admin: 03/10/19 19:41 Dose: Not Given Cefepime HCl 1 gm/ Dextrose 100 mls @ 200 mls/hr IVPB BID [facility]; Protocol Last Admin: 03/10/19 21:09 Dose: 200 mls/hr Metoprolol Succinate (Toprol Xl -) 100 mg PO DAILY [facility] Ondansetron HCl (Zofran Injection) 4 mg IVPUSH Q6H PRN PRN Reason: NAUSEA AND/OR VOMITING ASSESSMENT/PLAN: 73 y/o female PMH of DM, HTN, RA, and asthma BIBEMS for weakness. She was admitted for sepsis. # Sepsis 2/2 decubitus ulcer - No abscess on CT - For debridement today - Aztreonam 500 mg q8h (renaly dosed for Cr cl 23%) - Vancomycin 1 g now and then q 48 hours. - Wound cx: Citrobacter and pending organisms including staph - Consult ID # Leukopenia and microcytic anemia - Most likely anemia of chronic disease - Infection /sepsis. - F/u endoscopy as out pt # SAL on CKD - IVF - Renal US: F/u on renal cysts and LEFT adrenal nodule (stable form before, 2.3 cm) as out pt. # Lung findings of possible pneumonitits and thickening. doubt acute issues. no pulm sx. no signs of fluid overload on exam. # HTN - Cont. curent home regimen: Hydralazine 25 mg po bid and metoprolol s 100 mg po qd # F/E/N - NS - Cont. to monitor - Low sodium diet # DVT prophylaxis - Lovenox 40 SQ # Disposition - Admit to med/surg Isaac Nguyen MD Visit type - Emergency Visit Emergency Visit: No - New Patient This patient is new to me today: Yes Date on this admission: 03/10/19 - Critical Care Critical Care patient: No ATTENDING PHYSICIAN STATEMENT I saw and evaluated the patient. I reviewed the resident's note and discussed the case with the resident. I agree with the resident's findings and plan as documented. SUBJECTIVE: OBJECTIVE: ASSESSMENT AND PLAN:
--- NOTE | 2019-03-10 18:00 | PN ---
Progress Note, Physician History of Present Illness: Pt seen and examined at bedside. She is awake and alert. She denies shortness of breath. - Current Medication List Current Medications: Active Medications Acetaminophen (Ofirmev Injection -) 1,000 mg IVPB Q6H PRN PRN Reason: PAIN LEVEL 1-5 Ascorbic Acid (Vitamin C -) 500 mg PO DAILY [facility] Atorvastatin Calcium (Lipitor -) 20 mg PO HS [facility] Fentanyl (Sublimaze Injection -) 25 mcg IVPUSH [id number] PRN PRN Reason: PAIN-PACU ORDER X 4 DOSES ONLY Ferrous Sulfate (Feosol -) [address] [facility] Heparin Sodium (Porcine) (Heparin -) 5,000 unit SQ TID [facility] Hydralazine HCl (Apresoline -) [address] [facility] Lactated Ringer's (Lactated Ringers Solution) 1,000 mls @ 75 mls/hr IV ASDIR [facility] Metronidazole (Flagyl 500mg Premixed Ivpb -) 500 mg in 100 mls @ 100 mls/hr IVPB Q8H-IV [facility] Cefepime HCl 1 gm/ Dextrose 100 mls @ 200 mls/hr IVPB BID [facility]; Protocol Metoprolol Succinate (Toprol Xl -) 100 mg PO DAILY [facility] Ondansetron HCl (Zofran Injection) 4 mg IVPUSH Q6H PRN PRN Reason: NAUSEA AND/OR VOMITING - Objective Vital Signs: Vital Signs Temperature 97.9 F 03/10/19 10:39 Pulse Rate 69 03/10/19 10:39 Respiratory Rate 18 03/10/19 10:39 Blood Pressure 190/89 H 03/10/19 10:39 O2 Sat by Pulse Oximetry (%) 97 03/10/19 09:00 Constitutional: Yes: Calm Eyes: Yes: Conjunctiva Clear HENT: Yes: Atraumatic Cardiovascular: Yes: S1, S2 Respiratory: Yes: CTA Bilaterally Gastrointestinal: Yes: Normal Bowel Sounds, Soft Genitourinary: Yes: WNL Musculoskeletal: Yes: WNL Edema: Yes Edema: LLE: 1+, RLE: 1+ Neurological: Yes: Oriented Psychiatric: Yes: Oriented Labs: CBC, BMP 03/10/19 08:02 03/10/19 08:02 INR, PTT INR 1.06 (0.83-1.09) 03/07/19 18:30 Assessment/Plan Current Medications Generic Name Dose Route Start Last Admin Trade Name Freq PRN Reason Stop Dose Admin Acetaminophen 1,000 mg 03/10/19 15:41 Ofirmev Injection - IVPB Q6H PRN PAIN LEVEL 1-5 Ascorbic Acid 500 mg 03/11/19 10:00 Vitamin C - PO DAILY [facility] Atorvastatin Calcium 20 mg 03/10/19 22:00 Lipitor - PO HS [facility] Fentanyl 25 mcg 03/10/19 15:45 Sublimaze Injection - IVPUSH [id number] PRN PAIN-PACU ORDER X 4 DOSES ONLY Ferrous Sulfate 325 mg 03/11/19 10:00 Feosol - PO DAILY [facility] Heparin Sodium (Porcine) 5,000 unit 03/10/19 22:00 Heparin - SQ TID [facility] Hydralazine HCl 25 mg 03/10/19 22:00 Apresoline - PO BID [facility] Lactated Ringer's 1,000 mls @ 75 mls/hr 03/10/19 15:45 Lactated Ringers Solution IV ASDIR [facility] Metronidazole 500 mg in 100 mls @ 100 mls/hr 03/10/19 18:00 Flagyl 500mg Premixed Ivpb - IVPB Q8H-IV [facility] Cefepime HCl 1 gm/ Dextrose 100 mls @ 200 mls/hr 03/10/19 22:[address] [facility] Protocol Metoprolol Succinate 100 mg 03/11/19 10:00 Toprol Xl - PO DAILY [facility] Ondansetron HCl 4 mg 03/10/19 15:45 Zofran Injection IVPUSH Q6H PRN NAUSEA AND/OR VOMITING Impression 1. CKD with acute component 2. htn 3. dm 4. RA 5. diarrhea 6. 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
--- NOTE | 2019-03-10 18:42 | CONS ---
DATE OF CONSULTATION: DATE OF DICTATION: 03/10/2019 INFECTIOUS DISEASE CONSULTATION HISTORY OF PRESENT ILLNESS: This is a 73-year-old female. She was admitted through the ER for weakness, worsening pain at the site of her pressure ulcers. She was recently hospitalized 4 weeks ago after she was apparently found on the floor in her apartment and was hospitalized. She was found to have a blood sugar of 500. She was subsequently sent to a group home, and 4 days ago she went home. Apparently VNS services were to be arranged but apparently were not set up, and she set up with worsening pain at the site of her decubitus. There is also a history of diarrhea at home. Currently, I am seeing the patient after she apparently had a stage 4 ulcer with drainage. She had a CAT scan done in the emergency room when she presented on March 07 that showed a right-sided presacral decubitus ulcer with edema , and she had fever on arrival in the ER. She was given a dose of ceftriaxone and admitted. She was seen by surgery, and today she went to the operating room. I am seeing her in the recovery room. She underwent debridement and placement of a VAC for stage 4 pressure ulcer. PAST MEDICAL HISTORY: Notable for diabetes, rheumatoid arthritis, hypertension, and a heart murmur. SURGICAL HISTORY: For a right partial amputation, tonsillectomy, left knee surgery, and myomectomy. SOCIAL HISTORY: There is no history of cigarette or substance use, and she lives alone in an apartment. ALLERGIES: She is allergic to AUGMENTIN, METFORMIN, IBUPROFEN and ASPIRIN. From a prior consult, it appears her AUGMENTIN allergy is diarrhea. MEDICATION: Her medications at home include atorvastatin, hydralazine, metoprolol, and omeprazole. FAMILY HISTORY: Notable for a stomach cancer in her father. REVIEW OF SYSTEMS: She is currently postoperative. She is arousable and answers questions appropriately. She tells me she is unaware of the nature of her PENICILLIN allergy which was many years ago, but aside from that she has no complaints. PHYSICAL EXAMINATION: Vital Signs: Her T-max is 101.2 when she came on March 07. Temperature over the last 24 hours has been 97.9, pulse is 69, blood pressure 190/89, respiratory rate 18. She is saturating 97% on room air. HEENT: Normocephalic. Eyes are anicteric. Neck: Supple. Lungs: Clear to auscultation. Heart: Regular rate and rhythm. Abdomen: Soft. She has a VAC dressing in place. Extremities: Without edema. LABORATORY: White count is 2.3, hemoglobin of 7.4, platelets are 163. BUN and creatinine are 42 and 1.8 which are improved from admission of 46 and 2.5. Urinalysis is negative for leukocyte esterase, and has 65 white cells. Her culture of her sacral ulcer is growing Citrobacter, coagulase-positive staphylococcus, and group B enterococcus. It is a very sensitive Citrobacter, resistant to cephazolin only. Urine culture is growing staphylococcus aureus and blood cultures are negative. IMAGING: Studies include the CT of the chest, abdomen, and pelvis that showed the sacral ulcer, right-sided presacral decubitus ulcer with edema . On admission, she was seen by surgery who described a grade 3 decubitus ulcer on the right side of the sacrum that was 6.6 x 4 cm with 4.5-cm undermining with purulent and foul drainage. I cannot currently look at her ulcers, it has been cleaned and there is a VAC. She has been seen by GI as well for anemia and has declined endoscopy. She has not had any diarrhea in the hospital. LABORATORY: Her labs are notable for a white count of 2.3, hemoglobin 7.4, platelets of 163. BUN and creatinine are 47 and 2.3, and urinalysis is as stated. Cultures as stated. IMPRESSION: In summary, this is a 73-year-old woman seen in the recovery room after ulcer debridement and VAC placement, an AUGMENTIN allergy many years ago. She got ceftriaxone in emergency room without issue. Leukopenia, microcytic anemia which is new. She has declined endoscopy. Hematology evaluation is pending. She has diabetes and PENICILLIN allergy. Unable to view the ulcer. Based on cultures, will treat her with cefepime and Flagyl. Will give 1 dose of vancomycin until the staphylococcus aureus sensitivities are back. Will adjust her antibiotics for her renal function. Will obtain a complete blood count with differential in the morning to evaluate her neutrophil count, as there was no differential ordered today. Further recommendations to follow. Alexa [id number]
[2019-03-10] MEDS ORDERED: CEFEPIME HCL 1 GM VIAL (RESTRICTED TO ID) ONE (21:08)
[2019-03-10] MEDS ORDERED: DEXTROSE 5%-WATER 100 ML IVPB ONE (21:08)
[2019-03-10] MEDS: CEFEPIME 1 GM in DEXTROSE 5%-WATER 100 ML IVPB SCH (21:09)
[2019-03-10] MEDS: ATORVASTATIN CA 20 MG TABLET (FP) PO SCH (21:10)
[2019-03-11] MEDS ORDERED: POTASSIUM CHLORIDE TABS 20 MEQ TABLET.ER (FP) PO ONE (09:00)
[2019-03-11] MEDS ORDERED: DEXTROSE 5%-WATER 100 ML IVPB ONE ×2 (09:24→21:27)
[2019-03-11] MEDS ORDERED: CEFEPIME HCL 1 GM VIAL (RESTRICTED TO ID) ONE ×2 (09:24→21:27)
[2019-03-11 09:41] LABS: HEMOGLOBIN 7.4 GM/dL (10.7-15.3); MCHC 33.7 g/dl (32.0-36.0); MEAN CELL VOLUME 77.1 fl (80-96); PLATELET COUNT 186 K/MM3 (134-434); RBC 2.86 M/mm3 (3.60-5.2); RDW 19.3 % (11.6-15.6); WHITE BLOOD COUNT 2.2 K/mm3 (4.0-10.0)
[2019-03-11] MEDS: ACETAMINOPHEN 325 MG TABLET (FP) PO PRN (09:46)
[2019-03-11] MEDS: KCL 10 MEQ IVPB 10 MEQ/100 ML INFUS.BAG IVPB SCH ×3 (09:49→15:43)
[2019-03-11] MEDS: FERROUS SO4 325 MG TABLET (FP) PO SCH (09:49)
[2019-03-11] MEDS: ASCORBIC ACID 500 MG TABLET (FP) PO SCH (09:49)
[2019-03-11] MEDS: hydrALAZINE HCL 25 MG TABLET (FP) PO SCH ×2 (09:49→21:59)
[2019-03-11] MEDS: CEFEPIME 1 GM in DEXTROSE 5%-WATER 100 ML IVPB SCH (09:50)
[2019-03-11 10:17] LABS: ALBUMIN 1.8 g/dl (3.4-5.0); BILIRUBIN,TOTAL 0.7 mg/dL (0.2-1); CALCIUM 8.1 mg/dL (8.5-10.1); POTASSIUM 4.3 mmol/L (3.5-5.1); TOT PROT 5.9 g/dl (6.4-8.2)
--- NOTE | 2019-03-11 10:54 | PN ---
Progress Note (short form) - Note Progress Note: SURGERY 73yo F s/p decubitus washout and vac placement POD 1, pt states that she is feeling well. Pt denies any fever, chills, n/v. Pt denies back pain. Last Vital Signs Temp Pulse Resp BP Pulse Ox 97.7 F 67 20 164/68 97 03/11/19 05:56 03/11/19 05:56 03/11/19 05:56 03/11/19 05:56 03/10/19 21:00 CBC, BMP 03/11/19 08:10 03/11/19 08:10 PE: Gen: A&O Resp: breathing comfortably Back: Vac dressing in place with good seal, clean Problem List - Problems (1) Sacral decubitus ulcer Assessment/Plan: Plan -will plan for VAC changes MWF -care per Medicine team Pt should follow up with Dr. Robles in the office in 2 weeks for follow up. Code(s): L89.159 - PRESSURE ULCER OF SACRAL REGION, UNSPECIFIED STAGE
--- NOTE | 2019-03-11 11:36 | CONSULT ---
Consultation: REQUESTING PROVIDER:primary team CONSULT REQUEST: We have been asked to medically evaluate this patient for ( anemia , leuckopenia ). HISTORY OF PRESENT ILLNESS:per chart This is a 73 YO female with PMH of DM, HTN, RA, asthma. She presented to the ER with complaints of weakness, chills, pain in her rt. sided sacral ulcer for 4 days and diarrhea for 3 weeks. The patient is AOx1 and struggles to remember details from the past month of her life. 4 weeks ago she was found down in her apartment by her sister, EMS was called and she was fou to have a BG of 500. She was admitted to [facility] (as per the patient), after which she was discharged to a [place]. She left the NH due to unsatisfactory care 4 days ago, after which she developed weakness, chills, pain in her rt. sided sacral ulcer. She has had the sacral ulcer for the past 4 weeks, but the pain has worsened over the past 4 days, with no discharge except for one episode of a few drops of blood noticed by her sister. She has had 2-3 episodes of diarrhea for the past 3 weeks, non bloody, but has had no episodes today. She endorses associated SOB, but denies any vomiting, dysuria, or dizziness. Recent Travel: None PAST MEDICAL HISTORY: As listed in HPI PAST SURGICAL HISTORY: lupectomy right breast Fhx: father had gastric cancer Social History: Smoking:none Alcohol:none Drugs: none Allergies amoxicillin trihydrate [From Augmentin] Allergy (Verified 03/07/19 15:32 aspirin Allergy (Verified 03/07/19 15:32) ibuprofen [From Motrin] Allergy (Verified 03/07/19 15:32) metformin HCl [From Glucophage] Allergy (Verified 03/07/19 15:32) potassium clavulanate [From Augmentin] Allergy (Verified 03/07/19 15:32) REVIEW OF SYSTEMS: right side pain , generalised weakness , denies any fever , chills, N/V/D/C denies any chest pain PHYSICAL EXAMINATION Vital Signs - 24 hr 03/10/19 03/10/19 03/10/19 15:08 15:15 15:30 Temperature 97.6 F Pulse Rate 73 66 63 Respiratory 20 16 16 Rate Blood Pressure 133/78 161/70 184/70 H O2 Sat by Pulse 95 100 100 Oximetry (%) 03/10/19 03/10/19 03/10/19 15:45 16:00 16:15 Temperature Pulse Rate 61 62 62 Respiratory 18 16 16 Rate Blood Pressure 178/70 H 180/70 H 205/73 H O2 Sat by Pulse 100 98 100 Oximetry (%) 03/10/19 03/10/19 03/10/19 16:30 16:45 17:00 Temperature Pulse Rate 66 74 69 Respiratory 14 15 16 Rate Blood Pressure 180/70 H 180/70 H 160/63 O2 Sat by Pulse 98 98 98 Oximetry (%) 03/10/19 03/10/19 03/10/19 17:15 17:30 17:45 Temperature 97.8 F Pulse Rate 79 78 70 Respiratory 16 16 18 Rate Blood Pressure 149/55 L 149/70 148/70 O2 Sat by Pulse 100 99 100 Oximetry (%) 03/10/19 03/10/19 03/10/19 18:01 21:00 22:59 Temperature 97.5 F L 97.8 F Pulse Rate 75 69 Respiratory 18 18 18 Rate Blood Pressure 147/59 L 157/75 O2 Sat by Pulse 97 Oximetry (%) 03/11/19 03/11/19 02:00 05:56 Temperature 97.2 F L 97.7 F Pulse Rate 67 67 Respiratory 20 20 Rate Blood Pressure 179/75 H 164/68 O2 Sat by Pulse Oximetry (%) GENERAL: Awake, alert, and fully oriented, in mild distress. HEAD: Normal with no signs of trauma. EYES: Pupils equal, round and reactive to light, extraocular movements intact, EARS, NOSE, THROAT: Ears normal, nares patent, oropharynx clear without exudates. Moist mucous membranes.no oral thrush or mucositis NECK: Normal range of motion, supple without lymphadenopathy, LUNGS: Breath sounds equal, clear to auscultation bilaterally. No wheezes, and no crackles. No accessory muscle use. HEART: Regular rate and rhythm, normal S1 and S2 3/6 holosystolic murmur, ABDOMEN: Soft, nontender, not distended, normoactive bowel sounds, no guarding, no rebound, no masses. No hepatomegaly or splenomegaly. breast with no masses palpated right side decubitus ulcer with cacum no nodules palpated LOWER EXTREMITIES: 2+ pulses, warm, well-perfused. No calf tenderness. No peripheral edema. NEUROLOGICAL: Cranial nerves II-XII intact. Normal speech. PSYCHIATRIC: Cooperative. SKIN: Warm, dry, normal turgor Laboratory Results - last 24 hr 03/10/19 03/10/19 03/11/19 17:20 22:43 05:26 WBC RBC Hgb Hct MCV MCH MCHC RDW MPV Sodium Potassium Chloride Carbon Dioxide Anion Gap BUN Creatinine Est GFR (CKD-EPI)AfAm Est GFR (CKD-EPI)NonAf POC Glucometer 211 299 271 Random Glucose Calcium Total Bilirubin AST ALT Alkaline Phosphatase Total Protein Albumin 03/11/19 03/11/19 03/11/19 08:10 08:10 11:21 WBC 2.2 L RBC 2.86 L Hgb 7.4 L Hct 22.0 L MCV 77.1 L MCH 26.0 MCHC 33.7 RDW 19.3 H MPV 9.0 Sodium 139 Potassium 4.3 Chloride 104 Carbon Dioxide 27 Anion Gap 8 BUN 40.0 H Creatinine 2.0 H Est GFR (CKD-EPI)AfAm 27.61 Est GFR (CKD-EPI)NonAf 23.82 POC Glucometer 272 Random Glucose 245 H Calcium 8.1 L Total Bilirubin 0.7 AST 19 ALT 13 Alkaline Phosphatase 116 Total Protein 5.9 L Albumin 1.8 L Active Medications Generic Name Dose Route Start Last Admin Trade Name Freq PRN Reason Stop Dose Admin Acetaminophen 650 mg 03/11/19 07:19 03/11/19 09:46 Tylenol - PO 650 mg Q6H PRN Administration PAIN LEVEL 1-5 Ascorbic Acid 500 mg 03/11/19 10:00 03/11/19 09:49 Vitamin C - PO 500 mg DAILY [facility] Administration Atorvastatin Calcium 20 mg 03/10/19 22:00 03/10/19 21:10 Lipitor - PO 20 mg HS [facility] Administration Ferrous Sulfate 325 mg 03/11/19 10:00 03/11/19 09:49 Feosol - PO 325 mg DAILY [facility] Administration Heparin Sodium (Porcine) 5,000 unit 03/10/19 22:00 Heparin - SQ TID [facility] Hydralazine HCl 25 mg 03/10/19 22:00 03/11/19 09:49 Apresoline - PO 25 mg BID [facility] Administration Metronidazole 500 mg in 100 mls @ 100 mls/hr 03/10/19 18:00 03/11/19 09:49 Flagyl 500mg Premixed Ivpb - IVPB 100 mls/hr Q8H-IV [facility] Administration Cefepime HCl 1 gm/ Dextrose 100 mls @ 200 mls/hr 03/10/19 22:00 03/11/19 09: 50 IVPB 200 mls/hr BID [facility] Administration Protocol Potassium Chloride 10 meq in 100 mls @ 100 mls/hr 03/11/19 09:00 03/11/19 09: 49 Potassium Chloride 10 Meq Premix Ivpb - IVPB 03/11/19 11:59 100 mls/hr Q60M [facility] Administration Insulin Aspart 1 vial 03/11/19 11:00 Novolog Vial Sliding Scale - SQ ACHS [facility] Protocol Metoprolol Succinate 100 mg 03/11/19 10:00 03/11/19 09:49 Toprol Xl - PO 100 mg DAILY [facility] Administration Ondansetron HCl 4 mg 03/10/19 15:45 Zofran Injection IVPUSH Q6H PRN NAUSEA AND/OR VOMITING CBC, BMP 03/11/19 08:10 03/11/19 08:10 ASSESSMENT/PLAN: 73 y/o lady with h/o HTN, DM, RA, asthma, CKD, who presented with increased weakness , diarrhea and worsening wound in sacral area. She was found to be septic # leukopenia likely due to infection process will monitor cbc with deff daily , send Fish a, flow and cytometry after discuss with pathology #microcytic anemia : likely anemia of chronic disease, chronic, worsen , on iron , occult blood negative , refuse colonoscopy , one dose venofer 200 infusion tomorrow transfuse for hgb below 7 # Sepsis due to infected sacral decub. cont abx , for I &D today , ID on the board # SAL on CKD: renal US reviewed. # B/L renal cyst follow up with nephrology #HTN: cont HZN and BB # L adrenal nodule, stable form before 2.3 cm. f/u as outpt # Mod , MR and pulmonary HTN: monitor . echo reviewed. for OR today , hold dvt proph , resume after procedure Dispo: We will continue to follow the patient. Thank you for this consultative opportunity. Visit type - Emergency Visit Emergency Visit: Yes ED Registration Date: 03/07/19 Care time: The patient presented to the Emergency Department on the above date and was hospitalized for further evaluation of their emergent condition. - New Patient This patient is new to me today: Yes Date on this admission: 03/11/19 - Critical Care Critical Care patient: No ATTENDING PHYSICIAN STATEMENT I saw and evaluated the patient. I reviewed the resident's note and discussed the case with the resident. I agree with the resident's findings and plan as documented. SUBJECTIVE: OBJECTIVE: ASSESSMENT AND PLAN:
--- NOTE | 2019-03-11 11:48 | OP ---
Operative Note - Note: Operative Date: 03/11/19 Pre-Operative Diagnosis: Sacral Ulcer Operation: Excision of necrotic tissue to include skin, subcutaneous fat, muscle down to sacrum Post-Operative Diagnosis: Same as Pre-op Surgeon: Yoseph Robles Historical Guide: Lorenzo Garcia Anesthesiologist/HEEL SEAT LASTER: Virgie Haley Anesthesia: Local Specimens Removed: skin, subcuateous fat & muscle Estimated Blood Loss (mls): 30 Fluid Volume Replaced (mls): 200 Operative Report Dictated: Yes
--- NOTE | 2019-03-11 11:50 | SURG ---
Surgery Safety Director Note Safety Director: Lorenzo Garcia PA-C Date of Service: 03/11/19 Diagnosis: Infected sacral ulcer Procedure: Excision of necrotic tissue to include skin, subcutaneous fat, muscle down to sacrum and wound VAC application I was present for the entirety of the operative procedure. For further detail, please refer to operative report. Visit type - Case Type Case Type: ED Admission - New patient This patient is new to me today: Yes Date on this admission: 03/11/19
[2019-03-11] MEDS ORDERED: INSULIN (NOVOLOG) ASPART 100 UNITS/ML 10ML VIAL ONE (12:07)
[2019-03-11] MEDS: INSULIN SLIDING SCALE (NOVOLOG) 1 VIAL SQ SCH ×3 (12:21→22:16)
[2019-03-11] MEDS: oxyCODONE HCL 5 MG TABLET PO PRN (13:18)
--- NOTE | 2019-03-11 13:36 | PN ---
Physical Exam: SUBJECTIVE: Patient seen and examined at bedside. Overnight there were no acute events. This AM she states her pain has improved since yesterday. She still experiences pain at the surgical site. OBJECTIVE: Vital Signs Temp Pulse Resp BP Pulse Ox 97.8 F 60 20 173/86 H 97 03/11/19 13:21 03/11/19 13:21 03/11/19 13:21 03/11/19 13:21 03/11/19 09:00 GENERAL: AOx2 to person and place, in no acute distress. HEAD: NCAT EYES: ALLEY, EOMI, conjunctiva clear. ENT: Ears normal, nares patent, oropharynx clear without exudates. Moist mucous membranes. NECK: Normal range of motion, supple without lymphadenopathy, JVD, or masses. LUNGS: Decreased air entry but CTAB otheriwse. No wheezes, and no crackles. No accessory muscle use. HEART: RRR s1 s2, systolic murmur 3/6 R and L USB ABDOMEN: Soft, BS present in all 4 quadrants, non-distended, no JVD, MUSCULOSKELETAL: No bony deformities or tenderness. No CVA tenderness. UPPER EXTREMITIES: 2+ pulses, warm, well-perfused. No cyanosis. No clubbing. No peripheral edema. LOWER EXTREMITIES: 2+ pulses, warm, well-perfused. No calf tenderness. 1+ peripheral edema of feet BL unchanged since yesterday. NEUROLOGICAL: No focal deficits. Cranial nerves II-XII intact. Normal speech. Gait not appreciated. PSYCHIATRIC: Cooperative. Good eye contact. Appropriate mood and affect. SKIN: Wound vac over gluteal surgical site. No discharge or erythema. Laboratory Results - last 24 hr 03/10/19 03/10/19 03/11/19 17:20 22:43 05:26 WBC RBC Hgb Hct MCV MCH MCHC RDW Plt Count MPV Manual Slide Review Platelet Comment Sodium Potassium Chloride Carbon Dioxide Anion Gap BUN Creatinine Est GFR (CKD-EPI)AfAm Est GFR (CKD-EPI)NonAf POC Glucometer 211 299 271 Random Glucose Calcium Total Bilirubin AST ALT Alkaline Phosphatase Total Protein Albumin 03/11/19 03/11/19 03/11/19 08:10 08:10 11:21 WBC 2.2 L RBC 2.86 L Hgb 7.4 L Hct 22.0 L MCV 77.1 L MCH 26.0 MCHC 33.7 RDW 19.3 H Plt Count 186 MPV 9.0 Manual Slide Review Platelet Comment Sodium 139 Potassium 4.3 Chloride 104 Carbon Dioxide 27 Anion Gap 8 BUN 40.0 H Creatinine 2.0 H Est GFR (CKD-EPI)AfAm 27.61 Est GFR (CKD-EPI)NonAf 23.82 POC Glucometer 272 Random Glucose 245 H Calcium 8.1 L Total Bilirubin 0.7 AST 19 ALT 13 Alkaline Phosphatase 116 Total Protein 5.9 L Albumin 1.8 L Active Medications Acetaminophen (Tylenol -) 650 mg PO Q6H PRN PRN Reason: PAIN LEVEL 1-5 Last Admin: 03/11/19 09:46 Dose: 650 mg Ascorbic Acid (Vitamin C -) 500 mg PO DAILY [facility] Last Admin: 03/11/19 09:49 Dose: 500 mg Atorvastatin Calcium (Lipitor -) 20 mg PO HS [facility] Last Admin: 03/10/19 21:10 Dose: 20 mg Ferrous Sulfate (Feosol -) 325 mg PO DAILY [facility] Last Admin: 03/11/19 09:49 Dose: 325 mg Furosemide (Lasix -) 20 mg PO DAILY [facility] Last Admin: 03/11/19 17:15 Dose: 20 mg Heparin Sodium (Porcine) (Heparin -) 5,000 unit SQ TID [facility] Last Admin: 03/11/19 15:43 Dose: 5,000 unit Hydralazine HCl (Apresoline -) 25 mg PO BID [facility] Last Admin: 03/11/19 09:49 Dose: 25 mg Metronidazole (Flagyl 500mg Premixed Ivpb -) 500 mg in 100 mls @ 100 mls/hr IVPB Q8H-IV [facility] Last Admin: 03/11/19 17:15 Dose: 100 mls/hr Cefepime HCl 1 gm/ Dextrose 100 mls @ 200 mls/hr IVPB BID [facility]; Protocol Last Admin: 03/11/19 09:50 Dose: 200 mls/hr Iron Sucrose 200 mg/ Sodium (Chloride) 100 mls @ 100 mls/hr IVPB ONCE ONE Stop: 03/12/19 10:59 Insulin Aspart (Novolog Vial Sliding Scale -) 1 vial SQ ACHS [facility]; Protocol Last Admin: 03/11/19 17:15 Dose: Not Given Metoprolol Succinate (Toprol Xl -) 100 mg PO DAILY [facility] Last Admin: 01/23/20 09:49 Dose: 100 mg Ondansetron HCl (Zofran Injection) 4 mg IVPUSH Q6H PRN PRN Reason: NAUSEA AND/OR VOMITING Oxycodone HCl (Roxicodone -) 5 mg PO Q6H PRN PRN Reason: PAIN LEVEL 4 - 6 Last Admin: 03/11/19 13:18 Dose: 5 mg ASSESSMENT/PLAN: 73 y/o female PMH of DM, HTN, RA, and asthma BIBEMS for weakness. She was admitted for sepsis. POD 1 debridement of # Sepsis 2/2 decubitus ulcer, POD 1 debridement sacral ulcer - Pain control: 5 mg oxycodone PRN - ABX: Aztreonam 500 mg q8h (renaly dosed for Cr cl 23%), Vancomycin 1 g, flagyl - Wound cx: Citrobacter, staph aureus (clindamycin, erthromycin resistant), enterococcus faecalis (erthromycin resistant), B hemolytic strep. - ID rec appreciated for appropriate abx # Leukopenia and microcytic anemia - Most likely 2/2 spesis vs anemia of chronic disease - F/u endoscopy as out pt # SAL on CKD - IVF - Renal US: F/u on renal cysts and LEFT adrenal nodule (stable form before, 2.3 cm) as out pt. # Lung findings of possible pneumonitits and thickening. doubt acute issues. no pulm sx. no signs of fluid overload on exam. # HTN - Cont. curent home regimen: Hydralazine 25 mg po bid and metoprolol s 100 mg po qd # F/E/N - NS - Cont. to monitor - Low sodium diet # DVT prophylaxis - Lovenox 40 SQ # Disposition - Admit to med/surg - Have to update med rec again in AM. Pt could benefit from YARY/ARB. Isaac Nguyen MD Visit type - Emergency Visit Emergency Visit: No - New Patient This patient is new to me today: No - Critical Care Critical Care patient: No ATTENDING PHYSICIAN STATEMENT I saw and evaluated the patient. I reviewed the resident's note and discussed the case with the resident. I agree with the resident's findings and plan as documented. SUBJECTIVE: OBJECTIVE: ASSESSMENT AND PLAN:
--- NOTE | 2019-03-11 15:07 | PN ---
Progress Note, Physician History of Present Illness: Pt seen and examined at bedside. She is awake and alert. She denies shortness of breath. - Current Medication List Current Medications: Active Medications Acetaminophen (Tylenol -) 650 mg PO Q6H PRN PRN Reason: PAIN LEVEL 1-5 Last Admin: 03/11/19 09:46 Dose: 650 mg Ascorbic Acid (Vitamin C -) 500 mg PO DAILY [facility] Last Admin: 03/11/19 09:49 Dose: 500 mg Atorvastatin Calcium (Lipitor -) 20 mg PO HS [facility] Last Admin: 03/10/19 21:10 Dose: 20 mg Ferrous Sulfate (Feosol -) 325 mg PO DAILY [facility] Last Admin: 03/11/19 09:49 Dose: 325 mg Heparin Sodium (Porcine) (Heparin -) 5,000 unit SQ TID [facility] Hydralazine HCl (Apresoline -) 25 mg PO BID [facility] Last Admin: 03/11/19 09:49 Dose: 25 mg Metronidazole (Flagyl 500mg Premixed Ivpb -) 500 mg in 100 mls @ 100 mls/hr IVPB Q8H-IV [facility] Last Admin: 03/11/19 09:49 Dose: 100 mls/hr Cefepime HCl 1 gm/ Dextrose 100 mls @ 200 mls/hr IVPB BID [facility]; Protocol Last Admin: 03/11/19 09:50 Dose: 200 mls/hr Insulin Aspart (Novolog Vial Sliding Scale -) 1 vial SQ ACHS [facility]; Protocol Last Admin: 03/11/19 12:21 Dose: 6 units Metoprolol Succinate (Toprol Xl -) 100 mg PO DAILY [facility] Last Admin: 03/11/19 09:49 Dose: 100 mg Ondansetron HCl (Zofran Injection) 4 mg IVPUSH Q6H PRN PRN Reason: NAUSEA AND/OR VOMITING Oxycodone HCl (Roxicodone -) 5 mg PO Q6H PRN PRN Reason: PAIN LEVEL 4 - 6 Last Admin: 03/11/19 13:18 Dose: 5 mg - Objective Vital Signs: Vital Signs Temperature 97.8 F 03/11/19 13:21 Pulse Rate 60 03/11/19 13:21 Respiratory Rate 20 03/11/19 13:21 Blood Pressure 173/86 H 03/11/19 13:21 O2 Sat by Pulse Oximetry (%) 97 03/11/19 09:00 Constitutional: Yes: Calm Eyes: Yes: Conjunctiva Clear HENT: Yes: Atraumatic Neck: Yes: Supple Cardiovascular: Yes: S1, S2 Respiratory: Yes: CTA Bilaterally Gastrointestinal: Yes: Normal Bowel Sounds, Soft Genitourinary: Yes: WNL Musculoskeletal: Yes: WNL Edema: Yes Edema: LLE: 1+, RLE: 1+ Neurological: Yes: Oriented Psychiatric: Yes: Oriented Labs: CBC, BMP 03/11/19 08:10 03/11/19 08:10 INR, PTT INR 1.06 (0.83-1.09) 03/07/19 18:30 Assessment/Plan Current Medications Generic Name Dose Route Start Last Admin Trade Name Freq PRN Reason Stop Dose Admin Acetaminophen 650 mg 03/11/19 07:19 03/11/19 09:46 Tylenol - PO 650 mg Q6H PRN Administration PAIN LEVEL 1-5 Ascorbic Acid 500 mg 03/11/19 10:00 03/11/19 09:49 Vitamin C - PO 500 mg DAILY [facility] Administration Atorvastatin Calcium 20 mg 03/10/19 22:00 03/10/19 21:10 Lipitor - PO 20 mg HS [facility] Administration Ferrous Sulfate 325 mg 03/11/19 10:00 03/11/19 09:49 Feosol - PO 325 mg DAILY [facility] Administration Heparin Sodium (Porcine) 5,000 unit 03/10/19 22:00 Heparin - SQ TID [facility] Hydralazine HCl 25 mg 03/10/19 22:00 03/11/19 09:49 Apresoline - PO 25 mg BID [facility] Administration Metronidazole 500 mg in 100 mls @ 100 mls/hr 03/10/19 18:00 03/11/19 09:49 Flagyl 500mg Premixed Ivpb - IVPB 100 mls/hr Q8H-IV [facility] Administration Cefepime HCl 1 gm/ Dextrose 100 mls @ 200 mls/hr 03/10/19 22:00 03/11/19 09: 50 IVPB 200 mls/hr BID [facility] Administration Protocol Iron Sucrose 200 mg/ Sodium 100 mls @ 100 mls/hr 03/12/19 10:00 Chloride IVPB 03/12/19 10:59 ONCE ONE Insulin Aspart 1 vial 03/11/19 11:00 03/11/19 12:21 Novolog Vial Sliding Scale - SQ 6 units ACHS [facility] Administration Protocol Metoprolol Succinate 100 mg 03/11/19 10:00 03/11/19 09:49 Toprol Xl - PO 100 mg DAILY [facility] Administration Ondansetron HCl 4 mg 03/10/19 15:45 Zofran Injection IVPUSH Q6H PRN NAUSEA AND/OR VOMITING Oxycodone HCl 5 mg 03/11/19 12:56 03/11/19 13:18 Roxicodone - PO 5 mg Q6H PRN Administration PAIN LEVEL 4 - 6 Impression 1. CKD with acute component 2. htn 3. dm 4. RA 5. diarrhea 6. bilateral renal cysts Plan - monitor renal function - will likely need lasix as she has edema and diastolic failure - will give lasix 20 mg - avoid nsaids - diamond broker not far from baseline - will evaluate for diuretics daily
--- NOTE | 2019-03-11 15:29 | PN ---
Progress Note (short form) - Note Progress Note: has not ambulated in a long time per patient alert c/o pain at vac site Vital Signs Period Temp Pulse Resp BP Sys/Hanna Pulse Ox Last 24 Hr 97.2 F-97.8 F 60-69 18-20 157-179/68-86 97-97 cor-rrr lungs decreased bs at bases abd soft,nt ext vac in place CBC, BMP 03/11/19 08:10 03/11/19 08:10 Microbiology 03/07/19 17:29 Buttock - Left Gram Stain - Final 03/07/19 17:29 Buttock - Left Wound Culture - Preliminary Citrobacter Youngae Staphylococcus Aureus Enterococcus Faecalis Beta Hemolytic Strep 03/07/19 18:30 Urine - Urine - Catheterized Urine Culture - Final Staphylococcus Aureus 03/07/19 18:30 Blood - Peripheral Venous Blood Culture - Preliminary NO GROWTH OBTAINED AFTER 72 HOURS, INCUBATION TO CONTINUE FOR 2 DAYS. 03/07/19 18:30 Blood - Peripheral Venous Blood Culture - Preliminary NO GROWTH OBTAINED AFTER 72 HOURS, INCUBATION TO CONTINUE FOR 2 DAYS. a/p sacral ulcer s/p debridement- fevers resolved- ceftriaxone/flagyl leukopenia/microcytic anemia- new, hematology eval, has declined endoscopy diabetes penicillin allergy d/w hospitalist Problem List - Problems (1) Fever Code(s): R50.9 - FEVER, UNSPECIFIED (2) Infected pressure ulcer Code(s): L89.90 - PRESSURE ULCER OF UNSPECIFIED SITE, UNSPECIFIED STAGE; L08.9 - LOCAL INFECTION OF THE SKIN AND SUBCUTANEOUS TISSUE, UNSP (3) Leukopenia Code(s): D72.819 - DECREASED WHITE BLOOD CELL COUNT, UNSPECIFIED (4) Anemia Code(s): D64.9 - ANEMIA, UNSPECIFIED (5) T2DM (type 2 diabetes mellitus) Code(s): E11.9 - TYPE 2 DIABETES MELLITUS WITHOUT COMPLICATIONS (6) Allergy to antibiotic Code(s): Z88.1 - ALLERGY STATUS TO OTHER ANTIBIOTIC AGENTS STATUS (7) CKD (chronic kidney disease) Code(s): N18.9 - CHRONIC KIDNEY DISEASE, UNSPECIFIED
[2019-03-11] MEDS: HEPARIN NA (PORCINE) 5,000 UNITS/ML 1ML VIAL SQ SCH ×2 (15:43→21:58)
[2019-03-11] MEDS: FUROSEMIDE 20 MG TABLET (FP) PO SCH (17:15)
--- NOTE | 2019-03-11 17:56 | PN ---
Progress Note, Physician History of Present Illness: Underwent excision of necrotic tissue to include skin, subcutaneous fat, muscle down to sacrum, wound vac placement, pain improved. Denies chest pain, dyspnea, palpitations. - Current Medication List Current Medications: Active Medications Acetaminophen (Tylenol -) 650 mg PO Q6H PRN PRN Reason: PAIN LEVEL 1-5 Last Admin: 03/11/19 09:46 Dose: 650 mg Ascorbic Acid (Vitamin C -) 500 mg PO DAILY [facility] Last Admin: 03/11/19 09:49 Dose: 500 mg Atorvastatin Calcium (Lipitor -) 20 mg PO HS [facility] Last Admin: 03/10/19 21:10 Dose: 20 mg Ferrous Sulfate (Feosol -) 325 mg PO DAILY [facility] Last Admin: 03/11/19 09:49 Dose: 325 mg Furosemide (Lasix -) 20 mg PO DAILY [facility] Last Admin: 03/11/19 17:15 Dose: 20 mg Heparin Sodium (Porcine) (Heparin -) 5,000 unit SQ TID [facility] Last Admin: 03/11/19 15:43 Dose: 5,000 unit Hydralazine HCl (Apresoline -) 25 mg PO BID [facility] Last Admin: 03/11/19 09:49 Dose: 25 mg Metronidazole (Flagyl 500mg Premixed Ivpb -) 500 mg in 100 mls @ 100 mls/hr IVPB Q8H-IV [facility] Last Admin: 03/11/19 17:15 Dose: 100 mls/hr Iron Sucrose 200 mg/ Sodium (Chloride) 100 mls @ 100 mls/hr IVPB ONCE ONE Stop: 03/12/19 10:59 Insulin Aspart (Novolog Vial Sliding Scale -) 1 vial SQ ACHS [facility]; Protocol Last Admin: 03/11/19 17:15 Dose: Not Given Metoprolol Succinate (Toprol Xl -) 100 mg PO DAILY [facility] Last Admin: 03/11/19 09:49 Dose: 100 mg Ondansetron HCl (Zofran Injection) 4 mg IVPUSH Q6H PRN PRN Reason: NAUSEA AND/OR VOMITING Oxycodone HCl (Roxicodone -) 5 mg PO Q6H PRN PRN Reason: PAIN LEVEL 4 - 6 Last Admin: 03/11/19 13:18 Dose: 5 mg - Objective Vital Signs: Vital Signs Temperature 97.8 F 03/11/19 13:21 Pulse Rate 60 03/11/19 13:21 Respiratory Rate 20 03/11/19 13:21 Blood Pressure 173/86 H 03/11/19 13:21 O2 Sat by Pulse Oximetry (%) 97 03/11/19 09:00 Constitutional: Yes: No Distress, Calm Neck: Yes: Supple Cardiovascular: Yes: Regular Rate and Rhythm, Murmur (2/6 SM) Respiratory: Yes: Regular, Diminished Gastrointestinal: Yes: Normal Bowel Sounds, Soft Edema: No Labs: CBC, BMP 03/11/19 08:10 03/11/19 08:10 INR, PTT INR 1.06 (0.83-1.09) 03/07/19 18:30 Problem List - Problems (1) Acute kidney injury superimposed on CKD Code(s): N17.9 - ACUTE KIDNEY FAILURE, UNSPECIFIED; N18.9 - CHRONIC KIDNEY DISEASE, UNSPECIFIED (2) CHF exacerbation Code(s): I50.9 - HEART FAILURE, UNSPECIFIED Qualifiers: Heart failure type: diastolic Qualified Code(s): I50.33 - Acute on chronic diastolic (congestive) heart failure (3) Sepsis Code(s): A41.9 - SEPSIS, UNSPECIFIED ORGANISM Qualifiers: Sepsis type: sepsis due to unspecified organism Sepsis acute organ dysfunction status: with acute organ dysfunction Severe sepsis acute organ dysfunction type: acute renal failure Acute renal failure type: unspecified Severe sepsis shock status: without septic shock Qualified Code(s): A41.9 - Sepsis, unspecified organism; R65.20 - Severe sepsis without septic shock; N17.9 - Acute kidney failure, unspecified (4) Altered mental state Code(s): R41.82 - ALTERED MENTAL STATUS, UNSPECIFIED Qualifiers: Altered mental status type: unspecified Qualified Code(s): R41.82 - Altered mental status, unspecified (5) Pneumonitis Code(s): J18.9 - PNEUMONIA, UNSPECIFIED ORGANISM (6) Sacral decubitus ulcer Code(s): L89.159 - PRESSURE ULCER OF SACRAL REGION, UNSPECIFIED STAGE Assessment/Plan 03/09/2019 Echogenic kidneys c/w chronic medical renal dz, bilateral renal cysts 03/10/2019 Severe cLVH, hyperdynamic LV fxn, grade III restrictive pattern, c/w markedly increased LAP, mod MR, severe pulm HTN, mod MG 21 mmHg CONRAD 1.0 cm^2 01/03/2017 Mild cLVH, nomal LV fxn, abnl LV compliance, normal RV size and fxn, mild LAE, mild MR, mod TR RVSP 50-60 mmHg 1. Right sacral decubiti ulcer s/p debridement 2. Diastolic dysfunction 3. Type 2 DM 4. Acute on CKD with proteinuria 5. Hypertensive cardiovascular disease 6. Bilateral pneumonitis 7. Microcytic anemia declining endoscopic evaluation 8. Rheumatoid arthritis 9. Hyperlipidemia PLAN: 1. IV diuretics with monitor diuretic response, renal fxn and electrolytes 3. Empiric antibiotic coverage and wound care 4. Continue Lipitor 20 mg QHS, hydralazine 25 bid and Toprol XL 100 mg QD 5. DVT and GI prophylaxis t
--- NOTE | 2019-03-11 17:58 | PN ---
Teaching Attending Note Name of Resident: Isaac Nguyen ATTENDING PHYSICIAN STATEMENT I saw and evaluated the patient. I reviewed the resident's note and discussed the case with the resident. I agree with the resident's findings and plan as documented. SUBJECTIVE: No fever or chills. pain in sacral area is better. no SOB or CP . no abd pain or diarrhea OBJECTIVE: AD, awake, cooperative. MMM, no facial droop. CV: RRR, 3/6 SM all over precordium with radiation to L axilla. Ext : No edema on LE . Skin: wound vac on R gluteal area. ASSESSMENT AND PLAN: 73 y/o lady with h/o HTN, DM, RA, asthma, CKD, who presented with increased weakness , diarrhea and worsening wound in sacral area. She was found to be septic 1- Sepsis due to infected sacral decub. - wound cx was d/w Dr. Murphy. Recs to start CTX and cont flagyl. dc cefepime. No need to cover E. Faecalis. - cont wound vac. 2- Lekopenia and microcytic anemia: - leukopenia is likey due to sepsis. will monitor. - Anemia is chronic. will monitor - heme consult pending - monitor counts. 3- SAL on CKD: stable - f/u on renal cysts as out pt. - monitor cr 4- Lung findings of possible pneumonitits and thickening. doubt acute issues. no pulm sx. no signs of fluid overload on exam. - need to be monitored 5- HTN: cont HZN and BB 6- L adrenal nodule, stable form before 2.3 cm. f/u as outpt 7- Mod , MR and pulmonary HTN: monitor . echo reviewed. start DVT px
[2019-03-11] MEDS ORDERED: CEFEPIME 1 GM in DEXTROSE 5%-WATER 100 ML IVPB ONE (20:00)
--- NOTE | 2019-03-11 20:39 | PN ---
Teaching Attending Note Name of Resident: Johnson Segovia ATTENDING PHYSICIAN STATEMENT I saw and evaluated the patient. I reviewed the resident's note and discussed the case with the resident. I agree with the resident's findings and plan as documented. SUBJECTIVE: Voices no complaints. Pt has seen multiple medical providers and feels tired. OBJECTIVE: Last Vital Signs Temp Pulse Resp BP Pulse Ox 97.8 F 60 20 173/86 H 97 03/11/19 13:21 03/11/19 13:21 03/11/19 13:21 03/11/19 13:21 03/11/19 09:00 General: NAD HEENT: MMM CVS: S1, S2, 2-3/6 DENA Lungs: Ant. CTAB Abd: Soft. NT. ND Neuro: moves all extremities 03/11/19 08:10 03/11/19 08:10 Current Medications Acetaminophen (Tylenol -) 650 mg PO Q6H PRN PRN Reason: PAIN LEVEL 1-5 Last Admin: 03/11/19 09:46 Dose: 650 mg Ascorbic Acid (Vitamin C -) 500 mg PO DAILY [facility] Last Admin: 03/11/19 09:49 Dose: 500 mg Atorvastatin Calcium (Lipitor -) 20 mg PO HS [facility] Last Admin: 03/10/19 21:10 Dose: 20 mg Ferrous Sulfate (Feosol -) 325 mg PO DAILY [facility] Last Admin: 03/11/19 09:49 Dose: 325 mg Furosemide (Lasix -) 20 mg PO DAILY [facility] Last Admin: 03/11/19 17:15 Dose: 20 mg Heparin Sodium (Porcine) (Heparin -) 5,000 unit SQ TID [facility] Last Admin: 03/11/19 15:43 Dose: 5,000 unit Hydralazine HCl (Apresoline -) 25 mg PO BID [facility] Last Admin: 03/11/19 09:49 Dose: 25 mg Metronidazole (Flagyl 500mg Premixed Ivpb -) 500 mg in 100 mls @ 100 mls/hr IVPB Q8H-IV [facility] Last Admin: 03/11/19 17:15 Dose: 100 mls/hr Iron Sucrose 200 mg/ Sodium (Chloride) 100 mls @ 100 mls/hr IVPB ONCE ONE Stop: 03/12/19 10:59 Ceftriaxone Sodium 2 gm/ (Dextrose) 100 mls @ 200 mls/hr IVPB DAILY [facility]; Protocol Insulin Aspart (Novolog Vial Sliding Scale -) 1 vial SQ ACHS [facility]; Protocol Last Admin: 03/11/19 17:15 Dose: Not Given Metoprolol Succinate (Toprol Xl -) 100 mg PO DAILY [facility] Last Admin: 03/11/19 09:49 Dose: 100 mg Ondansetron HCl (Zofran Injection) 4 mg IVPUSH Q6H PRN PRN Reason: NAUSEA AND/OR VOMITING Oxycodone HCl (Roxicodone -) 5 mg PO Q6H PRN PRN Reason: PAIN LEVEL 4 - 6 Last Admin: 03/11/19 13:18 Dose: 5 mg ASSESSMENT AND PLAN: 73 y/o lady with h/o HTN, DM, RA, asthma, CKD, who presented with increased weakness , diarrhea and worsening wound in sacral area. She was found to be septic. Hematology consulted for anemia and leukopenia. Recommend: 1) Leukopenia. Likely secondary to acute marrow suppression by acute infection. Nevertheless cannot rule out underlying hematologic disorder. Agree with peripheral blood flow cytometry and FISH analysis. If bicytopenia does not improve after infection resolves, will need bone marrow examination likely on an outpatient basis. Will also recommend outpatient follow-up with Hematology (Dr. Benitez or Dr. Reyes) 2) Anemia. Same as above. Additionally occult blood losses can be also the reason. GI work-up recommended but apparently patient has refused colonoscopy. Elevated Ferritin indicating inflammatory component. 3) Infected decubitus ulcer. Polymicrobial nature. Zosyn and Flagyl. 4) Rest per Dr. Segovia's note 5) Thank you for this consultation
[2019-03-11] MEDS: ATORVASTATIN CA 20 MG TABLET (FP) PO SCH (21:59)
[2019-03-12] MEDS: HEPARIN NA (PORCINE) 5,000 UNITS/ML 1ML VIAL SQ SCH ×3 (06:22→21:42)
[2019-03-12] MEDS: INSULIN SLIDING SCALE (NOVOLOG) 1 VIAL SQ SCH ×4 (06:22→21:43)
[2019-03-12] MEDS: oxyCODONE HCL 5 MG TABLET PO PRN (07:35)
[2019-03-12 08:09] LABS: BASO % 0.4 % (0-2.0); EOS % 0.3 % (0-4.5); HEMOGLOBIN 7.4 GM/dL (10.7-15.3); LYMPH % 42.1 % (8-40); MCH 25.8 pg (25.7-33.7); MCHC 33.4 g/dl (32.0-36.0); MEAN CELL VOLUME 77.1 fl (80-96); MEAN PLT VOLUME 8.6 fl (7.5-11.1); MONO % 18.7 % (3.8-10.2); NEUT % 38.5 % (42.8-82.8); PLATELET COUNT 176 K/MM3 (134-434); RBC 2.86 M/mm3 (3.60-5.2); RDW 19.5 % (11.6-15.6); WHITE BLOOD COUNT 2.4 K/mm3 (4.0-10.0)
[2019-03-12 08:32] LABS: BLOOD UREA NITROGEN 40.4 mg/dL (7-18); CALCIUM 7.9 mg/dL (8.5-10.1); POTASSIUM 4.3 mmol/L (3.5-5.1)
[2019-03-12] MEDS ORDERED: DOCUSATE SODIUM 100 MG CAPSULE (FP) PO PRN (09:23)
[2019-03-12] MEDS ORDERED: DEXTROSE 5%-WATER 100 ML IVPB ONE (09:48)
[2019-03-12] MEDS: FERROUS SO4 325 MG TABLET (FP) PO SCH (09:51)
[2019-03-12] MEDS: ASCORBIC ACID 500 MG TABLET (FP) PO SCH (09:51)
[2019-03-12] MEDS: FUROSEMIDE 20 MG TABLET (FP) PO SCH (09:51)
[2019-03-12] MEDS: hydrALAZINE HCL 25 MG TABLET (FP) PO SCH ×2 (09:51→21:42)
[2019-03-12] MEDS ORDERED: IRON SUCROSE INJECTION 200 MG in SODIUM CHLORIDE 90 ML IVPB ONE (10:00)
[2019-03-12] MEDS: CEFTRIAXONE 2 GM in DEXTROSE 5%-WATER 100 ML IVPB SCH (10:34)
[2019-03-12] MEDS ORDERED: INSULIN (NOVOLOG) ASPART 100 UNITS/ML 10ML VIAL ONE ×2 (12:03→21:20)
--- NOTE | 2019-03-12 12:06 | PN ---
Progress Note (short form) - Note Progress Note: has not ambulated in a long time per patient alert not eating much Vital Signs Period Temp Pulse Resp BP Sys/Hanna Pulse Ox Last 24 Hr 97.7 F-97.8 F 60-72 18-20 154-173/72-86 97 cor-rrr lungs clear abd soft,nt ext no edema vac in place CBC, BMP 03/12/19 06:55 03/12/19 06:55 Microbiology 03/07/19 17:29 Buttock - Left Gram Stain - Final 03/07/19 17:29 Buttock - Left Wound Culture - Final Citrobacter Youngae Staphylococcus Aureus Enterococcus Faecalis Beta Hem Streptococcus Group F 03/07/19 18:30 Blood - Peripheral Venous Blood Culture - Preliminary NO GROWTH OBTAINED AFTER 96 HOURS, INCUBATION TO CONTINUE FOR 1 DAYS. 03/07/19 18:30 Blood - Peripheral Venous Blood Culture - Preliminary NO GROWTH OBTAINED AFTER 96 HOURS, INCUBATION TO CONTINUE FOR 1 DAYS. 03/07/19 18:30 Urine - Urine - Catheterized Urine Culture - Final Staphylococcus Aureus a/p sacral ulcer s/p debridement- fevers resolved- ceftriaxone/flagyl-awaiting surgery f/u -please call me when vac is changed, d/w RN leukopenia/microcytic anemia- new, hematology eval, has declined endoscopy diabetes penicillin allergy Problem List - Problems (1) Fever Code(s): R50.9 - FEVER, UNSPECIFIED (2) Infected pressure ulcer Code(s): L89.90 - PRESSURE ULCER OF UNSPECIFIED SITE, UNSPECIFIED STAGE; L08.9 - LOCAL INFECTION OF THE SKIN AND SUBCUTANEOUS TISSUE, UNSP (3) Leukopenia Code(s): D72.819 - DECREASED WHITE BLOOD CELL COUNT, UNSPECIFIED (4) Anemia Code(s): D64.9 - ANEMIA, UNSPECIFIED (5) T2DM (type 2 diabetes mellitus) Code(s): E11.9 - TYPE 2 DIABETES MELLITUS WITHOUT COMPLICATIONS (6) Allergy to antibiotic Code(s): Z88.1 - ALLERGY STATUS TO OTHER ANTIBIOTIC AGENTS STATUS (7) CKD (chronic kidney disease) Code(s): N18.9 - CHRONIC KIDNEY DISEASE, UNSPECIFIED
--- NOTE | 2019-03-12 13:10 | PN ---
Progress Note, Physician History of Present Illness: Denies chest pain, dyspnea, palpitations. - Current Medication List Current Medications: Active Medications Acetaminophen (Tylenol -) 650 mg PO Q6H PRN PRN Reason: PAIN LEVEL 1-5 Last Admin: 03/11/19 09:46 Dose: 650 mg Ascorbic Acid (Vitamin C -) 500 mg PO DAILY REPLACED BY [facility] Last Admin: 03/12/19 09:51 Dose: 500 mg Atorvastatin Calcium (Lipitor -) 20 mg PO HS REPLACED BY [facility] Last Admin: 03/11/19 21:59 Dose: 20 mg Docusate Sodium (Colace -) 100 mg PO Q12H PRN PRN Reason: CONSTIPATION Ferrous Sulfate (Feosol -) 325 mg PO DAILY REPLACED BY [facility] Last Admin: 03/12/19 09:51 Dose: 325 mg Furosemide (Lasix -) 20 mg PO DAILY REPLACED BY [facility] Last Admin: 03/12/19 09:51 Dose: 20 mg Heparin Sodium (Porcine) (Heparin -) 5,000 unit SQ TID REPLACED BY [facility] Last Admin: 03/12/19 06:22 Dose: 5,000 unit Hydralazine HCl (Apresoline -) 25 mg PO BID REPLACED BY [facility] Last Admin: 03/12/19 09:51 Dose: 25 mg Metronidazole (Flagyl 500mg Premixed Ivpb -) 500 mg in 100 mls @ 100 mls/hr IVPB Q8H-IV REPLACED BY [facility] Last Admin: 03/12/19 09:52 Dose: 100 mls/hr Ceftriaxone Sodium 2 gm/ (Dextrose) 100 mls @ 200 mls/hr IVPB DAILY REPLACED BY [facility]; Protocol Last Admin: 03/12/19 10:34 Dose: 200 mls/hr Insulin Aspart (Novolog Vial Sliding Scale -) 1 vial SQ ACHS REPLACED BY [facility]; Protocol Last Admin: 03/12/19 12:05 Dose: 2 units Metoprolol Succinate (Toprol Xl -) 100 mg PO DAILY REPLACED BY [facility] Last Admin: 03/12/19 09:51 Dose: 100 mg Ondansetron HCl (Zofran Injection) 4 mg IVPUSH Q6H PRN PRN Reason: NAUSEA AND/OR VOMITING Oxycodone HCl (Roxicodone -) 5 mg PO Q6H PRN PRN Reason: PAIN LEVEL 4 - 6 Last Admin: 03/12/19 07:35 Dose: 5 mg Senna (Senna -) 1 tab PO HS [facility] - Objective Vital Signs: Vital Signs Temperature 97.8 F 03/12/19 09:00 Pulse Rate 72 03/12/19 09:00 Respiratory Rate 18 03/12/19 09:00 Blood Pressure 158/76 03/12/19 09:00 O2 Sat by Pulse Oximetry (%) 97 03/11/19 21:00 Constitutional: Yes: No Distress, Calm, Thin Neck: Yes: Supple Cardiovascular: Yes: Regular Rate and Rhythm, Murmur (2/6 SM) Respiratory: Yes: Regular, Diminished Gastrointestinal: Yes: Normal Bowel Sounds, Soft Edema: Yes Edema: LLE: Trace, RLE: Trace Labs: CBC, BMP 03/12/19 06:55 03/12/19 06:55 INR, PTT INR 1.06 (0.83-1.09) 03/07/19 18:30 Problem List - Problems (1) Acute kidney injury superimposed on CKD Code(s): N17.9 - ACUTE KIDNEY FAILURE, UNSPECIFIED; N18.9 - CHRONIC KIDNEY DISEASE, UNSPECIFIED (2) CHF exacerbation Code(s): I50.9 - HEART FAILURE, UNSPECIFIED Qualifiers: Heart failure type: diastolic Qualified Code(s): I50.33 - Acute on chronic diastolic (congestive) heart failure (3) Sepsis Code(s): A41.9 - SEPSIS, UNSPECIFIED ORGANISM Qualifiers: Sepsis type: sepsis due to unspecified organism Sepsis acute organ dysfunction status: with acute organ dysfunction Severe sepsis acute organ dysfunction type: acute renal failure Acute renal failure type: unspecified Severe sepsis shock status: without septic shock Qualified Code(s): A41.9 - Sepsis, unspecified organism; R65.20 - Severe sepsis without septic shock; N17.9 - Acute kidney failure, unspecified (4) Altered mental state Code(s): R41.82 - ALTERED MENTAL STATUS, UNSPECIFIED Qualifiers: Altered mental status type: unspecified Qualified Code(s): R41.82 - Altered mental status, unspecified (5) Pneumonitis Code(s): J18.9 - PNEUMONIA, UNSPECIFIED ORGANISM (6) Sacral decubitus ulcer Code(s): L89.159 - PRESSURE ULCER OF SACRAL REGION, UNSPECIFIED STAGE Assessment/Plan 03/09/2019 Echogenic kidneys c/w chronic medical renal dz, bilateral renal cysts 03/10/2019 Severe cLVH, hyperdynamic LV fxn, grade III restrictive pattern, c/w markedly increased LAP, mod MR, severe pulm HTN, mod MG 21 mmHg CONRAD 1.0 cm^2 01/03/2017 Mild cLVH, nomal LV fxn, abnl LV compliance, normal RV size and fxn, mild LAE, mild MR, mod TR RVSP 50-60 mmHg 1. Right sacral decubiti ulcer s/p debridement and wound vac placement 2. Diastolic dysfunction 3. Type 2 DM 4. Acute on CKD with proteinuria 5. Hypertensive cardiovascular disease 6. Bilateral pneumonitis 7. Microcytic anemia/leukopenia suspect bone marrow supression due to infection , declining endoscopic evaluation 8. Rheumatoid arthritis 9. Hyperlipidemia PLAN: 1. Oral diuretics with monitor diuretic response, renal fxn and electrolytes 2. Empiric antibiotic coverage and wound care 3. Continue Lipitor 20 mg QHS, hydralazine 25 bid and Toprol XL 100 mg QD 4. DVT and GI prophylaxis
--- NOTE | 2019-03-12 13:35 | PATH ---
Surgical Pathology Report Patient Name: SHELBY SOLANO Med. Rec. #: [id number] /Age/Gender: 1945 (Age: 73) / F Account: [id number] Location: [address] [place] [address]/[facility] Taken: 03/10/2019 Received: 03/11/2019 Reported: 03/12/2019 Physicians: Yoseph Robles MD Specimen(s) Received SACRAL DECUBITUS Clinical History Decubitus ulcer Final Diagnosis SACRAL DECUBITUS, DEBRIDEMENT: SKIN AND UNDERLYING SOFT TISSUE WITH ACUTE AND CHRONIC INFLAMMATION, ULCERATION, GRANULATION TISSUE FORMATION, AND REACTIVE CHANGES. Electronically Signed Marietta Starkey M.D. Gross Description Received in formalin labeled "sacral decubitus," is a 7.4 x 6.0 cm phillips-melo, ovoid, unoriented portion of skin excised to depth of 6.0 cm. The epidermal surface displays a 4.7 x 3.5 cm central, ulcerated defect. A healthcare representative section is submitted in one cassette. /03/11/2019 [facility]/03/11/2019
--- NOTE | 2019-03-12 14:44 | PN ---
Physical Exam: SUBJECTIVE: Patient seen and examined at bedside. There were no acute events overnight. This AM she is passing gas but no stool yet. She still has pain from surgical site. OBJECTIVE: Vital Signs Period Temp Pulse Resp BP Sys/Hanna Pulse Ox Last 24 Hr 97.7 F-97.8 F 68-72 18-20 154-158/72-80 97 GENERAL: AOx3, in no acute distress. HEAD: NCAT EYES: ALLEY, EOMI, conjunctiva clear. ENT: Ears normal, nares patent, oropharynx clear without exudates. Moist mucous membranes. NECK: Normal range of motion, supple without lymphadenopathy, JVD, or masses. LUNGS: Decreased air entry but CTAB otheriwse. No wheezes, and no crackles. No accessory muscle use. HEART: RRR s1 s2, systolic murmur 3/6 R and L USB ABDOMEN: Soft, BS present in all 4 quadrants, non-distended, no JVD, MUSCULOSKELETAL: No bony deformities or tenderness. No CVA tenderness. UPPER EXTREMITIES: 2+ pulses, warm, well-perfused. No cyanosis. No clubbing. No peripheral edema. LOWER EXTREMITIES: 2+ pulses, warm, well-perfused. No calf tenderness. 1+ peripheral edema of feet BL unchanged since yesterday. NEUROLOGICAL: No focal deficits. Cranial nerves II-XII intact. Normal speech. Gait not appreciated. PSYCHIATRIC: Cooperative. Good eye contact. Appropriate mood and affect. SKIN: Wound vac over gluteal surgical site. No discharge or erythema. Laboratory Results - last 24 hr 03/11/19 03/11/19 03/12/19 16:31 22:13 06:05 WBC RBC Hgb Hct MCV MCH MCHC RDW Plt Count MPV Absolute Neuts (auto) Neutrophils % Lymphocytes % Monocytes % Eosinophils % Basophils % Nucleated RBC % Sodium Potassium Chloride Carbon Dioxide Anion Gap BUN Creatinine Est GFR (CKD-EPI)AfAm Est GFR (CKD-EPI)NonAf POC Glucometer 142 205 130 Random Glucose Calcium 03/12/19 03/12/19 03/12/19 06:55 06:55 11:10 WBC 2.4 L RBC 2.86 L Hgb 7.4 L Hct 22.0 L MCV 77.1 L MCH 25.8 MCHC 33.4 RDW 19.5 H Plt Count 176 MPV 8.6 Absolute Neuts (auto) 0.9 L Neutrophils % 38.5 L Lymphocytes % 42.1 H D Monocytes % 18.7 H Eosinophils % 0.3 Basophils % 0.4 Nucleated RBC % 0 Sodium 140 Potassium 4.3 Chloride 107 Carbon Dioxide 25 Anion Gap 8 BUN 40.4 H Creatinine 2.0 H Est GFR (CKD-EPI)AfAm 27.61 Est GFR (CKD-EPI)NonAf 23.82 POC Glucometer 157 Random Glucose 133 H Calcium 7.9 L Active Medications Acetaminophen (Tylenol -) 650 mg PO Q6H PRN PRN Reason: PAIN LEVEL 1-5 Last Admin: 03/11/19 09:46 Dose: 650 mg Ascorbic Acid (Vitamin C -) 500 mg PO DAILY [facility] Last Admin: 03/13/19 10:02 Dose: 500 mg Atorvastatin Calcium (Lipitor -) 20 mg PO HS [facility] Last Admin: 03/12/19 21:42 Dose: 20 mg Docusate Sodium (Colace -) 100 mg PO Q12H PRN PRN Reason: CONSTIPATION Ferrous Sulfate (Feosol -) 325 mg PO DAILY [facility] Last Admin: 03/13/19 10:03 Dose: 325 mg Furosemide (Lasix -) 20 mg PO DAILY [facility] Last Admin: 03/13/19 10:02 Dose: 20 mg Heparin Sodium (Porcine) (Heparin -) 5,000 unit SQ TID [facility] Last Admin: 03/13/19 06:10 Dose: 5,000 unit Hydralazine HCl (Apresoline -) 25 mg PO TID [facility] Metronidazole (Flagyl 500mg Premixed Ivpb -) 500 mg in 100 mls @ 100 mls/hr IVPB Q8H-IV [facility] Last Admin: 03/13/19 10:02 Dose: 100 mls/hr Ceftriaxone Sodium 2 gm/ (Dextrose) 100 mls @ 200 mls/hr IVPB DAILY [facility]; Protocol Last Admin: 03/13/19 10:01 Dose: 200 mls/hr Insulin Aspart (Novolog Vial Sliding Scale -) 1 vial SQ ACHS [facility]; Protocol Last Admin: 03/13/19 11:30 Dose: Not Given Losartan Potassium (Cozaar -) 25 mg PO DAILY [facility] Metoprolol Succinate (Toprol Xl -) 100 mg PO DAILY [facility] Last Admin: 03/13/19 10:02 Dose: 100 mg Ondansetron HCl (Zofran Injection) 4 mg IVPUSH Q6H PRN PRN Reason: NAUSEA AND/OR VOMITING Oxycodone HCl (Roxicodone -) 5 mg PO Q6H PRN PRN Reason: PAIN LEVEL 4 - 6 Last Admin: 03/12/19 07:35 Dose: 5 mg Senna (Senna -) 1 tab PO HS [facility] Last Admin: 03/12/19 21:42 Dose: 1 tab ASSESSMENT/PLAN: 73 y/o female PMH of DM, HTN, RA, and asthma BIBEMS for weakness. She was admitted for sepsis. POD 2 debridement of RIGHT sacral ulcer. # Decubitus ulcer, POD 2 debridement sacral ulcer - Pain control: 5 mg oxycodone PRN - ABX: Ceftriaxone 2gm qd, metronidazole 500 iv q8h - Wound cx: Citrobacter, staph aureus (clindamycin, erthromycin resistant), enterococcus faecalis (erthromycin resistant), B hemolytic strep. - ID rec appreciated for appropriate abx # Leukopenia and microcytic anemia - Most likely 2/2 spesis vs anemia of chronic disease - F/u endoscopy as out pt # SAL on CKD - Not far from baseline now - Renal US: F/u on renal cysts and LEFT adrenal nodule (stable form before, 2.3 cm) as out pt. # HTN - Cont. curent home regimen: Hydralazine 25 mg po bid and metoprolol s 100 mg po qd - Cardiology rec: Lipitor 20 mg QHS, hydralazine 25 bid and Toprol XL 100 mg QD # F/E/N - NS - Cont. to monitor - Low sodium diet # DVT prophylaxis - Lovenox 40 SQ # Disposition - Admit to med/surg - Have to update med rec again in AM. Pt could benefit from YARY/ARB. Isaac Nguyen MD Visit type - Emergency Visit Emergency Visit: No - New Patient This patient is new to me today: No - Critical Care Critical Care patient: No ATTENDING PHYSICIAN STATEMENT I saw and evaluated the patient. I reviewed the resident's note and discussed the case with the resident. I agree with the resident's findings and plan as documented. SUBJECTIVE: OBJECTIVE: ASSESSMENT AND PLAN:
--- NOTE | 2019-03-12 16:12 | PN ---
Progress Note, Physician History of Present Illness: Pt seen and examined at bedside. SHe is awake and alert. She denies shortness of breath. - Current Medication List Current Medications: Active Medications Acetaminophen (Tylenol -) 650 mg PO Q6H PRN PRN Reason: PAIN LEVEL 1-5 Last Admin: 03/11/19 09:46 Dose: 650 mg Ascorbic Acid (Vitamin C -) 500 mg PO DAILY [facility] Last Admin: 03/12/19 09:51 Dose: 500 mg Atorvastatin Calcium (Lipitor -) 20 mg PO HS [facility] Last Admin: 03/11/19 21:59 Dose: 20 mg Docusate Sodium (Colace -) 100 mg PO Q12H PRN PRN Reason: CONSTIPATION Ferrous Sulfate (Feosol -) 325 mg PO DAILY [facility] Last Admin: 03/12/19 09:51 Dose: 325 mg Furosemide (Lasix -) 20 mg PO DAILY [facility] Last Admin: 03/12/19 09:51 Dose: 20 mg Heparin Sodium (Porcine) (Heparin -) 5,000 unit SQ TID [facility] Last Admin: 03/12/19 14:32 Dose: 5,000 unit Hydralazine HCl (Apresoline -) 25 mg PO BID [facility] Last Admin: 03/12/19 09:51 Dose: 25 mg Metronidazole (Flagyl 500mg Premixed Ivpb -) 500 mg in 100 mls @ 100 mls/hr IVPB Q8H-IV [facility] Last Admin: 03/12/19 09:52 Dose: 100 mls/hr Ceftriaxone Sodium 2 gm/ (Dextrose) 100 mls @ 200 mls/hr IVPB DAILY [facility]; Protocol Last Admin: 03/12/19 10:34 Dose: 200 mls/hr Insulin Aspart (Novolog Vial Sliding Scale -) 1 vial SQ ACHS [facility]; Protocol Last Admin: 03/12/19 12:05 Dose: 2 units Metoprolol Succinate (Toprol Xl -) 100 mg PO DAILY [facility] Last Admin: 03/12/19 09:51 Dose: 100 mg Ondansetron HCl (Zofran Injection) 4 mg IVPUSH Q6H PRN PRN Reason: NAUSEA AND/OR VOMITING Oxycodone HCl (Roxicodone -) 5 mg PO Q6H PRN PRN Reason: PAIN LEVEL 4 - 6 Last Admin: 03/12/19 07:35 Dose: 5 mg Senna (Senna -) 1 tab PO HS [facility] - Objective Vital Signs: Vital Signs Temperature 97.9 F 03/12/19 15:47 Pulse Rate 73 03/12/19 15:47 Respiratory Rate 18 03/12/19 15:47 Blood Pressure 162/87 03/12/19 15:47 O2 Sat by Pulse Oximetry (%) 97 03/11/19 21:00 Constitutional: Yes: Calm Eyes: Yes: Conjunctiva Clear HENT: Yes: Atraumatic Neck: Yes: Supple Cardiovascular: Yes: S1, S2 Respiratory: Yes: CTA Bilaterally Gastrointestinal: Yes: Normal Bowel Sounds, Soft Genitourinary: Yes: WNL Edema: Yes Edema: LLE: 1+, RLE: 1+ Neurological: Yes: Oriented Psychiatric: Yes: Oriented Labs: CBC, BMP 03/12/19 06:55 03/12/19 06:55 INR, PTT INR 1.06 (0.83-1.09) 03/07/19 18:30 Assessment/Plan Current Medications Generic Name Dose Route Start Last Admin Trade Name Freq PRN Reason Stop Dose Admin Acetaminophen 650 mg 03/11/19 07:19 03/11/19 09:46 Tylenol - PO 650 mg Q6H PRN Administration PAIN LEVEL 1-5 Ascorbic Acid 500 mg 03/11/19 10:00 03/12/19 09:51 Vitamin C - PO 500 mg DAILY [facility] Administration Atorvastatin Calcium 20 mg 03/10/19 22:00 03/11/19 21:59 Lipitor - PO 20 mg HS [facility] Administration Docusate Sodium 100 mg 03/12/19 09:23 Colace - PO Q12H PRN CONSTIPATION Ferrous Sulfate 325 mg 03/11/19 10:00 03/12/19 09:51 Feosol - PO 325 mg DAILY [facility] Administration Furosemide 20 mg 03/11/19 15:15 03/12/19 09:51 Lasix - PO 20 mg DAILY [facility] Administration Heparin Sodium (Porcine) 5,000 unit 03/10/19 22:00 03/12/19 14:32 Heparin - SQ 5,000 unit TID [facility] Administration Hydralazine HCl 25 mg 03/10/19 22:00 03/12/19 09:51 Apresoline - PO 25 mg BID [facility] Administration Metronidazole 500 mg in 100 mls @ 100 mls/hr 03/10/19 18:00 03/12/19 09:52 Flagyl 500mg Premixed Ivpb - IVPB 100 mls/hr Q8H-IV [facility] Administration Ceftriaxone Sodium 2 gm/ 100 mls @ 200 mls/hr 03/12/19 10:00 03/12/19 10:34 Dextrose IVPB 200 mls/hr DAILY [facility] Administration Protocol Insulin Aspart 1 vial 03/11/19 11:00 03/12/19 12:05 Novolog Vial Sliding Scale - SQ 2 units ACHS [facility] Administration Protocol Metoprolol Succinate 100 mg 03/11/19 10:00 03/12/19 09:51 Toprol Xl - PO 100 mg DAILY [facility] Administration Ondansetron HCl 4 mg 03/10/19 15:45 Zofran Injection IVPUSH Q6H PRN NAUSEA AND/OR VOMITING Oxycodone HCl 5 mg 03/11/19 12:56 03/12/19 07:35 Roxicodone - PO 5 mg Q6H PRN Administration PAIN LEVEL 4 - 6 Senna 1 tab 03/12/19 22:00 Senna - PO HS [facility] Impression 1. CKD with acute component 2. htn 3. dm 4. RA 5. diarrhea 6. bilateral renal cysts Plan - cont lasix - monitor renal function - avoid nsaids - discussed with cardio - will follow PRN
--- NOTE | 2019-03-12 17:53 | PN ---
Teaching Attending Note Name of Resident: Junior Rowe ATTENDING PHYSICIAN STATEMENT I saw and evaluated the patient. I reviewed the resident's note and discussed the case with the resident. I agree with the resident's findings and plan as documented. SUBJECTIVE: painis controlled . no SOB OBJECTIVE: AD, awake, cooperative. MMM, no facial droop. CV: RRR, 3/6 SM all over precordium with radiation to L axilla. Ext : trace edema on LE Skin: wound vac on R gluteal area. ASSESSMENT AND PLAN: 73 y/o lady with h/o HTN, DM, RA, asthma, CKD, who presented with increased weakness , diarrhea and worsening wound in sacral area. She was found to be septic 1- Sepsis due to infected sacral decub. - cont CTX and cont flagyl. - cont wound vac. 2- Lekopenia and microcytic anemia: - leukopenia is likey due to sepsis. will monitor. - Anemia is chronic. will monitor - heme consult pending - monitor counts. 3- SAL on CKD: stable - f/u on renal cysts as out pt. - cont laix 4- Lung findings of possible pneumonitits and thickening. doubt acute issues. no pulm sx. no signs of fluid overload on exam. - need to be monitored 5- HTN: cont HZN and BB 6- L adrenal nodule, stable form before 2.3 cm. f/u as outpt 7- Mod , MR and pulmonary HTN: monitor . echo reviewed. DVT px
[2019-03-12] MEDS: SENNOSIDES 8.6MG TABLET (FP) PO SCH (21:42)
[2019-03-12] MEDS: ATORVASTATIN CA 20 MG TABLET (FP) PO SCH (21:42)
[2019-03-13] MEDS: INSULIN SLIDING SCALE (NOVOLOG) 1 VIAL SQ SCH ×4 (06:10→22:07)
[2019-03-13] MEDS: HEPARIN NA (PORCINE) 5,000 UNITS/ML 1ML VIAL SQ SCH ×3 (06:10→22:05)
[2019-03-13] MEDS ORDERED: INSULIN (NOVOLOG) ASPART 100 UNITS/ML 10ML VIAL ONE (06:14)
[2019-03-13 08:03] LABS: ALBUMIN 1.6 g/dl (3.4-5.0); BILIRUBIN,TOTAL 0.4 mg/dL (0.2-1); CALCIUM 7.9 mg/dL (8.5-10.1); CREATININE 1.8 mg/dL (0.55-1.3); TOT PROT 5.6 g/dl (6.4-8.2)
[2019-03-13] MEDS ORDERED: DEXTROSE 5%-WATER 100 ML IVPB ONE (09:28)
[2019-03-13] MEDS: CEFTRIAXONE 2 GM in DEXTROSE 5%-WATER 100 ML IVPB SCH (10:01)
[2019-03-13] MEDS: FUROSEMIDE 20 MG TABLET (FP) PO SCH (10:02)
[2019-03-13] MEDS: hydrALAZINE HCL 25 MG TABLET (FP) PO SCH ×3 (10:02→22:05)
[2019-03-13] MEDS: ASCORBIC ACID 500 MG TABLET (FP) PO SCH (10:02)
[2019-03-13] MEDS: FERROUS SO4 325 MG TABLET (FP) PO SCH (10:03)
[2019-03-13 11:25] LABS: HEMATOCRIT 21.7 % (32.4-45.2); HEMOGLOBIN 7.3 GM/dL (10.7-15.3); MCH 25.9 pg (25.7-33.7); MCHC 33.6 g/dl (32.0-36.0); MEAN PLT VOLUME 8.6 fl (7.5-11.1); PLATELET COUNT 161 K/MM3 (134-434); RBC 2.82 M/mm3 (3.60-5.2); RDW 19.7 % (11.6-15.6); WHITE BLOOD COUNT 2.5 K/mm3 (4.0-10.0)
--- NOTE | 2019-03-13 12:59 | PN ---
Progress Note, Physician History of Present Illness: Denies chest pain, dyspnea, palpitations. - Current Medication List Current Medications: Active Medications Acetaminophen (Tylenol -) 650 mg PO Q6H PRN PRN Reason: PAIN LEVEL 1-5 Last Admin: 03/11/19 09:46 Dose: 650 mg Ascorbic Acid (Vitamin C -) 500 mg PO DAILY [facility] Last Admin: 03/13/19 10:02 Dose: 500 mg Atorvastatin Calcium (Lipitor -) [address] [facility] Last Admin: 03/12/19 21:42 Dose: 20 mg Docusate Sodium (Colace -) 100 mg PO Q12H PRN PRN Reason: CONSTIPATION Ferrous Sulfate (Feosol -) 325 mg PO DAILY [facility] Last Admin: 03/13/19 10:03 Dose: 325 mg Furosemide (Lasix -) 20 mg PO DAILY [facility] Last Admin: 03/13/19 10:02 Dose: 20 mg Heparin Sodium (Porcine) (Heparin -) 5,000 unit SQ TID [facility] Last Admin: 03/13/19 06:10 Dose: 5,000 unit Hydralazine HCl (Apresoline -) 25 mg PO TID [facility] Metronidazole (Flagyl 500mg Premixed Ivpb -) 500 mg in 100 mls @ 100 mls/hr IVPB Q8H-IV [facility] Last Admin: 03/13/19 10:02 Dose: 100 mls/hr Ceftriaxone Sodium 2 gm/ (Dextrose) 100 mls @ 200 mls/hr IVPB DAILY [facility]; Protocol Last Admin: 03/13/19 10:01 Dose: 200 mls/hr Insulin Aspart (Novolog Vial Sliding Scale -) 1 vial SQ ACHS [facility]; Protocol Last Admin: 03/13/19 11:30 Dose: Not Given Losartan Potassium (Cozaar -) 25 mg PO DAILY [facility] Metoprolol Succinate (Toprol Xl -) 100 mg PO DAILY [facility] Last Admin: 03/13/19 10:02 Dose: 100 mg Ondansetron HCl (Zofran Injection) 4 mg IVPUSH Q6H PRN PRN Reason: NAUSEA AND/OR VOMITING Oxycodone HCl (Roxicodone -) 5 mg PO Q6H PRN PRN Reason: PAIN LEVEL 4 - 6 Last Admin: 03/12/19 07:35 Dose: 5 mg Senna (Senna -) [address] [facility] Last Admin: 03/12/19 21:42 Dose: 1 tab - Objective Vital Signs: Vital Signs Temperature 98.1 F 03/13/19 06:00 Pulse Rate 70 03/13/19 10:00 Respiratory Rate 20 03/13/19 10:00 Blood Pressure 190/76 H 03/13/19 10:00 O2 Sat by Pulse Oximetry (%) 97 03/12/19 21:00 Constitutional: Yes: No Distress, Calm, Thin Neck: Yes: Supple Cardiovascular: Yes: Regular Rate and Rhythm, Murmur (2/6 SM) Respiratory: Yes: Regular, Diminished Gastrointestinal: Yes: Normal Bowel Sounds, Soft Edema: No Labs: CBC, BMP 03/13/19 06:50 03/13/19 06:50 INR, PTT INR 1.06 (0.83-1.09) 03/07/19 18:30 Problem List - Problems (1) Acute kidney injury superimposed on CKD Code(s): N17.9 - ACUTE KIDNEY FAILURE, UNSPECIFIED; N18.9 - CHRONIC KIDNEY DISEASE, UNSPECIFIED (2) CHF exacerbation Code(s): I50.9 - HEART FAILURE, UNSPECIFIED Qualifiers: Heart failure type: diastolic Qualified Code(s): I50.33 - Acute on chronic diastolic (congestive) heart failure (3) Sepsis Code(s): A41.9 - SEPSIS, UNSPECIFIED ORGANISM Qualifiers: Sepsis type: sepsis due to unspecified organism Sepsis acute organ dysfunction status: with acute organ dysfunction Severe sepsis acute organ dysfunction type: acute renal failure Acute renal failure type: unspecified Severe sepsis shock status: without septic shock Qualified Code(s): A41.9 - Sepsis, unspecified organism; R65.20 - Severe sepsis without septic shock; N17.9 - Acute kidney failure, unspecified (4) Altered mental state Code(s): R41.82 - ALTERED MENTAL STATUS, UNSPECIFIED Qualifiers: Altered mental status type: unspecified Qualified Code(s): R41.82 - Altered mental status, unspecified (5) Pneumonitis Code(s): J18.9 - PNEUMONIA, UNSPECIFIED ORGANISM (6) Sacral decubitus ulcer Code(s): L89.159 - PRESSURE ULCER OF SACRAL REGION, UNSPECIFIED STAGE Assessment/Plan 03/09/2019 Echogenic kidneys c/w chronic medical renal dz, bilateral renal cysts 03/10/2019 Severe cLVH, hyperdynamic LV fxn, grade III restrictive pattern, c/w markedly increased LAP, mod MR, severe pulm HTN, mod MG 21 mmHg CONRAD 1.0 cm^2 01/03/2017 Mild cLVH, nomal LV fxn, abnl LV compliance, normal RV size and fxn, mild LAE, mild MR, mod TR RVSP 50-60 mmHg 1. Right sacral decubiti ulcer s/p debridement and wound vac placement 2. Diastolic dysfunction 3. Type 2 DM 4. Acute on CKD with proteinuria 5. Hypertensive cardiovascular disease 6. Bilateral pneumonitis 7. Microcytic anemia/leukopenia suspect bone marrow supression due to infection , declining endoscopic evaluation 8. Rheumatoid arthritis 9. Hyperlipidemia PLAN: 1. Oral diuretics Lasix 20 qd with monitor diuretic response, renal fxn and electrolytes 2. Empiric antibiotic coverage and wound care 3. Continue Lipitor 20 mg QHS, hydralazine 25 tid, Toprol XL 100 mg QD, losartan 25 qd started as renal fxn at baseline 4. DVT and GI prophylaxis
--- NOTE | 2019-03-13 13:55 | PN ---
Physical Exam: SUBJECTIVE: Patient seen and examined at bedside. Overnight she reports x2 NBNB food-containing vomitus. She has no other symptoms. Her pain is better controlled today. OBJECTIVE: Vital Signs Temp Pulse Resp BP Pulse Ox 98.6 F 78 20 160/74 97 03/14/19 00:37 03/14/19 00:37 03/14/19 00:37 03/14/19 00:37 03/13/19 21:00 GENERAL: AOx3, in no acute distress. HEAD: NCAT EYES: ALLEY, EOMI, conjunctiva clear. ENT: Ears normal, nares patent, oropharynx clear without exudates. Moist mucous membranes. NECK: Normal range of motion, supple without lymphadenopathy, JVD, or masses. LUNGS: Decreased air entry but CTAB otheriwse. No wheezes, and no crackles. No accessory muscle use. HEART: RRR s1 s2, systolic murmur 3/6 R and L USB ABDOMEN: Soft, BS present in all 4 quadrants, non-distended, no JVD, MUSCULOSKELETAL: No bony deformities or tenderness. No CVA tenderness. UPPER EXTREMITIES: 2+ pulses, warm, well-perfused. No cyanosis. No clubbing. No peripheral edema. LOWER EXTREMITIES: 2+ pulses, warm, well-perfused. No calf tenderness. 1+ peripheral edema of feet BL unchanged since yesterday. NEUROLOGICAL: No focal deficits. Cranial nerves II-XII intact. Normal speech. Gait not appreciated. PSYCHIATRIC: Cooperative. Good eye contact. Appropriate mood and affect. SKIN: Wound vac over gluteal surgical site. No discharge or erythema. Laboratory Results - last 24 hr 03/12/19 03/12/19 03/12/19 06:55 16:54 20:36 WBC RBC Hgb Hct MCV MCH MCHC RDW Plt Count MPV Sodium 140 Potassium 4.3 Chloride 107 Carbon Dioxide 25 Anion Gap 8 BUN 40.4 H Creatinine 2.0 H Est GFR (CKD-EPI)AfAm 27.61 Est GFR (CKD-EPI)NonAf 23.82 POC Glucometer 173 125 Random Glucose 133 H Calcium 7.9 L Total Bilirubin AST ALT Alkaline Phosphatase Total Protein Albumin Vitamin B12 2078 H Serum Folate 5 03/13/19 03/13/19 03/13/19 05:43 06:50 06:50 WBC 2.5 L RBC 2.82 L Hgb 7.3 L Hct 21.7 L MCV 77.0 L MCH 25.9 MCHC 33.6 RDW 19.7 H Plt Count 161 MPV 8.6 Sodium 141 Potassium 4.0 Chloride 109 H Carbon Dioxide 22 Anion Gap 10 BUN 38.0 H Creatinine 1.8 H Est GFR (CKD-EPI)AfAm 31.36 Est GFR (CKD-EPI)NonAf 27.06 POC Glucometer 130 Random Glucose 129 H Calcium 7.9 L Total Bilirubin 0.4 AST 18 ALT 10 L Alkaline Phosphatase 112 Total Protein 5.6 L Albumin 1.6 L Vitamin B12 Serum Folate 03/13/19 11:02 WBC RBC Hgb Hct MCV MCH MCHC RDW Plt Count MPV Sodium Potassium Chloride Carbon Dioxide Anion Gap BUN Creatinine Est GFR (CKD-EPI)AfAm Est GFR (CKD-EPI)NonAf POC Glucometer 162 Random Glucose Calcium Total Bilirubin AST ALT Alkaline Phosphatase Total Protein Albumin Vitamin B12 Serum Folate Active Medications Acetaminophen (Tylenol -) 650 mg PO Q6H PRN PRN Reason: PAIN LEVEL 1-5 Last Admin: 03/11/19 09:46 Dose: 650 mg Ascorbic Acid (Vitamin C -) 500 mg PO DAILY [facility] Last Admin: 03/13/19 10:02 Dose: 500 mg Atorvastatin Calcium (Lipitor -) 20 mg PO HS [facility] Last Admin: 03/13/19 22:05 Dose: 20 mg Docusate Sodium (Colace -) 100 mg PO Q12H PRN PRN Reason: CONSTIPATION Ferrous Sulfate (Feosol -) 325 mg PO DAILY [facility] Last Admin: 03/13/19 10:03 Dose: 325 mg Furosemide (Lasix -) 20 mg PO DAILY [facility] Last Admin: 03/13/19 10:02 Dose: 20 mg Heparin Sodium (Porcine) (Heparin -) 5,000 unit SQ TID [facility] Last Admin: 03/13/19 22:05 Dose: 5,000 unit Hydralazine HCl (Apresoline -) 25 mg PO TID [facility] Last Admin: 03/13/19 22:05 Dose: 25 mg Metronidazole (Flagyl 500mg Premixed Ivpb -) 500 mg in 100 mls @ 100 mls/hr IVPB Q8H-IV [facility] Last Admin: 03/14/19 01:32 Dose: 100 mls/hr Ceftriaxone Sodium 2 gm/ (Dextrose) 100 mls @ 200 mls/hr IVPB DAILY [facility]; Protocol Last Admin: 03/13/19 10:01 Dose: 200 mls/hr Insulin Aspart (Novolog Vial Sliding Scale -) 1 vial SQ ACHS [facility]; Protocol Last Admin: 03/13/19 22:07 Dose: 2 units Losartan Potassium (Cozaar -) 25 mg PO DAILY [facility] Last Admin: 03/13/19 14:40 Dose: 25 mg Metoprolol Succinate (Toprol Xl -) 100 mg PO DAILY [facility] Last Admin: 03/13/19 10:02 Dose: 100 mg Ondansetron HCl (Zofran Injection) 4 mg IVPUSH Q6H PRN PRN Reason: NAUSEA AND/OR VOMITING Last Admin: 03/13/19 20:27 Dose: 4 mg Oxycodone HCl (Roxicodone -) 5 mg PO Q6H PRN PRN Reason: PAIN LEVEL 4 - 6 Last Admin: 03/13/19 22:10 Dose: 5 mg Senna (Senna -) 1 tab PO HS [facility] Last Admin: 03/13/19 22:05 Dose: 1 tab ASSESSMENT/PLAN: 73 y/o female PMH of DM, HTN, RA, and asthma BIBEMS for weakness. She was admitted for sepsis. POD 3 debridement of RIGHT sacral ulcer. # Decubitus ulcer, POD 3 debridement sacral ulcer - Pain control: 5 mg oxycodone PRN - ABX: Ceftriaxone 2gm qd, metronidazole 500 iv q8h - Wound cx: Citrobacter, staph aureus (clindamycin, erthromycin resistant), enterococcus faecalis (erthromycin resistant), B hemolytic strep. - ID rec appreciated for appropriate abx # Leukopenia and microcytic anemia - Heme studies pending - Most likely 2/2 spesis vs anemia of chronic disease - F/u endoscopy as out pt # SAL on CKD - Not far from baseline now - Renal US: F/u on renal cysts and LEFT adrenal nodule (stable form before, 2.3 cm) as out pt. # HTN - Hydralazine 25 mg po now TID - Losartan 25 mg po qd added - Metoprolol s 100 mg po qd - Cardiology rec: Lipitor 20 mg QHS, hydralazine 25 bid and Toprol XL 100 mg QD # F/E/N - NS - Cont. to monitor - Low sodium diet # DVT prophylaxis - Lovenox 40 SQ # Disposition - Admit to med/surg Isaac Nguyen MD Visit type - Emergency Visit Emergency Visit: No - New Patient This patient is new to me today: No - Critical Care Critical Care patient: No ATTENDING PHYSICIAN STATEMENT I saw and evaluated the patient. I reviewed the resident's note and discussed the case with the resident. I agree with the resident's findings and plan as documented. SUBJECTIVE: OBJECTIVE: ASSESSMENT AND PLAN:
[2019-03-13] MEDS: oxyCODONE HCL 5 MG TABLET PO PRN ×2 (14:39→22:10)
[2019-03-13] MEDS: LOSARTAN POTASSIUM 50 MG TABLET (FP) PO SCH (14:40)
--- NOTE | 2019-03-13 15:51 | PN ---
Teaching Attending Note Name of Resident: Isaac Nguyen ATTENDING PHYSICIAN STATEMENT I saw and evaluated the patient. I reviewed the resident's note and discussed the case with the resident. I agree with the resident's findings and plan as documented. SUBJECTIVE: no fever or chills. pain is controlled. OBJECTIVE: NAD, awake, cooperative. MMM, no facial droop. CV: RRR, 3/6 SM all over precordium with radiation to L axilla. Ext: trace edema on LE Skin: wound vac on R gluteal area. ASSESSMENT AND PLAN: 73 y/o lady with h/o HTN, DM, RA, asthma, CKD, who presented with increased weakness , diarrhea and worsening wound in sacral area. She was found to be septic 1- Sepsis due to infected sacral decub. - cont CTX and cont flagyl. - cont wound vac. vac was changed last night 2- Leukopenia and microcytic anemia: could be due to BM suppression in settign of acute infection or due to BM pathology ( MDS, leukemia, ...) . - heme studies ( Fish, flocytometry ) pending - iron studies do not indicate iron def. need to be repeated after resolution of infection - Anemia is chronic. will monitor 3- SAL on CKD: stable - f/u on renal cysts as out pt. - cont laix. 4- Lung findings of possible pneumonitits and thickening. doubt acute issues. no pulm sx. no signs of fluid overload on exam. - need to be monitored 5- Uncontrolled HTN: cont HZN and BB. start ARB for better BP control and for renal protection . renal function stable 6- L adrenal nodule, stable form before 2.3 cm. f/u as outpt 7- Mod , MR and pulmonary HTN: monitor. DVT px ASSESSMENT AND PLAN:
[2019-03-13] MEDS: SENNOSIDES 8.6MG TABLET (FP) PO SCH (22:05)
[2019-03-13] MEDS: ATORVASTATIN CA 20 MG TABLET (FP) PO SCH (22:05)
[2019-03-14] MEDS: HEPARIN NA (PORCINE) 5,000 UNITS/ML 1ML VIAL SQ SCH ×3 (06:09→21:59)
[2019-03-14] MEDS: hydrALAZINE HCL 25 MG TABLET (FP) PO SCH ×3 (06:09→21:59)
[2019-03-14] MEDS: INSULIN SLIDING SCALE (NOVOLOG) 1 VIAL SQ SCH ×4 (06:09→21:59)
[2019-03-14 07:27] LABS: HEMATOCRIT 21.9 % (32.4-45.2); HEMOGLOBIN 7.2 GM/dL (10.7-15.3); MCH 25.8 pg (25.7-33.7); MEAN CELL VOLUME 78.3 fl (80-96); MEAN PLT VOLUME 8.7 fl (7.5-11.1); PLATELET COUNT 163 K/MM3 (134-434); RBC 2.79 M/mm3 (3.60-5.2); RDW 19.5 % (11.6-15.6); WHITE BLOOD COUNT 2.4 K/mm3 (4.0-10.0)
[2019-03-14 07:54] LABS: ALBUMIN 1.6 g/dl (3.4-5.0); BILIRUBIN,TOTAL 0.7 mg/dL (0.2-1); BLOOD UREA NITROGEN 35.9 mg/dL (7-18); CALCIUM 7.9 mg/dL (8.5-10.1); CREATININE 1.7 mg/dL (0.55-1.3); POTASSIUM 3.5 mmol/L (3.5-5.1); TOT PROT 5.2 g/dl (6.4-8.2)
[2019-03-14] MEDS ORDERED: DEXTROSE 5%-WATER 100 ML IVPB ONE (09:40)
[2019-03-14] MEDS: CEFTRIAXONE 2 GM in DEXTROSE 5%-WATER 100 ML IVPB SCH (09:47)
[2019-03-14] MEDS: FERROUS SO4 325 MG TABLET (FP) PO SCH (09:48)
[2019-03-14] MEDS: LOSARTAN POTASSIUM 50 MG TABLET (FP) PO SCH (09:49)
[2019-03-14] MEDS: ASCORBIC ACID 500 MG TABLET (FP) PO SCH (09:49)
[2019-03-14] MEDS: FUROSEMIDE 20 MG TABLET (FP) PO SCH (09:49)
[2019-03-14] MEDS: oxyCODONE HCL 5 MG TABLET PO PRN (09:49)
--- NOTE | 2019-03-14 12:45 | PN ---
Progress Note (short form) - Note Progress Note: sister at bedside not ambulating since before prior admission alert Vital Signs Period Temp Pulse Resp BP Sys/Hanna Pulse Ox Last 24 Hr 98 F-98.6 F 73-78 20-20 149-190/72-83 97 cor-rrr lungs clear abd soft,nt +vac CBC, BMP 03/14/19 06:43 03/14/19 06:43 Microbiology 03/07/19 18:30 Blood - Peripheral Venous Blood Culture - Final NO GROWTH AFTER 5 DAYS INCUBATION 03/07/19 18:30 Blood - Peripheral Venous Blood Culture - Final NO GROWTH AFTER 5 DAYS INCUBATION 03/07/19 17:29 Buttock - Left Gram Stain - Final 03/07/19 17:29 Buttock - Left Wound Culture - Final Citrobacter Youngae Staphylococcus Aureus Enterococcus Faecalis Beta Hem Streptococcus Group F 03/07/19 18:30 Urine - Urine - Catheterized Urine Culture - Final Staphylococcus Aureus Current Medications Acetaminophen (Tylenol -) 650 mg PO Q6H PRN PRN Reason: PAIN LEVEL 1-5 Last Admin: 03/11/19 09:46 Dose: 650 mg Ascorbic Acid (Vitamin C -) 500 mg PO DAILY [facility] Last Admin: 03/14/19 09:49 Dose: 500 mg Atorvastatin Calcium (Lipitor -) 20 mg PO HS [facility] Last Admin: 03/13/19 22:05 Dose: 20 mg Docusate Sodium (Colace -) 100 mg PO Q12H PRN PRN Reason: CONSTIPATION Ferrous Sulfate (Feosol -) 325 mg PO DAILY [facility] Last Admin: 03/14/19 09:48 Dose: 325 mg Furosemide (Lasix -) 20 mg PO DAILY [facility] Last Admin: 03/14/19 09:49 Dose: 20 mg Heparin Sodium (Porcine) (Heparin -) 5,000 unit SQ TID [facility] Last Admin: 03/14/19 06:09 Dose: 5,000 unit Hydralazine HCl (Apresoline -) 25 mg PO TID [facility] Last Admin: 03/14/19 06:09 Dose: 25 mg Metronidazole (Flagyl 500mg Premixed Ivpb -) 500 mg in 100 mls @ 100 mls/hr IVPB Q8H-IV [facility] Last Admin: 03/14/19 09:48 Dose: 100 mls/hr Ceftriaxone Sodium 2 gm/ (Dextrose) 100 mls @ 200 mls/hr IVPB DAILY [facility]; Protocol Last Admin: 03/14/19 09:47 Dose: 200 mls/hr Insulin Aspart (Novolog Vial Sliding Scale -) 1 vial SQ ACHS [facility]; Protocol Last Admin: 03/14/19 11:43 Dose: 4 units Losartan Potassium (Cozaar -) 25 mg PO DAILY [facility] Last Admin: 03/14/19 09:49 Dose: 25 mg Metoprolol Succinate (Toprol Xl -) 100 mg PO DAILY [facility] Last Admin: 03/14/19 09:49 Dose: 100 mg Ondansetron HCl (Zofran Injection) 4 mg IVPUSH Q6H PRN PRN Reason: NAUSEA AND/OR VOMITING Last Admin: 03/13/19 20:27 Dose: 4 mg Oxycodone HCl (Roxicodone -) 5 mg PO Q6H PRN PRN Reason: PAIN LEVEL 4 - 6 Last Admin: 03/14/19 09:49 Dose: 5 mg Senna (Senna -) 1 tab PO HS [facility] Last Admin: 03/13/19 22:05 Dose: 1 tab a/p sacral ulcer s/p debridement- fevers resolved- ceftriaxone/flagyl-will examine wound in am when vac is changed leukopenia/microcytic anemia- new, hematology eval, has declined endoscopy diabetes penicillin allergy Problem List - Problems (1) Fever Code(s): R50.9 - FEVER, UNSPECIFIED (2) Infected pressure ulcer Code(s): L89.90 - PRESSURE ULCER OF UNSPECIFIED SITE, UNSPECIFIED STAGE; L08.9 - LOCAL INFECTION OF THE SKIN AND SUBCUTANEOUS TISSUE, UNSP (3) Leukopenia Code(s): D72.819 - DECREASED WHITE BLOOD CELL COUNT, UNSPECIFIED (4) Anemia Code(s): D64.9 - ANEMIA, UNSPECIFIED (5) T2DM (type 2 diabetes mellitus) Code(s): E11.9 - TYPE 2 DIABETES MELLITUS WITHOUT COMPLICATIONS (6) Allergy to antibiotic Code(s): Z88.1 - ALLERGY STATUS TO OTHER ANTIBIOTIC AGENTS STATUS (7) CKD (chronic kidney disease) Code(s): N18.9 - CHRONIC KIDNEY DISEASE, UNSPECIFIED
--- NOTE | 2019-03-14 12:46 | PN ---
Progress Note, Physician History of Present Illness: Denies chest pain, dyspnea, palpitations. - Current Medication List Current Medications: Active Medications Acetaminophen (Tylenol -) 650 mg PO Q6H PRN PRN Reason: PAIN LEVEL 1-5 Last Admin: 03/11/19 09:46 Dose: 650 mg Ascorbic Acid (Vitamin C -) 500 mg PO DAILY [facility] Last Admin: 03/14/19 09:49 Dose: 500 mg Atorvastatin Calcium (Lipitor -) 20 mg PO HS [facility] Last Admin: 03/13/19 22:05 Dose: 20 mg Docusate Sodium (Colace -) 100 mg PO Q12H PRN PRN Reason: CONSTIPATION Ferrous Sulfate (Feosol -) 325 mg PO DAILY [facility] Last Admin: 03/14/19 09:48 Dose: 325 mg Furosemide (Lasix -) 20 mg PO DAILY [facility] Last Admin: 03/14/19 09:49 Dose: 20 mg Heparin Sodium (Porcine) (Heparin -) 5,000 unit SQ TID [facility] Last Admin: 03/14/19 06:09 Dose: 5,000 unit Hydralazine HCl (Apresoline -) 25 mg PO TID [facility] Last Admin: 03/14/19 06:09 Dose: 25 mg Metronidazole (Flagyl 500mg Premixed Ivpb -) 500 mg in 100 mls @ 100 mls/hr IVPB Q8H-IV [facility] Last Admin: 03/14/19 09:48 Dose: 100 mls/hr Ceftriaxone Sodium 2 gm/ (Dextrose) 100 mls @ 200 mls/hr IVPB DAILY [facility]; Protocol Last Admin: 03/14/19 09:47 Dose: 200 mls/hr Insulin Aspart (Novolog Vial Sliding Scale -) 1 vial SQ ACHS [facility]; Protocol Last Admin: 03/14/19 11:43 Dose: 4 units Losartan Potassium (Cozaar -) 25 mg PO DAILY [facility] Last Admin: 03/14/19 09:49 Dose: 25 mg Metoprolol Succinate (Toprol Xl -) 100 mg PO DAILY [facility] Last Admin: 03/14/19 09:49 Dose: 100 mg Ondansetron HCl (Zofran Injection) 4 mg IVPUSH Q6H PRN PRN Reason: NAUSEA AND/OR VOMITING Last Admin: 03/13/19 20:27 Dose: 4 mg Oxycodone HCl (Roxicodone -) 5 mg PO Q6H PRN PRN Reason: PAIN LEVEL 4 - 6 Last Admin: 03/14/19 09:49 Dose: 5 mg Senna (Senna -) 1 tab PO HS [facility] Last Admin: 03/13/19 22:05 Dose: 1 tab - Objective Vital Signs: Vital Signs Temperature 98 F 03/14/19 06:00 Pulse Rate 78 03/14/19 10:00 Respiratory Rate 20 03/14/19 10:00 Blood Pressure 149/78 03/14/19 10:00 O2 Sat by Pulse Oximetry (%) 97 03/13/19 21:00 Constitutional: Yes: No Distress, Calm, Thin Neck: Yes: Supple Cardiovascular: Yes: Regular Rate and Rhythm Respiratory: Yes: Regular, CTA Bilaterally Gastrointestinal: Yes: Normal Bowel Sounds, Soft Edema: No Labs: CBC, BMP 03/14/19 06:43 03/14/19 06:43 INR, PTT INR 1.06 (0.83-1.09) 03/07/19 18:30 Problem List - Problems (1) Acute kidney injury superimposed on CKD Code(s): N17.9 - ACUTE KIDNEY FAILURE, UNSPECIFIED; N18.9 - CHRONIC KIDNEY DISEASE, UNSPECIFIED (2) CHF exacerbation Code(s): I50.9 - HEART FAILURE, UNSPECIFIED Qualifiers: Heart failure type: diastolic Qualified Code(s): I50.33 - Acute on chronic diastolic (congestive) heart failure (3) Sepsis Code(s): A41.9 - SEPSIS, UNSPECIFIED ORGANISM Qualifiers: Sepsis type: sepsis due to unspecified organism Sepsis acute organ dysfunction status: with acute organ dysfunction Severe sepsis acute organ dysfunction type: acute renal failure Acute renal failure type: unspecified Severe sepsis shock status: without septic shock Qualified Code(s): A41.9 - Sepsis, unspecified organism; R65.20 - Severe sepsis without septic shock; N17.9 - Acute kidney failure, unspecified (4) Altered mental state Code(s): R41.82 - ALTERED MENTAL STATUS, UNSPECIFIED Qualifiers: Altered mental status type: unspecified Qualified Code(s): R41.82 - Altered mental status, unspecified (5) Pneumonitis Code(s): J18.9 - PNEUMONIA, UNSPECIFIED ORGANISM (6) Sacral decubitus ulcer Code(s): L89.159 - PRESSURE ULCER OF SACRAL REGION, UNSPECIFIED STAGE Assessment/Plan 03/09/2019 Echogenic kidneys c/w chronic medical renal dz, bilateral renal cysts 03/10/2019 Severe cLVH, hyperdynamic LV fxn, grade III restrictive pattern, c/w markedly increased LAP, mod MR, severe pulm HTN, mod MG 21 mmHg CONRAD 1.0 cm^2 01/03/2017 Mild cLVH, nomal LV fxn, abnl LV compliance, normal RV size and fxn, mild LAE, mild MR, mod TR RVSP 50-60 mmHg 1. Right sacral decubiti ulcer s/p debridement and wound vac placement 2. Diastolic dysfunction 3. Type 2 DM 4. Acute on CKD with proteinuria improving 5. Hypertensive cardiovascular disease 6. Bilateral pneumonitis 7. Microcytic anemia/leukopenia suspect bone marrow supression due to infection , declining endoscopic evaluation 8. Rheumatoid arthritis 9. Hyperlipidemia PLAN: 1. Oral diuretics Lasix 20 qd with monitor diuretic response, renal fxn and electrolytes 2. Empiric antibiotic coverage and wound care 3. Continue Lipitor 20 mg QHS, hydralazine 25 tid, Toprol XL 100 mg QD, losartan 25 qd started as renal fxn at baseline 4. DVT and GI prophylaxis
--- NOTE | 2019-03-14 16:31 | PN ---
Progress Note (short form) - Note Progress Note: Subjective: pain is controlled . No fever or chills. Objective: Vital Signs: Last Vital Signs Temp Pulse Resp BP Pulse Ox 97.4 F L 77 20 151/68 97 03/14/19 14:47 03/14/19 14:47 03/14/19 14:47 03/14/19 14:47 03/13/19 21:00 Laboratory Results - last 24 hr 03/13/19 03/13/19 03/14/19 16:44 22:06 05:51 WBC RBC Hgb Hct MCV MCH MCHC RDW Plt Count MPV Sodium Potassium Chloride Carbon Dioxide Anion Gap BUN Creatinine Est GFR (CKD-EPI)AfAm Est GFR (CKD-EPI)NonAf POC Glucometer 191 179 158 Random Glucose Calcium Total Bilirubin AST ALT Alkaline Phosphatase Total Protein Albumin 03/14/19 03/14/19 03/14/19 06:43 06:43 11:07 WBC 2.4 L RBC 2.79 L Hgb 7.2 L Hct 21.9 L MCV 78.3 L MCH 25.8 MCHC 33.0 RDW 19.5 H Plt Count 163 MPV 8.7 Sodium 141 Potassium 3.5 Chloride 109 H Carbon Dioxide 25 Anion Gap 8 BUN 35.9 H Creatinine 1.7 H Est GFR (CKD-EPI)AfAm 33.60 Est GFR (CKD-EPI)NonAf 28.99 POC Glucometer 220 Random Glucose 165 H Calcium 7.9 L Total Bilirubin 0.7 AST 17 ALT 8 L Alkaline Phosphatase 102 Total Protein 5.2 L Albumin 1.6 L Physical Exam: NAD, awake, cooperative. MMM, no facial droop. CV: RRR, 3/6 SM all over precordium with radiation to L axilla. Ext: 1+ edema on LE. L leg circumference > R Skin: wound vac on R gluteal area. ASSESSMENT AND PLAN: 73 y/o lady with h/o HTN, DM, RA, asthma, CKD, who presented with increased weakness , diarrhea and worsening wound in sacral area. She was found to be septic 1- Sepsis due to infected sacral decub. - cont CTX and cont flagyl. - cont wound vac. vac might be changed on Friday 2- Leukopenia and microcytic anemia: could be due to BM suppression in setting of acute infection or due to BM pathology ( MDS, leukemia, ...) . - heme studies ( Fish, flocytometry ) pending - iron studies do not indicate iron def. need to be repeated after resolution of infection - monitor . declined endoscopy 3- SAL on CKD: stable - f/u on renal cysts as out pt. - cont laix. 4- Lung findings of possible pneumonitits and thickening. doubt acute issues. no pulm sx. no signs of fluid overload on exam. - need to be monitored 5- Uncontrolled HTN: cont HZN and BB and ARB . BP is better today 6- L adrenal nodule, stable form before 2.3 cm. f/u as outpt 7- Mod , MR and pulmonary HTN: monitor. 8- L leg circumference > R : get US. DVT px d/w patient the possible need fro rehab for wound care. she absolutely refuses rehab and wants to be dc home when ready. I explained that her old sister might not be able to help with wound care. She stated she will hire private aids and RNs to help Visit type - Emergency Visit Emergency Visit: Yes ED Registration Date: 03/07/19 Care time: The patient presented to the Emergency Department on the above date and was hospitalized for further evaluation of their emergent condition. - New Patient This patient is new to me today: No - Critical Care Critical Care patient: No
[2019-03-14] MEDS ORDERED: INSULIN (NOVOLOG) ASPART 100 UNITS/ML 10ML VIAL ONE (21:14)
[2019-03-14] MEDS: ATORVASTATIN CA 20 MG TABLET (FP) PO SCH (21:59)
[2019-03-14] MEDS: SENNOSIDES 8.6MG TABLET (FP) PO SCH (21:59)
[2019-03-15] MEDS: hydrALAZINE HCL 25 MG TABLET (FP) PO SCH ×3 (05:55→22:40)
[2019-03-15] MEDS: HEPARIN NA (PORCINE) 5,000 UNITS/ML 1ML VIAL SQ SCH ×3 (05:55→22:40)
[2019-03-15] MEDS: INSULIN SLIDING SCALE (NOVOLOG) 1 VIAL SQ SCH ×5 (06:01→22:43)
[2019-03-15] MEDS ORDERED: DEXTROSE 5%-WATER 100 ML IVPB ONE (09:30)
[2019-03-15] MEDS: LOSARTAN POTASSIUM 50 MG TABLET (FP) PO SCH (09:47)
[2019-03-15] MEDS: FERROUS SO4 325 MG TABLET (FP) PO SCH (09:48)
[2019-03-15] MEDS: CEFTRIAXONE 2 GM in DEXTROSE 5%-WATER 100 ML IVPB SCH (09:48)
[2019-03-15] MEDS: FUROSEMIDE 20 MG TABLET (FP) PO SCH (09:48)
[2019-03-15] MEDS: ASCORBIC ACID 500 MG TABLET (FP) PO SCH (09:48)
[2019-03-15 10:03] LABS: BASO % 1.1 % (0-2.0); EOS % 0.7 % (0-4.5); HEMATOCRIT 24.8 % (32.4-45.2); HEMOGLOBIN 8.3 GM/dL (10.7-15.3); LYMPH % 43.3 % (8-40); MCH 25.9 pg (25.7-33.7); MCHC 33.4 g/dl (32.0-36.0); MEAN CELL VOLUME 77.5 fl (80-96); MEAN PLT VOLUME 8.9 fl (7.5-11.1); MONO % 18.5 % (3.8-10.2); NEUT % 36.4 % (42.8-82.8); PLATELET COUNT 185 K/MM3 (134-434); RBC 3.21 M/mm3 (3.60-5.2); RDW 20.1 % (11.6-15.6); WHITE BLOOD COUNT 2.8 K/mm3 (4.0-10.0)
--- NOTE | 2019-03-15 12:26 | PN ---
Progress Note, Physician History of Present Illness: Denies chest pain, dyspnea, palpitations. - Current Medication List Current Medications: Active Medications Acetaminophen (Tylenol -) 650 mg PO Q6H PRN PRN Reason: PAIN LEVEL 1-5 Last Admin: 03/11/19 09:46 Dose: 650 mg Ascorbic Acid (Vitamin C -) 500 mg PO DAILY [facility] Last Admin: 03/15/19 09:48 Dose: 500 mg Atorvastatin Calcium (Lipitor -) 20 mg PO HS [facility] Last Admin: 03/14/19 21:59 Dose: 20 mg Docusate Sodium (Colace -) 100 mg PO Q12H PRN PRN Reason: CONSTIPATION Ferrous Sulfate (Feosol -) 325 mg PO DAILY [facility] Last Admin: 03/15/19 09:48 Dose: 325 mg Furosemide (Lasix -) 20 mg PO DAILY [facility] Last Admin: 03/15/19 09:48 Dose: 20 mg Heparin Sodium (Porcine) (Heparin -) 5,000 unit SQ TID [facility] Last Admin: 03/15/19 05:55 Dose: 5,000 unit Hydralazine HCl (Apresoline -) 25 mg PO TID [facility] Last Admin: 03/15/19 05:55 Dose: 25 mg Metronidazole (Flagyl 500mg Premixed Ivpb -) 500 mg in 100 mls @ 100 mls/hr IVPB Q8H-IV [facility] Last Admin: 03/15/19 09:39 Dose: 100 mls/hr Ceftriaxone Sodium 2 gm/ (Dextrose) 100 mls @ 200 mls/hr IVPB DAILY [facility]; Protocol Last Admin: 03/15/19 09:48 Dose: 200 mls/hr Insulin Aspart (Novolog Vial Sliding Scale -) 1 vial SQ ACHS [facility]; Protocol Last Admin: 03/15/19 11:18 Dose: Not Given Losartan Potassium (Cozaar -) 25 mg PO DAILY [facility] Last Admin: 03/15/19 09:47 Dose: 25 mg Metoprolol Succinate (Toprol Xl -) 100 mg PO DAILY [facility] Last Admin: 03/15/19 09:47 Dose: 100 mg Ondansetron HCl (Zofran Injection) 4 mg IVPUSH Q6H PRN PRN Reason: NAUSEA AND/OR VOMITING Last Admin: 03/13/19 20:27 Dose: 4 mg Oxycodone HCl (Roxicodone -) 5 mg PO Q6H PRN PRN Reason: PAIN LEVEL 4 - 6 Last Admin: 03/14/19 09:49 Dose: 5 mg Senna (Senna -) 1 tab PO HS [facility] Last Admin: 03/14/19 21:59 Dose: 1 tab - Objective Vital Signs: Vital Signs Temperature 97.9 F 03/15/19 07:44 Pulse Rate 70 03/15/19 07:44 Respiratory Rate 16 03/15/19 07:44 Blood Pressure 160/80 03/15/19 07:44 O2 Sat by Pulse Oximetry (%) 97 03/15/19 09:00 Constitutional: Yes: No Distress, Calm, Thin Neck: Yes: Supple Cardiovascular: Yes: Regular Rate and Rhythm, Murmur (2/6 SM) Respiratory: Yes: Regular, Diminished Gastrointestinal: Yes: Normal Bowel Sounds, Soft Edema: Yes Labs: CBC, BMP 03/15/19 09:10 03/14/19 06:43 INR, PTT INR 1.06 (0.83-1.09) 03/07/19 18:30 - ....Imaging Ultrasound: Report Reviewed (RLE Neg for DVT) Problem List - Problems (1) Acute kidney injury superimposed on CKD Code(s): N17.9 - ACUTE KIDNEY FAILURE, UNSPECIFIED; N18.9 - CHRONIC KIDNEY DISEASE, UNSPECIFIED (2) CHF exacerbation Code(s): I50.9 - HEART FAILURE, UNSPECIFIED Qualifiers: Heart failure type: diastolic Qualified Code(s): I50.33 - Acute on chronic diastolic (congestive) heart failure (3) Sepsis Code(s): A41.9 - SEPSIS, UNSPECIFIED ORGANISM Qualifiers: Sepsis type: sepsis due to unspecified organism Sepsis acute organ dysfunction status: with acute organ dysfunction Severe sepsis acute organ dysfunction type: acute renal failure Acute renal failure type: unspecified Severe sepsis shock status: without septic shock Qualified Code(s): A41.9 - Sepsis, unspecified organism; R65.20 - Severe sepsis without septic shock; N17.9 - Acute kidney failure, unspecified (4) Altered mental state Code(s): R41.82 - ALTERED MENTAL STATUS, UNSPECIFIED Qualifiers: Altered mental status type: unspecified Qualified Code(s): R41.82 - Altered mental status, unspecified (5) Pneumonitis Code(s): J18.9 - PNEUMONIA, UNSPECIFIED ORGANISM (6) Sacral decubitus ulcer Code(s): L89.159 - PRESSURE ULCER OF SACRAL REGION, UNSPECIFIED STAGE Assessment/Plan 03/09/2019 Echogenic kidneys c/w chronic medical renal dz, bilateral renal cysts 03/10/2019 Severe cLVH, hyperdynamic LV fxn, grade III restrictive pattern, c/w markedly increased LAP, mod MR, severe pulm HTN, mod MG 21 mmHg CONRAD 1.0 cm^2 01/03/2017 Mild cLVH, nomal LV fxn, abnl LV compliance, normal RV size and fxn, mild LAE, mild MR, mod TR RVSP 50-60 mmHg 1. Right sacral decubiti ulcer s/p debridement and wound vac placement 2. Diastolic dysfunction 3. Type 2 DM 4. Acute on CKD with proteinuria improving 5. Hypertensive cardiovascular disease 6. Bilateral pneumonitis 7. Microcytic anemia/leukopenia suspect bone marrow supression due to infection , declining endoscopic evaluation 8. Rheumatoid arthritis 9. Hyperlipidemia PLAN: 1. Oral diuretics Lasix 20 qd with monitor diuretic response, renal fxn and electrolytes 2. Empiric antibiotic coverage and wound care 3. Continue Lipitor 20 mg QHS, hydralazine 25 tid, Toprol XL 100 mg QD, losartan 25 qd started as renal fxn at baseline 4. DVT and GI prophylaxis
--- NOTE | 2019-03-15 14:01 | PN ---
Physical Exam: SUBJECTIVE: Patient seen and examined at bedside. She reports vomiting after drinking orange juice, which has happened in the past. She states she will avoid acid/fatty foods that upset her stomach. Otherwise she denies pain this AM and has no other complaints. OBJECTIVE: Vital Signs Temp Pulse Resp BP Pulse Ox 98.2 F 77 20 138/63 97 03/15/19 14:42 03/15/19 14:42 03/15/19 14:42 03/15/19 14:42 03/15/19 09:00 GENERAL: AOx3, in no acute distress. HEAD: NCAT EYES: ALLEY, EOMI, conjunctiva clear. ENT: Ears normal, nares patent, oropharynx clear without exudates. Moist mucous membranes. NECK: Normal range of motion, supple without lymphadenopathy, JVD, or masses. LUNGS: Decreased air entry but CTAB otheriwse. No wheezes, and no crackles. No accessory muscle use. HEART: RRR s1 s2, systolic murmur 3/6 R and L USB ABDOMEN: Soft, BS present in all 4 quadrants, non-distended, no JVD, MUSCULOSKELETAL: No bony deformities or tenderness. No CVA tenderness. UPPER EXTREMITIES: 2+ pulses, warm, well-perfused. No cyanosis. No clubbing. No peripheral edema. LOWER EXTREMITIES: 2+ pulses, warm, well-perfused. No calf tenderness. 1+ peripheral edema of feet BL unchanged since yesterday. NEUROLOGICAL: No focal deficits. Cranial nerves II-XII intact. Normal speech. Gait not appreciated. PSYCHIATRIC: Cooperative. Good eye contact. Appropriate mood and affect. SKIN: RIGHT gluteal surgical site open for wound vac change: No discharge, purulence or erythema. Laboratory Results - last 24 hr 03/14/19 03/14/19 03/15/19 16:32 20:57 05:28 WBC RBC Hgb Hct MCV MCH MCHC RDW Plt Count MPV Absolute Neuts (auto) Neutrophils % Lymphocytes % Monocytes % Eosinophils % Basophils % Nucleated RBC % POC Glucometer 165 278 161 03/15/19 03/15/19 09:10 13:33 WBC 2.8 L RBC 3.21 L Hgb 8.3 L Hct 24.8 L MCV 77.5 L MCH 25.9 MCHC 33.4 RDW 20.1 H Plt Count 185 MPV 8.9 Absolute Neuts (auto) 1.0 L Neutrophils % 36.4 L Lymphocytes % 43.3 H Monocytes % 18.5 H Eosinophils % 0.7 D Basophils % 1.1 Nucleated RBC % 0 POC Glucometer 273 Active Medications Acetaminophen (Tylenol -) 650 mg PO Q6H PRN PRN Reason: PAIN LEVEL 1-5 Last Admin: 03/11/19 09:46 Dose: 650 mg Ascorbic Acid (Vitamin C -) 500 mg PO DAILY [facility] Last Admin: 03/15/19 09:48 Dose: 500 mg Atorvastatin Calcium (Lipitor -) 20 mg PO HS [facility] Last Admin: 03/14/19 21:59 Dose: 20 mg Docusate Sodium (Colace -) 100 mg PO Q12H PRN PRN Reason: CONSTIPATION Ferrous Sulfate (Feosol -) 325 mg PO DAILY [facility] Last Admin: 03/15/19 09:48 Dose: 325 mg Furosemide (Lasix -) 20 mg PO DAILY [facility] Last Admin: 03/15/19 09:48 Dose: 20 mg Heparin Sodium (Porcine) (Heparin -) 5,000 unit SQ TID [facility] Last Admin: 03/15/19 13:11 Dose: 5,000 unit Hydralazine HCl (Apresoline -) 25 mg PO TID [facility] Last Admin: 03/15/19 13:11 Dose: 25 mg Insulin Aspart (Novolog Vial Sliding Scale -) 1 vial SQ [facility]; Protocol Last Admin: 03/15/19 13:37 Dose: 6 units Losartan Potassium (Cozaar -) 25 mg PO DAILY [facility] Last Admin: 03/15/19 09:47 Dose: 25 mg Metoprolol Succinate (Toprol Xl -) 100 mg PO DAILY [facility] Last Admin: 03/15/19 09:47 Dose: 100 mg Ondansetron HCl (Zofran Injection) 4 mg IVPUSH Q6H PRN PRN Reason: NAUSEA AND/OR VOMITING Last Admin: 03/13/19 20:27 Dose: 4 mg Oxycodone HCl (Roxicodone -) 5 mg PO Q6H PRN PRN Reason: PAIN LEVEL 4 - 6 Last Admin: 03/14/19 09:49 Dose: 5 mg Senna (Senna -) 1 tab PO [facility] Last Admin: 03/14/19 21:59 Dose: 1 tab ASSESSMENT/PLAN: 73 y/o female PMH of DM, HTN, RA, and asthma BIBEMS for weakness. She was admitted for sepsis. POD 4 debridement of RIGHT sacral ulcer. # Decubitus ulcer, POD 4 debridement sacral ulcer - Dressing change MWF - Pain control: 5 mg oxycodone PRN - Ceftriaxone 2gm qd, metronidazole 500 iv q8h - Wound cx: Citrobacter, staph aureus (clindamycin, erthromycin resistant), enterococcus faecalis (erthromycin resistant), B hemolytic strep. - Plan for MRI tomorrow to assess for possible osteomyelitis # Leukopenia and microcytic anemia - Heme studies pending - Most likely 2/2 spesis vs anemia of chronic disease - F/u endoscopy as out pt # SAL on CKD - Not far from baseline now - Renal US: F/u on renal cysts and LEFT adrenal nodule (stable form before, 2.3 cm) as out pt. # HTN - Hydralazine 25 mg po now TID - Losartan 25 mg po qd added - Metoprolol s 100 mg po qd - Cardiology rec: Lipitor 20 mg QHS, hydralazine 25 tid, Toprol XL 100 mg QD, losartan 25 qd started as renal fxn at baseline # F/E/N - NS - Cont. to monitor - Low sodium diet # DVT prophylaxis - Lovenox 40 SQ # Disposition - Admit to med/surg Isaac Nguyen MD Visit type - Emergency Visit Emergency Visit: No - New Patient This patient is new to me today: No - Critical Care Critical Care patient: No ATTENDING PHYSICIAN STATEMENT I saw and evaluated the patient. I reviewed the resident's note and discussed the case with the resident. I agree with the resident's findings and plan as documented. SUBJECTIVE: OBJECTIVE: ASSESSMENT AND PLAN:
--- NOTE | 2019-03-15 14:58 | PN ---
Progress Note (short form) - Note Progress Note: General surgery: Vital Signs Period Temp Pulse Resp BP Sys/Hanna Pulse Ox Last 24 Hr 97.1 F-98.2 F 70 16-20 138-164/63-80 97-97 GEN: Alert Right Hip/buttock: wound clean without necrotic tissue. pink granulations at base. Vital Signs Period Temp Pulse Resp BP Sys/Hanna Pulse Ox Last 24 Hr 97.1 F-98.2 F 16-20 138-164/63-80 97-97 A/p: 73 yo female s/p Right hip/buttock debridement Clean, recommend to continue VAC dressing MWF D/w Dr. Robles
--- NOTE | 2019-03-15 15:01 | PN ---
Progress Note (short form) - Note Progress Note: alert still with sacral pain vac removed and wound examined Vital Signs Period Temp Pulse Resp BP Sys/Hanna Pulse Ox Last 24 Hr 97.1 F-98.2 F 70-77 16-20 138-164/63-80 97-97 cor-rrr lungs clear abd soft,nt ext wound examined, deep, no purulence, no erythema, did not see exposed bone 8 by 15 by 4 cm CBC, BMP 03/15/19 09:10 03/14/19 06:43 Microbiology 03/07/19 18:30 Blood - Peripheral Venous Blood Culture - Final NO GROWTH AFTER 5 DAYS INCUBATION 03/07/19 18:30 Blood - Peripheral Venous Blood Culture - Final NO GROWTH AFTER 5 DAYS INCUBATION 03/07/19 17:29 Buttock - Left Gram Stain - Final 03/07/19 17:29 Buttock - Left Wound Culture - Final Citrobacter Youngae Staphylococcus Aureus Enterococcus Faecalis Beta Hem Streptococcus Group F 03/07/19 18:30 Urine - Urine - Catheterized Urine Culture - Final Staphylococcus Aureus a/p pod #5 sacral ulcer s/p debridement- fevers resolved- ceftriaxone/flagyl-wound examined , reviewed ct scan with radiolog , cannot r/o early osteo coccyx will check esr/crp consider MRI pelvis leukopenia/microcytic anemia- new, hematology eval, has declined endoscopy diabetes penicillin allergy d/w hospitalist Problem List - Problems (1) Fever Code(s): R50.9 - FEVER, UNSPECIFIED (2) Infected pressure ulcer Code(s): L89.90 - PRESSURE ULCER OF UNSPECIFIED SITE, UNSPECIFIED STAGE; L08.9 - LOCAL INFECTION OF THE SKIN AND SUBCUTANEOUS TISSUE, UNSP (3) Leukopenia Code(s): D72.819 - DECREASED WHITE BLOOD CELL COUNT, UNSPECIFIED (4) Anemia Code(s): D64.9 - ANEMIA, UNSPECIFIED (5) T2DM (type 2 diabetes mellitus) Code(s): E11.9 - TYPE 2 DIABETES MELLITUS WITHOUT COMPLICATIONS (6) Allergy to antibiotic Code(s): Z88.1 - ALLERGY STATUS TO OTHER ANTIBIOTIC AGENTS STATUS (7) CKD (chronic kidney disease) Code(s): N18.9 - CHRONIC KIDNEY DISEASE, UNSPECIFIED
--- NOTE | 2019-03-15 15:43 | PN ---
Progress Note, Physician History of Present Illness: Pt seen and examined at bedside. She is awake and appears comfortable. - Current Medication List Current Medications: Active Medications Acetaminophen (Tylenol -) 650 mg PO Q6H PRN PRN Reason: PAIN LEVEL 1-5 Last Admin: 03/11/19 09:46 Dose: 650 mg Ascorbic Acid (Vitamin C -) 500 mg PO DAILY [facility] Last Admin: 03/15/19 09:48 Dose: 500 mg Atorvastatin Calcium (Lipitor -) 20 mg PO [facility] Last Admin: 03/14/19 21:59 Dose: 20 mg Docusate Sodium (Colace -) 100 mg PO Q12H PRN PRN Reason: CONSTIPATION Ferrous Sulfate (Feosol -) 325 mg PO DAILY [facility] Last Admin: 03/15/19 09:48 Dose: 325 mg Furosemide (Lasix -) 20 mg PO DAILY [facility] Last Admin: 03/15/19 09:48 Dose: 20 mg Heparin Sodium (Porcine) (Heparin -) 5,000 unit SQ TID [facility] Last Admin: 03/15/19 13:11 Dose: 5,000 unit Hydralazine HCl (Apresoline -) 25 mg PO TID [facility] Last Admin: 03/15/19 13:11 Dose: 25 mg Insulin Aspart (Novolog Vial Sliding Scale -) 1 vial SQ [facility]; Protocol Last Admin: 03/15/19 13:37 Dose: 6 units Losartan Potassium (Cozaar -) 25 mg PO DAILY [facility] Last Admin: 03/15/19 09:47 Dose: 25 mg Metoprolol Succinate (Toprol Xl -) 100 mg PO DAILY [facility] Last Admin: 03/15/19 09:47 Dose: 100 mg Ondansetron HCl (Zofran Injection) 4 mg IVPUSH Q6H PRN PRN Reason: NAUSEA AND/OR VOMITING Last Admin: 03/13/19 20:27 Dose: 4 mg Oxycodone HCl (Roxicodone -) 5 mg PO Q6H PRN PRN Reason: PAIN LEVEL 4 - 6 Last Admin: 03/14/19 09:49 Dose: 5 mg Senna (Senna -) 1 tab PO [facility] Last Admin: 03/14/19 21:59 Dose: 1 tab - Objective Vital Signs: Vital Signs Temperature 98.2 F 03/15/19 14:42 Pulse Rate 77 01/27/20 14:42 Respiratory Rate 20 03/15/20 14:42 Blood Pressure 138/63 03/15/19 14:42 O2 Sat by Pulse Oximetry (%) 97 03/15/19 09:00 Constitutional: Yes: Calm Eyes: Yes: Conjunctiva Clear HENT: Yes: Atraumatic Cardiovascular: Yes: S1, S2 Respiratory: Yes: CTA Bilaterally Gastrointestinal: Yes: Soft Genitourinary: Yes: WNL Edema: Yes Edema: LLE: Trace, RLE: Trace Neurological: Yes: Oriented Labs: CBC, BMP 03/15/19 09:10 03/14/19 06:43 INR, PTT INR 1.06 (0.83-1.09) 03/07/19 18:30 Assessment/Plan Current Medications Generic Name Dose Route Start Last Admin Trade Name Freq PRN Reason Stop Dose Admin Acetaminophen 650 mg 03/11/19 07:19 03/11/19 09:46 Tylenol - PO 650 mg Q6H PRN Administration PAIN LEVEL 1-5 Ascorbic Acid 500 mg 03/11/19 10:00 03/15/19 09:48 Vitamin C - PO 500 mg DAILY [facility] Administration Atorvastatin Calcium 20 mg 03/10/19 22:00 03/14/19 21:59 Lipitor - PO 20 mg HS [facility] Administration Docusate Sodium 100 mg 03/12/19 09:23 Colace - PO Q12H PRN CONSTIPATION Ferrous Sulfate 325 mg 03/11/19 10:00 03/15/19 09:48 Feosol - PO 325 mg DAILY [facility] Administration Furosemide 20 mg 03/11/19 15:15 03/15/19 09:48 Lasix - PO 20 mg DAILY [facility] Administration Heparin Sodium (Porcine) 5,000 unit 03/10/19 22:00 03/15/19 13:11 Heparin - SQ 5,000 unit TID [facility] Administration Hydralazine HCl 25 mg 03/13/19 14:00 03/15/19 13:11 Apresoline - PO 25 mg TID [facility] Administration Insulin Aspart 1 vial 03/11/19 11:00 03/15/19 13:37 Novolog Vial Sliding Scale - SQ 6 units ACHS [facility] Administration Protocol Losartan Potassium 25 mg 03/13/19 12:00 03/15/19 09:47 Cozaar - PO 25 mg DAILY [facility] Administration Metoprolol Succinate 100 mg 03/11/19 10:00 03/15/19 09:47 Toprol Xl - PO 100 mg DAILY [facility] Administration Ondansetron HCl 4 mg 03/10/19 15:45 03/13/19 20:27 Zofran Injection IVPUSH 4 mg Q6H PRN Administration NAUSEA AND/OR VOMITING Oxycodone HCl 5 mg 03/11/19 12:56 03/14/19 09:49 Roxicodone - PO 5 mg Q6H PRN Administration PAIN LEVEL 4 - 6 Senna 1 tab 03/12/19 22:00 03/14/19 21:59 Senna - PO 1 tab HS [facility] Administration Impression 1. CKD with acute component 2. htn 3. dm 4. RA 5. diarrhea 6. bilateral renal cysts Plan - pt stable on lasix - monitor renal function - wound care - avoid nsaids - will follow PRN
--- NOTE | 2019-03-15 16:36 | PN ---
Teaching Attending Note Name of Resident: Isaac Nguyen ATTENDING PHYSICIAN STATEMENT I saw and evaluated the patient. I reviewed the resident's note and discussed the case with the resident. I agree with the resident's findings and plan as documented. SUBJECTIVE: No fever or chills. pain is controlled. no N/V. had an episode of vomiting yesterday OBJECTIVE: NAD, awake, cooperative. MMM, no facial droop. CV: RRR, 3/6 SM all over precordium with radiation to L axilla. Ext: 1+ edema on LE. L leg circumference > R Skin: wound with satge 4, celan base and margins. No surrounding erythema or drainage ASSESSMENT AND PLAN: 73 y/o lady with h/o HTN, DM, RA, asthma, CKD, who presented with increased weakness , diarrhea and worsening wound in sacral area. She was found to be septic. 1- Sepsis due to infected sacral decub. - cont CTX and cont flagyl. - case was d/dw Dr. Simon. will get CRP and ESR. if low will dc Abx . if elevated will get MRI to evaluate for Sacral OM - d/w Surgical team; woundvac change q MWF 2- Leukopenia and microcytic anemia: could be due to BM suppression in setting of acute infection or due to BM pathology ( MDS, leukemia, ...) . - heme studies ( Fish, flocytometry ) pending . will contact Heme - iron studies do not indicate iron def. need to be repeated after resolution of infection - monitor. declined endoscopy 3- SAL on CKD: stable - f/u on renal cysts as out pt. - cont laix. 4- Lung findings of possible pneumonitits and thickening. doubt acute issues. no pulm sx. no signs of fluid overload on exam. - need to be monitored 5- HTN: Better controlled . cont HZN and BB and ARB . 6- L adrenal nodule, stable form before 2.3 cm. f/u as outpt 7- Mod , MR and pulmonary HTN: monitor. 8- L leg circumference > R : get US. DVT px Discharge is pending decision on MRI. patient refuses to go to rehab. plan is for DC home with VNS.
[2019-03-15] MEDS: oxyCODONE HCL 5 MG TABLET PO PRN (18:25)
[2019-03-15] MEDS: SENNOSIDES 8.6MG TABLET (FP) PO SCH (22:40)
[2019-03-15] MEDS: ATORVASTATIN CA 20 MG TABLET (FP) PO SCH (22:40)
[2019-03-16] MEDS: HEPARIN NA (PORCINE) 5,000 UNITS/ML 1ML VIAL SQ SCH ×3 (05:44→23:20)
[2019-03-16] MEDS: hydrALAZINE HCL 25 MG TABLET (FP) PO SCH ×3 (05:44→22:53)
[2019-03-16] MEDS: INSULIN SLIDING SCALE (NOVOLOG) 1 VIAL SQ SCH ×4 (06:10→23:19)
[2019-03-16 07:58] LABS: HEMOGLOBIN 7.6 GM/dL (10.7-15.3); MCH 25.9 pg (25.7-33.7); MEAN CELL VOLUME 78.5 fl (80-96); MEAN PLT VOLUME 8.7 fl (7.5-11.1); PLATELET COUNT 158 K/MM3 (134-434); RBC 2.93 M/mm3 (3.60-5.2); RDW 20.4 % (11.6-15.6); WHITE BLOOD COUNT 2.7 K/mm3 (4.0-10.0)
[2019-03-16 08:57] LABS: ALBUMIN 1.6 g/dl (3.4-5.0); BILIRUBIN,TOTAL 0.2 mg/dL (0.2-1); BLOOD UREA NITROGEN 33.1 mg/dL (7-18); CALCIUM 7.8 mg/dL (8.5-10.1); CREATININE 1.9 mg/dL (0.55-1.3); MAGNESIUM 1.4 mg/dL (1.8-2.4); PHOSPHOROUS 1.6 mg/dL (2.5-4.9); POTASSIUM 4.1 mmol/L (3.5-5.1); TOT PROT 5.5 g/dl (6.4-8.2)
[2019-03-16] MEDS ORDERED: DEXTROSE 5%-WATER 100 ML IVPB ONE (10:40)
[2019-03-16] MEDS: LOSARTAN POTASSIUM 50 MG TABLET (FP) PO SCH (10:47)
[2019-03-16] MEDS: ASCORBIC ACID 500 MG TABLET (FP) PO SCH (10:47)
[2019-03-16] MEDS: FERROUS SO4 325 MG TABLET (FP) PO SCH (10:47)
[2019-03-16] MEDS: FUROSEMIDE 20 MG TABLET (FP) PO SCH (10:47)
[2019-03-16] MEDS ORDERED: INSULIN (NOVOLOG) ASPART 100 UNITS/ML 10ML VIAL ONE (11:40)
[2019-03-16] MEDS: CEFTRIAXONE 2 GM in DEXTROSE 5%-WATER 100 ML IVPB SCH (13:02)
--- NOTE | 2019-03-16 13:05 | PN ---
Physical Exam: SUBJECTIVE: Patient seen and examined at bedside. Overnight there were no acute events. This am she has no complaints. Her pain is well controlled. She is due for MRI today to assess for possible osteomyelitis; she was provided all appropriate information and documentation is in the physical chart. OBJECTIVE: Vital Signs Temp Pulse Resp BP Pulse Ox 98.4 F 77 20 157/84 97 03/16/19 22:05 03/16/19 22:05 03/16/19 22:05 03/16/19 22:05 03/16/19 21:00 GENERAL: AOx3, in no acute distress. HEAD: NCAT EYES: ALLEY, EOMI, conjunctiva clear. ENT: Ears normal, nares patent, oropharynx clear without exudates. Moist mucous membranes. NECK: Normal range of motion, supple without lymphadenopathy, JVD, or masses. LUNGS: Decreased air entry but CTAB otheriwse. No wheezes, and no crackles. No accessory muscle use. HEART: RRR s1 s2, systolic murmur 3/6 R and L USB ABDOMEN: Soft, BS present in all 4 quadrants, non-distended, no JVD, MUSCULOSKELETAL: No bony deformities or tenderness. No CVA tenderness. UPPER EXTREMITIES: 2+ pulses, warm, well-perfused. No cyanosis. No clubbing. No peripheral edema. LOWER EXTREMITIES: 2+ pulses, warm, well-perfused. No calf tenderness. 1+ peripheral edema of feet BL unchanged since yesterday. NEUROLOGICAL: No focal deficits. Cranial nerves II-XII intact. Normal speech. Gait not appreciated. PSYCHIATRIC: Cooperative. Good eye contact. Appropriate mood and affect. SKIN: RIGHT gluteal surgical site covered by wound vac. Laboratory Results - last 24 hr 03/12/19 03/15/19 03/15/19 20:00 13:33 16:06 WBC RBC Hgb Hct MCV MCH MCHC RDW Plt Count MPV ESR Sodium Potassium Chloride Carbon Dioxide Anion Gap BUN Creatinine Est GFR (CKD-EPI)AfAm Est GFR (CKD-EPI)NonAf POC Glucometer 273 176 Random Glucose Calcium Phosphorus Magnesium Total Bilirubin AST ALT Alkaline Phosphatase C-Reactive Protein Total Protein Albumin Hep A IgM Ab Confirm Negative Hep Bs Antigen Negative Hep B Core IgM Ab Negative Hepatitis C Ab (EIA) 0.2 03/15/19 03/15/19 03/15/19 16:40 16:40 22:42 WBC RBC Hgb Hct MCV MCH MCHC RDW Plt Count MPV ESR 92 H Sodium Potassium Chloride Carbon Dioxide Anion Gap BUN Creatinine Est GFR (CKD-EPI)AfAm Est GFR (CKD-EPI)NonAf POC Glucometer 219 Random Glucose Calcium Phosphorus Magnesium Total Bilirubin AST ALT Alkaline Phosphatase C-Reactive Protein 3.0 H Total Protein Albumin Hep A IgM Ab Confirm Hep Bs Antigen Hep B Core IgM Ab Hepatitis C Ab (EIA) 03/16/19 03/16/19 03/16/19 05:39 07:16 07:16 WBC 2.7 L RBC 2.93 L Hgb 7.6 L Hct 23.0 L MCV 78.5 L MCH 25.9 MCHC 33.0 RDW 20.4 H Plt Count 158 MPV 8.7 ESR Sodium 143 Potassium 4.1 Chloride 112 H Carbon Dioxide 24 Anion Gap 7 L BUN 33.1 H Creatinine 1.9 H Est GFR (CKD-EPI)AfAm 29.37 Est GFR (CKD-EPI)NonAf 25.34 POC Glucometer 142 Random Glucose 164 H Calcium 7.8 L Phosphorus 1.6 L Magnesium 1.4 L Total Bilirubin 0.2 AST 16 ALT 9 L Alkaline Phosphatase 107 C-Reactive Protein Total Protein 5.5 L Albumin 1.6 L Hep A IgM Ab Confirm Hep Bs Antigen Hep B Core IgM Ab Hepatitis C Ab (EIA) 03/16/19 11:32 WBC RBC Hgb Hct MCV MCH MCHC RDW Plt Count MPV ESR Sodium Potassium Chloride Carbon Dioxide Anion Gap BUN Creatinine Est GFR (CKD-EPI)AfAm Est GFR (CKD-EPI)NonAf POC Glucometer 225 Random Glucose Calcium Phosphorus Magnesium Total Bilirubin AST ALT Alkaline Phosphatase C-Reactive Protein Total Protein Albumin Hep A IgM Ab Confirm Hep Bs Antigen Hep B Core IgM Ab Hepatitis C Ab (EIA) Active Medications Acetaminophen (Tylenol -) 650 mg PO Q6H PRN PRN Reason: PAIN LEVEL 1-5 Last Admin: 03/11/19 09:46 Dose: 650 mg Ascorbic Acid (Vitamin C -) 500 mg PO DAILY [facility] Last Admin: 03/16/19 10:47 Dose: 500 mg Atorvastatin Calcium (Lipitor -) 20 mg PO HS [facility] Last Admin: 03/16/19 22:53 Dose: 20 mg Docusate Sodium (Colace -) 100 mg PO Q12H PRN PRN Reason: CONSTIPATION Ferrous Sulfate (Feosol -) 325 mg PO DAILY [facility] Last Admin: 03/16/19 10:47 Dose: 325 mg Furosemide (Lasix -) 20 mg PO DAILY [facility] Last Admin: 03/16/19 10:47 Dose: 20 mg Heparin Sodium (Porcine) (Heparin -) 5,000 unit SQ TID [facility] Last Admin: 03/16/19 23:20 Dose: 5,000 unit Hydralazine HCl (Apresoline -) 25 mg PO TID [facility] Last Admin: 03/16/19 22:53 Dose: 25 mg Ceftriaxone Sodium 2 gm/ (Dextrose) 100 mls @ 200 mls/hr IVPB DAILY [facility] Last Admin: 03/16/19 13:02 Dose: Not Given Metronidazole (Flagyl 500mg Premixed Ivpb -) 500 mg in 100 mls @ 100 mls/hr IVPB Q8H [facility] Last Admin: 03/17/19 00:17 Dose: Not Given Insulin Aspart (Novolog Vial Sliding Scale -) 1 vial SQ ACHS [facility]; Protocol Last Admin: 03/16/19 23:19 Dose: 6 units Losartan Potassium (Cozaar -) 25 mg PO DAILY [facility] Last Admin: 03/16/19 10:47 Dose: 25 mg Magnesium Oxide (Mag-Ox -) 400 mg PO DAILY [facility] Stop: 03/22/19 09:59 Metoprolol Succinate (Toprol Xl -) 100 mg PO DAILY [facility] Last Admin: 03/16/19 10:46 Dose: 100 mg Ondansetron HCl (Zofran Injection) 4 mg IVPUSH Q6H PRN PRN Reason: NAUSEA AND/OR VOMITING Last Admin: 03/13/19 20:27 Dose: 4 mg Oxycodone HCl (Roxicodone -) 5 mg PO Q6H PRN PRN Reason: PAIN LEVEL 4 - 6 Last Admin: 03/15/19 18:25 Dose: 5 mg Potassium Phos/Sodium Phos (Phos-Nak Packet -) 1 packet PO BID [facility] Stop: 03/19/19 21:59 Last Admin: 03/16/19 22:53 Dose: 1 packet Senna (Senna -) 1 tab PO HS [facility] Last Admin: 03/16/19 22:53 Dose: 1 tab ASSESSMENT/PLAN: 73 y/o female PMH of DM, HTN, RA, and asthma BIBEMS for weakness. She was admitted for sepsis. POD 5 debridement of RIGHT sacral ulcer. # Decubitus ulcer, POD 5 debridement sacral ulcer - Pain control: 5 mg oxycodone PRN - MRI not performed today 2/2 bust schedule and avoiding wound vac/dressing change on non-scheduled day - Lost iv access so abx held for time till osteomyelitis status established # Leukopenia and microcytic anemia - Heme studies pending (FISH and scar cytometry) - Most likely 2/2 spesis vs anemia of chronic disease - F/u endoscopy as out pt # SAL on CKD - Not far from baseline now - Renal US: F/u on renal cysts and LEFT adrenal nodule (stable form before, 2.3 cm) as out pt. # HTN - Hydralazine 25 mg po now TID - Losartan 25 mg po qd added - Metoprolol s 100 mg po qd - Cardiology rec: Lipitor 20 mg QHS, hydralazine 25 tid, Toprol XL 100 mg QD, losartan 25 qd started as renal fxn at baseline # Electrolyte - Mg, Phos repleted today # F/E/N - PO - Cont. to monitor - Low sodium diet # DVT prophylaxis - Lovenox 40 SQ # Disposition - Discharge upon MRI results. If OM+, then will PICC and IV rocephin assisted and po flagyl (pt choosing to go home). Isaac Nguyen MD Visit type - Emergency Visit Emergency Visit: No - New Patient This patient is new to me today: No - Critical Care Critical Care patient: No ATTENDING PHYSICIAN STATEMENT I saw and evaluated the patient. I reviewed the resident's note and discussed the case with the resident. I agree with the resident's findings and plan as documented. SUBJECTIVE: OBJECTIVE: ASSESSMENT AND PLAN:
--- NOTE | 2019-03-16 18:44 | PN ---
Teaching Attending Note Name of Resident: Junior Rowe ATTENDING PHYSICIAN STATEMENT I saw and evaluated the patient. I reviewed the resident's note and discussed the case with the resident. I agree with the resident's findings and plan as documented. SUBJECTIVE: pain is controlled with pain meds. no N/V. no diarrhea. no OSB . OBJECTIVE: NAD, awake, cooperative. MMM, no facial droop. CV: RRR, 3/6 SM all over precordium with radiation to L axilla. Ext: 1+ edema on LE. Skin: wound vac o n sacral decubitus wound ASSESSMENT AND PLAN: 73 y/o lady with h/o HTN, DM, RA, asthma, CKD, who presented with increased weakness , diarrhea and worsening wound in sacral area. She was found to be septic. 1- Sepsis due to infected sacral decub. - she lost her IV access. no Abx were given today. wound is clean and not infected. - ESR and CRP are elevated. MRI is pending to r/o saccral OM. - if MRI is + for OM , then will resume Abx - wound vac change q MWF 2- Leukopenia and microcytic anemia: could be due to BM suppression in setting of acute infection or due to BM pathology ( MDS, leukemia, ...) . - heme studies ( Fish, flocytometry ) pending . will contact Heme - iron studies do not indicate iron def. need to be repeated after resolution of infection - monitor. declined endoscopy 3- SAL on CKD: stable - f/u on renal cysts as out pt. - cont laix. 4- Lung findings of possible pneumonitits and thickening. - need to be monitored as out pt with pulmonary 5- HTN: Better controlled . cont HZN and BB and ARB . 6- L adrenal nodule, stable form before 2.3 cm. f/u as outpt 7- Mod , MR and pulmonary HTN: monitor. 8- L leg circumference > R : get US. DVT px Discharge is pending MRI results . if OM + , then will need PICC and IV abx . if No OM , then no need for any Abx since wound is clean with no evidence of surrounding cellulitis Of note, the patietn absolutely refuses rehab placement and wants to go home when ready.
--- NOTE | 2019-03-16 18:59 | PN ---
Progress Note, Physician History of Present Illness: Pt seen and examined at bedside. She is awake and alert. She denies shortness of breath. - Current Medication List Current Medications: Active Medications Acetaminophen (Tylenol -) 650 mg PO Q6H PRN PRN Reason: PAIN LEVEL 1-5 Last Admin: 03/11/19 09:46 Dose: 650 mg Ascorbic Acid (Vitamin C -) 500 mg PO DAILY [facility] Last Admin: 03/16/19 10:47 Dose: 500 mg Atorvastatin Calcium (Lipitor -) 20 mg PO HS [facility] Last Admin: 03/15/19 22:40 Dose: 20 mg Docusate Sodium (Colace -) 100 mg PO Q12H PRN PRN Reason: CONSTIPATION Ferrous Sulfate (Feosol -) 325 mg PO DAILY [facility] Last Admin: 03/16/19 10:47 Dose: 325 mg Furosemide (Lasix -) 20 mg PO DAILY [facility] Last Admin: 03/16/19 10:47 Dose: 20 mg Heparin Sodium (Porcine) (Heparin -) 5,000 unit SQ TID [facility] Last Admin: 03/16/19 14:27 Dose: 5,000 unit Hydralazine HCl (Apresoline -) 25 mg PO TID [facility] Last Admin: 03/16/19 14:27 Dose: 25 mg Ceftriaxone Sodium 2 gm/ (Dextrose) 100 mls @ 200 mls/hr IVPB DAILY [facility] Last Admin: 03/16/19 13:02 Dose: Not Given Metronidazole (Flagyl 500mg Premixed Ivpb -) 500 mg in 100 mls @ 100 mls/hr IVPB Q8H [facility] Last Admin: 03/16/19 17:05 Dose: Not Given Insulin Aspart (Novolog Vial Sliding Scale -) 1 vial SQ ACHS [facility]; Protocol Last Admin: 03/16/19 17:04 Dose: 4 units Losartan Potassium (Cozaar -) 25 mg PO DAILY [facility] Last Admin: 03/16/19 10:47 Dose: 25 mg Magnesium Oxide (Mag-Ox -) 400 mg PO DAILY [facility] Stop: 03/22/19 09:59 Magnesium Sulfate (Magnesium Sulfate) 2 gm IVPB ONCE ONE Stop: 03/16/19 18:56 Metoprolol Succinate (Toprol Xl -) 100 mg PO DAILY [facility] Last Admin: 03/16/19 10:46 Dose: 100 mg Ondansetron HCl (Zofran Injection) 4 mg IVPUSH Q6H PRN PRN Reason: NAUSEA AND/OR VOMITING Last Admin: 03/13/19 20:27 Dose: 4 mg Oxycodone HCl (Roxicodone -) 5 mg PO Q6H PRN PRN Reason: PAIN LEVEL 4 - 6 Last Admin: 03/15/19 18:25 Dose: 5 mg Senna (Senna -) 1 tab PO HS [facility] Last Admin: 03/15/19 22:40 Dose: 1 tab - Objective Vital Signs: Vital Signs Temperature 98.0 F 03/16/19 14:11 Pulse Rate 74 03/16/19 14:11 Respiratory Rate 03/16/19 14:11 Blood Pressure 150/78 03/16/19 14:11 O2 Sat by Pulse Oximetry (%) 97 03/15/19 21:00 Constitutional: Yes: Calm Eyes: Yes: Conjunctiva Clear HENT: Yes: Atraumatic Cardiovascular: Yes: S1, S2 Respiratory: Yes: CTA Bilaterally Gastrointestinal: Yes: Normal Bowel Sounds, Soft Genitourinary: Yes: Incontinence Musculoskeletal: Yes: Muscle Weakness Edema: Yes Edema: LLE: Trace, RLE: Trace Neurological: Yes: Oriented Psychiatric: Yes: Oriented Labs: CBC, BMP 03/16/19 07:16 03/16/19 07:16 INR, PTT INR 1.06 (0.83-1.09) 03/07/19 18:30 Assessment/Plan Current Medications Generic Name Dose Route Start Last Admin Trade Name Freq PRN Reason Stop Dose Admin Acetaminophen 650 mg 03/11/19 07:19 03/11/19 09:46 Tylenol - PO 650 mg Q6H PRN Administration PAIN LEVEL 1-5 Ascorbic Acid 500 mg 03/11/19 10:00 03/16/19 10:47 Vitamin C - PO 500 mg DAILY [facility] Administration Atorvastatin Calcium 20 mg 03/10/19 22:00 03/15/19 22:40 Lipitor - PO 20 mg HS [facility] Administration Docusate Sodium 100 mg 03/12/19 09:23 Colace - PO Q12H PRN CONSTIPATION Ferrous Sulfate 325 mg 03/11/19 10:00 03/16/19 10:47 Feosol - PO 325 mg DAILY [facility] Administration Furosemide 20 mg 03/11/19 15:15 03/16/19 10:47 Lasix - PO 20 mg DAILY [facility] Administration Heparin Sodium (Porcine) 5,000 unit 03/10/19 22:00 03/16/19 14:27 Heparin - SQ 5,000 unit TID [facility] Administration Hydralazine HCl 25 mg 03/13/19 14:00 03/16/19 14:27 Apresoline - PO 25 mg TID [facility] Administration Ceftriaxone Sodium 2 gm/ 100 mls @ 200 mls/hr 03/16/19 10:00 03/16/19 13:02 Dextrose IVPB Not Given DAILY [facility] Metronidazole 500 mg in 100 mls @ 100 mls/hr 03/15/19 16:30 03/16/19 17:05 Flagyl 500mg Premixed Ivpb - IVPB Not Given Q8H [facility] Insulin Aspart 1 vial 03/11/19 11:00 03/16/19 17:04 Novolog Vial Sliding Scale - SQ 4 units ACHS [facility] Administration Protocol Losartan Potassium 25 mg 03/13/19 12:00 03/16/19 10:47 Cozaar - PO 25 mg DAILY [facility] Administration Magnesium Oxide 400 mg 03/17/19 10:00 Mag-Ox - PO 03/22/19 09:59 DAILY [facility] Magnesium Sulfate 2 gm 03/16/19 18:55 Magnesium Sulfate IVPB 03/16/19 18:56 ONCE ONE Metoprolol Succinate 100 mg 03/11/19 10:00 03/16/19 10:46 Toprol Xl - PO 100 mg DAILY [facility] Administration Ondansetron HCl 4 mg 03/10/19 15:45 03/13/19 20:27 Zofran Injection IVPUSH 4 mg Q6H PRN Administration NAUSEA AND/OR VOMITING Oxycodone HCl 5 mg 03/11/19 12:56 03/15/19 18:25 Roxicodone - PO 5 mg Q6H PRN Administration PAIN LEVEL 4 - 6 Potassium Phos/Sodium Phos 1 packet 03/16/19 22:00 Phos-Nak Packet - PO 03/19/19 21:59 BID [facility] Senna 1 tab 03/12/19 22:00 03/15/19 22:40 Senna - PO 1 tab HS [facility] Administration Impression 1. CKD with acute component 2. htn 3. dm 4. RA 5. diarrhea 6. bilateral renal cysts Plan - replace phos - replace mag - cont lasix - repeat labs in am - avoid nsaids - will follow PRN
[2019-03-16] MEDS: NAPH,MB-DB/K PH,MBDB POWDER PACKET PO SCH (22:53)
[2019-03-16] MEDS: SENNOSIDES 8.6MG TABLET (FP) PO SCH (22:53)
[2019-03-16] MEDS: ATORVASTATIN CA 20 MG TABLET (FP) PO SCH (22:53)
[2019-03-16] MEDS: MAGNESIUM SULF 50% (8.12 MEQ/2 ML-1 GM VIAL) IVPB ONE ×2 (22:56→23:28)
[2019-03-17] MEDS: hydrALAZINE HCL 25 MG TABLET (FP) PO SCH ×3 (06:14→21:34)
[2019-03-17] MEDS: HEPARIN NA (PORCINE) 5,000 UNITS/ML 1ML VIAL SQ SCH ×3 (06:14→21:33)
[2019-03-17] MEDS: INSULIN SLIDING SCALE (NOVOLOG) 1 VIAL SQ SCH ×4 (06:14→21:33)
[2019-03-17 08:26] LABS: HEMATOCRIT 23.9 % (32.4-45.2); HEMOGLOBIN 7.8 GM/dL (10.7-15.3); MCH 26.2 pg (25.7-33.7); MCHC 32.8 g/dl (32.0-36.0); MEAN CELL VOLUME 79.8 fl (80-96); MEAN PLT VOLUME 8.8 fl (7.5-11.1); PLATELET COUNT 151 K/MM3 (134-434); RDW 21.2 % (11.6-15.6)
[2019-03-17 08:47] LABS: ALBUMIN 1.6 g/dl (3.4-5.0); BILIRUBIN,TOTAL 0.3 mg/dL (0.2-1); BLOOD UREA NITROGEN 32.1 mg/dL (7-18); CREATININE 1.8 mg/dL (0.55-1.3); MAGNESIUM 1.4 mg/dL (1.8-2.4); PHOSPHOROUS 1.9 mg/dL (2.5-4.9); POTASSIUM 4.1 mmol/L (3.5-5.1); TOT PROT 5.4 g/dl (6.4-8.2)
--- NOTE | 2019-03-17 09:30 | PN ---
Teaching Attending Note Name of Resident: Isaac Nguyen ATTENDING PHYSICIAN STATEMENT I saw and evaluated the patient. I reviewed the resident's note and discussed the case with the resident. I agree with the resident's findings and plan as documented. SUBJECTIVE: Patient is comfortable with no acute distress. OBJECTIVE: Vital Signs Temperature 97.8 F 03/17/19 06:00 Pulse Rate 76 03/17/19 06:00 Respiratory Rate 20 03/17/19 06:00 Blood Pressure 161/86 03/17/19 06:00 O2 Sat by Pulse Oximetry (%) 97 03/16/19 21:00 GENERAL: The patient is awake, alert, and fully oriented, in no acute distress. HEAD: Normal with no signs of trauma. EYES: PERRL, extraocular movements intact, sclera anicteric, conjunctiva clear. ENT: Ears normal, oropharynx clear without exudates, moist mucous membranes. NECK: Trachea midline, full range of motion, supple. LUNGS: Breath sounds equal, clear to auscultation bilaterally, no wheezes, no crackles, no accessory muscle use. HEART: Regular rate and rhythm, S1, S2 without murmur, rub or gallop. ABDOMEN: Soft, NT, ND, normoactive bowel sounds, no guarding, no rebound, no hepatosplenomegaly, no masses. EXTREMITIES: 2+ pulses, warm, well-perfused, no edema. NEUROLOGICAL: Cranial nerves II through XII grossly intact. Normal speech, gait not observed. PSYCH: Normal mood, normal affect. SKIN: Warm, dry, normal turgor, no rashes or lesions noted CBCD WBC 3.0 K/mm3 (4.0-10.0) L 03/17/19 07:45 RBC 3.00 M/mm3 (3.60-5.2) L 03/17/19 07:45 Hgb 7.8 GM/dL (10.7-15.3) L 03/17/19 07:45 Hct 23.9 % (32.4-45.2) L 03/17/19 07:45 MCV 79.8 fl (80-96) L 03/17/19 07:45 MCHC 32.8 g/dl (32.0-36.0) 03/17/19 07:45 RDW 21.2 % (11.6-15.6) H 03/17/19 07:45 Plt Count 151 K/MM3 (134-434) 03/17/19 07:45 MPV 8.8 fl (7.5-11.1) 03/17/19 07:45 CMP Sodium 143 mmol/L (136-145) 03/17/19 07:45 Potassium 4.1 mmol/L (3.5-5.1) 03/17/19 07:45 Chloride 112 mmol/L (98-107) H 03/17/19 07:45 Carbon Dioxide 25 mmol/L (21-32) 03/17/19 07:45 Anion Gap 6 MMOL/L (8-16) L 03/17/19 07:45 BUN 32.1 mg/dL (7-18) H 03/17/19 07:45 Creatinine 1.8 mg/dL (0.55-1.3) H 03/17/19 07:45 Random Glucose 162 mg/dL (74-106) H 03/17/19 07:45 Calcium 8.0 mg/dL (8.5-10.1) L 03/17/19 07:45 Total Bilirubin 0.3 mg/dL (0.2-1) 03/17/19 07:45 AST 15 U/L (15-37) 03/17/19 07:45 ALT 8 U/L (13-61) L 03/17/19 07:45 Alkaline Phosphatase 103 U/L (45-117) 03/17/19 07:45 Total Protein 5.4 g/dl (6.4-8.2) L 03/17/19 07:45 Albumin 1.6 g/dl (3.4-5.0) L 03/17/19 07:45 CARDIAC ENZYMES Creatine Kinase 21 U/L (26-192) L 03/07/19 18:30 Troponin I < 0.02 ng/ml (0.00-0.05) 03/08/19 12:30 Current Medications Generic Name Dose Route Start Last Admin Trade Name Freq PRN Reason Stop Dose Admin Acetaminophen 650 mg 03/11/19 07:19 03/11/19 09:46 Tylenol - PO 650 mg Q6H PRN Administration PAIN LEVEL 1-5 Ascorbic Acid 500 mg 03/11/19 10:00 03/16/19 10:47 Vitamin C - PO 500 mg DAILY [facility] Administration Atorvastatin Calcium 20 mg 03/10/19 22:00 03/16/19 22:53 Lipitor - PO 20 mg HS [facility] Administration Docusate Sodium 100 mg 03/12/19 09:23 Colace - PO Q12H PRN CONSTIPATION Ferrous Sulfate 325 mg 03/11/19 10:00 03/16/19 10:47 Feosol - PO 325 mg DAILY [facility] Administration Furosemide 20 mg 03/11/19 15:15 03/16/19 10:47 Lasix - PO 20 mg DAILY [facility] Administration Heparin Sodium (Porcine) 5,000 unit 03/10/19 22:00 03/17/19 06:14 Heparin - SQ 5,000 unit TID [facility] Administration Hydralazine HCl 25 mg 03/13/19 14:00 03/17/19 06:14 Apresoline - PO 25 mg TID [facility] Administration Ceftriaxone Sodium 2 gm/ 100 mls @ 200 mls/hr 03/16/19 10:00 03/16/19 13:02 Dextrose IVPB Not Given DAILY [facility] Metronidazole 500 mg in 100 mls @ 100 mls/hr 03/15/19 16:30 03/17/19 00:17 Flagyl 500mg Premixed Ivpb - IVPB Not Given Q8H [facility] Insulin Aspart 1 vial 03/11/19 11:00 03/17/19 06:14 Novolog Vial Sliding Scale - SQ Not Given ACHS [facility] Protocol Losartan Potassium 25 mg 03/13/19 12:00 03/16/19 10:47 Cozaar - PO 25 mg DAILY [facility] Administration Magnesium Oxide 400 mg 03/17/19 10:00 Mag-Ox - PO 03/22/19 09:59 DAILY [facility] Metoprolol Succinate 100 mg 03/11/19 10:00 03/16/19 10:46 Toprol Xl - PO 100 mg DAILY [facility] Administration Ondansetron HCl 4 mg 03/10/19 15:45 03/13/19 20:27 Zofran Injection IVPUSH 4 mg Q6H PRN Administration NAUSEA AND/OR VOMITING Oxycodone HCl 5 mg 03/11/19 12:56 03/15/19 18:25 Roxicodone - PO 5 mg Q6H PRN Administration PAIN LEVEL 4 - 6 Potassium Phos/Sodium Phos 1 packet 03/16/19 22:00 01/28/20 22:53 Phos-Nak Packet - PO 03/19/19 21:59 1 packet BID [facility] Administration Senna 1 tab 03/12/19 22:00 03/16/19 22:53 Senna - PO 1 tab HS [facility] Administration Home Medications Medication Instructions Recorded Atorvastatin Ca [Lipitor] 20 mg PO HS #30 tablet 01/07/17 Hydralazine HCl 25 mg PO DAILY 03/07/19 Metoprolol Succinate [Toprol Xl] 100 mg PO DAILY 03/07/19 Omeprazole 20 mg PO DAILY 03/07/19 Microbiology 03/07/19 18:30 Blood - Peripheral Venous Blood Culture - Final NO GROWTH AFTER 5 DAYS INCUBATION 03/07/19 18:30 Blood - Peripheral Venous Blood Culture - Final NO GROWTH AFTER 5 DAYS INCUBATION 03/07/19 17:29 Buttock - Left Gram Stain - Final 03/07/19 17:29 Buttock - Left Wound Culture - Final Citrobacter Youngae Staphylococcus Aureus Enterococcus Faecalis Beta Hem Streptococcus Group F 03/07/19 18:30 Urine - Urine - Catheterized Urine Culture - Final Staphylococcus Aureus ASSESSMENT AND PLAN: Patient is a 73yof with PMhx of HTN, DM, RA, asthma, CKD, who presented with increased weakness , diarrhea and worsening wound in sacral area. She was found to be septic. # Sepsis due to infected sacral decub s/p IV antibiotics, going for MRI of sacral today if negative no further antibiotic is needed, if positive then will need a PICC line for further antiobic.MRI is pending to r/o saccral OM. ESR and CRP are elevated. wound vac change q MWF # Leukopenia and microcytic anemia: could be due to BM suppression in setting of acute infection or due to BM pathology ( MDS, leukemia, ) . - heme studies ( Fish, flocytometry ) pending . will contact Heme - iron studies do not indicate iron def. need to be repeated after resolution of infection - monitor. declined endoscopy # SAL on CKD: stable f/u on renal cysts as out pt. cont lasix. # pneumonitits with thickening. need to be monitored as out pt with pulmonary # HTN: Better controlled . cont HZN and BB and ARB . # L adrenal nodule, stable form before 2.3 cm. f/u as outpt # Mod , MR and pulmonary HTN: monitor. # L leg circumference > R : get US. DVT px
[2019-03-17] MEDS: NAPH,MB-DB/K PH,MBDB POWDER PACKET PO SCH ×2 (09:42→21:34)
[2019-03-17] MEDS: FERROUS SO4 325 MG TABLET (FP) PO SCH (09:42)
[2019-03-17] MEDS: LOSARTAN POTASSIUM 50 MG TABLET (FP) PO SCH (09:42)
[2019-03-17] MEDS: ASCORBIC ACID 500 MG TABLET (FP) PO SCH (09:42)
[2019-03-17] MEDS: FUROSEMIDE 20 MG TABLET (FP) PO SCH (09:42)
[2019-03-17] MEDS: MAGNESIUM OXIDE 400 MG TABLET (FP) PO SCH (09:42)
[2019-03-17] MEDS: CEFTRIAXONE 2 GM in DEXTROSE 5%-WATER 100 ML IVPB SCH (09:43)
[2019-03-17] MEDS ORDERED: INSULIN (NOVOLOG) ASPART 100 UNITS/ML 10ML VIAL ONE ×2 (11:32→16:58)
[2019-03-17] MEDS ORDERED: MAGNESIUM SULF 50% (8.12 MEQ/2 ML-1 GM VIAL) IVPB ONE (12:58)
--- NOTE | 2019-03-17 12:58 | PN ---
Progress Note, Physician History of Present Illness: Pt seen and examined at bedside. She is awake and alert. She denies shortness of breath. - Current Medication List Current Medications: Active Medications Acetaminophen (Tylenol -) 650 mg PO Q6H PRN PRN Reason: PAIN LEVEL 1-5 Last Admin: 03/11/19 09:46 Dose: 650 mg Ascorbic Acid (Vitamin C -) 500 mg PO DAILY [facility] Last Admin: 03/17/19 09:42 Dose: 500 mg Atorvastatin Calcium (Lipitor -) 20 mg PO HS [facility] Last Admin: 03/16/19 22:53 Dose: 20 mg Docusate Sodium (Colace -) 100 mg PO Q12H PRN PRN Reason: CONSTIPATION Ferrous Sulfate (Feosol -) 325 mg PO DAILY [facility] Last Admin: 03/17/19 09:42 Dose: 325 mg Furosemide (Lasix -) 20 mg PO DAILY [facility] Last Admin: 03/17/19 09:42 Dose: 20 mg Heparin Sodium (Porcine) (Heparin -) 5,000 unit SQ TID [facility] Last Admin: 03/17/19 06:14 Dose: 5,000 unit Hydralazine HCl (Apresoline -) 25 mg PO TID [facility] Last Admin: 03/17/19 06:14 Dose: 25 mg Ceftriaxone Sodium 2 gm/ (Dextrose) 100 mls @ 200 mls/hr IVPB DAILY [facility] Last Admin: 03/17/19 09:43 Dose: Not Given Metronidazole (Flagyl 500mg Premixed Ivpb -) 500 mg in 100 mls @ 100 mls/hr IVPB Q8H [facility] Last Admin: 03/17/19 09:41 Dose: Not Given Insulin Aspart (Novolog Vial Sliding Scale -) 1 vial SQ ACHS [facility]; Protocol Last Admin: 03/17/19 11:41 Dose: 6 units Losartan Potassium (Cozaar -) 25 mg PO DAILY [facility] Last Admin: 03/17/19 09:42 Dose: 25 mg Magnesium Oxide (Mag-Ox -) 400 mg PO DAILY [facility] Stop: 03/22/19 09:59 Last Admin: 03/17/19 09:42 Dose: 400 mg Metoprolol Succinate (Toprol Xl -) 100 mg PO DAILY [facility] Last Admin: 03/17/19 09:42 Dose: 100 mg Ondansetron HCl (Zofran Injection) 4 mg IVPUSH Q6H PRN PRN Reason: NAUSEA AND/OR VOMITING Last Admin: 03/13/19 20:27 Dose: 4 mg Oxycodone HCl (Roxicodone -) 5 mg PO Q6H PRN PRN Reason: PAIN LEVEL 4 - 6 Last Admin: 03/15/19 18:25 Dose: 5 mg Potassium Phos/Sodium Phos (Phos-Nak Packet -) 1 packet PO BID [facility] Stop: 03/19/19 21:59 Last Admin: 03/17/19 09:42 Dose: 1 packet Senna (Senna -) 1 tab PO HS [facility] Last Admin: 03/16/19 22:53 Dose: 1 tab - Objective Vital Signs: Vital Signs Temperature 97.8 F 03/17/19 06:00 Pulse Rate 76 03/17/19 06:00 Respiratory Rate 03/17/19 06:00 Blood Pressure 161/86 03/17/19 06:00 O2 Sat by Pulse Oximetry (%) 97 03/16/19 21:00 Constitutional: Yes: Calm Eyes: Yes: Conjunctiva Clear HENT: Yes: Atraumatic Cardiovascular: Yes: S1, S2 Respiratory: Yes: CTA Bilaterally Gastrointestinal: Yes: Soft Genitourinary: Yes: WNL Musculoskeletal: Yes: WNL Edema: Yes Edema: LLE: Trace, RLE: Trace Neurological: Yes: Oriented Psychiatric: Yes: Oriented Labs: CBC, BMP 03/17/19 07:45 03/17/19 07:45 INR, PTT INR 1.06 (0.83-1.09) 03/07/19 18:30 Assessment/Plan Current Medications Generic Name Dose Route Start Last Admin Trade Name Miquelq PRN Reason Stop Dose Admin Acetaminophen 650 mg 03/11/19 07:19 03/11/19 09:46 Tylenol - PO 650 mg Q6H PRN Administration PAIN LEVEL 1-5 Ascorbic Acid 500 mg 03/11/19 10:00 03/17/19 09:42 Vitamin C - PO 500 mg DAILY [facility] Administration Atorvastatin Calcium 20 mg 03/10/19 22:00 03/16/19 22:53 Lipitor - PO 20 mg HS [facility] Administration Docusate Sodium 100 mg 03/12/19 09:23 Colace - PO Q12H PRN CONSTIPATION Ferrous Sulfate 325 mg 03/11/19 10:00 03/17/19 09:42 Feosol - PO 325 mg DAILY [facility] Administration Furosemide 20 mg 03/11/19 15:15 03/17/19 09:42 Lasix - PO 20 mg DAILY [facility] Administration Heparin Sodium (Porcine) 5,000 unit 03/10/19 22:00 03/17/19 06:14 Heparin - SQ 5,000 unit TID [facility] Administration Hydralazine HCl 25 mg 03/13/19 14:00 03/17/19 06:14 Apresoline - PO 25 mg TID [facility] Administration Ceftriaxone Sodium 2 gm/ 100 mls @ 200 mls/hr 03/16/19 10:00 03/17/19 09:43 Dextrose IVPB Not Given DAILY [facility] Metronidazole 500 mg in 100 mls @ 100 mls/hr 03/15/19 16:30 03/17/19 09:41 Flagyl 500mg Premixed Ivpb - IVPB Not Given Q8H [facility] Insulin Aspart 1 vial 03/11/19 11:00 03/17/19 11:41 Novolog Vial Sliding Scale - SQ 6 units ACHS [facility] Administration Protocol Losartan Potassium 25 mg 03/13/19 12:00 03/17/19 09:42 Cozaar - PO 25 mg DAILY [facility] Administration Magnesium Oxide 400 mg 03/17/19 10:00 03/17/19 09:42 Mag-Ox - PO 03/22/19 09:59 400 mg DAILY [facility] Administration Metoprolol Succinate 100 mg 03/11/19 10:00 03/17/19 09:42 Toprol Xl - PO 100 mg DAILY [facility] Administration Ondansetron HCl 4 mg 03/10/19 15:45 03/13/19 20:27 Zofran Injection IVPUSH 4 mg Q6H PRN Administration NAUSEA AND/OR VOMITING Oxycodone HCl 5 mg 03/11/19 12:56 03/15/19 18:25 Roxicodone - PO 5 mg Q6H PRN Administration PAIN LEVEL 4 - 6 Potassium Phos/Sodium Phos 1 packet 03/16/19 22:00 03/17/19 09:42 Phos-Nak Packet - PO 03/19/19 21:59 1 packet BID [facility] Administration Senna 1 tab 03/12/19 22:00 03/16/19 22:53 Senna - PO 1 tab HS [facility] Administration Impression 1. CKD with acute component 2. htn 3. dm 4. RA 5. diarrhea 6. bilateral renal cysts Plan - cont lasix - replace mag - replace phos - monitor lytes - monitor volume status, switch to 40 mg of lasix if she becomes overloaded - avoid nsaids
--- NOTE | 2019-03-17 13:55 | PN ---
Progress Note, Physician History of Present Illness: Denies chest pain, dyspnea, palpitations. Sacral MRI showed no osteomyelitis. - Current Medication List Current Medications: Active Medications Acetaminophen (Tylenol -) 650 mg PO Q6H PRN PRN Reason: PAIN LEVEL 1-5 Last Admin: 03/11/19 09:46 Dose: 650 mg Ascorbic Acid (Vitamin C -) 500 mg PO DAILY [facility] Last Admin: 03/17/19 09:42 Dose: 500 mg Atorvastatin Calcium (Lipitor -) 20 mg PO HS [facility] Last Admin: 03/16/19 22:53 Dose: 20 mg Docusate Sodium (Colace -) 100 mg PO Q12H PRN PRN Reason: CONSTIPATION Ferrous Sulfate (Feosol -) 325 mg PO DAILY [facility] Last Admin: 03/17/19 09:42 Dose: 325 mg Furosemide (Lasix -) 20 mg PO DAILY [facility] Last Admin: 03/17/19 09:42 Dose: 20 mg Heparin Sodium (Porcine) (Heparin -) 5,000 unit SQ TID [facility] Last Admin: 03/17/19 06:14 Dose: 5,000 unit Hydralazine HCl (Apresoline -) 25 mg PO TID [facility] Last Admin: 03/17/19 06:14 Dose: 25 mg Ceftriaxone Sodium 2 gm/ (Dextrose) 100 mls @ 200 mls/hr IVPB DAILY [facility] Last Admin: 03/17/19 09:43 Dose: Not Given Metronidazole (Flagyl 500mg Premixed Ivpb -) 500 mg in 100 mls @ 100 mls/hr IVPB Q8H [facility] Last Admin: 03/17/19 09:41 Dose: Not Given Insulin Aspart (Novolog Vial Sliding Scale -) 1 vial SQ ACHS [facility]; Protocol Last Admin: 03/17/19 11:41 Dose: 6 units Losartan Potassium (Cozaar -) 25 mg PO DAILY [facility] Last Admin: 03/17/19 09:42 Dose: 25 mg Magnesium Oxide (Mag-Ox -) 400 mg PO DAILY [facility] Stop: 03/22/19 09:59 Last Admin: 03/17/19 09:42 Dose: 400 mg Metoprolol Succinate (Toprol Xl -) 100 mg PO DAILY [facility] Last Admin: 03/17/19 09:42 Dose: 100 mg Ondansetron HCl (Zofran Injection) 4 mg IVPUSH Q6H PRN PRN Reason: NAUSEA AND/OR VOMITING Last Admin: 03/13/19 20:27 Dose: 4 mg Oxycodone HCl (Roxicodone -) 5 mg PO Q6H PRN PRN Reason: PAIN LEVEL 4 - 6 Last Admin: 03/15/19 18:25 Dose: 5 mg Potassium Phos/Sodium Phos (Phos-Nak Packet -) 1 packet PO BID [facility] Stop: 03/19/19 21:59 Last Admin: 03/17/19 09:42 Dose: 1 packet Senna (Senna -) 1 tab PO HS [facility] Last Admin: 03/16/19 22:53 Dose: 1 tab - Objective Vital Signs: Vital Signs Temperature 97.8 F 03/17/19 06:00 Pulse Rate 76 03/17/19 06:00 Respiratory Rate 03/17/19 06:00 Blood Pressure 161/86 03/17/19 06:00 O2 Sat by Pulse Oximetry (%) 97 03/16/19 21:00 Constitutional: Yes: No Distress, Calm Neck: Yes: Supple Cardiovascular: Yes: Regular Rate and Rhythm Respiratory: Yes: Regular, CTA Bilaterally Gastrointestinal: Yes: Normal Bowel Sounds, Soft Edema: No Labs: CBC, BMP 03/17/19 07:45 03/17/19 07:45 INR, PTT INR 1.06 (0.83-1.09) 03/07/19 18:30 Problem List - Problems (1) Acute kidney injury superimposed on CKD Code(s): N17.9 - ACUTE KIDNEY FAILURE, UNSPECIFIED; N18.9 - CHRONIC KIDNEY DISEASE, UNSPECIFIED (2) CHF exacerbation Code(s): I50.9 - HEART FAILURE, UNSPECIFIED Qualifiers: Heart failure type: diastolic Qualified Code(s): I50.33 - Acute on chronic diastolic (congestive) heart failure (3) Sepsis Code(s): A41.9 - SEPSIS, UNSPECIFIED ORGANISM Qualifiers: Sepsis type: sepsis due to unspecified organism Sepsis acute organ dysfunction status: with acute organ dysfunction Severe sepsis acute organ dysfunction type: acute renal failure Acute renal failure type: unspecified Severe sepsis shock status: without septic shock Qualified Code(s): A41.9 - Sepsis, unspecified organism; R65.20 - Severe sepsis without septic shock; N17.9 - Acute kidney failure, unspecified (4) Altered mental state Code(s): R41.82 - ALTERED MENTAL STATUS, UNSPECIFIED Qualifiers: Altered mental status type: unspecified Qualified Code(s): R41.82 - Altered mental status, unspecified (5) Pneumonitis Code(s): J18.9 - PNEUMONIA, UNSPECIFIED ORGANISM (6) Sacral decubitus ulcer Code(s): L89.159 - PRESSURE ULCER OF SACRAL REGION, UNSPECIFIED STAGE Assessment/Plan 03/09/2019 Echogenic kidneys c/w chronic medical renal dz, bilateral renal cysts 03/10/2019 Severe cLVH, hyperdynamic LV fxn, grade III restrictive pattern, c/w markedly increased LAP, mod MR, severe pulm HTN, mod MG 21 mmHg CONRAD 1.0 cm^2 01/03/2017 Mild cLVH, nomal LV fxn, abnl LV compliance, normal RV size and fxn, mild LAE, mild MR, mod TR RVSP 50-60 mmHg 1. Right sacral decubiti ulcer s/p debridement and wound vac placement 2. Diastolic dysfunction 3. Type 2 DM 4. Acute on CKD with proteinuria improving 5. Hypertensive cardiovascular disease 6. Bilateral pneumonitis 7. Microcytic anemia/leukopenia suspect bone marrow supression due to infection , declining endoscopic evaluation 8. Rheumatoid arthritis 9. Hyperlipidemia PLAN: 1. Oral diuretics Lasix 20 qd with monitor diuretic response, renal fxn and electrolytes 2. Empiric antibiotic coverage and wound care 3. Continue Lipitor 20 mg QHS, hydralazine 25 tid, Toprol XL 100 mg QD, losartan 25 qd started as renal fxn at baseline 4. DVT and GI prophylaxis 5. Pelvic MRI negative for sacral osteomyelitis
[2019-03-17] MEDS ORDERED: NAPH,MB-DB/K PH,MBDB POWDER PACKET PO ONE (14:00)
[2019-03-17] MEDS ORDERED: MAGNESIUM OXIDE 400 MG TABLET (FP) PO ONE (14:01)
--- NOTE | 2019-03-17 15:41 | PN ---
Physical Exam: SUBJECTIVE: Patient seen and examined at bedside. There were no acute events overnight. This AM she offers no new complaints. OBJECTIVE: Vital Signs Temp Pulse Resp BP Pulse Ox 98.4 F 74 20 156/70 97 03/17/19 15:14 03/17/19 15:14 03/17/19 15:14 03/17/19 15:14 03/17/19 09:00 GENERAL: AOx3, in no acute distress. HEAD: NCAT EYES: ALLEY, EOMI, conjunctiva clear. ENT: Ears normal, nares patent, oropharynx clear without exudates. Moist mucous membranes. NECK: Normal range of motion, supple without lymphadenopathy, JVD, or masses. LUNGS: Decreased air entry but CTAB otherwise. No wheezes, and no crackles. No accessory muscle use. HEART: RRR s1 s2, systolic murmur 3/6 R and L USB ABDOMEN: Soft, BS present in all 4 quadrants, non-distended, no JVD, MUSCULOSKELETAL: No bony deformities or tenderness. No CVA tenderness. UPPER EXTREMITIES: 2+ pulses, warm, well-perfused. No cyanosis. No clubbing. No peripheral edema. LOWER EXTREMITIES: 2+ pulses, warm, well-perfused. No calf tenderness. 1+ peripheral edema of feet BL unchanged since yesterday. NEUROLOGICAL: No focal deficits. Cranial nerves II-XII intact. Normal speech. Gait not appreciated. PSYCHIATRIC: Cooperative. Good eye contact. Appropriate mood and affect. SKIN: RIGHT gluteal surgical site covered by wound vac. Laboratory Results - last 24 hr 03/16/19 03/16/19 03/17/19 17:02 23:16 06:08 WBC RBC Hgb Hct MCV MCH MCHC RDW Plt Count MPV Sodium Potassium Chloride Carbon Dioxide Anion Gap BUN Creatinine Est GFR (CKD-EPI)AfAm Est GFR (CKD-EPI)NonAf POC Glucometer 229 261 138 Random Glucose Calcium Phosphorus Magnesium Total Bilirubin AST ALT Alkaline Phosphatase Total Protein Albumin 03/17/19 03/17/19 03/17/19 07:45 07:45 11:30 WBC 3.0 L RBC 3.00 L Hgb 7.8 L Hct 23.9 L MCV 79.8 L MCH 26.2 MCHC 32.8 RDW 21.2 H Plt Count 151 MPV 8.8 Sodium 143 Potassium 4.1 Chloride 112 H Carbon Dioxide 25 Anion Gap 6 L BUN 32.1 H Creatinine 1.8 H Est GFR (CKD-EPI)AfAm 31.36 Est GFR (CKD-EPI)NonAf 27.06 POC Glucometer 269 Random Glucose 162 H Calcium 8.0 L Phosphorus 1.9 L Magnesium 1.4 L Total Bilirubin 0.3 AST 15 ALT 8 L Alkaline Phosphatase 103 Total Protein 5.4 L Albumin 1.6 L Active Medications Acetaminophen (Tylenol -) 650 mg PO Q6H PRN PRN Reason: PAIN LEVEL 1-5 Last Admin: 03/11/19 09:46 Dose: 650 mg Ascorbic Acid (Vitamin C -) 500 mg PO DAILY [facility] [place] Last Admin: 03/17/19 09:42 Dose: 500 mg Atorvastatin Calcium (Lipitor -) 20 mg PO HS [facility] [place] Last Admin: 03/16/19 22:53 Dose: 20 mg Docusate Sodium (Colace -) 100 mg PO Q12H PRN PRN Reason: CONSTIPATION Ferrous Sulfate (Feosol -) 325 mg PO DAILY [facility] [place] Last Admin: 03/17/19 09:42 Dose: 325 mg Furosemide (Lasix -) 20 mg PO DAILY [facility] [place] Last Admin: 03/17/19 09:42 Dose: 20 mg Heparin Sodium (Porcine) (Heparin -) 5,000 unit SQ TID [facility] [place] Last Admin: 03/17/19 14:57 Dose: 5,000 unit Hydralazine HCl (Apresoline -) 25 mg PO TID [facility] [place] Last Admin: 03/17/19 14:58 Dose: 25 mg Ceftriaxone Sodium 2 gm/ (Dextrose) 100 mls @ 200 mls/hr IVPB DAILY [facility] [place] Last Admin: 03/17/19 09:43 Dose: Not Given Metronidazole (Flagyl 500mg Premixed Ivpb -) 500 mg in 100 mls @ 100 mls/hr IVPB Q8H [facility] [place] Last Admin: 03/17/19 09:41 Dose: Not Given Insulin Aspart (Novolog Vial Sliding Scale -) 1 vial SQ ACHS [facility]; Protocol Last Admin: 03/17/19 11:41 Dose: 6 units Losartan Potassium (Cozaar -) 25 mg PO DAILY [facility] [place] Last Admin: 03/17/19 09:42 Dose: 25 mg Magnesium Oxide (Mag-Ox -) 400 mg PO DAILY [facility] [place] Stop: 03/22/19 09:59 Last Admin: 03/17/19 09:42 Dose: 400 mg Metoprolol Succinate (Toprol Xl -) 100 mg PO DAILY [facility] [place] Last Admin: 03/17/19 09:42 Dose: 100 mg Ondansetron HCl (Zofran Injection) 4 mg IVPUSH Q6H PRN PRN Reason: NAUSEA AND/OR VOMITING Last Admin: 03/13/19 20:27 Dose: 4 mg Oxycodone HCl (Roxicodone -) 5 mg PO Q6H PRN PRN Reason: PAIN LEVEL 4 - 6 Last Admin: 03/15/19 18:25 Dose: 5 mg Potassium Phos/Sodium Phos (Phos-Nak Packet -) 1 packet PO BID [facility] [place] Stop: 03/19/19 21:59 Last Admin: 03/17/19 09:42 Dose: 1 packet Senna (Senna -) 1 tab PO HS [facility] [place] Last Admin: 03/16/19 22:53 Dose: 1 tab ASSESSMENT/PLAN: 73 y/o female PMH of DM, HTN, RA, and asthma BIBEMS for weakness. She was admitted for sepsis. POD 6 debridement of RIGHT sacral ulcer. # Decubitus ulcer, POD 6 debridement sacral ulcer - Wound vac changed today - F/u MRI performed today - Pain control: 5 mg oxycodone PRN - MRI not performed today 2/2 bust schedule and avoiding wound vac/dressing change on non-scheduled day - Lost iv access so abx held for time till osteomyelitis status established # Leukopenia and microcytic anemia - Heme studies pending (FISH and scar cytometry) - Most likely 2/2 spesis vs anemia of chronic disease - F/u endoscopy as out pt # SAL on CKD - 20 mg lasix qd ; if vol. overloaded consider 40 mg - Not far from baseline now - Renal US: F/u on renal cysts and LEFT adrenal nodule (stable form before, 2.3 cm) as out pt. # HTN - Hydralazine 25 mg po now TID - Losartan 25 mg po qd added - Metoprolol s 100 mg po qd - Cardiology rec: Lipitor 20 mg QHS, hydralazine 25 tid, Toprol XL 100 mg QD, losartan 25 qd started as renal fxn at baseline # Electrolyte - Mg, Phos repleted today # F/E/N - PO - Cont. to monitor - Low sodium diet # DVT prophylaxis - Lovenox 40 SQ # Disposition - Discharge upon MRI results. If OM+, then will PICC and IV [facility] and po flagyl (pt choosing to go home). Isaac Nguyen MD Visit type - Emergency Visit Emergency Visit: No - New Patient This patient is new to me today: No - Critical Care Critical Care patient: No ATTENDING PHYSICIAN STATEMENT I saw and evaluated the patient. I reviewed the resident's note and discussed the case with the resident. I agree with the resident's findings and plan as documented. SUBJECTIVE: OBJECTIVE: ASSESSMENT AND PLAN:
[2019-03-17] MEDS: oxyCODONE HCL 5 MG TABLET PO PRN (19:47)
[2019-03-17] MEDS: SENNOSIDES 8.6MG TABLET (FP) PO SCH (21:34)
[2019-03-17] MEDS: ACETAMINOPHEN 325 MG TABLET (FP) PO PRN (21:34)
[2019-03-17] MEDS: ATORVASTATIN CA 20 MG TABLET (FP) PO SCH (21:34)
[2019-03-18] MEDS: hydrALAZINE HCL 25 MG TABLET (FP) PO SCH (06:58)
[2019-03-18] MEDS: oxyCODONE HCL 5 MG TABLET PO PRN (06:58)
[2019-03-18] MEDS: HEPARIN NA (PORCINE) 5,000 UNITS/ML 1ML VIAL SQ SCH (06:58)
[2019-03-18] MEDS: INSULIN SLIDING SCALE (NOVOLOG) 1 VIAL SQ SCH ×2 (06:59→12:00)
[2019-03-18 09:23] LABS: HEMATOCRIT 23.7 % (32.4-45.2); HEMOGLOBIN 7.8 GM/dL (10.7-15.3); MCH 26.4 pg (25.7-33.7); MCHC 32.8 g/dl (32.0-36.0); MEAN CELL VOLUME 80.7 fl (80-96); MEAN PLT VOLUME 9.2 fl (7.5-11.1); PLATELET COUNT 152 K/MM3 (134-434); RBC 2.94 M/mm3 (3.60-5.2); RDW 21.8 % (11.6-15.6); WHITE BLOOD COUNT 2.3 K/mm3 (4.0-10.0)
[2019-03-18 09:40] LABS: ALBUMIN 1.6 g/dl (3.4-5.0); BILIRUBIN,TOTAL 0.6 mg/dL (0.2-1); BLOOD UREA NITROGEN 35.3 mg/dL (7-18); CREATININE 1.9 mg/dL (0.55-1.3); MAGNESIUM 1.7 mg/dL (1.8-2.4); PHOSPHOROUS 2.5 mg/dL (2.5-4.9); POTASSIUM 4.6 mmol/L (3.5-5.1); TOT PROT 5.3 g/dl (6.4-8.2)
--- NOTE | 2019-03-18 09:43 | PN ---
Teaching Attending Note Name of Resident: Isaac Nguyen ATTENDING PHYSICIAN STATEMENT I saw and evaluated the patient. I reviewed the resident's note and discussed the case with the resident. I agree with the resident's findings and plan as documented. SUBJECTIVE: Patient is feeling better today, wants to go to rehab. no fever or chills. Vital Signs Temperature 97.9 F 03/18/19 14:29 Pulse Rate 76 03/18/19 14:29 Respiratory Rate 18 03/18/19 14:29 Blood Pressure 152/85 03/18/19 14:29 O2 Sat by Pulse Oximetry (%) 98 03/18/19 09:00 GENERAL: The patient is awake, alert, and fully oriented, in no acute distress. HEAD: Normal with no signs of trauma. EYES: PERRL, extraocular movements intact, sclera anicteric, conjunctiva clear. ENT: Ears normal, oropharynx clear without exudates, moist mucous membranes. NECK: Trachea midline, full range of motion, supple. LUNGS: Breath sounds equal, clear to auscultation bilaterally, no wheezes, no crackles, no accessory muscle use. HEART: Regular rate and rhythm, S1, S2 +, DENA 2/6 , no rub or gallop. ABDOMEN: Soft, NT, ND, normoactive bowel sounds, no guarding, no rebound, no hepatosplenomegaly, no masses. EXTREMITIES: 2+ pulses, warm, well-perfused, no edema. NEUROLOGICAL: Cranial nerves II through XII grossly intact. Normal speech, gait not observed. PSYCH: Normal mood, normal affect. SKIN: Warm, dry, normal turgor, no rashes or lesions noted : Decubitus ulcer stage IV , clean wound now with a wound vac. CBCD WBC 2.3 K/mm3 (4.0-10.0) L 03/18/19 08:04 RBC 2.94 M/mm3 (3.60-5.2) L 03/18/19 08:04 Hgb 7.8 GM/dL (10.7-15.3) L 03/18/19 08:04 Hct 23.7 % (32.4-45.2) L 03/18/19 08:04 MCV 80.7 fl (80-96) 03/18/19 08:04 MCHC 32.8 g/dl (32.0-36.0) 03/18/19 08:04 RDW 21.8 % (11.6-15.6) H 03/18/19 08:04 Plt Count 152 K/MM3 (134-434) 03/18/19 08:04 MPV 9.2 fl (7.5-11.1) 03/18/19 08:04 CMP Sodium 145 mmol/L (136-145) 03/18/19 06:00 Potassium 4.6 mmol/L (3.5-5.1) 03/18/19 06:00 Chloride 112 mmol/L (98-107) H 03/18/19 06:00 Carbon Dioxide 26 mmol/L (21-32) 03/18/19 06:00 Anion Gap 7 MMOL/L (8-16) L 03/18/19 06:00 BUN 35.3 mg/dL (7-18) H 03/18/19 06:00 Creatinine 1.9 mg/dL (0.55-1.3) H 03/18/19 06:00 Random Glucose 178 mg/dL (74-106) H 03/18/19 06:00 Calcium 8.0 mg/dL (8.5-10.1) L 03/18/19 06:00 Total Bilirubin 0.6 mg/dL (0.2-1) 03/18/19 06:00 AST 14 U/L (15-37) L 03/18/19 06:00 ALT 10 U/L (13-61) L 03/18/19 06:00 Alkaline Phosphatase 99 U/L (45-117) 03/18/19 06:00 Total Protein 5.3 g/dl (6.4-8.2) L 03/18/19 06:00 Albumin 1.6 g/dl (3.4-5.0) L 03/18/19 06:00 CARDIAC ENZYMES Creatine Kinase 21 U/L (26-192) L 03/07/19 18:30 Troponin I < 0.02 ng/ml (0.00-0.05) 03/08/19 12:30 Current Medications Generic Name Dose Route Start Last Admin Trade Name Freq PRN Reason Stop Dose Admin Acetaminophen 650 mg 03/11/19 07:19 03/17/19 21:34 Tylenol - PO 650 mg Q6H PRN Administration PAIN LEVEL 1-5 Ascorbic Acid 500 mg 03/11/19 10:00 03/17/19 09:42 Vitamin C - PO 500 mg DAILY ANGELLA Administration Atorvastatin Calcium 20 mg 03/10/19 22:00 03/17/19 21:34 Lipitor - PO 20 mg HS ANGELLA Administration Docusate Sodium 100 mg 03/12/19 09:23 Colace - PO Q12H PRN CONSTIPATION Ferrous Sulfate 325 mg 03/11/19 10:00 03/17/19 09:42 Feosol - PO 325 mg DAILY ANGELLA Administration Furosemide 20 mg 03/11/19 15:15 03/17/19 09:42 Lasix - PO 20 mg DAILY ANGELLA Administration Heparin Sodium (Porcine) 5,000 unit 03/10/19 22:00 03/18/19 06:58 Heparin - SQ 5,000 unit TID ANGELLA Administration Hydralazine HCl 25 mg 03/13/19 14:00 03/18/19 06:58 Apresoline - PO 25 mg TID ANGELLA Administration Ceftriaxone Sodium 2 gm/ 100 mls @ 200 mls/hr 03/16/19 10:00 03/17/19 09:43 Dextrose IVPB Not Given DAILY [facility] Metronidazole 500 mg in 100 mls @ 100 mls/hr 03/15/19 16:30 03/18/19 07:59 Flagyl 500mg Premixed Ivpb - IVPB Not Given Q8H [facility] Insulin Aspart 1 vial 03/11/19 11:00 03/18/19 06:59 Novolog Vial Sliding Scale - SQ 2 units ACHS ANGELLA Administration Protocol Losartan Potassium 25 mg 03/13/19 12:00 03/17/19 09:42 Cozaar - PO 25 mg DAILY [facility] Administration Magnesium Oxide 400 mg 03/17/19 10:00 03/17/19 09:42 Mag-Ox - PO 03/22/19 09:59 400 mg DAILY [facility] Administration Metoprolol Succinate 100 mg 03/11/19 10:00 03/17/19 09:42 Toprol Xl - PO 100 mg DAILY [facility] Administration Ondansetron HCl 4 mg 03/10/19 15:45 03/13/19 20:27 Zofran Injection IVPUSH 4 mg Q6H PRN Administration NAUSEA AND/OR VOMITING Oxycodone HCl 5 mg 03/11/19 12:56 03/18/19 06:58 Roxicodone - PO 5 mg Q6H PRN Administration PAIN LEVEL 4 - 6 Potassium Phos/Sodium Phos 1 packet 03/16/19 22:00 03/17/19 21:34 Phos-Nak Packet - PO 03/19/19 21:59 1 packet BID ANGELLA Administration Senna 1 tab 03/12/19 22:00 03/17/19 21:34 Senna - PO 1 tab HS ANGELLA Administration Home Medications Medication Instructions Recorded Atorvastatin Ca [Lipitor] 20 mg PO HS #30 tablet 01/07/17 Hydralazine HCl 25 mg PO DAILY 03/07/19 Metoprolol Succinate [Toprol Xl] 100 mg PO DAILY 03/07/19 Omeprazole 20 mg PO DAILY 03/07/19 Microbiology 03/07/19 18:30 Blood - Peripheral Venous Blood Culture - Final NO GROWTH AFTER 5 DAYS INCUBATION 03/07/19 18:30 Blood - Peripheral Venous Blood Culture - Final NO GROWTH AFTER 5 DAYS INCUBATION 03/07/19 17:29 Buttock - Left Gram Stain - Final 03/07/19 17:29 Buttock - Left Wound Culture - Final Citrobacter Youngae Staphylococcus Aureus Enterococcus Faecalis Beta Hem Streptococcus Group F 03/07/19 18:30 Urine - Urine - Catheterized Urine Culture - Final Staphylococcus Aureus ASSESSMENT AND PLAN: Patient is a 73yof with PMhx of HTN, DM, RA, asthma, CKD, who presented with increased weakness , diarrhea and worsening wound in sacral area. She was found to be septic. # s/p sepsis due to infected sacral decub s/p IV antibiotics, MRI is negative for ostemyolitis , no further antibiotic is needed. wound vac change q MWF # Leukopenia and microcytic anemia: could be due to BM suppression in setting of acute infection or due to BM pathology ( MDS, leukemia, ) . - heme studies ( Fish, flocytometry ) pending follow up with Heme # iron studies do not indicate iron def. need to be repeated after resolution of infection , monitor. declined endoscopy # SAL on CKD: stable f/u on renal cysts as out pt. cont lasix. # pneumonitits with thickening. need to be monitored as out pt with pulmonary # HTN: Better controlled . cont HZN and BB and ARB . # L adrenal nodule, stable form before 2.3 cm. f/u as outpt # Mod , MR and pulmonary HTN: monitor. DVT px Laboratory Tests 03/08/19 03/09/19 06:30 08:15 Magnesium 1.5 L Iron 13 L TIBC 137 L Iron Saturation 9 L Unsaturated IBC 124 L Ferritin 508.7 H
[2019-03-18] MEDS: MAGNESIUM OXIDE 400 MG TABLET (FP) PO SCH (09:44)
[2019-03-18] MEDS: NAPH,MB-DB/K PH,MBDB POWDER PACKET PO SCH (09:44)
[2019-03-18] MEDS: ASCORBIC ACID 500 MG TABLET (FP) PO SCH (09:44)
[2019-03-18] MEDS: FERROUS SO4 325 MG TABLET (FP) PO SCH (09:44)
[2019-03-18] MEDS: LOSARTAN POTASSIUM 50 MG TABLET (FP) PO SCH (09:44)
[2019-03-18] MEDS: FUROSEMIDE 20 MG TABLET (FP) PO SCH (09:44)
[2019-03-18] MEDS: CEFTRIAXONE 2 GM in DEXTROSE 5%-WATER 100 ML IVPB SCH (09:45)
[2019-03-18] MEDS ORDERED: INSULIN (NOVOLOG) ASPART 100 UNITS/ML 10ML VIAL ONE (12:11)
--- NOTE | 2019-03-18 12:22 | PN ---
Progress Note, Physician History of Present Illness: Denies chest pain, dyspnea, palpitations. Sacral MRI showed no osteomyelitis. - Current Medication List Current Medications: Active Medications Acetaminophen (Tylenol -) 650 mg PO Q6H PRN PRN Reason: PAIN LEVEL 1-5 Last Admin: 03/17/19 21:34 Dose: 650 mg Ascorbic Acid (Vitamin C -) 500 mg PO DAILY [facility] Last Admin: 03/18/19 09:44 Dose: 500 mg Atorvastatin Calcium (Lipitor -) 20 mg PO HS [facility] Last Admin: 03/17/19 21:34 Dose: 20 mg Docusate Sodium (Colace -) 100 mg PO Q12H PRN PRN Reason: CONSTIPATION Ferrous Sulfate (Feosol -) 325 mg PO DAILY [facility] Last Admin: 03/18/19 09:44 Dose: 325 mg Furosemide (Lasix -) 20 mg PO DAILY [facility] Last Admin: 03/18/19 09:44 Dose: 20 mg Heparin Sodium (Porcine) (Heparin -) 5,000 unit SQ TID [facility] Last Admin: 03/18/19 06:58 Dose: 5,000 unit Hydralazine HCl (Apresoline -) 25 mg PO TID [facility] Last Admin: 03/18/19 06:58 Dose: 25 mg Ceftriaxone Sodium 2 gm/ (Dextrose) 100 mls @ 200 mls/hr IVPB DAILY [facility] Last Admin: 03/18/19 09:45 Dose: Not Given Metronidazole (Flagyl 500mg Premixed Ivpb -) 500 mg in 100 mls @ 100 mls/hr IVPB Q8H [facility] Last Admin: 03/18/19 07:59 Dose: Not Given Insulin Aspart (Novolog Vial Sliding Scale -) 1 vial SQ ACHS [facility]; Protocol Last Admin: 03/18/19 06:59 Dose: 2 units Losartan Potassium (Cozaar -) 25 mg PO DAILY [facility] Last Admin: 03/18/19 09:44 Dose: 25 mg Magnesium Oxide (Mag-Ox -) 400 mg PO DAILY [facility] Stop: 03/22/19 09:59 Last Admin: 03/18/19 09:44 Dose: 400 mg Metoprolol Succinate (Toprol Xl -) 100 mg PO DAILY [facility] Last Admin: 03/18/19 09:45 Dose: 100 mg Ondansetron HCl (Zofran Injection) 4 mg IVPUSH Q6H PRN PRN Reason: NAUSEA AND/OR VOMITING Last Admin: 03/13/19 20:27 Dose: 4 mg Oxycodone HCl (Roxicodone -) 5 mg PO Q6H PRN PRN Reason: PAIN LEVEL 4 - 6 Last Admin: 03/18/19 06:58 Dose: 5 mg Potassium Phos/Sodium Phos (Phos-Nak Packet -) 1 packet PO BID [facility] Stop: 03/19/19 21:59 Last Admin: 03/18/19 09:44 Dose: 1 packet Senna (Senna -) 1 tab PO HS [facility] Last Admin: 03/17/19 21:34 Dose: 1 tab - Objective Vital Signs: Vital Signs Temperature 97.7 F 03/18/19 05:53 Pulse Rate 72 03/18/19 08:00 Respiratory Rate 18 03/18/19 08:00 Blood Pressure 130/60 03/18/19 08:00 O2 Sat by Pulse Oximetry (%) 98 03/18/19 09:00 Constitutional: Yes: No Distress, Calm Neck: Yes: Supple Cardiovascular: Yes: Regular Rate and Rhythm Respiratory: Yes: Regular, CTA Bilaterally Gastrointestinal: Yes: Normal Bowel Sounds, Soft Edema: No Labs: CBC, BMP 03/18/19 08:04 03/18/19 06:00 INR, PTT INR 1.06 (0.83-1.09) 03/07/19 18:30 Problem List - Problems (1) Acute kidney injury superimposed on CKD Code(s): N17.9 - ACUTE KIDNEY FAILURE, UNSPECIFIED; N18.9 - CHRONIC KIDNEY DISEASE, UNSPECIFIED (2) CHF exacerbation Code(s): I50.9 - HEART FAILURE, UNSPECIFIED Qualifiers: Heart failure type: diastolic Qualified Code(s): I50.33 - Acute on chronic diastolic (congestive) heart failure (3) Sepsis Code(s): A41.9 - SEPSIS, UNSPECIFIED ORGANISM Qualifiers: Sepsis type: sepsis due to unspecified organism Sepsis acute organ dysfunction status: with acute organ dysfunction Severe sepsis acute organ dysfunction type: acute renal failure Acute renal failure type: unspecified Severe sepsis shock status: without septic shock Qualified Code(s): A41.9 - Sepsis, unspecified organism; R65.20 - Severe sepsis without septic shock; N17.9 - Acute kidney failure, unspecified (4) Altered mental state Code(s): R41.82 - ALTERED MENTAL STATUS, UNSPECIFIED Qualifiers: Altered mental status type: unspecified Qualified Code(s): R41.82 - Altered mental status, unspecified (5) Pneumonitis Code(s): J18.9 - PNEUMONIA, UNSPECIFIED ORGANISM (6) Sacral decubitus ulcer Code(s): L89.159 - PRESSURE ULCER OF SACRAL REGION, UNSPECIFIED STAGE Assessment/Plan 03/09/2019 Echogenic kidneys c/w chronic medical renal dz, bilateral renal cysts 03/10/2019 Severe cLVH, hyperdynamic LV fxn, grade III restrictive pattern, c/w markedly increased LAP, mod MR, severe pulm HTN, mod MG 21 mmHg CONRAD 1.0 cm^2 01/03/2017 Mild cLVH, nomal LV fxn, abnl LV compliance, normal RV size and fxn, mild LAE, mild MR, mod TR RVSP 50-60 mmHg 1. Right sacral decubiti ulcer s/p debridement and wound vac placement 2. Diastolic dysfunction 3. Type 2 DM 4. Acute on CKD with proteinuria improving 5. Hypertensive cardiovascular disease 6. Bilateral pneumonitis 7. Microcytic anemia/leukopenia suspect bone marrow supression due to infection , declining endoscopic evaluation 8. Rheumatoid arthritis 9. Hyperlipidemia PLAN: 1. Oral diuretics Lasix 20 qd with monitor diuretic response, renal fxn and electrolytes 2. Empiric antibiotic coverage and wound care 3. Continue Lipitor 20 mg QHS, decreased hydralazine 25 bid, Toprol XL 100 mg QD , increased losartan 50 qd as renal fxn at baseline 4. DVT and GI prophylaxis 5. Pelvic MRI negative for sacral osteomyelitis
[2019-03-18] MEDS ORDERED: LOSARTAN POTASSIUM 50 MG TABLET (FP) PO SCH (12:25)
[2019-03-18 14:30] VITALS: BP 152/85; PULSE 76; TEMP 97.9
--- NOTE | 2019-03-18 15:30 | DS ---
Physical Exam: SUBJECTIVE: Patient seen and examined OBJECTIVE: Vital Signs Period Temp Pulse Resp BP Sys/Hanna Pulse Ox Last 24 Hr 97.6 F-98.1 F 70-90 18-20 130-180/60-98 98-98 PHYSICAL EXAM GENERAL: The patient is awake, alert, and fully oriented, in no acute distress. HEAD: Normal with no signs of trauma. EYES: PERRL, extraocular movements intact, sclera anicteric, conjunctiva clear. ENT: Ears normal, nares patent, oropharynx clear without exudates, moist mucous membranes. NECK: Trachea midline, full range of motion, supple. LUNGS: Breath sounds equal, clear to auscultation bilaterally, no wheezes, no crackles, no accessory muscle use. HEART: Regular rate and rhythm, S1, S2 without murmur, rub or gallop. ABDOMEN: Soft, nontender, nondistended, normoactive bowel sounds, no guarding, no rebound, no hepatosplenomegaly, no masses. EXTREMITIES: 2+ pulses, warm, well-perfused, no edema. NEUROLOGICAL: Cranial nerves II through XII grossly intact. Normal speech, gait not observed. PSYCH: Normal mood, normal affect. SKIN: Warm, dry, normal turgor, no rashes or lesions noted. LABS Laboratory Results - last 24 hr 03/17/19 03/17/19 03/18/19 16:55 21:24 06:00 WBC RBC Hgb Hct MCV MCH MCHC RDW Plt Count MPV Sodium 145 Potassium 4.6 Chloride 112 H Carbon Dioxide 26 Anion Gap 7 L BUN 35.3 H Creatinine 1.9 H Est GFR (CKD-EPI)AfAm 29.37 Est GFR (CKD-EPI)NonAf 25.34 POC Glucometer 209 308 Random Glucose 178 H Calcium 8.0 L Phosphorus 2.5 Magnesium 1.7 L Total Bilirubin 0.6 AST 14 L ALT 10 L Alkaline Phosphatase 99 Total Protein 5.3 L Albumin 1.6 L 03/18/19 03/18/19 03/18/19 06:33 08:04 10:49 WBC 2.3 L RBC 2.94 L Hgb 7.8 L Hct 23.7 L MCV 80.7 MCH 26.4 MCHC 32.8 RDW 21.8 H Plt Count 152 MPV 9.2 Sodium Potassium Chloride Carbon Dioxide Anion Gap BUN Creatinine Est GFR (CKD-EPI)AfAm Est GFR (CKD-EPI)NonAf POC Glucometer 165 288 Random Glucose Calcium Phosphorus Magnesium Total Bilirubin AST ALT Alkaline Phosphatase Total Protein Albumin HOSPITAL COURSE: Date of Admission:03/07/19 Date of Discharge: 03/18/19 Discharge Summary Problems reviewed: Yes Reason For Visit: ACUTE ON CHRONIC CONGESTIVE HEART FAILURE Current Active Problems Sacral decubitus ulcer (Acute) Ulcer (Acute) Allergy to antibiotic (Chronic) Anemia (Chronic) CKD (chronic kidney disease) (Chronic) HTN (hypertension) (Chronic) Hypercholesterolemia (Chronic) Leukopenia (Chronic) 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 You were admitted to the hospital for care of sepsis and had ulcer debridement performed. While here you were seen by surgery, nephrology, gastroenterology, infectious disease, and cardiology. You are now stable and may return home. MEDICATIONS Please continue to take your medications as described below: - Hydralazine 25 mg by mouth twice a day - Losartan 50 mg by mouth everyday - Metoprolol 100 mg by mouth everyday - Ferrous sulfate 325 mg by mouth everyday - Lasix 20 mg by mouth everyday - Omeprazole 20 mg by mouth everyday -Colace 100mg orally 2 times per day ADDITIONAL CARE Please make an appointment to see your primary care provider, Dr. Sanders 1 week from today. Continue current care of your wound vac on the Friday/Friday/Friday schedule. Please make an appointment to see a surgeon in 1 week. A referral has to Dr. Robles has been provided. Please make an appointment to see a forensic toxicologist in 1 week. A referral has to Dr. Ward has been provided. Please make an appointment to see a spiral binder in 1 week. A referral has to Dr. Phan has been provided. Please discuss need for colonoscopy +/- EGD Please make an appointment to see a linux [employer] administrator in 1 week. A referral has to Dr. White has been provided. Please discuss renal cysts. Please make an appointment to see a supervisor laundry in 1 week. A referral has to Dr. Carey has been provided. Please discuss the finding of left adrenal nodule. Please make an appointment to see a licensing specialist in 1 week. A referral has to Dr. Whyte has been provided. Please discuss pneumonitits with thickening. ADDITIONAL INFORMATION Please call 911 or come directly to the emergency department if you experience unusual headache, vision change, shortness of breath, chest pain, numbness, tingling, loss of alertness/awareness, loss of function, unusual bleeding or any alarming symptoms. Referrals: Yoseph Robles MD [Staff Physician] - 1 Week Amadeo Phan DO [Staff Physician] - 1 Week Funmilayo White MD [Staff Physician] - 1 Week Alcides Ward MD [Staff Physician] - 1 Week Nasrin Sanders MD [Primary Care Provider] - 1 Week Becki Carey MD [Staff Physician] - 1 Week Ender Whyte MD, MD [Staff Physician] - 1 Week Disposition: LONG-TERM FACILITY - Home Medications Comprehensive Discharge Medication List: Ambulatory Orders Atorvastatin Ca [Lipitor] 20 mg PO HS #30 tablet 01/07/17 Hydralazine HCl 25 mg PO DAILY 03/07/19 Metoprolol Succinate [Toprol Xl] 100 mg PO DAILY 03/07/19 Omeprazole 20 mg PO DAILY 03/07/19 Docusate Sodium [Colace -] 100 mg PO Q12H PRN capsule 03/18/19 Ferrous Sulfate [Feosol] 325 mg PO DAILY ud 03/18/19 Furosemide [Lasix -] 20 mg PO DAILY 30 Days #60 tablet 03/18/19 Losartan Potassium [Cozaar -] 50 mg PO DAILY 30 Days #30 tablet 03/18/19 hydrALAZINE HCL [Apresoline -] 25 mg PO BID 30 Days #60 tablet 03/18/19 - Discharge Referral Referred to [facility] No ATTENDING PHYSICIAN STATEMENT I saw and evaluated the patient. I reviewed the resident's note and discussed the case with the resident. I agree with the resident's findings and plan as documented. SUBJECTIVE: OBJECTIVE: ASSESSMENT AND PLAN:
--- NOTE | 2019-03-18 15:43 | PN ---
Progress Note (short form) - Note Progress Note: alert Vital Signs Period Temp Pulse Resp BP Sys/Hanna Pulse Ox Last 24 Hr 97.6 F-98.1 F 70-90 18-20 130-180/60-98 98-98 cor-rrr lungs clear +vac CBC, BMP 03/18/19 08:04 03/18/19 06:00 Microbiology 03/07/19 18:30 Blood - Peripheral Venous Blood Culture - Final NO GROWTH AFTER 5 DAYS INCUBATION 03/07/19 18:30 Blood - Peripheral Venous Blood Culture - Final NO GROWTH AFTER 5 DAYS INCUBATION 03/07/19 17:29 Buttock - Left Gram Stain - Final 03/07/19 17:29 Buttock - Left Wound Culture - Final Citrobacter Youngae Staphylococcus Aureus Enterococcus Faecalis Beta Hem Streptococcus Group F 03/07/19 18:30 Urine - Urine - Catheterized Urine Culture - Final Staphylococcus Aureus a/p pod #8 sacral ulcer s/p debridement- fevers resolved- pelvic MRI no osteomyelitis, local wound care per surgery leukopenia/microcytic anemia- new, hematology eval, has declined endoscopy diabetes penicillin allergy d/w hospitalist team Problem List - Problems (1) Fever Code(s): R50.9 - FEVER, UNSPECIFIED (2) Infected pressure ulcer Code(s): L89.90 - PRESSURE ULCER OF UNSPECIFIED SITE, UNSPECIFIED STAGE; L08.9 - LOCAL INFECTION OF THE SKIN AND SUBCUTANEOUS TISSUE, UNSP (3) Leukopenia Code(s): D72.819 - DECREASED WHITE BLOOD CELL COUNT, UNSPECIFIED (4) Anemia Code(s): D64.9 - ANEMIA, UNSPECIFIED (5) T2DM (type 2 diabetes mellitus) Code(s): E11.9 - TYPE 2 DIABETES MELLITUS WITHOUT COMPLICATIONS (6) Allergy to antibiotic Code(s): Z88.1 - ALLERGY STATUS TO OTHER ANTIBIOTIC AGENTS STATUS (7) CKD (chronic kidney disease) Code(s): N18.9 - CHRONIC KIDNEY DISEASE, UNSPECIFIED
--- NOTE | 2019-03-18 17:16 | DS ---
Physical Exam: SUBJECTIVE: Patient seen and examined at bedside. There were no acute events overnight. This AM she offers no new complaints. OBJECTIVE: Vital Signs Period Temp Pulse Resp BP Sys/Hanna Pulse Ox Last 24 Hr 97.6 F-98.1 F 70-90 18-20 130-180/60-98 98-98 PHYSICAL EXAM GENERAL: AOx3, in no acute distress. HEAD: NCAT EYES: ALLEY, EOMI, conjunctiva clear. ENT: Ears normal, nares patent, oropharynx clear without exudates. Moist mucous membranes. NECK: Normal range of motion, supple without lymphadenopathy, JVD, or masses. LUNGS: Decreased air entry but CTAB otherwise. No wheezes, and no crackles. No accessory muscle use. HEART: RRR s1 s2, systolic murmur 3/6 R and L USB ABDOMEN: Soft, BS present in all 4 quadrants, non-distended, no JVD, MUSCULOSKELETAL: No bony deformities or tenderness. No CVA tenderness. UPPER EXTREMITIES: 2+ pulses, warm, well-perfused. No cyanosis. No clubbing. No peripheral edema. LOWER EXTREMITIES: 2+ pulses, warm, well-perfused. No calf tenderness. 1+ peripheral edema of feet BL unchanged since yesterday. NEUROLOGICAL: No focal deficits. Cranial nerves II-XII intact. Normal speech. Gait not appreciated. PSYCHIATRIC: Cooperative. Good eye contact. Appropriate mood and affect. SKIN: RIGHT gluteal surgical site covered by wound vac. LABS 03/17/19 03/18/19 03/18/19 21:24 06:00 06:33 WBC RBC Hgb Hct MCV MCH MCHC RDW Plt Count MPV Sodium 145 Potassium 4.6 Chloride 112 H Carbon Dioxide 26 Anion Gap 7 L BUN 35.3 H Creatinine 1.9 H Est GFR (CKD-EPI)AfAm 29.37 Est GFR (CKD-EPI)NonAf 25.34 POC Glucometer 308 165 Random Glucose 178 H Calcium 8.0 L Phosphorus 2.5 Magnesium 1.7 L Total Bilirubin 0.6 AST 14 L ALT 10 L Alkaline Phosphatase 99 Total Protein 5.3 L Albumin 1.6 L 03/18/19 03/18/19 08:04 10:49 WBC 2.3 L RBC 2.94 L Hgb 7.8 L Hct 23.7 L MCV 80.7 MCH 26.4 MCHC 32.8 RDW 21.8 H Plt Count 152 MPV 9.2 Sodium Potassium Chloride Carbon Dioxide Anion Gap BUN Creatinine Est GFR (CKD-EPI)AfAm Est GFR (CKD-EPI)NonAf POC Glucometer 288 Random Glucose Calcium Phosphorus Magnesium Total Bilirubin AST ALT Alkaline Phosphatase Total Protein Albumin HOSPITAL COURSE: Date of Admission:03/07/19 73 y/o female PMH of DM, HTN, RA, and asthma BIBEMS for weakness. She was admitted for sepsis 2/2 sacral ulcer. She is s/p debridement of RIGHT sacral ulcer. She is to be dc to SNF with care of wound vac. MRI with no evidence of osteomyelitis. Her stay was notable for leukopenia and microcytic anemia; Heme studies pending (FISH and scar cytometry), however this is possibly 2/2 spesis vs anemia of chronic disease. She was advised to f/u with an endoscopy as out- pt. She also experienced SAL on CKD for which she was administered 20 mg lasix qd. Renal US here demonstrated f/u on renal cysts and LEFT adrenal nodule ( stable from before, 2.3 cm); she was advised to f/u out-pt. Her stay was also notable for change in BP coverage: Hydralazine 25 mg po now TID, Losartan 25 mg po qd added, Metoprolol s 100 mg po qd. 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 You were admitted to the hospital for care of sepsis and had ulcer debridement performed. While here you were seen by surgery, nephrology, gastroenterology, infectious disease, and cardiology. You are now stable and may return home. MEDICATIONS Please continue to take your medications as described below: - Hydralazine 25 mg by mouth twice a day - Losartan 50 mg by mouth everyday - Metoprolol 100 mg by mouth everyday - Ferrous sulfate 325 mg by mouth everyday - Lasix 20 mg by mouth everyday - Omeprazole 20 mg by mouth everyday -Colace 100mg orally 2 times per day ADDITIONAL CARE Please make an appointment to see your primary care provider, Dr. Sanders 1 week from today. Continue current care of your wound vac on the Friday/Friday/Friday schedule. Please make an appointment to see a surgeon in 1 week. A referral has to Dr. Robles has been provided. Please make an appointment to see a public health program manager in 1 week. A referral has to Dr. Ward has been provided. Please make an appointment to see a artillery or naval gunfire observer in 1 week. A referral has to Dr. Phan has been provided. Please discuss need for colonoscopy +/- EGD Please make an appointment to see a engineering mgr in 1 week. A referral has to Dr. White has been provided. Please discuss renal cysts. Please make an appointment to see a book or script editor in 1 week. A referral has to Dr. Carey has been provided. Please discuss the finding of left adrenal nodule. Please make an appointment to see a dowel pin worker in 1 week. A referral has to Dr. Whyte has been provided. Please discuss pneumonitits with thickening. ADDITIONAL INFORMATION Please call 911 or come directly to the emergency department if you experience unusual headache, vision change, shortness of breath, chest pain, numbness, tingling, loss of alertness/awareness, loss of function, unusual bleeding or any alarming symptoms. Referrals: Yoseph Robles MD [Staff Physician] - 1 Week Amadeo Phan DO [Staff Physician] - 1 Week Funmilayo White MD [Staff Physician] - 1 Week Alcides Ward MD [Staff Physician] - 1 Week Nasrin Sanders MD [Primary Care Provider] - 1 Week Becki Carey MD [Staff Physician] - 1 Week Ender Whyte MD, MD [Staff Physician] - 1 Week Disposition: [facility] - Home Medications Comprehensive Discharge Medication List: Ambulatory Orders Atorvastatin Ca [Lipitor] 20 mg PO HS #30 tablet 01/07/17 Hydralazine HCl 25 mg PO DAILY 03/07/19 Metoprolol Succinate [Toprol Xl] 100 mg PO DAILY 03/07/19 Omeprazole 20 mg PO DAILY 01/19/20 Docusate Sodium [Colace -] 100 mg PO Q12H PRN capsule 03/18/19 Ferrous Sulfate [Feosol] 325 mg PO DAILY ud 03/18/19 Furosemide [Lasix -] 20 mg PO DAILY 30 Days #60 tablet 03/18/19 Losartan Potassium [Cozaar -] 50 mg PO DAILY 30 Days #30 tablet 03/18/19 hydrALAZINE HCL [Apresoline -] 25 mg PO BID 30 Days #60 tablet 03/18/19 This patient is new to me today: No Emergency Visit: No Critical Care patient: No - Discharge Referral Referred to [facility] No ATTENDING PHYSICIAN STATEMENT I saw and evaluated the patient. I reviewed the resident's note and discussed the case with the resident. I agree with the resident's findings and plan as documented. SUBJECTIVE: OBJECTIVE: ASSESSMENT AND PLAN:
[2019-03-18] MEDS ORDERED: MAGNESIUM SULF 50% (8.12 MEQ/2 ML-1 GM VIAL) IVPB ONE (18:46)
--- NOTE | 2019-03-18 18:48 | PN ---
Progress Note, Physician History of Present Illness: Pt seen and examined at bedside. She is awake and alert. She denies shortness of breath. - Current Medication List Current Medications: Active Medications Acetaminophen (Tylenol -) 650 mg PO Q6H PRN PRN Reason: PAIN LEVEL 1-5 Last Admin: 03/17/19 21:34 Dose: 650 mg Ascorbic Acid (Vitamin C -) 500 mg PO DAILY [facility] Last Admin: 03/18/19 09:44 Dose: 500 mg Atorvastatin Calcium (Lipitor -) 20 mg PO HS [facility] Last Admin: 03/17/19 21:34 Dose: 20 mg Docusate Sodium (Colace -) 100 mg PO Q12H PRN PRN Reason: CONSTIPATION Ferrous Sulfate (Feosol -) 325 mg PO DAILY [facility] Last Admin: 03/18/19 09:44 Dose: 325 mg Furosemide (Lasix -) 20 mg PO DAILY [facility] Last Admin: 03/18/19 09:44 Dose: 20 mg Hydralazine HCl (Apresoline -) 25 mg PO BID [facility] Ceftriaxone Sodium 2 gm/ (Dextrose) 100 mls @ 200 mls/hr IVPB DAILY [facility] Last Admin: 03/18/19 09:45 Dose: Not Given Metronidazole (Flagyl 500mg Premixed Ivpb -) 500 mg in 100 mls @ 100 mls/hr IVPB Q8H [facility] Last Admin: 03/18/19 18:31 Dose: Not Given Insulin Aspart (Novolog Vial Sliding Scale -) 1 vial SQ ACHS [facility]; Protocol Last Admin: 03/18/19 12:00 Dose: 6 units Losartan Potassium (Cozaar -) 50 mg PO DAILY [facility] Magnesium Oxide (Mag-Ox -) 400 mg PO DAILY [facility] Stop: 03/22/19 09:59 Last Admin: 03/18/19 09:44 Dose: 400 mg Metoprolol Succinate (Toprol Xl -) 100 mg PO DAILY [facility] Last Admin: 03/18/19 09:45 Dose: 100 mg Ondansetron HCl (Zofran Injection) 4 mg IVPUSH Q6H PRN PRN Reason: NAUSEA AND/OR VOMITING Last Admin: 03/13/19 20:27 Dose: 4 mg Oxycodone HCl (Roxicodone -) 5 mg PO Q6H PRN PRN Reason: PAIN LEVEL 4 - 6 Last Admin: 03/18/19 06:58 Dose: 5 mg Potassium Phos/Sodium Phos (Phos-Nak Packet -) 1 packet PO BID ANGELLA Stop: 03/19/19 21:59 Last Admin: 03/18/19 09:44 Dose: 1 packet Senna (Senna -) 1 tab PO HS ANGELLA Last Admin: 03/17/19 21:34 Dose: 1 tab - Objective Vital Signs: Vital Signs Temperature 97.9 F 03/18/19 14:29 Pulse Rate 76 03/18/19 14:29 Respiratory Rate 18 03/18/19 14:29 Blood Pressure 152/85 03/18/19 14:29 O2 Sat by Pulse Oximetry (%) 98 03/18/19 09:00 Constitutional: Yes: Calm Eyes: Yes: Conjunctiva Clear HENT: Yes: Atraumatic Neck: Yes: Supple Cardiovascular: Yes: S1, S2 Respiratory: Yes: CTA Bilaterally Gastrointestinal: Yes: Soft Genitourinary: Yes: WNL Edema: Yes Edema: LLE: Trace, RLE: Trace Neurological: Yes: Oriented Psychiatric: Yes: Oriented Labs: CBC, BMP 03/18/19 08:04 03/18/19 06:00 INR, PTT INR 1.06 (0.83-1.09) 03/07/19 18:30 Assessment/Plan Current Medications Generic Name Dose Route Start Last Admin Trade Name Miquelq PRN Reason Stop Dose Admin Acetaminophen 650 mg 03/11/19 07:19 03/17/19 21:34 Tylenol - PO 650 mg Q6H PRN Administration PAIN LEVEL 1-5 Ascorbic Acid 500 mg 03/11/19 10:00 03/18/19 09:44 Vitamin C - PO 500 mg DAILY ANGELLA Administration Atorvastatin Calcium 20 mg 03/10/19 22:00 03/17/19 21:34 Lipitor - PO 20 mg HS ANGELLA Administration Docusate Sodium 100 mg 03/12/19 09:23 Colace - PO Q12H PRN CONSTIPATION Ferrous Sulfate 325 mg 03/11/19 10:00 03/18/19 09:44 Feosol - PO 325 mg DAILY ANGELLA Administration Furosemide 20 mg 03/11/19 15:15 03/18/19 09:44 Lasix - PO 20 mg DAILY ANGELLA Administration Hydralazine HCl 25 mg 03/18/19 22:00 Apresoline - PO BID ANGELLA Ceftriaxone Sodium 2 gm/ 100 mls @ 200 mls/hr 03/16/19 10:00 03/18/19 09:45 Dextrose IVPB Not Given DAILY ANGELLA Metronidazole 500 mg in 100 mls @ 100 mls/hr 03/15/19 16:30 03/18/19 18:31 Flagyl 500mg Premixed Ivpb - IVPB Not Given Q8H ANGELLA Insulin Aspart 1 vial 03/11/19 11:00 03/18/19 12:00 Novolog Vial Sliding Scale - SQ 6 units ACHS ANGELLA Administration Protocol Losartan Potassium 50 mg 03/18/19 12:25 Cozaar - PO DAILY ANGELLA Magnesium Oxide 400 mg 03/17/19 10:00 03/18/19 09:44 Mag-Ox - PO 03/22/19 09:59 400 mg DAILY ANGELLA Administration Magnesium Sulfate 2 gm 03/18/19 18:46 Magnesium Sulfate IVPB 03/18/19 18:47 ONCE ONE Metoprolol Succinate 100 mg 03/11/19 10:00 03/18/19 09:45 Toprol Xl - PO 100 mg DAILY ANGELLA Administration Ondansetron HCl 4 mg 03/10/19 15:45 03/13/19 20:27 Zofran Injection IVPUSH 4 mg Q6H PRN Administration NAUSEA AND/OR VOMITING Oxycodone HCl 5 mg 03/11/19 12:56 03/18/19 06:58 Roxicodone - PO 5 mg Q6H PRN Administration PAIN LEVEL 4 - 6 Potassium Phos/Sodium Phos 1 packet 03/16/19 22:00 03/18/19 09:44 Phos-Nak Packet - PO 03/19/19 21:59 1 packet BID ANGELLA Administration Senna 1 tab 03/12/19 22:00 03/17/19 21:34 Senna - PO 1 tab HS ANGELLA Administration Impression 1. CKD with acute component 2. htn 3. dm 4. RA 5. diarrhea 6. bilateral renal cysts Plan - replace mag, improving - cont lasix - monitor lytes - avoid nsaids - will follow prn
[2019-03-18] MEDS ORDERED: hydrALAZINE HCL 25 MG TABLET (FP) PO SCH (22:00)
--- NOTE | 2019-04-12 12:56 | OP ---
DATE OF OPERATION: 03/11/2019 PREOPERATIVE DIAGNOSIS: Unstageable sacral ulcer. POSTOPERATIVE DIAGNOSIS: Unstageable sacral ulcer. PROCEDURE: Excision of necrotic tissue of unstageable sacral ulcer including skin, subcutaneous fat, and muscle. SURGEON: Yoseph Robles MD SIGNALS INTELLIGENCE SUPERINTENDENT: ADAN Ford ANESTHESIA: Local with IV sedation. OPERATIVE FINDINGS: There was nonviable skin, subcutaneous fat, and muscle. The fascia over the bone was grossly intact. DESCRIPTION OF PROCEDURE: The patient was placed on the operating room table in supine position and turned to the left lateral decubitus position. After the administration of intravenous sedation, a time-out was taken and the area infiltrated with 1% Xylocaine, 0.5% Marcaine in equal concentrations. Using a scalpel, all nonviable tissue was excised and sent for pathological examination. Excision was done to grossly normal, viable, bleeding tissue. Hemostasis was secured with electrocautery and the wound copiously irrigated with saline. Hemostasis was verified again and then a VAC dressing was placed in the usual fashion over the ulcer for negative-pressure wound management in the postoperative period. Patient was then transferred to the post anesthesia care unit in stable condition awake and alert. ESTIMATED BLOOD LOSS: 30 mL. REPLACEMENTS: Crystalloid. DRAINS: None. SPECIMENS: Nonviable skin, subcutaneous fat, and muscle to Pathology. I, Yoseph Robles, was physically present in the operating room from the time the patient was placed on the operating room table until she was transferred to the post anesthesia care unit in [place]. MD YOHAN Zheng/[id number]
== END 2019-03-18 20:40 | DRG 853 ==
LOC: JER 15:14 → SUPCPDRO 15:14 → JERBED 20:30 → J6S 03-08 11:53
PROVIDERS: ADMIT Internal Medicine; ATTEND Internal Medicine
PROC: 0JB70ZZ Excision of Back Subcutaneous Tissue and Fascia, Open Approach (ICD-10-PCS; principal; 2019-03-11)
DX: A41.9 Sepsis, unspecified organism (principal); L89.153 Pressure ulcer of sacral region, stage 3; L89.313 Pressure ulcer of right buttock, stage 3; J18.9 Pneumonia, unspecified organism; I50.33 Acute on chronic diastolic (congestive) heart failure; N17.9 Acute kidney failure, unspecified; Q61.02 Congenital multiple renal cysts; I13.0 Hypertensive heart and chronic kidney disease with heart failure and stage 1 through stage 4 chronic kidney disease, or unspecified chronic kidney disease; D61.818 Other pancytopenia; E46 Unspecified protein-calorie malnutrition; E11.9 Type 2 diabetes mellitus without complications; E78.5 Hyperlipidemia, unspecified; E87.6 Hypokalemia; R65.20 Severe sepsis without septic shock; N18.9 Chronic kidney disease, unspecified; D72.819 Decreased white blood cell count, unspecified; M06.9 Rheumatoid arthritis, unspecified; D64.9 Anemia, unspecified; I35.0 Nonrheumatic aortic (valve) stenosis; I27.20 Pulmonary hypertension, unspecified; R19.7 Diarrhea, unspecified; Z88.1 Allergy status to other antibiotic agents; Z68.23 Body mass index [BMI] 23.0-23.9, adult
CPT/HCPCS: 36415; 71045-TC-FY; 71250-TC; 72195-TC; 74176-TC; 76775-TC; 80048; 80053; 80074; 81003; 82272; 82550; 82607; 82728; 82746; 82803; 82962; 83540; 83550; 83605; 83735; 83880; 84100; 84443; 84484; 85025; 85027; 85610; 85651; 85730; 86140; 86593; 87040; 87070; 87077; 87086; 87186; 87205; 88304-TC; 93005; 93010; 93306-TC; 93971-TC; 94760; 99285-25; J0131; J1644; J1756; J7030

== ENCOUNTER 2019-04-05 12:45 | Inpatient (IN) | payer OTHER, BC ==
[2019-04-05 13:22] VITALS: BMI 28.1
--- NOTE | 2019-04-05 13:24 | PDOC ---
History of Present Illness - General Chief Complaint: Revisit, Lab Variance Stated Complaint: ABNORMAL EKG Time Seen by Provider: 04/05/19 13:22 History Source: Patient Exam Limitations: No Limitations - History of Present Illness Initial Comments: 04/05/19 13:23 Source: Sister, Diamond Segundo [phone]. Patient minimally verbal, demented. PCP: Dr. Romero. Sent from [facility] by Dr. Allen HPI: 73yo F PMH IDDM, HTN, HLD, CHF, chronic leukopenia, CKD (GFR <30), sacral decubitus ulers, anemia (baseline Hgb 7s), rheumatoid arthritis sent in from [facility] with EKG changes (Afib with RVR) on 03/30/2019. No history of Afib, patient not on AC, allergic to aspirin. Patient nonverbal "doesn't talk much" according to sister at bedside who referred me to the chart for further history. Denies any changes noticed in her sister. States that she was told there were EKG changes and she would be sent to [place] for evaluation. Patient recently discharge from [place] 03/18/2019 for acute on chronic CHF. Recently Influenza A positive, Friday was last dose of Tamiflu. No known history of GIB, ACS, vascular disease, stroke. All: Amoxicillin, aspirin, ibuprofen, metformin Meds: Per chart PMH: As above PSH: Per chart 04/05/19 14:23 - Documentation from [facility] shows Levofloxacin 500 mg prescribed 04/05/2019 for 7 days - Per [facility] Nurse: ABX Levofloxacin one time today, Flu A positive (on 03/29), Tamiflu 75 mg once, 30 mg 5 times - Over the weekend: Afebrile, poor PO intermittently - holding in mouth not eating yesterday. On Puree diet. - CXR today with LLL infiltrate Past History - Travel Traveled outside of the country in the last 30 days: No Close contact w/someone who was outside of country & ill: No - Past Medical History Allergies/Adverse Reactions: Allergies Allergy/AdvReac Type Severity Reaction Status Date / Time peach Allergy Severe Vomiting Verified 04/05/19 12:48 amoxicillin trihydrate Allergy Verified 04/05/19 12:48 [From Augmentin] aspirin Allergy Verified 04/05/19 12:48 ibuprofen [From Motrin] Allergy Verified 04/05/19 12:48 metformin HCl Allergy Verified 04/05/19 12:48 [From Glucophage] potassium clavulanate Allergy Verified 04/05/19 12:48 [From Augmentin] Home Medications: Ambulatory Orders Atorvastatin Ca [Lipitor] 20 mg PO HS #30 tablet 01/07/17 Hydralazine HCl 25 mg PO DAILY 03/07/19 Metoprolol Succinate [Toprol Xl] 100 mg PO DAILY 03/07/19 Omeprazole 20 mg PO DAILY 03/07/19 Docusate Sodium [Colace -] 100 mg PO Q12H PRN capsule 03/18/19 Ferrous Sulfate [Feosol] 325 mg PO DAILY ud 03/18/19 Furosemide [Lasix -] 20 mg PO DAILY 30 Days #60 tablet 03/18/19 Losartan Potassium [Cozaar -] 50 mg PO DAILY 30 Days #30 tablet 03/18/19 hydrALAZINE HCL [Apresoline -] 25 mg PO BID 30 Days #60 tablet 03/18/19 Anemia: No Asthma: Yes Cancer: No Cardiac Disorders: No CVA: No COPD: No CHF: No Dementia: No Diabetes: Yes GI Disorders: Yes (Hpylori) Disorders: No HTN: Yes Hypercholesterolemia: No Liver Disease: No Seizures: No Thyroid Disease: No - Surgical History Abdominal Surgery: Yes Appendectomy: Yes Cardiac Surgery: No Cholecystectomy: No Lung Surgery: No Neurologic Surgery: No - Immunization History Immunization Up to Date: Yes - Psycho Social/Smoking Cessation Hx Smoking Status: No Smoking History: Never smoked Have you smoked in the past 12 months: No Number of Cigarettes Smoked Daily: 0 Information on smoking cessation initiated: No Hx Alcohol Use: No Drug/Substance Use Hx: No Substance Use Type: None Hx Substance Use Treatment: No Review of Systems - Review of Systems Able to Perform ROS?: No (dementia) Is the patient limited Swedish proficient: No *Physical Exam - Vital Signs Last Vital Signs Temp Pulse Resp BP Pulse Ox 97.3 F L 80 16 171/90 H 98 04/05/19 13:03 04/05/19 13:03 04/05/19 13:03 04/05/19 13:03 04/05/19 13:03 - Physical Exam 04/05/19 13:57 Vitals reviewed, AF, hypertensive to 171/90 GEN: Elderly, appears stated age, NAD, comfortable. AAOx3. HEENT: NCAT, EOMI, PERRL. Sclera anicteric, non-injected. No facial asymmetry. Moist mucous membranes. Trachea midline. CV: RRR, S1/S2, no murmurs / rubs / gallops appreciated. LUNG: +Crackles bilaterally reduced LLL sounds, normal work of breathing. No wheezes. +non-productive cough. GI: Soft, NTND, +BS, no guarding, no rebound. No masses. Neg CVAT b/l. EXTREMITIES: 2+ distal pulses. + bilateral LE pitting edema to the knee. No obvious deformities of all extremities. SKIN: Warm, dry, no rashes appreciated, non-jaundiced. PSYCH: Nonverbal. Cooperative and appropriate. NEURO: CN grossly intact. Moving all extremities well. Normal strength and sensation grossly. ED Treatment Course - LABORATORY CBC & Chemistry Diagram: 04/05/19 13:55 04/05/19 13:55 Medical Decision Making - Medical Decision Making 04/05/19 14:00 73yo F PMH IDDM, HTN, HLD, CHF, chronic leukopenia, CKD (GFR <30), sacral decubitus ulers, anemia (baseline Hgb 7s), rheumatoid arthritis sent in from [facility] with EKG changes (Afib with RVR) on 03/30/2019. Patient with EKG demonstrating AFib with RVR on 03/30/2019, recent influenza, cough in department today - non-productivem crackles, +LE edema bilaterally. DDX: New onset paroxysmal Afib. Will search for infection, ACS, PNA, CHF exacerbation, thyroid alterations, new anemia. Patient without known history of GIB, stroke. CHADSVASC2 5 (Age, Sex, CHF, HTN), ATRIA Bleeding Risk Score 9 (age, anemia, HTN , CKD). Patient <80yo, >60kg, meets criteria Cr >1.5, not meeting half-dose Eliquis criteria. Allergic to Aspirin. No known history of GIB, ACS, vascular disease, stroke. - CBC, CMP, BNP, TSH, Coags - EKG, CXR 04/05/19 14:35 - Concern for PNA, started on levofloxacin at [facility], s/p 1 dose - CXR today with LLL infiltrate - Flu A positive on 03/29, s/p 6 doses tamiflu 04/05/19 14:54 - No leukocytosis - Anemia, improved from baseline prior visit - Coags wnl - Cr increased from baseline, 1.9 to 2.5 04/05/19 15:12 - BNP 92,378 - elevated significantly from prior visits Dispo: Admit, PNA in setting of influenza, CHF exacerbation, acute on chronic CKD 04/05/19 15:54 - POCUS with marked LVH, dilated L atrium, moderately reduced left ventricular contractility, no pericardial effusion - L sided pleural effusion with likely consolidation, +air bronchograms, bilateral anterior B lines - IVC a technically limited exam, appears collapsed suggesting intravascular volume depletion 04/05/19 16:03 - Xray with bilateral fluid, questionable LLL infiltrate c/w outside xray - EKbpm, afib with RVR, right axis deviation, QTc 505, no ST elevations, T inversions in II, aVF, V3-V6, new from Mar 07 EKG, present on Mar 30 EKG sent with patient - UA collected, pending - Troponin 0.24, will trend, repeat EKG 04/05/19 16:44 - Vanc / Gabriel for abx coverage 04/05/19 16:59 - Dr. Sam, cardiology, states that we cannot initiate anticoagulation for her new onset Afib in setting of her chronic anemia with unknown source and multiple medical comorbidities. - FOBT Negative on 03/07. 04/05/19 17:18 - Blood cultures and repeat troponin drawn, sent - EKG added on Dispo: Admit Tele Discharge - Discharge Information Problems reviewed: Yes Clinical Impression/Diagnosis: Pneumonia and influenza Condition: Guarded - Admission Yes - Follow up/Referral Referrals: Ty Romero MD [Primary Care Provider] - - Patient Discharge Instructions - Post Discharge Activity
[2019-04-05 14:09] LABS: BASO % 0.2 % (0-2.0); EOS % 0.1 % (0-4.5); HEMATOCRIT 26.4 % (32.4-45.2); HEMOGLOBIN 8.6 GM/dL (10.7-15.3); LYMPH % 14.2 % (8-40); MCH 27.6 pg (25.7-33.7); MCHC 32.7 g/dl (32.0-36.0); MEAN CELL VOLUME 84.3 fl (80-96); MONO % 3.7 % (3.8-10.2); NEUT % 81.8 % (42.8-82.8); PLATELET COUNT 147 K/MM3 (134-434); RBC 3.13 M/mm3 (3.60-5.2); RDW 23.7 % (11.6-15.6); WHITE BLOOD COUNT 5.8 K/mm3 (4.0-10.0)
[2019-04-05 14:17] LABS: INR 1.04 (0.83-1.09); PROTHROMBIN TIME (PATIENT) 12.3 SEC (9.7-13.0)
[2019-04-05 14:44] LABS: ALBUMIN 1.4 g/dl (3.4-5.0); BILIRUBIN,TOTAL 0.3 mg/dL (0.2-1); BLOOD UREA NITROGEN 68.2 mg/dL (7-18); CREATININE 2.5 mg/dL (0.55-1.3); POTASSIUM 3.1 mmol/L (3.5-5.1); TOT PROT 5.5 g/dl (6.4-8.2)
[2019-04-05 14:55] LABS: N-TERMINAL BNP 92378.65 pg/ml (5-450)
[2019-04-05 15:26] LABS: ANISOCYTOSIS 2+; MACROCYTOSIS 0; PLATELET ESTIMATE DECREASED; TARGET CELLS 1+
[2019-04-05 16:30] LABS: HYALINE CASTS 17 /lpf (0-8); URINE APPEARANCE CLEAR; URINE BACTERIA 0.3 /hpf (NEGATIVE); URINE BILIRUBIN NEGATIVE (NEGATIVE); URINE COLOR YELLOW; URINE GLUCOSE (UA) NEGATIVE (NEGATIVE); URINE KETONE TRACE (NEGATIVE); URINE LEUK ESTERASE NEGATIVE (NEGATIVE); URINE NITRITE NEGATIVE (NEGATIVE); URINE PROTEIN 3+ (NEGATIVE); URINE RBC 5 /hpf (0-4); URINE UROBILINOGEN 0.2 mg/dL (0.2-1.0); URINE WBC 3 /hpf (0-5)
--- NOTE | 2019-04-05 16:35 | PDOC ---
Documentation entered by Nasrin Cormier SCRIBE, acting as scribe for Deya Lamas MD. Deya Lamas MD: This documentation has been prepared by the Genia lees Brenda, SCRIBE, under my direction and personally reviewed by me in its entirety. I confirm that the documentation accurately reflects all work, treatment, procedures, and medical decision making performed by me. Attending Attestation - Resident Resident Name: Jeevan Martinez - ED Attending Attestation I have performed the following: I have examined & evaluated the patient, The case was reviewed & discussed with the resident, I agree w/resident's findings & plan, Exceptions are as noted - HPI HPI: 04/05/19 14:50 The patient is a 73 year old male female with a significant PMH of IDDM, HTN, HLD, CHF, chronic leukopenia, CKD (GFR <30), sacral decubitus ulers, anemia ( baseline Hgb 7s), rheumatoid arthritis who presents to the ED, sent by [facility] for evaluation of EKG changes (Afib with RVR) since 03/30/19 and pneumonia. Patient History was obtained by sister on the bedside. Patient was noted to be Flu A+ on 03/29/19 and stopped Tamiflu on 04/03/19. Patient was given levofloxin due to concern for pneumonia and was sent to ER after Xray abnormalities. The patient denies chest pain, shortness of breath, headache and dizziness. Denies fever, chills, nausea, vomiting, diarrhea and constipation. Denies urinary symptoms. Social history: No reported hx of tobacco use, alcohol use or illicit drug use. Allergies: View EMR PCP: Heather - Physicial Exam PE: 04/05/19 16:29 awake alert lungs crackles at base. heart systolic murmur. abd soft nt nd ext wwp bilat pitting edema. 3+ to mid king. nuero pt eyes open ,nods head when asked questions, nonverbal ( baseline) - Medical Decision Making 04/05/19 16:30 73 yo F h/o afib, htn hld, ckd here with sent her from [facility] for ekg changes, and concerns for infiltrate on recent CXR. per report she positive flu test 12/05 new TWI v4 - v5. on my exam crackles at lung bases, murmur 2/6 systolic, afib ( new ) plan r/o infection mi chf hyper hypothyroid, infection such as uti or pna. plan cxr labs ekg trop trop positive, bnp 92,000 SAL 2.4 ( has had in past but up from recnt, ) hypernatremia. was given levqauin at facility will add coverage for HCAP. admit to telemetry. Heart Score/ECG Review #1 General ECG Interpretation: Normal Rate, Normal Intervals (afib, rate 111, TWI V4 - 46)
[2019-04-05] MEDS ORDERED: VANCOMYCIN 1 GM in D5W (PRE-DOCKED) 1,000 MG/250 ML IVPB ONE (16:38)
[2019-04-05] MEDS ORDERED: MEROPENEM 1 GM in DEXTROSE 5%-WATER 100 ML IVPB ONE (16:40)
[2019-04-05] MEDS ORDERED: MEROPENEM 1 GM VIAL (RESTRICTED TO ID) IVPB ONE (17:19)
[2019-04-05] MEDS ORDERED: VANCOMYCIN 1 GRAM (PRE-DOCKED) 1,000 MG/250 ML BAG IVPB ONE (17:20)
[2019-04-05] MEDS ORDERED: DOCUSATE SODIUM 100 MG CAPSULE (FP) PO PRN (17:47)
[2019-04-05] MEDS ORDERED: POTASSIUM CHLORIDE 20 MEQ PREMIX IVPB 100 ML IVPB ONE (17:52)
[2019-04-05] MEDS ORDERED: DEXTROSE 5%-WATER - 1,000 ML IV SCH (18:00)
[2019-04-05] MEDS ORDERED: KCL 10 MEQ IVPB 10 MEQ/100 ML INFUS.BAG IVPB ONE ×2 (18:30→20:37)
[2019-04-05] MEDS: KCL 10 MEQ IVPB 10 MEQ/100 ML INFUS.BAG IVPB SCH ×4 (18:42→22:40)
--- NOTE | 2019-04-05 19:40 | HP ---
Admitting History and Physical - Primary Care Physician PCP: Ty Romero - Admission History of Present Illness: This is a 73 y/o woman from [facility] with a PMHx of IDDM, HTN, HLD, CHF, Chronic Leukopenia, CKD (GFR <30), Sacral Decubitus Ulcers, Anemia (baseline Hgb 7s), RA, last admission Feb 2019 CHF Exacerbation. Who presents to the ED for EKG changes (Afib with RVR) on 03/30/2019. Patient is non-verbal at baseline unable to provide HPI. Per ED records: No history of Afib, patient not on AC, allergic to aspirin. Patient nonverbal "doesn't talk much" according to sister at bedside who referred me to the chart for further history. Denies any changes noticed in her sister. States that she was told there were EKG changes and she would be sent to [place] for evaluation. Patient recently discharge from [place] 2019 for acute on chronic CHF. Recently Influenza A positive, Friday was last dose of Tamiflu. No known history of GIB, ACS, vascular disease, stroke. ED course was noted for: (1) Chest Xray- LLL Infiltrate, L- Pleural Effusion (2) BNP 92,000 (3) Troponin 0.24 (4) EKG- Afib with RVR, nonspecific T wave abnormality (5) Na 150 (6) BUN 68, Cr 2.5 History Source: Family Member, Medical Record, Transfer Record Limitations to Obtaining History: Clinical Condition - Past Medical History Cardiovascular: Yes: CHF, HTN, Hyperlipdemia, Other (Heart murmur) Renal/: Yes: Renal Failure (CKD) Heme/Onc: Yes: Anemia, Other (chronic leukopenia) Rheumatology: Yes: Rheumatoid Arthritis Endocrine: Yes: Diabetes Mellitus - Smoking History Smoking history: Never smoked Have you smoked in the past 12 months: No Aproximately how many cigarettes per day: 0 - Alcohol/Substance Use Hx Alcohol Use: No History of Substance Use: reports: None - Social History Usual Living Arrangement: Yes: Assisted ADL: Family Assistance History of Recent Travel: No Home Medications - Allergies Allergies/Adverse Reactions: Allergies Allergy/AdvReac Type Severity Reaction Status Date / Time peach Allergy Severe Vomiting Verified 04/05/19 12:48 amoxicillin trihydrate Allergy Verified 04/05/19 12:48 [From Augmentin] aspirin Allergy Verified 04/05/19 12:48 ibuprofen [From Motrin] Allergy Verified 04/05/19 12:48 metformin HCl Allergy Verified 04/05/19 12:48 [From Glucophage] potassium clavulanate Allergy Verified 04/05/19 12:48 [From Augmentin] - Home Medications Home Medications: Ambulatory Orders Atorvastatin Ca [Lipitor] 20 mg PO HS #30 tablet 01/07/17 Hydralazine HCl 25 mg PO DAILY 03/07/19 Metoprolol Succinate [Toprol Xl] 100 mg PO DAILY 03/07/19 Omeprazole 20 mg PO DAILY 03/07/19 Docusate Sodium [Colace -] 100 mg PO Q12H PRN capsule 03/18/19 Ferrous Sulfate [Feosol] 325 mg PO DAILY ud 03/18/19 Furosemide [Lasix -] 20 mg PO DAILY 30 Days #60 tablet 03/18/19 Losartan Potassium [Cozaar -] 50 mg PO DAILY 30 Days #30 tablet 03/18/19 hydrALAZINE HCL [Apresoline -] 25 mg PO BID 30 Days #60 tablet 03/18/19 Family Medical History Family History: Unable to Obtain Review of Systems Unable to obtain ROS, reason: Clinical Condition Physical Examination Vital Signs: Vital Signs Temperature 97.3 F L 04/05/19 13:03 Pulse Rate 80 04/05/19 13:03 Respiratory Rate 18 04/05/19 17:00 Blood Pressure 171/90 H 04/05/19 13:03 O2 Sat by Pulse Oximetry (%) 98 04/05/19 17:00 Constitutional: Yes: No Distress, Calm Eyes: Yes: Conjunctiva Clear, PERRL HENT: Yes: WNL, Atraumatic, Normocephalic Neck: Yes: WNL, Supple, Trachea Midline Cardiovascular: Yes: Tachycardia, Pulse Irregular, S1, S2 Respiratory: Yes: Cough, Diminished (l) Gastrointestinal: Yes: Normal Bowel Sounds, Soft Renal/: Yes: Incontinence Breast(s): Yes: WNL Musculoskeletal: Yes: WNL Extremities: Yes: WNL Edema: Yes Edema: LLE: 2+ (left foot), RLE: 2+ (right foot) Peripheral Pulses WNL: Yes Integumentary: Yes: Pressure Ulcer (sacral) Neurological: Yes: Alert, Other (non-verbal, nodds her head, track with her eyes - at baseline) ...Motor Strength: WNL Psychiatric: Yes: Alert Labs: CBC, BMP 04/05/19 13:55 04/05/19 13:55 Laboratory Results - last 24 hr 04/05/19 04/05/19 04/05/19 13:55 13:55 13:55 WBC 5.8 RBC 3.13 L Hgb 8.6 L Hct 26.4 L MCV 84.3 MCH 27.6 MCHC 32.7 RDW 23.7 H Plt Count 147 MPV 10.0 Absolute Neuts (auto) 4.7 Neutrophils % 81.8 D Lymphocytes % 14.2 D Monocytes % 3.7 L Eosinophils % 0.1 D Basophils % 0.2 Nucleated RBC % 0 Hypochromia 0 Platelet Estimate Decreased Platelet Comment Present Polychromasia 1+ Poikilocytosis 0 Anisocytosis 2+ Microcytosis 1+ Macrocytosis 0 Target Cells 1+ Fragmented RBCs 1+ PT with INR 12.30 INR 1.04 Sodium 150 H Potassium 3.1 L Chloride 116 H Carbon Dioxide 22 Anion Gap 12 BUN 68.2 H Creatinine 2.5 H Est GFR (CKD-EPI)AfAm 21.08 Est GFR (CKD-EPI)NonAf 18.19 Random Glucose 204 H Calcium 8.0 L Total Bilirubin 0.3 AST 18 ALT 7 L Alkaline Phosphatase 133 H Creatine Kinase 24 L Troponin I 0.24 H B-Natriuretic Peptide 81321.65 H Total Protein 5.5 L Albumin 1.4 L TSH 1.08 Urine Color Urine Appearance Urine pH Ur Specific [place] Urine Protein Urine Glucose (UA) Urine Ketones Urine Blood Urine Nitrite Urine Bilirubin Urine Urobilinogen Ur Leukocyte Esterase Urine WBC (Auto) Urine RBC (Auto) Urine Casts (Auto) U Pathogenic Cast Auto U Epithel Cells (Auto) Urine Bacteria (Auto) 04/05/19 04/05/19 16:00 17:00 WBC RBC Hgb Hct MCV MCH MCHC RDW Plt Count MPV Absolute Neuts (auto) Neutrophils % Lymphocytes % Monocytes % Eosinophils % Basophils % Nucleated RBC % Hypochromia Platelet Estimate Platelet Comment Polychromasia Poikilocytosis Anisocytosis Microcytosis Macrocytosis Target Cells Fragmented RBCs PT with INR INR Sodium Potassium Chloride Carbon Dioxide Anion Gap BUN Creatinine Est GFR (CKD-EPI)AfAm Est GFR (CKD-EPI)NonAf Random Glucose Calcium Total Bilirubin AST ALT Alkaline Phosphatase Creatine Kinase Troponin I 0.19 H B-Natriuretic Peptide Total Protein Albumin TSH Urine Color Yellow Urine Appearance Clear Urine pH 5.0 Ur Specific [place] 1.020 Urine Protein 3+ H Urine Glucose (UA) Negative Urine Ketones Trace H Urine Blood Negative Urine Nitrite Negative Urine Bilirubin Negative Urine Urobilinogen 0.2 Ur Leukocyte Esterase Negative Urine WBC (Auto) 3 Urine RBC (Auto) 5 Urine Casts (Auto) 17 U Pathogenic Cast Auto None U Epithel Cells (Auto) 3.0 Urine Bacteria (Auto) 0.3 Intake & Output 04/02/19 04/03/19 04/04/19 04/05/19 23:59 23:59 23:59 23:59 Output Total 300 Balance -300 Weight 83.915 kg Current Medications Generic Name Dose Route Start Last Admin Trade Name Freq PRN Reason Stop Dose Admin Atorvastatin Calcium 20 mg 04/05/19 22:00 Lipitor - PO HS ANGELLA Docusate Sodium 100 mg 04/05/19 17:47 Colace - PO Q12H PRN CONSTIPATION Ferrous Sulfate 325 mg 04/06/19 10:00 Feosol - PO DAILY ANGELLA Heparin Sodium (Porcine) 5,000 unit 04/05/19 22:00 Heparin - SQ BID ANGELLA Hydralazine HCl 25 mg 04/05/19 22:00 Apresoline - PO BID ANGELLA Dextrose 1,000 mls @ 42 mls/hr 04/05/19 18:00 D5w - IV .[id number] ANGELLA Potassium Chloride 10 meq in 100 mls @ 100 mls/hr 04/05/19 18:15 04/05/19 18: 42 Potassium Chloride 10 Meq Premix Ivpb - IVPB 04/05/19 22:14 100 mls/hr Q1H ANGELLA Administration Losartan Potassium 50 mg 04/06/19 10:00 Cozaar - PO DAILY ANGELLA Metoprolol Succinate 100 mg 04/06/19 10:00 Toprol Xl - PO DAILY ANGELLA Pantoprazole Sodium 20 mg 04/06/19 10:00 Protonix - PO DAILY ANGELLA Imaging - Results Chest X-ray: Report Reviewed, Image Reviewed EKG: Image Reviewed Problem List - Problems (1) NSTEMI (non-ST elevated myocardial infarction) Assessment/Plan: Likely due to demand ischemia Cardiology notified per ED resident- Dr Rios recommended no AC EKG- Afib with RVR, nonspecific Twave abnormality Serial Enzymes Continue cardiac monitoring Check Mg, Phos Echo in am Patient has Asa allergy Lipitor, Plavix given in ED, continue Code(s): I21.4 - NON-ST ELEVATION (NSTEMI) MYOCARDIAL INFARCTION (2) Pneumonia and influenza Assessment/Plan: [id number] 3 Blood Cultures- pending Urine Culture- pending Urine Legionella Vancomycin , Meropenem given in ED, will continue renal dosing Appreciate ID consult Isolation precautions- droplet Monitor CBC, BMP Monitor vitals Ofirmev prn Code(s): J11.00 - FLU DUE TO UNIDENTIFIED FLU VIRUS W UNSP TYPE OF PNEUMONIA (3) CHF exacerbation Assessment/Plan: BNP 92,000 Chest Xray- L- pleural effusion Appreciate Cardiology consult Continue Lasix Strict INOs Daily weights Echo Code(s): I50.9 - HEART FAILURE, UNSPECIFIED Qualifiers: Heart failure type: diastolic Qualified Code(s): I50.33 - Acute on chronic diastolic (congestive) heart failure (4) UTI (urinary tract infection) Assessment/Plan: Urine culture-pending Continue Meropenem Monitor CBC Monitor vitals Code(s): N39.0 - URINARY TRACT INFECTION, SITE NOT SPECIFIED Qualifiers: Urinary tract infection type: acute cystitis Hematuria presence: without hematuria Qualified Code(s): N30.00 - Acute cystitis without hematuria (5) Hypokalemia Assessment/Plan: K 3.1 K riders ordered Repeat BMP in am EKG- Afib with RVR Code(s): E87.6 - HYPOKALEMIA (6) Anemia Assessment/Plan: stable Hgb 8.6, at baseline Will transfuse if Hgb < 7.0 Monitor CBC Code(s): D64.9 - ANEMIA, UNSPECIFIED (7) CKD (chronic kidney disease) Assessment/Plan: Cr 2.5, at baseline Appreciate Nephrology consult Avoid Nephrotoxic drugs Monitor BMP Code(s): N18.9 - CHRONIC KIDNEY DISEASE, UNSPECIFIED (8) HTN (hypertension) Assessment/Plan: sub optimal Monitor BP Continue home meds with parameters Monitor renal function Code(s): I10 - ESSENTIAL (PRIMARY) HYPERTENSION (9) Hypercholesterolemia Assessment/Plan: stable Continue home med Code(s): E78.00 - PURE HYPERCHOLESTEROLEMIA, UNSPECIFIED (10) Leukopenia Assessment/Plan: stable WBC 5.3 Monitor CBC Code(s): D72.819 - DECREASED WHITE BLOOD CELL COUNT, UNSPECIFIED (11) Rheumatoid arthritis Assessment/Plan: stable Tylenol prn Code(s): M06.9 - RHEUMATOID ARTHRITIS, UNSPECIFIED Assessment/Plan This is a 73 y/o woman from [facility] with a PMHx of HTN, HLD, CHF, CKD, Anemia, Chronic Leukopena, RA, Sacral Decubitus. Admitted to Telemetry for NSTEMI, Pneumonia, Influenza, Acute on Chronic CKD for further evaluation of their emergent condition. Plan: See Problem List FEN Fluid Restriction 1L Replete lytes prn NPO DVT ppx OOB SCDs Heparin SQ Code Status: Full Code Dispo: Requires Inpatient Care Visit type - Emergency Visit Emergency Visit: Yes ED Registration Date: 04/05/19 Care time: The patient presented to the Emergency Department on the above date and was hospitalized for further evaluation of their emergent condition. - New Patient This patient is new to me today: Yes Date on this admission: 04/05/19 - Critical Care Critical Care patient: No
[2019-04-05] MEDS ORDERED: hydrALAZINE HCL 25 MG TABLET (FP) ONE (20:37)
[2019-04-05] MEDS ORDERED: ATORVASTATIN CA 20 MG TABLET (FP) ONE (20:37)
[2019-04-05] MEDS ORDERED: HEPARIN NA (PORCINE) 5,000 UNITS/ML 1ML VIAL ONE (20:37)
[2019-04-05] MEDS: hydrALAZINE HCL 25 MG TABLET (FP) PO SCH (21:03)
[2019-04-05] MEDS: ATORVASTATIN CA 20 MG TABLET (FP) PO SCH (21:03)
[2019-04-05] MEDS: HEPARIN NA (PORCINE) 5,000 UNITS/ML 1ML VIAL SQ SCH (21:03)
[2019-04-05] MEDS ORDERED: KCL 10 MEQ IVPB 20 MEQ/200 ML INFUS.BAG IVPB ONE (21:23)
[2019-04-06] MEDS: DEXTROSE 5%-WATER - 1,000 ML IV SCH (03:10)
[2019-04-06 07:42] LABS: BASO % 0.3 % (0-2.0); EOS % 0.2 % (0-4.5); HEMATOCRIT 25.8 % (32.4-45.2); HEMOGLOBIN 8.5 GM/dL (10.7-15.3); LYMPH % 17.9 % (8-40); MCH 27.7 pg (25.7-33.7); MEAN CELL VOLUME 83.9 fl (80-96); MONO % 5.3 % (3.8-10.2); NEUT % 76.3 % (42.8-82.8); PLATELET COUNT 146 K/MM3 (134-434); RBC 3.07 M/mm3 (3.60-5.2); RDW 24.5 % (11.6-15.6); WHITE BLOOD COUNT 4.9 K/mm3 (4.0-10.0)
[2019-04-06 07:57] LABS: INR 1.04 (0.83-1.09); PROTHROMBIN TIME (PATIENT) 12.3 SEC (9.7-13.0)
[2019-04-06 08:06] LABS: ALBUMIN 1.4 g/dl (3.4-5.0); BILIRUBIN,TOTAL 0.4 mg/dL (0.2-1); BLOOD UREA NITROGEN 63.7 mg/dL (7-18); CALCIUM 7.9 mg/dL (8.5-10.1); CREATININE 2.3 mg/dL (0.55-1.3); MAGNESIUM 2.1 mg/dL (1.8-2.4); POTASSIUM 3.8 mmol/L (3.5-5.1); TOT PROT 5.5 g/dl (6.4-8.2)
--- NOTE | 2019-04-06 08:19 | CON.CARD ---
Cardiology Consult (text) - Consultation Consultation Note: Chief Complaint: Events noted, notes reviewed, non verbal, no distress, patient clinically appears to be hypovolemic with Hypernatremia, elevated BNP is related to severe diastolic LV dysfunction with moderate MR/moderate and severe pulmonary HTN, elevated Troponin I is related to demand ischemia- no evidence NSTEMI, rhythm was interpreted as atrial fibrillation but upon review it is consistent with MAT History of Present Illness: Seen and examined on telemetry. Full consult dictated Echocardiography dated 03/10/2019 revealed severe cLVH, hyperdynamic LV function , grade III restrictive pattern, c/w markedly increased LA pressure, mod MR, severe pulm HTN, mod /MG 21 mmHg with CONRAD 1.0 cm^2 Medications: Current Medications Atorvastatin Calcium (Lipitor -) 20 mg PO HS [facility] Last Admin: 04/05/19 21:03 Dose: 20 mg Docusate Sodium (Colace -) 100 mg PO Q12H PRN PRN Reason: CONSTIPATION Ferrous Sulfate (Feosol -) 325 mg PO DAILY [facility] Heparin Sodium (Porcine) (Heparin -) 5,000 unit SQ BID [facility] Last Admin: 04/05/19 21:03 Dose: 5,000 unit Hydralazine HCl (Apresoline -) 25 mg PO BID [facility] Last Admin: 04/05/19 21:03 Dose: 25 mg Dextrose (D5w -) 1,000 mls @ 42 mls/hr IV ASDIR [facility] Last Admin: 04/06/19 03:10 Dose: 42 mls/hr Losartan Potassium (Cozaar -) 50 mg PO DAILY [facility] Metoprolol Succinate (Toprol Xl -) 100 mg PO DAILY [facility] Pantoprazole Sodium (Protonix -) 20 mg PO DAILY [facility] Review of Systems Unable to obtain Vital Signs: Last Vital Signs Temp Pulse Resp BP Pulse Ox 98.5 F 73 18 182/81 H 97 04/06/19 06:00 04/06/19 06:00 04/06/19 06:00 04/06/19 06:00 04/06/19 01:35 Intake & Output 04/03/19 04/04/19 04/05/19 04/06/19 23:59 23:59 23:59 23:59 Output Total 300 Balance -300 Weight 185 lb Constitutional: No Distress, Calm Neck: Supple Negative JVD Respiratory: Diminished Breath Sounds Bilaterally Cardiovascular: S1 S2 Irregularly Irregular Gastrointestinal: Soft Benign Normal Bowel Sounds Ext: Trace Edema Labs: Troponin, BNP 04/05/19 04/05/19 13:55 17:00 Troponin I 0.24 H 0.19 H B-Natriuretic Peptide 79119.65 H CBC, BMP 04/06/19 06:00 04/06/19 06:00 Hepatic Panel Total Bilirubin 0.4 mg/dL (0.2-1) 04/06/19 06:00 AST 14 U/L (15-37) L 04/06/19 06:00 ALT 8 U/L (13-61) L 04/06/19 06:00 Alkaline Phosphatase 129 U/L (45-117) H 04/06/19 06:00 Albumin 1.4 g/dl (3.4-5.0) L 04/06/19 06:00 INR, PTT INR 1.04 (0.83-1.09) 04/06/19 06:00 Assessment/Plan ASSESSMENT: 1. Coronary artery disease/coronary artery calcification visual calcification on CT scan of the chest angina pectoris 2. Severe diastolic left ventricular dysfunction with elevated BNP level no clinical evidence of congestive heart failure, probably hypovolemic with Hypernatremia 3. Moderate MR 4. Moderate 5. Severe pulmonary HTN 6. MAT no evidence of atrial fibrillation 7. HTN 8. DM 9. Hypercholesterolemia 10. Acute exacerbation of CKD with 11. Hypernatremia 12. Anemia 13. Right sacral decubiti ulcer post recent debridement 14. Rheumatoid arthritis PLAN: 1. Correction of Hypernatremia as per the primary team 2. Continue Toprol XL 3. Continue Cozaar with dose titration as needed and as tolerated with close monitoring of renal function 4. Continue Hydralazine with dose titration as needed and as tolerated 5. Continue Lipitor 6. No indications for diuretic utilization at this point 7. No intervention indicated for the above noted MAT Natalia Rios MD
--- NOTE | 2019-04-06 08:30 | PN ---
Progress Note, Physician Chief Complaint: EVENTS AND NOTES REVIEWED PATIENT IN BED CONFUSED NONVERBAL SENT FROM [facility] WITH FEVER PNA AND NSTEMI. - Current Medication List Current Medications: Active Medications Atorvastatin Calcium (Lipitor -) 20 mg PO HS [facility] Last Admin: 04/05/19 21:03 Dose: 20 mg Docusate Sodium (Colace -) 100 mg PO Q12H PRN PRN Reason: CONSTIPATION Ferrous Sulfate (Feosol -) 325 mg PO DAILY [facility] Heparin Sodium (Porcine) (Heparin -) 5,000 unit SQ BID [facility] Last Admin: 04/05/19 21:03 Dose: 5,000 unit Hydralazine HCl (Apresoline -) 25 mg PO BID [facility] Last Admin: 04/05/19 21:03 Dose: 25 mg Dextrose (D5w -) 1,000 mls @ 42 mls/hr IV ASDIR [facility] Last Admin: 04/06/19 03:10 Dose: 42 mls/hr Losartan Potassium (Cozaar -) 50 mg PO DAILY [facility] Metoprolol Succinate (Toprol Xl -) 100 mg PO DAILY [facility] Pantoprazole Sodium (Protonix -) 20 mg PO DAILY [facility] - Objective Vital Signs: Vital Signs Temperature 98.5 F 04/06/19 06:00 Pulse Rate 73 04/06/19 06:00 Respiratory Rate 18 04/06/19 06:00 Blood Pressure 182/81 H 04/06/19 06:00 O2 Sat by Pulse Oximetry (%) 97 04/06/19 01:35 Constitutional: Yes: Mild Distress Cardiovascular: Yes: Regular Rate and Rhythm Respiratory: Yes: Diminished, On Nasal O2 Gastrointestinal: Yes: Soft Genitourinary: Yes: Incontinence Musculoskeletal: Yes: Muscle Weakness Peripheral Pulses WNL: Yes Integumentary: Yes: Pressure Ulcer Neurological: Yes: Pre-Existing Deficit Labs: CBC, BMP 04/06/19 06:00 04/06/19 06:00 INR, PTT INR 1.04 (0.83-1.09) 04/06/19 06:00 Problem List - Problems (1) Dementia Code(s): F03.90 - UNSPECIFIED DEMENTIA WITHOUT BEHAVIORAL DISTURBANCE (2) NSTEMI (non-ST elevated myocardial infarction) Code(s): I21.4 - NON-ST ELEVATION (NSTEMI) MYOCARDIAL INFARCTION (3) Pneumonia and influenza Code(s): J11.00 - FLU DUE TO UNIDENTIFIED FLU VIRUS W UNSP TYPE OF PNEUMONIA (4) Sacral decubitus ulcer Code(s): L89.159 - PRESSURE ULCER OF SACRAL REGION, UNSPECIFIED STAGE (5) Anemia Code(s): D64.9 - ANEMIA, UNSPECIFIED (6) CKD (chronic kidney disease) Code(s): N18.9 - CHRONIC KIDNEY DISEASE, UNSPECIFIED (7) HTN (hypertension) Code(s): I10 - ESSENTIAL (PRIMARY) HYPERTENSION Assessment/Plan IV ABX PER ID ON NEBS/ANTIVIRALS/ SPPORT. PULM EVAL APPRECIATED CARDIAC EVAL APPRECIATED NOT A CANDIDATE FOR AGGRESSIVE CARDIAC THERAPY DUE TO HER OVERALL POOR MEDICAL CONDITION AND QUALITY OF LIFE. PATIENT IS A FULL CODE AND WE WILL CONTINUE OUR WORKUP HERE AT THE HOSPITAL AND TREAT HER FOR THE INFECTIONS WITH WOUND CARE FOR SACRAL ULCER. MONITOR LABS
--- NOTE | 2019-04-06 09:17 | EKG ---
Test Reason : Blood Pressure : / mmHG Vent. Rate : 078 BPM Atrial Rate : 078 BPM P-R Int : 132 ms QRS Dur : 072 ms QT Int : 406 ms P-R-T Axes : 038 104 259 degrees QTc Int : 462 ms SINUS RHYTHM WITH PREMATURE SUPRAVENTRICULAR COMPLEXES RIGHTWARD AXIS ABNORMAL ECG WHEN COMPARED WITH ECG OF 05-APR-2019 15:57, SINUS RHYTHM HAS REPLACED ATRIAL FIBRILLATION Confirmed by Vidal Olivas MD [id number]) on 04/06/2019 9:17:30 AM Referred By: Confirmed By:Vidal Olivas MD
--- NOTE | 2019-04-06 09:19 | EKG ---
Test Reason : Blood Pressure : / mmHG Vent. Rate : 111 BPM Atrial Rate : 110 BPM P-R Int : 000 ms QRS Dur : 070 ms QT Int : 372 ms P-R-T Axes : 000 101 242 degrees QTc Int : 505 ms NORMAL SINUS RHYTHM WITH FREQUENT PREMATURE ATRIAL COMPLEXES RIGHTWARD AXIS NONSPECIFIC T WAVE ABNORMALITY ABNORMAL ECG Confirmed by Vidal Olivas MD ([id number]) on 04/06/2019 9:19:02 AM Referred By: Confirmed By:Vidal Olivas MD
--- NOTE | 2019-04-06 10:21 | CONS ---
DATE OF CONSULTATION: 04/06/2019 REQUESTED BY: Hospitalist service. CHIEF COMPLAINT: Evaluation of cardiac arrhythmia and elevated BNP. HISTORY: Patient known to our service from recent hospitalization. Nonverbal 73-year-old female of descent with known history of coronary artery disease, coronary artery calcification on CT scan of the chest, angina pectoris, advanced diastolic left ventricular dysfunction with chronic class 2 [place] [employer] classification left ventricular failure, mitral valve regurgitation moderate in severity, aortic valve stenosis moderate in severity, severe pulmonary hypertension, hypertensive cardiovascular disease, diabetes mellitus, hypercholesterolemia, chronic kidney disease, chronic anemia, sacral decubitus, and rheumatoid arthritis. Resident of an extended care facility who was transferred to [facility] Emergency Room for further evaluation of tachycardia and abnormal lab values. Patient currently is awake and alert but nonverbal. Does not appear to be in any acute distress. Patient was noted in the emergency room to have evidence of atrial fibrillation, but upon review of the EKG, there was no evidence of atrial fibrillation. Underlying rhythm was noted to be multifocal atrial tachycardia. The patient was noted to have significantly elevated BNP level. At the same time, patient was noted to have hypernatremia consistent with probable hypovolemia. Patient, as noted above, does not appear to be in any respiratory distress. PAST MEDICAL HISTORY: Coronary artery disease, coronary artery calcification, visual calcification on CT scan of the chest, angina pectoris, severe diastolic left ventricular dysfunction with chronic class 2 [place] Heart [employer] classification left ventricular failure, mitral valve regurgitation moderate in severity, aortic valve stenosis moderate in severity, severe pulmonary hypertension, hypertensive cardiovascular disease, diabetes mellitus, hypercholesterolemia, chronic kidney disease, chronic anemia, sacral decubitus post recent debridement, and rheumatoid arthritis. SOCIAL HISTORY: Residing at an extended care facility. FAMILY HISTORY: Not known. ALLERGIES: Multiple as listed. REVIEW OF SYSTEMS: Not obtainable. PHYSICAL EXAMINATION: Head and Neck: Pupils equally reactive to light and accommodation. Extraocular muscles are intact. Nonicteric sclerae. Negative JVD. No bruits appreciated. Chest: Diminished breath sounds at the bases bilaterally. Cardiovascular: S1, S2. Irregularly irregular. Grade 1/6 to 2/6 systolic ejection murmur. No clicks or gallops. Abdomen: Soft, benign. Normoactive bowel sounds. Extremities: Edema. Diminished distal pulses. No calf tenderness. DIAGNOSTIC DATA: EKG noted with multifocal atrial tachycardia and nonspecific ST segment abnormality. Troponin 0.24. Repeat 0.19. BNP 92,378. CBC revealed a hemoglobin 4.9, 8.5, platelet count 146. Basic metabolic profile revealed a sodium 146, potassium 3.8, BUN 63.7, creatinine 2.3, glucose 118. ASSESSMENT: 1. Coronary artery disease. Coronary artery calcification, visual calcification on CT scan of the chest. 2. Angina pectoris. 3. Severe diastolic left ventricular dysfunction with elevated brain natriuretic peptide level. No clinical evidence of congestive heart failure. Probably hypovolemic with hypernatremia. 4. Moderate mitral valve regurgitation. 5. Moderate aortic valve stenosis. 6. Severe pulmonary hypertension. 7. Multifocal atrial tachycardia. No evidence of atrial fibrillation. 8. Hypertensive cardiovascular disease. 9. Diabetes mellitus. 10. Hypercholesterolemia. 11. Acute exacerbation of chronic kidney disease with 12. Hypernatremia. 13. Anemia. 14. History of right sacral decubitus ulcer post recent debridement. 15. History of rheumatoid arthritis. RECOMMENDATION: 1. Correction of hypernatremia as per the primary team. 2. Continuation of Toprol XL therapy. 3. Continuation of Cozaar therapy and dose titration as needed and as tolerated with close monitoring of renal function. 4. Continuation of hydralazine therapy with dose titration as needed and as tolerated. 5. Continuation of Lipitor therapy. 6. No indication for diuretic utilization at this point for the above-noted elevated BNP values. 7. No intervention indicated for the above-noted multifocal atrial tachycardia. Thank you for the kind referral. TOMA FLOR M.D. [id number]
[2019-04-06] MEDS: hydrALAZINE HCL 25 MG TABLET (FP) PO SCH ×2 (11:14→22:08)
[2019-04-06] MEDS: LOSARTAN POTASSIUM 50 MG TABLET (FP) PO SCH (11:14)
[2019-04-06] MEDS: HEPARIN NA (PORCINE) 5,000 UNITS/ML 1ML VIAL SQ SCH ×2 (11:14→22:08)
[2019-04-06] MEDS: PANTOPRAZOLE 20 MG TABLET PO SCH (11:14)
[2019-04-06] MEDS: FERROUS SO4 325 MG TABLET (FP) PO SCH (11:14)
[2019-04-06] MEDS ORDERED: VANCOMYCIN 1 GRAM (PRE-DOCKED) 1,000 MG/250 ML BAG IVPB ONE (14:28)
--- NOTE | 2019-04-06 14:30 | PN ---
Progress Note (short form) - Note Progress Note: ID CONSULT DICTATED R/O PNEUMONIA S/P INFLUENZA AZOTEMIA PCN ALLERGY PENDING C/S EMPIRIC CEFTRIAXONE + STAT DOSE VANCOMYCIN
[2019-04-06] MEDS ORDERED: cefTRIAXone SODIUM 1 GM VIAL ONE (14:48)
[2019-04-06] MEDS ORDERED: DEXTROSE 5%-WATER - 50 ML IVPB ONE (14:48)
[2019-04-06] MEDS: CEFTRIAXONE 1 GM in DEXTROSE 5%-WATER - 50 ML IVPB SCH (14:52)
--- NOTE | 2019-04-06 15:02 | CONS ---
INFECTIOUS DISEASE CONSULTATION DATE OF CONSULTATION: DATE OF DICTATION: 04/06/2019 HISTORY: The patient is a 73-year-old female evaluated for pneumonia. History was obtained from the chart as she cannot give a history secondary to her mental status. She was recently hospitalized at [facility] in February 2019, for decompensated congestive heart failure. At the [facility], she was recently diagnosed with the flu. She received a 5-day course of Tamiflu. She is now admitted to the hospital on April 05, 2019, with a several-day history of worsening anorexia, shortness of breath, congestion, and cough. A chest x-ray revealed a left lower lobe infiltrate. She is awake, but she is not verbally responsive. She is unable to offer any additional history. No reports of high-grade fever or shaking chills, labored breathing, cough, sputum production, hemoptysis, vomiting, or grossly purulent urine. She has a history of chronic leukopenia. PAST MEDICAL HISTORY: Positive for chronic leukopenia, dementia, diabetes mellitus, hypertension, hyperlipidemia, congestive heart failure, chronic kidney disease, sacral decubitus ulcer, rheumatoid arthritis. ALLERGIES: AMOXICILLIN, ASPIRIN, IBUPROFEN, METFORMIN, AUGMENTIN. MEDICATIONS: Colace, Lasix, Lipitor, metoprolol, omeprazole, losartan, hydralazine. SOCIAL HISTORY: longterm resident. Dependent in activities of daily living. No active tobacco or alcohol use. SYSTEMS REVIEW: Neurologic: Positive for dementia. Cardiac: Negative chest pain or palpitations. Respiratory: As per HPI. Gastrointestinal: Negative vomiting or diarrhea. Genitourinary: Negative for urinary tract infection. LABORATORY DATA: White count 4.9, 76 neutrophils, 17 lymphocytes, 5 monocytes, hematocrit 25.8, platelets 146, creatinine 2.0. Urinalysis; 2 white cells. Cultures are pending. PHYSICAL EXAMINATION: General: The patient is awake. Not conversant. Vital Signs: Temperature 98.5, blood pressure 182/81, pulse 73 regular, respirations 18 per minute. HEENT: Sclerae anicteric. Heart: Sounds S1, S2. Lungs: Decreased breath sounds bilaterally. Abdomen: Soft and nontender. Extremities: Negative for edema. Positive sacral decubitus ulcer. IMPRESSION: 1. Rule out left lower lobe pneumonia. 2. Status post influenza. 3. Azotemia. 4. PENICILLIN allergy. PLAN: Await cultures. Obtain sputum culture and urine Legionella and pneumococcal antigens. Empiric antibiotic coverage in this PENICILLIN-allergic patient with azotemia with ceftriaxone and vancomycin adjusted for renal failure. Further recommendations pending culture results. We will follow. Thank you for the kind referral. ROSIO ALVARADO M.D. ELIAS/[id number]
[2019-04-06] MEDS ORDERED: FUROSEMIDE 40 MG TABLET (FP) PO ONE (15:29)
[2019-04-06] MEDS ORDERED: POTASSIUM CHLORIDE TABS 20 MEQ TABLET.ER (FP) PO ONE (15:29)
--- NOTE | 2019-04-06 15:29 | CONSULT ---
Consult Consult Specialty:: Nephrology Reason for Consultation:: hypernatremia - History of Present Illness Chief Complaint: sent in for a-fib History of Present Illness: Pt is a 73 year old female with pmhx of dm, htn, hld, chf, ckd, leukopenia, sacral decub and anemia who was sent in for new onset a-fib. She was found to be hypernatremic. She denies shortness of breath. She is not very interactive. She is known to me from previous admissions. - History Source History Provided By: Patient, Medical Record - Past Medical History Cardio/Vascular: Yes: CHF, HTN, Hyperlipdemia, Other (Heart murmur) Renal/: Yes: Renal Failure (CKD) Rheumatology: Yes: Rheumatoid Arthritis Endocrine: Yes: Diabetes Mellitus - Alcohol/Substance Use Hx Alcohol Use: No History of Substance Use: reports: None - Smoking History Smoking history: Never smoked Have you smoked in the past 12 months: No Aproximately how many cigarettes per day: 0 - Social History Usual Living Arrangement: Alone ADL: Family Assistance History of Recent Travel: No Home Medications - Allergies Allergies/Adverse Reactions: Allergies Allergy/AdvReac Type Severity Reaction Status Date / Time peach Allergy Severe Vomiting Verified 04/05/19 12:48 amoxicillin trihydrate Allergy Verified 04/05/19 12:48 [From Augmentin] aspirin Allergy Verified 04/05/19 12:48 ibuprofen [From Motrin] Allergy Verified 04/05/19 12:48 metformin HCl Allergy Verified 04/05/19 12:48 [From Glucophage] potassium clavulanate Allergy Verified 04/05/19 12:48 [From Augmentin] - Home Medications Home Medications: Ambulatory Orders Atorvastatin Ca [Lipitor] 20 mg PO HS #30 tablet 01/07/17 Hydralazine HCl 25 mg PO DAILY 03/07/19 Metoprolol Succinate [Toprol Xl] 100 mg PO DAILY 03/07/19 Omeprazole 20 mg PO DAILY 03/07/19 Docusate Sodium [Colace -] 100 mg PO Q12H PRN capsule 03/18/19 Ferrous Sulfate [Feosol] 325 mg PO DAILY ud 03/18/19 Furosemide [Lasix -] 20 mg PO DAILY 30 Days #60 tablet 03/18/19 Losartan Potassium [Cozaar -] 50 mg PO DAILY 30 Days #30 tablet 03/18/19 hydrALAZINE HCL [Apresoline -] 25 mg PO BID 30 Days #60 tablet 03/18/19 Family Medical History Family History: Denies Review of Systems - Review of Systems Constitutional: reports: Malaise Eyes: reports: No Symptoms HENT: reports: No Symptoms Neck: reports: No Symptoms Cardiovascular: reports: Edema Respiratory: reports: No Symptoms Genitourinary: reports: No Symptoms Musculoskeletal: reports: No Symptoms Integumentary: reports: No Symptoms Neurological: reports: No Symptoms Endocrine: reports: No Symptoms Hematology/Lymphatic: reports: No Symptoms Psychiatric: reports: No Symptoms Physical Exam Vital Signs: Vital Signs Temperature 97.4 F L 04/06/19 14:00 Pulse Rate 81 04/06/19 14:00 Respiratory Rate 16 04/06/19 14:00 Blood Pressure 156/77 04/06/19 14:00 O2 Sat by Pulse Oximetry (%) 97 04/06/19 01:35 Constitutional: Yes: Calm Eyes: Yes: Conjunctiva Clear HENT: Yes: Atraumatic Neck: Yes: Supple Cardiovascular: Yes: S1, S2 Respiratory: Yes: CTA Bilaterally Gastrointestinal: Yes: Soft Musculoskeletal: Yes: Muscle Weakness Edema: Yes Edema: LLE: 1+, RLE: 1+ Neurological: Yes: Confusion Labs: CBC, BMP 04/06/19 06:00 04/06/19 06:00 Imaging - Results Chest X-ray: Report Reviewed Problem List - Problems (1) CKD (chronic kidney disease) Code(s): N18.9 - CHRONIC KIDNEY DISEASE, UNSPECIFIED Assessment/Plan Current Medications Generic Name Dose Route Start Last Admin Trade Name Freq PRN Reason Stop Dose Admin Atorvastatin Calcium 20 mg 04/05/19 22:00 04/05/19 21:03 Lipitor - PO 20 mg HS ANGELLA Administration Docusate Sodium 100 mg 04/05/19 17:47 Colace - PO Q12H PRN CONSTIPATION Ferrous Sulfate 325 mg 04/06/19 10:00 04/06/19 11:14 Feosol - PO 325 mg DAILY ANGELLA Administration Heparin Sodium (Porcine) 5,000 unit 04/05/19 22:00 04/06/19 11:14 Heparin - SQ 5,000 unit BID ANGELLA Administration Hydralazine HCl 25 mg 04/05/19 22:00 04/06/19 11:14 Apresoline - PO 25 mg BID ANGELLA Administration Dextrose 1,000 mls @ 42 mls/hr 04/06/19 03:06 04/06/19 03:10 D5w - IV 42 mls/hr ASDIR ANGELLA Administration Vancomycin HCl 1,000 mg in 250 mls @ 166.667 mls/hr 04/06/19 14:28 Vancomycin (Pre-Docked) IVPB 04/06/19 15:57 ONCE ONE Protocol Ceftriaxone Sodium 1 gm/ 50 mls @ 200 mls/hr 04/06/19 14:30 04/06/19 14:52 Dextrose IVPB 200 mls/hr DAILY ANGELLA Administration Protocol Losartan Potassium 50 mg 04/06/19 10:00 04/06/19 11:14 Cozaar - PO 50 mg DAILY ANGELLA Administration Metoprolol Succinate 100 mg 04/06/19 10:00 04/06/19 11:14 Toprol Xl - PO 100 mg DAILY ANGELLA Administration Pantoprazole Sodium 20 mg 04/06/19 10:00 04/06/19 11:14 Protonix - PO 20 mg DAILY ANGELLA Administration Impression 1. CKD 2. htn 3. dm 4. RA 5. hypernatremia 6. bilateral renal cysts 7. hypokalemia Plan - cont d5w - pt was on lasix previously - will give a dose of lasix - repeat labs in am - sodium improving
[2019-04-06] MEDS: ATORVASTATIN CA 20 MG TABLET (FP) PO SCH (22:08)
[2019-04-07] MEDS: DEXTROSE 5%-WATER - 1,000 ML IV SCH (03:17)
[2019-04-07 08:40] LABS: ALBUMIN 3.1 g/dl (3.4-5.0); BILIRUBIN,TOTAL 0.6 mg/dL (0.2-1); BLOOD UREA NITROGEN 23.4 mg/dL (7-18); CALCIUM 8.9 mg/dL (8.5-10.1); CREATININE 1.2 mg/dL (0.55-1.3); MAGNESIUM 2.4 mg/dL (1.8-2.4); POTASSIUM 3.5 mmol/L (3.5-5.1)
--- NOTE | 2019-04-07 10:04 | PN ---
Progress Note, Physician Chief Complaint: AWAKE NONVERBAL NO FEVERS OVERNIGHT TOLERATING PUREE DYSPHAGIA DIET - Current Medication List Current Medications: Active Medications Atorvastatin Calcium (Lipitor -) 20 mg PO HS [facility] Last Admin: 04/06/19 22:08 Dose: 20 mg Docusate Sodium (Colace -) 100 mg PO Q12H PRN PRN Reason: CONSTIPATION Ferrous Sulfate (Feosol -) 325 mg PO DAILY [facility] Last Admin: 04/06/19 11:14 Dose: 325 mg Heparin Sodium (Porcine) (Heparin -) 5,000 unit SQ BID [facility] Last Admin: 04/06/19 22:08 Dose: 5,000 unit Hydralazine HCl (Apresoline -) 25 mg PO BID [facility] Last Admin: 04/06/19 22:08 Dose: 25 mg Dextrose (D5w -) 1,000 mls @ 42 mls/hr IV ASDIR [facility] Last Admin: 04/07/19 03:17 Dose: 42 mls/hr Ceftriaxone Sodium 1 gm/ (Dextrose) 50 mls @ 200 mls/hr IVPB DAILY [facility]; Protocol Last Admin: 04/06/19 14:52 Dose: 200 mls/hr Losartan Potassium (Cozaar -) 50 mg PO DAILY [facility] Last Admin: 04/06/19 11:14 Dose: 50 mg Metoprolol Succinate (Toprol Xl -) 100 mg PO DAILY [facility] Last Admin: 04/06/19 11:14 Dose: 100 mg Pantoprazole Sodium (Protonix -) 20 mg PO DAILY [facility] Last Admin: 04/06/19 11:14 Dose: 20 mg - Objective Vital Signs: Vital Signs Temperature 98.0 F 04/07/19 06:00 Pulse Rate 84 04/07/19 06:00 Respiratory Rate 18 04/07/19 06:00 Blood Pressure 169/80 04/07/19 06:00 O2 Sat by Pulse Oximetry (%) 98 04/06/19 21:00 Constitutional: Yes: No Distress Cardiovascular: Yes: Regular Rate and Rhythm Respiratory: Yes: Diminished Gastrointestinal: Yes: Soft Genitourinary: Yes: Incontinence Musculoskeletal: Yes: Muscle Weakness Integumentary: Yes: Rash, Venous Stasis Changes Neurological: Yes: Aphasia, Confusion, Pre-Existing Deficit ...Motor Strength: LLE, RLE Psychiatric: Yes: Other Labs: CBC, BMP 04/06/19 06:00 04/07/19 07:10 INR, PTT INR 1.04 (0.83-1.09) 04/06/19 06:00 Problem List - Problems (1) Dementia Code(s): F03.90 - UNSPECIFIED DEMENTIA WITHOUT BEHAVIORAL DISTURBANCE (2) NSTEMI (non-ST elevated myocardial infarction) Code(s): I21.4 - NON-ST ELEVATION (NSTEMI) MYOCARDIAL INFARCTION (3) Pneumonia and influenza Code(s): J11.00 - FLU DUE TO UNIDENTIFIED FLU VIRUS W UNSP TYPE OF PNEUMONIA (4) Sacral decubitus ulcer Code(s): L89.159 - PRESSURE ULCER OF SACRAL REGION, UNSPECIFIED STAGE (5) Anemia Code(s): D64.9 - ANEMIA, UNSPECIFIED (6) CKD (chronic kidney disease) Code(s): N18.9 - CHRONIC KIDNEY DISEASE, UNSPECIFIED (7) HTN (hypertension) Code(s): I10 - ESSENTIAL (PRIMARY) HYPERTENSION Assessment/Plan IV ABX PER ID ON CEFTRIAXONE AND VANCO ON NEBS/ANTIVIRALS/02 SPPORT. PULM EVAL APPRECIATED CARDIAC EVAL APPRECIATED NOT A CANDIDATE FOR AGGRESSIVE CARDIAC THERAPY DUE TO HER OVERALL POOR MEDICAL CONDITION AND QUALITY OF LIFE. PATIENT IS A FULL CODE AND WE WILL CONTINUE OUR WORKUP HERE AT THE HOSPITAL AND TREAT HER FOR THE INFECTIONS WITH WOUND CARE FOR SACRAL ULCER. MONITOR LABS DC IVF WOUND CARE FOR SACRAL ULCER VASC SX EVAL OPTIMIZE NUTRITION TO AVOID SKIN BREAKDOWN ADDING MVI/VITAMIN C AND ZINC
[2019-04-07] MEDS ORDERED: PT OWN MED DRAWER 7, Y5N ONE (10:33)
[2019-04-07] MEDS ORDERED: cefTRIAXone SODIUM 1 GM VIAL ONE (10:33)
[2019-04-07] MEDS ORDERED: DEXTROSE 5%-WATER - 50 ML IVPB ONE (10:33)
[2019-04-07] MEDS: PANTOPRAZOLE 20 MG TABLET PO SCH (10:36)
[2019-04-07] MEDS: HEPARIN NA (PORCINE) 5,000 UNITS/ML 1ML VIAL SQ SCH ×2 (10:36→23:16)
[2019-04-07] MEDS: CEFTRIAXONE 1 GM in DEXTROSE 5%-WATER - 50 ML IVPB SCH (10:37)
[2019-04-07] MEDS: hydrALAZINE HCL 25 MG TABLET (FP) PO SCH ×2 (10:37→23:16)
[2019-04-07] MEDS: FERROUS SO4 325 MG TABLET (FP) PO SCH (10:37)
[2019-04-07] MEDS: LOSARTAN POTASSIUM 50 MG TABLET (FP) PO SCH (10:37)
[2019-04-07] MEDS ORDERED: FUROSEMIDE 40 MG TABLET (FP) PO ONE (12:48)
[2019-04-07] MEDS ORDERED: POTASSIUM CHLORIDE TABS 20 MEQ TABLET.ER (FP) PO ONE (12:48)
--- NOTE | 2019-04-07 12:48 | PN ---
Progress Note, Physician History of Present Illness: Pt seen and examined at bedside. She is awake and appears comfortable. - Current Medication List Current Medications: Active Medications Amino Acids (Prosource No Carb Liquid Pkt) 30 ml PO BID@0800,1730 [facility] Ascorbic Acid (Vitamin C -) 250 mg PO DAILY [facility] Atorvastatin Calcium (Lipitor -) 20 mg PO HS [facility] Last Admin: 04/06/19 22:08 Dose: 20 mg Docusate Sodium (Colace -) 100 mg PO Q12H PRN PRN Reason: CONSTIPATION Ferrous Sulfate (Feosol -) 325 mg PO DAILY [facility] Last Admin: 04/07/19 10:37 Dose: 325 mg Heparin Sodium (Porcine) (Heparin -) 5,000 unit SQ BID [facility] Last Admin: 04/07/19 10:36 Dose: 5,000 unit Hydralazine HCl (Apresoline -) 25 mg PO BID [facility] Last Admin: 04/07/19 10:37 Dose: 25 mg Dextrose (D5w -) 1,000 mls @ 42 mls/hr IV ASDIR [facility] Last Admin: 04/07/19 03:17 Dose: 42 mls/hr Ceftriaxone Sodium 1 gm/ (Dextrose) 50 mls @ 200 mls/hr IVPB DAILY [facility]; Protocol Last Admin: 04/07/19 10:37 Dose: 200 mls/hr Losartan Potassium (Cozaar -) 50 mg PO DAILY [facility] Last Admin: 04/07/19 10:37 Dose: 50 mg Metoprolol Succinate (Toprol Xl -) 100 mg PO DAILY [facility] Last Admin: 04/07/19 10:37 Dose: 100 mg Multivitamins/Minerals (Certavite-Antioxidant Liquid) 15 ml PO DAILY [facility] Pantoprazole Sodium (Protonix -) 20 mg PO DAILY [facility] Last Admin: 04/07/19 10:36 Dose: 20 mg Zinc Sulfate (Orazinc -) 220 mg PO DAILY [facility] - Objective Vital Signs: Vital Signs Temperature 98.0 F 04/07/19 06:00 Pulse Rate 84 04/07/19 06:00 Respiratory Rate 18 04/07/19 09:00 Blood Pressure 169/80 04/07/19 06:00 O2 Sat by Pulse Oximetry (%) 98 04/07/19 09:00 Constitutional: Yes: Calm Eyes: Yes: Conjunctiva Clear HENT: Yes: Atraumatic Neck: Yes: Supple Cardiovascular: Yes: S1, S2 Respiratory: Yes: CTA Bilaterally Gastrointestinal: Yes: Soft Genitourinary: Yes: WNL Musculoskeletal: Yes: WNL Edema: No Neurological: Yes: Confusion Psychiatric: Yes: Oriented Labs: CBC, BMP 04/06/19 06:00 04/07/19 07:10 INR, PTT INR 1.04 (0.83-1.09) 04/06/19 06:00 Problem List - Problems (1) CKD (chronic kidney disease) Code(s): N18.9 - CHRONIC KIDNEY DISEASE, UNSPECIFIED Assessment/Plan Current Medications Generic Name Dose Route Start Last Admin Trade Name Freq PRN Reason Stop Dose Admin Amino Acids 30 ml 04/07/19 17:30 Prosource No Carb Liquid Pkt PO BID@0800,1730 ANGELLA Ascorbic Acid 250 mg 04/08/19 10:00 Vitamin C - PO DAILY ANGELLA Atorvastatin Calcium 20 mg 04/05/19 22:00 04/06/19 22:08 Lipitor - PO 20 mg HS ANGELLA Administration Docusate Sodium 100 mg 04/05/19 17:47 Colace - PO Q12H PRN CONSTIPATION Ferrous Sulfate 325 mg 04/06/19 10:00 04/07/19 10:37 Feosol - PO 325 mg DAILY ANGELLA Administration Heparin Sodium (Porcine) 5,000 unit 04/05/19 22:00 04/07/19 10:36 Heparin - SQ 5,000 unit BID ANGELLA Administration Hydralazine HCl 25 mg 04/05/19 22:00 04/07/19 10:37 Apresoline - PO 25 mg BID ANGELLA Administration Dextrose 1,000 mls @ 42 mls/hr 04/06/19 03:06 04/07/19 03:17 D5w - IV 42 mls/hr ASDIR ANGELLA Administration Ceftriaxone Sodium 1 gm/ 50 mls @ 200 mls/hr 04/06/19 14:30 04/07/19 10:37 Dextrose IVPB 200 mls/hr DAILY ANGELLA Administration Protocol Losartan Potassium 50 mg 04/06/19 10:00 04/07/19 10:37 Cozaar - PO 50 mg DAILY ANGELLA Administration Metoprolol Succinate 100 mg 04/06/19 10:00 04/07/19 10:37 Toprol Xl - PO 100 mg DAILY ANGELLA Administration Multivitamins/Minerals 15 ml 04/08/19 10:00 Certavite-Antioxidant Liquid PO DAILY ANGELLA Pantoprazole Sodium 20 mg 04/06/19 10:00 04/07/19 10:36 Protonix - PO 20 mg DAILY ANGELLA Administration Zinc Sulfate 220 mg 04/08/19 10:00 Orazinc - PO DAILY ANGELLA Impression 1. CKD 2. htn 3. dm 4. RA 5. hypernatremia 6. bilateral renal cysts 7. hypokalemia Plan - repeat labs in am - will give another dose of lasix - can stop fluids - sodium improving
--- NOTE | 2019-04-07 14:13 | PN ---
Progress Note, Physician History of Present Illness: Nonverbal, not dyspneic or orthopneic. - Current Medication List Current Medications: Active Medications Amino Acids (Prosource No Carb Liquid Pkt) 30 ml PO BID@0800,1730 [facility] Ascorbic Acid (Vitamin C -) 250 mg PO DAILY [facility] Atorvastatin Calcium (Lipitor -) 20 mg PO HS [facility] Last Admin: 04/06/19 22:08 Dose: 20 mg Docusate Sodium (Colace -) 100 mg PO Q12H PRN PRN Reason: CONSTIPATION Ferrous Sulfate (Feosol -) 325 mg PO DAILY [facility] Last Admin: 04/07/19 10:37 Dose: 325 mg Heparin Sodium (Porcine) (Heparin -) 5,000 unit SQ BID [facility] Last Admin: 04/07/19 10:36 Dose: 5,000 unit Hydralazine HCl (Apresoline -) 25 mg PO BID [facility] Last Admin: 04/07/19 10:37 Dose: 25 mg Ceftriaxone Sodium 1 gm/ (Dextrose) 50 mls @ 200 mls/hr IVPB DAILY [facility]; Protocol Last Admin: 04/07/19 10:37 Dose: 200 mls/hr Losartan Potassium (Cozaar -) 50 mg PO DAILY [facility] Last Admin: 04/07/19 10:37 Dose: 50 mg Metoprolol Succinate (Toprol Xl -) 100 mg PO DAILY [facility] Last Admin: 04/07/19 10:37 Dose: 100 mg Multivitamins/Minerals (Certavite-Antioxidant Liquid) 15 ml PO DAILY [facility] Pantoprazole Sodium (Protonix -) 20 mg PO DAILY [facility] Last Admin: 04/07/19 10:36 Dose: 20 mg Zinc Sulfate (Orazinc -) 220 mg PO DAILY [facility] - Objective Vital Signs: Vital Signs Temperature 97.9 F 04/07/19 13:11 Pulse Rate 70 04/07/19 13:11 Respiratory Rate 18 04/07/19 13:11 Blood Pressure 165/78 04/07/19 13:11 O2 Sat by Pulse Oximetry (%) 98 04/07/19 09:00 Constitutional: Yes: No Distress, Calm Neck: Yes: Supple Cardiovascular: Yes: Regular Rate and Rhythm, Murmur (2/6 SM) Respiratory: Yes: Regular, Diminished Gastrointestinal: Yes: Normal Bowel Sounds, Soft Edema: Yes Edema: LLE: Trace, RLE: Trace Labs: CBC, BMP 04/06/19 06:00 04/07/19 07:10 INR, PTT INR 1.04 (0.83-1.09) 04/06/19 06:00 - ....Imaging EKG: Report Reviewed (Tele: NSR) Problem List - Problems (1) Dementia Code(s): F03.90 - UNSPECIFIED DEMENTIA WITHOUT BEHAVIORAL DISTURBANCE Qualifiers: Dementia type: unspecified type (2) CKD (chronic kidney disease) Code(s): N18.9 - CHRONIC KIDNEY DISEASE, UNSPECIFIED (3) HTN (hypertension) Code(s): I10 - ESSENTIAL (PRIMARY) HYPERTENSION Qualifiers: Hypertension type: essential hypertension Qualified Code(s): I10 - Essential (primary) hypertension (4) Hypercholesterolemia Code(s): E78.00 - PURE HYPERCHOLESTEROLEMIA, UNSPECIFIED (5) Rheumatoid arthritis Code(s): M06.9 - RHEUMATOID ARTHRITIS, UNSPECIFIED (6) T2DM (type 2 diabetes mellitus) Code(s): E11.9 - TYPE 2 DIABETES MELLITUS WITHOUT COMPLICATIONS Qualifiers: Diabetes mellitus ferry terminal supervisor insulin use: without ferry terminal supervisor use Assessment/Plan 03/09/2019 Echogenic kidneys c/w chronic medical renal dz, bilateral renal cysts 03/10/2019 Severe cLVH, hyperdynamic LV fxn, grade III restrictive pattern, c/w markedly increased LAP, mod MR, severe pulm HTN, mod MG 21 mmHg CONRAD 1.0 cm^2 01/03/2017 Mild cLVH, nomal LV fxn, abnl LV compliance, normal RV size and fxn, mild LAE, mild MR, mod TR RVSP 50-60 mmHg ASSESSMENT: 1. Coronary artery disease/coronary artery calcification visual calcification on CT scan of the chest angina pectoris 2. Severe diastolic left ventricular dysfunction with elevated BNP level no clinical evidence of congestive heart failure, probably hypovolemic with Hypernatremia 3. Moderate MR 4. Moderate 5. Severe pulmonary HTN 6. MAT no evidence of atrial fibrillation 7. HTN 8. DM 9. Hypercholesterolemia 10. Acute exacerbation of CKD with 11. Hypernatremia resolved 12. Anemia 13. Right sacral decubiti ulcer post recent debridement 14. Rheumatoid arthritis PLAN: 1. Continue Toprol XL 100 qd 2. Continue Cozaar 50 qd with dose titration as needed and as tolerated with close monitoring of renal function 3. Continue Hydralazine 25 bid with dose titration as needed and as tolerated 4. Continue Lipitor 20 qhs 5. Diuretics as needed per renal 6. No intervention indicated for the above noted MAT aside from Toprol
[2019-04-07] MEDS: AMINO ACIDS/PROTEIN HYDROLYS 30 ML LIQUID.PKT PO SCH (16:39)
--- NOTE | 2019-04-07 16:50 | CONSULT ---
- Consultation REQUESTING PROVIDER: Mehdi Orellana - Wound Care CONSULT REQUEST: We have been asked to surgically evaluate this patient for sacral wound. PCP: Ty Romero HPI: Called to evaluate 73 yo female with sacral wound. Home Medications Medication Instructions Recorded Atorvastatin Ca [Lipitor] 20 mg PO HS #30 tablet 01/07/17 Hydralazine HCl 25 mg PO DAILY 03/07/19 Metoprolol Succinate [Toprol Xl] 100 mg PO DAILY 03/07/19 Omeprazole 20 mg PO DAILY 03/07/19 Docusate Sodium [Colace -] 100 mg PO Q12H PRN capsule 03/18/19 Ferrous Sulfate [Feosol] 325 mg PO DAILY ud 03/18/19 Furosemide [Lasix -] 20 mg PO DAILY 30 Days #60 tablet 03/18/19 Losartan Potassium [Cozaar -] 50 mg PO DAILY 30 Days #30 tablet 03/18/19 hydrALAZINE HCL [Apresoline -] 25 mg PO BID 30 Days #60 tablet 03/18/19 Allergies Allergy/AdvReac Type Severity Reaction Status Date / Time peach Allergy Severe Vomiting Verified 04/05/19 12:48 amoxicillin trihydrate Allergy Verified 04/05/19 12:48 [From Augmentin] aspirin Allergy Verified 04/05/19 12:48 ibuprofen [From Motrin] Allergy Verified 04/05/19 12:48 metformin HCl Allergy Verified 04/05/19 12:48 [From Glucophage] potassium clavulanate Allergy Verified 04/05/19 12:48 [From Augmentin] PHYSICAL EXAM: GENERAL: Awake, alert, in no acute distress. Back: Stage 4 sacral ulcer. Bone exposed but no signs of infection. Minimla amount of granulation tissue over sarum. Dimensions 9 cm x 5 cm x 5 cm, undermining approx 5 cm from the 12 to 1 o'clock position. Not malodorous. No erythema. Vital Signs Temperature 97.9 F 04/07/19 13:11 Pulse Rate 70 04/07/19 13:11 Respiratory Rate 18 04/07/19 13:11 Blood Pressure 165/78 04/07/19 13:11 O2 Sat by Pulse Oximetry (%) 98 04/07/19 09:00 Lab Results WBC 4.9 K/mm3 (4.0-10.0) 04/06/19 06:00 RBC 3.07 M/mm3 (3.60-5.2) L 04/06/19 06:00 Hgb 8.5 GM/dL (10.7-15.3) L 04/06/19 06:00 Hct 25.8 % (32.4-45.2) L 04/06/19 06:00 MCV 83.9 fl (80-96) 04/06/19 06:00 MCHC 33.0 g/dl (32.0-36.0) 04/06/19 06:00 RDW 24.5 % (11.6-15.6) H 04/06/19 06:00 Plt Count 146 K/MM3 (134-434) 04/06/19 06:00 Sodium 141 mmol/L (136-145) 04/07/19 07:10 Potassium 3.5 mmol/L (3.5-5.1) 04/07/19 07:10 Chloride 105 mmol/L (98-107) 04/07/19 07:10 Carbon Dioxide 26 mmol/L (21-32) 04/07/19 07:10 Anion Gap 9 MMOL/L (8-16) 04/07/19 07:10 BUN 23.4 mg/dL (7-18) H 04/07/19 07:10 Creatinine 1.2 mg/dL (0.55-1.3) 04/07/19 07:10 Random Glucose 212 mg/dL (74-106) H 04/07/19 07:10 Calcium 8.9 mg/dL (8.5-10.1) 04/07/19 07:10 INR 1.04 (0.83-1.09) 04/06/19 06:00 Problem List - Problems (1) Sacral decubitus ulcer Assessment/Plan: -Wound packed with wet 4x4 and covered with dry gauze. -Wound VAC supplies ordered to be placed at bedside and Surgery PAs will place in AM. -Reposition every two hours while in bed -Air mattress recommended -Use drawsheets and Trendelenburg when repositioning to reduce friction and shear -Manageincontinence via timely cleansing, use of appropriate incontinence disposables and use of barrier ointment to intact skin -Ensure adequate hydration/nutrition, supplementation per primary team -Ensure off-loading to all bony areas (heels, ankles, hips and tailbone) with Allevyn/Optifoam -Clean open wounds with normal saline and apply (insert ointment/dressing) Above plan discussed with Dr. Orellana and agrees. Code(s): L89.159 - PRESSURE ULCER OF SACRAL REGION, UNSPECIFIED STAGE (2) Anemia Code(s): D64.9 - ANEMIA, UNSPECIFIED (3) NSTEMI (non-ST elevated myocardial infarction) Code(s): I21.4 - NON-ST ELEVATION (NSTEMI) MYOCARDIAL INFARCTION (4) CKD (chronic kidney disease) Code(s): N18.9 - CHRONIC KIDNEY DISEASE, UNSPECIFIED (5) HTN (hypertension) Code(s): I10 - ESSENTIAL (PRIMARY) HYPERTENSION Qualifiers: Hypertension type: essential hypertension Qualified Code(s): I10 - Essential (primary) hypertension Visit type - Case Type Case Type: ED Admission - Emergency Emergency Visit: Yes ED Registration Date: 04/05/19 Care time: The patient presented to the Emergency Department on the above date and was hospitalized for further evaluation of their emergent condition. - New patient This patient is new to me today: Yes Date on this admission: 04/07/19
[2019-04-07] MEDS: ATORVASTATIN CA 20 MG TABLET (FP) PO SCH (23:16)
--- NOTE | 2019-04-08 08:50 | PN ---
Progress Note, Physician History of Present Illness: Nonverbal, not dyspneic or orthopneic. - Current Medication List Current Medications: Active Medications Amino Acids (Prosource No Carb Liquid Pkt) 30 ml PO BID@0800,1730 [facility] Last Admin: 04/07/19 16:39 Dose: 30 ml Ascorbic Acid (Vitamin C -) 250 mg PO DAILY [facility] Atorvastatin Calcium (Lipitor -) 20 mg PO HS [facility] Last Admin: 04/07/19 23:16 Dose: 20 mg Docusate Sodium (Colace -) 100 mg PO Q12H PRN PRN Reason: CONSTIPATION Ferrous Sulfate (Feosol -) 325 mg PO DAILY [facility] Last Admin: 04/07/19 10:37 Dose: 325 mg Heparin Sodium (Porcine) (Heparin -) 5,000 unit SQ BID [facility] Last Admin: 04/07/19 23:16 Dose: 5,000 unit Hydralazine HCl (Apresoline -) 25 mg PO BID [facility] Last Admin: 04/07/19 23:16 Dose: 25 mg Ceftriaxone Sodium 1 gm/ (Dextrose) 50 mls @ 200 mls/hr IVPB DAILY [facility]; Protocol Last Admin: 04/07/19 10:37 Dose: 200 mls/hr Losartan Potassium (Cozaar -) 50 mg PO DAILY [facility] Last Admin: 04/07/19 10:37 Dose: 50 mg Metoprolol Succinate (Toprol Xl -) 100 mg PO DAILY [facility] Last Admin: 04/07/19 10:37 Dose: 100 mg Multivitamins/Minerals (Certavite-Antioxidant Liquid) 15 ml PO DAILY [facility] Pantoprazole Sodium (Protonix -) 20 mg PO DAILY [facility] Last Admin: 04/07/19 10:36 Dose: 20 mg Zinc Sulfate (Orazinc -) 220 mg PO DAILY [facility] - Objective Vital Signs: Vital Signs Temperature 97.8 F 04/08/19 06:00 Pulse Rate 78 04/08/19 06:00 Respiratory Rate 18 04/08/19 06:00 Blood Pressure 158/86 04/08/19 06:00 O2 Sat by Pulse Oximetry (%) 97 04/07/19 21:00 Constitutional: Yes: No Distress, Calm, Thin Neck: Yes: Supple Cardiovascular: Yes: Regular Rate and Rhythm Respiratory: Yes: Regular, CTA Bilaterally Gastrointestinal: Yes: Normal Bowel Sounds, Soft Edema: No Labs: CBC, BMP 04/06/19 06:00 INR, PTT INR 1.04 (0.83-1.09) 04/06/19 06:00 - ....Imaging EKG: Report Reviewed (Tele: NSR) Problem List - Problems (1) Dementia Code(s): F03.90 - UNSPECIFIED DEMENTIA WITHOUT BEHAVIORAL DISTURBANCE Qualifiers: Dementia type: unspecified type (2) CKD (chronic kidney disease) Code(s): N18.9 - CHRONIC KIDNEY DISEASE, UNSPECIFIED (3) HTN (hypertension) Code(s): I10 - ESSENTIAL (PRIMARY) HYPERTENSION Qualifiers: Hypertension type: essential hypertension Qualified Code(s): I10 - Essential (primary) hypertension (4) Hypercholesterolemia Code(s): E78.00 - PURE HYPERCHOLESTEROLEMIA, UNSPECIFIED (5) Rheumatoid arthritis Code(s): M06.9 - RHEUMATOID ARTHRITIS, UNSPECIFIED (6) T2DM (type 2 diabetes mellitus) Code(s): E11.9 - TYPE 2 DIABETES MELLITUS WITHOUT COMPLICATIONS Qualifiers: Diabetes mellitus director of capital giving insulin use: without halfway use Assessment/Plan 03/09/2019 Echogenic kidneys c/w chronic medical renal dz, bilateral renal cysts 03/10/2019 Severe cLVH, hyperdynamic LV fxn, grade III restrictive pattern, c/w markedly increased LAP, mod MR, severe pulm HTN, mod MG 21 mmHg CONRAD 1.0 cm^2 01/03/2017 Mild cLVH, nomal LV fxn, abnl LV compliance, normal RV size and fxn, mild LAE, mild MR, mod TR RVSP 50-60 mmHg ASSESSMENT: 1. Coronary artery disease/coronary artery calcification visual calcification on CT scan of the chest angina pectoris 2. Severe diastolic left ventricular dysfunction with elevated BNP level no clinical evidence of congestive heart failure, probably hypovolemic with Hypernatremia 3. Moderate MR 4. Moderate 5. Severe pulmonary HTN 6. MAT no evidence of atrial fibrillation 7. HTN 8. DM 9. Hypercholesterolemia 10. Acute exacerbation of CKD improved 11. Hypernatremia resolved 12. Anemia 13. Right sacral decubiti ulcer post recent debridement 14. Rheumatoid arthritis PLAN: 1. Continue Toprol XL 100 qd 2. Continue Cozaar 50 qd with dose titration as needed and as tolerated with close monitoring of renal function 3. Increase Hydralazine 50 bid with dose titration as needed and as tolerated 4. Continue Lipitor 20 qhs 5. Diuretics as needed per renal 6. No intervention indicated for the above noted MAT aside from Toprol 7. Wound vac placement and wound care
[2019-04-08 09:11] LABS: ALBUMIN 1.5 g/dl (3.4-5.0); BILIRUBIN,TOTAL 0.4 mg/dL (0.2-1); BLOOD UREA NITROGEN 58.4 mg/dL (7-18); CALCIUM 8.2 mg/dL (8.5-10.1); CREATININE 2.2 mg/dL (0.55-1.3); MAGNESIUM 1.7 mg/dL (1.8-2.4); TOT PROT 5.5 g/dl (6.4-8.2)
--- NOTE | 2019-04-08 09:33 | PN ---
Progress Note, Physician - Current Medication List Current Medications: Active Medications Amino Acids (Prosource No Carb Liquid Pkt) 30 ml PO BID@0800,1730 [facility] Last Admin: 04/07/19 16:39 Dose: 30 ml Ascorbic Acid (Vitamin C -) 250 mg PO DAILY [facility] Atorvastatin Calcium (Lipitor -) 20 mg PO HS [facility] Last Admin: 04/07/19 23:16 Dose: 20 mg Docusate Sodium (Colace -) 100 mg PO Q12H PRN PRN Reason: CONSTIPATION Ferrous Sulfate (Feosol -) 325 mg PO DAILY [facility] Last Admin: 04/07/19 10:37 Dose: 325 mg Heparin Sodium (Porcine) (Heparin -) 5,000 unit SQ BID [facility] Last Admin: 04/07/19 23:16 Dose: 5,000 unit Hydralazine HCl (Apresoline -) 25 mg PO BID [facility] Last Admin: 04/07/19 23:16 Dose: 25 mg Ceftriaxone Sodium 1 gm/ (Dextrose) 50 mls @ 200 mls/hr IVPB DAILY [facility]; Protocol Last Admin: 04/07/19 10:37 Dose: 200 mls/hr Losartan Potassium (Cozaar -) 50 mg PO DAILY [facility] Last Admin: 04/07/19 10:37 Dose: 50 mg Metoprolol Succinate (Toprol Xl -) 100 mg PO DAILY [facility] Last Admin: 04/07/19 10:37 Dose: 100 mg Multivitamins/Minerals (Certavite-Antioxidant Liquid) 15 ml PO DAILY [facility] Pantoprazole Sodium (Protonix -) 20 mg PO DAILY [facility] Last Admin: 04/07/19 10:36 Dose: 20 mg Zinc Sulfate (Orazinc -) 220 mg PO DAILY [facility] Vital Signs: Vital Signs Temperature 97.8 F 04/08/19 06:00 Pulse Rate 78 04/08/19 06:00 Respiratory Rate 18 04/08/19 06:00 Blood Pressure 158/86 04/08/19 06:00 O2 Sat by Pulse Oximetry (%) 97 04/07/19 21:00 Labs: CBC, BMP 04/06/19 06:00 04/08/19 08:15 INR, PTT INR 1.04 (0.83-1.09) 04/06/19 06:00 Problem List - Problems (1) Dementia Code(s): F03.90 - UNSPECIFIED DEMENTIA WITHOUT BEHAVIORAL DISTURBANCE Qualifiers: Dementia type: unspecified type (2) NSTEMI (non-ST elevated myocardial infarction) Code(s): I21.4 - NON-ST ELEVATION (NSTEMI) MYOCARDIAL INFARCTION (3) Pneumonia and influenza Code(s): J11.00 - FLU DUE TO UNIDENTIFIED FLU VIRUS W UNSP TYPE OF PNEUMONIA (4) Sacral decubitus ulcer Code(s): L89.159 - PRESSURE ULCER OF SACRAL REGION, UNSPECIFIED STAGE (5) Anemia Code(s): D64.9 - ANEMIA, UNSPECIFIED (6) CKD (chronic kidney disease) Code(s): N18.9 - CHRONIC KIDNEY DISEASE, UNSPECIFIED (7) HTN (hypertension) Code(s): I10 - ESSENTIAL (PRIMARY) HYPERTENSION Qualifiers: Hypertension type: essential hypertension Qualified Code(s): I10 - Essential (primary) hypertension Assessment/Plan ON ANTIBIOTICS PER ID RENAL AZOTEMIA STARTING IV FLUIDS REPLETE MAGNESIUM SURGERY WOUND CARE CONSULT APPRECIATED THE FOLLOWING WERE RECOMMENDED: Wound packed with wet 4x4 and covered with dry gauze. -Wound VAC supplies ordered to be placed at bedside and Surgery PAs will place in AM. -Reposition every two hours while in bed -Air mattress recommended -Use drawsheets and Trendelenburg when repositioning to reduce friction and shear -Manageincontinence via timely cleansing, use of appropriate incontinence disposables and use of barrier ointment to intact skin -Ensure adequate hydration/nutrition, supplementation per primary team -Ensure off-loading to all bony areas (heels, ankles, hips and tailbone) with Allevyn/Optifoam -Clean open wounds with normal saline and apply (insert ointment/dressing) Above plan discussed with Dr. Orellana and agrees.
[2019-04-08] MEDS ORDERED: PT OWN MED DRAWER 7, Y5N ONE (09:41)
[2019-04-08] MEDS ORDERED: DEXTROSE 5%-WATER - 50 ML IVPB ONE (09:41)
[2019-04-08] MEDS ORDERED: cefTRIAXone SODIUM 1 GM VIAL ONE (09:41)
--- NOTE | 2019-04-08 09:59 | PN ---
Progress Note (short form) - Note Progress Note: ADDENDUM: PROGRESS NOTE DID NOT HAVE MY PHYSICAL EXAM PORTION ONLY A/P PHYSICAL EXAM: AWAKE NON-VERBAL CHEST : RRR +BS ABD: SOFT NT EXTREMITIES: NO EDEMA/+PULSE HEENT: NC/PERRLA NEURO; APHASIA/ATAXIA DEMENTIA CHRONIC Problem List - Problems (1) Dementia Code(s): F03.90 - UNSPECIFIED DEMENTIA WITHOUT BEHAVIORAL DISTURBANCE Qualifiers: Dementia type: unspecified type (2) NSTEMI (non-ST elevated myocardial infarction) Code(s): I21.4 - NON-ST ELEVATION (NSTEMI) MYOCARDIAL INFARCTION (3) Pneumonia and influenza Code(s): J11.00 - FLU DUE TO UNIDENTIFIED FLU VIRUS W UNSP TYPE OF PNEUMONIA (4) Sacral decubitus ulcer Code(s): L89.159 - PRESSURE ULCER OF SACRAL REGION, UNSPECIFIED STAGE (5) Anemia Code(s): D64.9 - ANEMIA, UNSPECIFIED (6) CKD (chronic kidney disease) Code(s): N18.9 - CHRONIC KIDNEY DISEASE, UNSPECIFIED (7) HTN (hypertension) Code(s): I10 - ESSENTIAL (PRIMARY) HYPERTENSION Qualifiers: Hypertension type: essential hypertension Qualified Code(s): I10 - Essential (primary) hypertension
[2019-04-08] MEDS: MULTIVIT-MINERALS ORAL LIQUID PO SCH (10:23)
[2019-04-08] MEDS: HEPARIN NA (PORCINE) 5,000 UNITS/ML 1ML VIAL SQ SCH ×2 (10:24→22:04)
[2019-04-08] MEDS: FERROUS SO4 325 MG TABLET (FP) PO SCH (10:24)
[2019-04-08] MEDS: hydrALAZINE HCL 25 MG TABLET (FP) PO SCH (10:25)
[2019-04-08] MEDS: ZINC SULFATE 220 MG CAPSULE (FP) PO SCH (10:26)
[2019-04-08] MEDS: PANTOPRAZOLE 20 MG TABLET PO SCH (10:27)
[2019-04-08] MEDS: ASCORBIC ACID 250 MG TABLET (FP) PO SCH (10:27)
[2019-04-08] MEDS ORDERED: MAGNESIUM SULF 50% (8.12 MEQ/2 ML-1 GM VIAL) IVPB ONE (10:30)
[2019-04-08] MEDS: AMINO ACIDS/PROTEIN HYDROLYS 30 ML LIQUID.PKT PO SCH ×2 (10:33→17:22)
[2019-04-08] MEDS: LOSARTAN POTASSIUM 50 MG TABLET (FP) PO SCH (10:37)
[2019-04-08] MEDS: SODIUM CHLORIDE 1,000 ML IV SCH (10:41)
[2019-04-08] MEDS: CEFTRIAXONE 1 GM in DEXTROSE 5%-WATER - 50 ML IVPB SCH (12:16)
--- NOTE | 2019-04-08 14:58 | PN ---
Progress Note, Physician History of Present Illness: Pt seen and examined at bedside. Volume status is improving. - Current Medication List Current Medications: Active Medications Amino Acids (Prosource No Carb Liquid Pkt) 30 ml PO BID@0800,1730 [facility] Last Admin: 04/08/19 10:33 Dose: 30 ml Ascorbic Acid (Vitamin C -) 250 mg PO DAILY [facility] Last Admin: 04/08/19 10:27 Dose: 250 mg Atorvastatin Calcium (Lipitor -) 20 mg PO HS [facility] Last Admin: 04/07/19 23:16 Dose: 20 mg Docusate Sodium (Colace -) 100 mg PO Q12H PRN PRN Reason: CONSTIPATION Ferrous Sulfate (Feosol -) 325 mg PO DAILY [facility] Last Admin: 04/08/19 10:24 Dose: 325 mg Heparin Sodium (Porcine) (Heparin -) 5,000 unit SQ BID [facility] Last Admin: 04/08/19 10:24 Dose: 5,000 unit Hydralazine HCl (Apresoline -) 50 mg PO BID [facility] Ceftriaxone Sodium 1 gm/ (Dextrose) 50 mls @ 200 mls/hr IVPB DAILY [facility]; Protocol Last Admin: 04/08/19 12:16 Dose: 200 mls/hr Sodium Chloride (Normal Saline -) 1,000 mls @ 75 mls/hr IV ASDIR [facility] Last Admin: 04/08/19 10:41 Dose: 75 mls/hr Losartan Potassium (Cozaar -) 50 mg PO DAILY [facility] Last Admin: 04/08/19 10:37 Dose: 50 mg Metoprolol Succinate (Toprol Xl -) 100 mg PO DAILY [facility] Last Admin: 04/08/19 10:37 Dose: 100 mg Multivitamins/Minerals (Certavite-Antioxidant Liquid) 15 ml PO DAILY [facility] Last Admin: 04/08/19 10:23 Dose: 15 ml Pantoprazole Sodium (Protonix -) 20 mg PO DAILY [facility] Last Admin: 04/08/19 10:27 Dose: 20 mg Zinc Sulfate (Orazinc -) 220 mg PO DAILY [facility] Last Admin: 04/08/19 10:26 Dose: 220 mg - Objective Vital Signs: Vital Signs Temperature 97.5 F L 04/08/19 10:00 Pulse Rate 67 04/08/19 10:00 Respiratory Rate 18 04/08/19 10:00 Blood Pressure 170/80 04/08/19 10:00 O2 Sat by Pulse Oximetry (%) 99 04/08/19 09:00 Constitutional: Yes: Calm Eyes: Yes: Conjunctiva Clear HENT: Yes: Atraumatic Cardiovascular: Yes: S1, S2 Respiratory: Yes: CTA Bilaterally Gastrointestinal: Yes: Soft Genitourinary: Yes: WNL Musculoskeletal: Yes: WNL Edema: Yes Edema: LLE: 1+, RLE: 1+ Neurological: Yes: Confusion Labs: CBC, BMP 04/06/19 06:00 04/08/19 08:15 INR, PTT INR 1.04 (0.83-1.09) 04/06/19 06:00 Problem List - Problems (1) CKD (chronic kidney disease) Code(s): N18.9 - CHRONIC KIDNEY DISEASE, UNSPECIFIED Assessment/Plan Current Medications Generic Name Dose Route Start Last Admin Trade Name Freq PRN Reason Stop Dose Admin Amino Acids 30 ml 04/07/19 17:30 04/08/19 10:33 Prosource No Carb Liquid Pkt PO 30 ml BID@0800,1730 [facility] Administration Ascorbic Acid 250 mg 04/08/19 10:00 04/08/19 10:27 Vitamin C - PO 250 mg DAILY [facility] Administration Atorvastatin Calcium 20 mg 04/05/19 22:00 04/07/19 23:16 Lipitor - PO 20 mg HS [facility] Administration Docusate Sodium 100 mg 04/05/19 17:47 Colace - PO Q12H PRN CONSTIPATION Ferrous Sulfate 325 mg 04/06/19 10:00 04/08/19 10:24 Feosol - PO 325 mg DAILY [facility] Administration Heparin Sodium (Porcine) 5,000 unit 04/05/19 22:00 04/08/19 10:24 Heparin - SQ 5,000 unit BID [facility] Administration Hydralazine HCl 50 mg 04/08/19 10:26 Apresoline - PO BID [facility] Ceftriaxone Sodium 1 gm/ 50 mls @ 200 mls/hr 04/06/19 14:30 04/08/19 12:16 Dextrose IVPB 200 mls/hr DAILY [facility] Administration Protocol Sodium Chloride 1,000 mls @ 75 mls/hr 04/08/19 09:45 04/08/19 10:41 Normal Saline - IV 75 mls/hr ASDIR [facility] Administration Losartan Potassium 50 mg 04/06/19 10:00 04/08/19 10:37 Cozaar - PO 50 mg DAILY [facility] Administration Metoprolol Succinate 100 mg 04/06/19 10:00 04/08/19 10:37 Toprol Xl - PO 100 mg DAILY [facility] Administration Multivitamins/Minerals 15 ml 04/08/19 10:00 04/08/19 10:23 Certavite-Antioxidant Liquid PO 15 ml DAILY [facility] Administration Pantoprazole Sodium 20 mg 04/06/19 10:00 04/08/19 10:27 Protonix - PO 20 mg DAILY [facility] Administration Zinc Sulfate 220 mg 04/08/19 10:00 04/08/19 10:26 Orazinc - PO 220 mg DAILY [facility] Administration Impression 1. CKD 2. htn 3. dm 4. RA 5. hypernatremia 6. bilateral renal cysts 7. hypokalemia Plan - yesterdays labs likely error - repeat labs in am - replace mag - d/c ns - monitor lytes - will evaluate for lasix in am - monitor renal function, overall improving
[2019-04-08] MEDS: hydrALAZINE HCL 50 MG TABLET (FP) PO SCH (22:04)
[2019-04-08] MEDS: ATORVASTATIN CA 20 MG TABLET (FP) PO SCH (22:04)
--- NOTE | 2019-04-09 09:10 | DS ---
Physical Examination Vital Signs: Vital Signs Temperature 98.1 F 04/09/19 06:00 Pulse Rate 82 04/09/19 06:00 Respiratory Rate 18 04/09/19 06:00 Blood Pressure 162/81 04/09/19 06:00 O2 Sat by Pulse Oximetry (%) 99 04/08/19 21:00 Cardiovascular: Yes: S1, S2 Respiratory: Yes: Regular, CTA Bilaterally Gastrointestinal: Yes: Normal Bowel Sounds, Soft Labs: CBC, BMP 04/06/19 06:00 04/08/19 08:15 Discharge Summary Problems reviewed: Yes Reason For Visit: ACUTE ON CHRONIC CHF Current Active Problems Dementia (Acute) NSTEMI (non-ST elevated myocardial infarction) (Acute) Pneumonia and influenza (Acute) Hospital Course: - Problems (1) Dementia (2) CV 1.Severe diastolic left ventricular dysfunction with elevated BNP level no clinical evidence of congestive heart failure, probably hypovolemic with Hypernatremia 2. Coronary artery disease 3.Moderate MR Moderate 4.MAT no evidence of atrial fibrillation (3) Pneumonia and influenza ABX ID FOLLOW UP CXR (4) Sacral decubitus ulcer Right sacral decubiti ulcer post recent debridement SURGERY WOUND CARE CONSULT APPRECIATED THE FOLLOWING WERE RECOMMENDED: Wound packed with wet 4x4 and covered with dry gauze. -Wound VAC supplies ordered to be placed at bedside and Surgery PAs will place in AM. -Reposition every two hours while in bed -Air mattress recommended -Use drawsheets and Trendelenburg when repositioning to reduce friction and shear -Manageincontinence via timely cleansing, use of appropriate incontinence disposables and use of barrier ointment to intact skin -Ensure adequate hydration/nutrition, supplementation per primary team -Ensure off-loading to all bony areas (heels, ankles, hips and tailbone) with Allevyn/Optifoam -Clean open wounds with normal saline and apply (insert ointment/dressing) Above plan discussed with Dr. Orellana and agrees. (5) Anemia (6) CKD (chronic kidney disease) (7) HTN (hypertension) 8.Severe pulmonary HTN 9. DM 10. Rheumatoid arthritis Condition: Guarded - Instructions Referrals: Ty Romero MD [Primary Care Provider] - - Home Medications Comprehensive Discharge Medication List: Ambulatory Orders Atorvastatin Ca [Lipitor] 20 mg PO HS #30 tablet 01/07/17 Metoprolol Succinate [Toprol Xl] 100 mg PO DAILY 03/07/19 Docusate Sodium [Colace -] 100 mg PO Q12H PRN capsule 03/18/19 Ferrous Sulfate [Feosol] 325 mg PO DAILY ud 03/18/19 Losartan Potassium [Cozaar -] 50 mg PO DAILY 30 Days #30 tablet 03/18/19 hydrALAZINE HCL [Apresoline -] 25 mg PO BID 30 Days #60 tablet 03/18/19 Amino Acids/Protein Hydrolys [Prosource No Carb Liquid Pkt] 30 ml PO BID@0800, 1730 packet 04/09/19 Ascorbic Acid [Vitamin C -] 250 mg PO DAILY tablet 04/09/19 Heparin - 5,000 unit SQ BID vial 04/09/19 Multivit-Minerals [Certavite-Antioxidant Liquid] 15 ml PO DAILY cup 04/09/19 Pantoprazole Sodium [Protonix -] 20 mg PO DAILY tablet.ec 04/09/19
[2019-04-09] MEDS ORDERED: PT OWN MED DRAWER 7, Y5N ONE ×2 (09:19→20:52)
[2019-04-09] MEDS ORDERED: cefTRIAXone SODIUM 1 GM VIAL ONE (09:20)
[2019-04-09] MEDS ORDERED: DEXTROSE 5%-WATER - 50 ML IVPB ONE (09:20)
[2019-04-09] MEDS: CEFTRIAXONE 1 GM in DEXTROSE 5%-WATER - 50 ML IVPB SCH (09:43)
[2019-04-09] MEDS: hydrALAZINE HCL 50 MG TABLET (FP) PO SCH ×2 (09:48→21:33)
[2019-04-09] MEDS: LOSARTAN POTASSIUM 50 MG TABLET (FP) PO SCH (09:49)
[2019-04-09] MEDS: ZINC SULFATE 220 MG CAPSULE (FP) PO SCH (09:49)
[2019-04-09] MEDS: PANTOPRAZOLE 20 MG TABLET PO SCH (09:50)
[2019-04-09] MEDS: ASCORBIC ACID 250 MG TABLET (FP) PO SCH (09:50)
[2019-04-09] MEDS: FERROUS SO4 325 MG TABLET (FP) PO SCH (09:51)
[2019-04-09] MEDS: HEPARIN NA (PORCINE) 5,000 UNITS/ML 1ML VIAL SQ SCH ×2 (09:53→21:33)
[2019-04-09] MEDS: MULTIVIT-MINERALS ORAL LIQUID PO SCH (09:54)
[2019-04-09] MEDS: AMINO ACIDS/PROTEIN HYDROLYS 30 ML LIQUID.PKT PO SCH ×2 (09:58→17:29)
[2019-04-09] MEDS: SODIUM CHLORIDE 1,000 ML IV SCH (10:02)
[2019-04-09 11:58] LABS: HEMATOCRIT 32.2 % (32.4-45.2); HEMOGLOBIN 10.4 GM/dL (10.7-15.3); MCH 27.4 pg (25.7-33.7); MCHC 32.5 g/dl (32.0-36.0); MEAN CELL VOLUME 84.2 fl (80-96); MEAN PLT VOLUME 9.7 fl (7.5-11.1); PLATELET COUNT 162 K/MM3 (134-434); RBC 3.82 M/mm3 (3.60-5.2); RDW 23.8 % (11.6-15.6); WHITE BLOOD COUNT 2.3 K/mm3 (4.0-10.0)
[2019-04-09 12:31] LABS: ALBUMIN 1.8 g/dl (3.4-5.0); BILIRUBIN,TOTAL 0.3 mg/dL (0.2-1); BLOOD UREA NITROGEN 52.1 mg/dL (7-18); CALCIUM 8.4 mg/dL (8.5-10.1); MAGNESIUM 2.1 mg/dL (1.8-2.4); POTASSIUM 4.1 mmol/L (3.5-5.1); TOT PROT 6.6 g/dl (6.4-8.2)
--- NOTE | 2019-04-09 13:13 | PROC ---
Procedure Note Procedure: WOUND VAC Stage 4 sacral ulcer. Bone exposed but no signs of infection. Minimla amount of granulation tissue over sarum. Dimensions 9 cm x 5 cm x 5 cm, undermining approx 5 cm from the 12 to 1 o'clock position. Not malodorous. No erythema Sponge placed just inside of wound border to encourage wound contracture. Occlusive dressing applied. Black foam bridged to right hip. VAC set to 125 mmHg Good seal as evidenced by foam collapse. No complications. Patient tolerated well. Also, patient's RN having difficulty time obtaining new peripheral IV. Placed 22ga angio into her Right EJ. Aspirates/flushes easily. Line ok to use.
--- NOTE | 2019-04-09 14:40 | PN ---
Progress Note, Physician History of Present Illness: Nonverbal, not dyspneic or orthopneic. - Current Medication List Current Medications: Active Medications Amino Acids (Prosource No Carb Liquid Pkt) 30 ml PO BID@0800,1730 [facility] Last Admin: 04/09/19 09:58 Dose: 30 ml Ascorbic Acid (Vitamin C -) 250 mg PO DAILY [facility] Last Admin: 04/09/19 09:50 Dose: 250 mg Atorvastatin Calcium (Lipitor -) 20 mg PO HS [facility] Last Admin: 04/08/19 22:04 Dose: 20 mg Docusate Sodium (Colace -) 100 mg PO Q12H PRN PRN Reason: CONSTIPATION Ferrous Sulfate (Feosol -) 325 mg PO DAILY [facility] Last Admin: 04/09/19 09:51 Dose: 325 mg Heparin Sodium (Porcine) (Heparin -) 5,000 unit SQ BID [facility] Last Admin: 04/09/19 09:53 Dose: 5,000 unit Hydralazine HCl (Apresoline -) 50 mg PO BID [facility] Last Admin: 04/09/19 09:48 Dose: 50 mg Ceftriaxone Sodium 1 gm/ (Dextrose) 50 mls @ 200 mls/hr IVPB DAILY [facility]; Protocol Last Admin: 04/09/19 09:43 Dose: 200 mls/hr Sodium Chloride (Normal Saline -) 1,000 mls @ 75 mls/hr IV ASDIR [facility] Last Admin: 04/09/19 10:02 Dose: Not Given Losartan Potassium (Cozaar -) 50 mg PO DAILY [facility] Last Admin: 04/09/19 09:49 Dose: 50 mg Metoprolol Succinate (Toprol Xl -) 100 mg PO DAILY [facility] Last Admin: 04/09/19 09:49 Dose: 100 mg Multivitamins/Minerals (Certavite-Antioxidant Liquid) 15 ml PO DAILY [facility] Last Admin: 04/09/19 09:54 Dose: 15 ml Pantoprazole Sodium (Protonix -) 20 mg PO DAILY [facility] Last Admin: 04/09/19 09:50 Dose: 20 mg Zinc Sulfate (Orazinc -) 220 mg PO DAILY [facility] Last Admin: 04/09/19 09:49 Dose: 220 mg - Objective Vital Signs: Vital Signs Temperature 97.5 F L 04/09/19 14:00 Pulse Rate 64 04/09/19 14:00 Respiratory Rate 18 04/09/19 14:00 Blood Pressure 170/80 04/09/19 14:00 O2 Sat by Pulse Oximetry (%) 99 04/09/19 09:00 Constitutional: Yes: No Distress, Calm, Thin Neck: Yes: Supple Cardiovascular: Yes: Regular Rate and Rhythm, Murmur (2/6 SM) Respiratory: Yes: Regular, Diminished Gastrointestinal: Yes: Normal Bowel Sounds, Soft Edema: No Wound/Incision: Yes: Dressing Dry and Intact Labs: CBC, BMP 04/09/19 11:45 04/09/19 11:45 INR, PTT INR 1.04 (0.83-1.09) 04/06/19 06:00 Problem List - Problems (1) Dementia Code(s): F03.90 - UNSPECIFIED DEMENTIA WITHOUT BEHAVIORAL DISTURBANCE Qualifiers: Dementia type: unspecified type (2) CKD (chronic kidney disease) Code(s): N18.9 - CHRONIC KIDNEY DISEASE, UNSPECIFIED (3) HTN (hypertension) Code(s): I10 - ESSENTIAL (PRIMARY) HYPERTENSION Qualifiers: Hypertension type: essential hypertension Qualified Code(s): I10 - Essential (primary) hypertension (4) Hypercholesterolemia Code(s): E78.00 - PURE HYPERCHOLESTEROLEMIA, UNSPECIFIED (5) Rheumatoid arthritis Code(s): M06.9 - RHEUMATOID ARTHRITIS, UNSPECIFIED (6) T2DM (type 2 diabetes mellitus) Code(s): E11.9 - TYPE 2 DIABETES MELLITUS WITHOUT COMPLICATIONS Qualifiers: Diabetes mellitus fci insulin use: without fci use Assessment/Plan 03/09/2019 Echogenic kidneys c/w chronic medical renal dz, bilateral renal cysts 03/10/2019 Severe cLVH, hyperdynamic LV fxn, grade III restrictive pattern, c/w markedly increased LAP, mod MR, severe pulm HTN, mod MG 21 mmHg CONRAD 1.0 cm^2 01/03/2017 Mild cLVH, nomal LV fxn, abnl LV compliance, normal RV size and fxn, mild LAE, mild MR, mod TR RVSP 50-60 mmHg ASSESSMENT: 1. Coronary artery disease/coronary artery calcification visual calcification on CT scan of the chest angina pectoris 2. Severe diastolic left ventricular dysfunction with elevated BNP level no clinical evidence of congestive heart failure, probably hypovolemic with Hypernatremia 3. Moderate MR 4. Moderate 5. Severe pulmonary HTN 6. MAT no evidence of atrial fibrillation 7. HTN, BP not at goal control 8. DM 9. Hypercholesterolemia 10. Acute exacerbation of CKD improved to baseline 11. Hypernatremia resolved 12. Anemia 13. Stage IV right sacral decubiti ulcer post recent debridement 14. Rheumatoid arthritis PLAN: 1. Continue Toprol XL 100 qd with uptitration as tolerated 2. Increase Cozaar 100 qd with close monitoring of renal function and K 3. Increased Hydralazine 50 bid with dose titration as needed and as tolerated 4. Continue Lipitor 20 qhs 5. Diuretics as needed per renal 6. No intervention indicated for the above noted MAT aside from Toprol 7. Wound vac placement and wound care, complete empiric abx course 6. DVT and GI prophylaxis
--- NOTE | 2019-04-09 15:11 | PN ---
Progress Note, Physician History of Present Illness: AWAKE IN BED S/P PLACEMENT OF VAC OFFERS NO COMPLAINTS AFEBRILE LEUKOPENIA NOTED BC (-) - Current Medication List Current Medications: Active Medications Amino Acids (Prosource No Carb Liquid Pkt) 30 ml PO BID@0800,1730 [facility] Last Admin: 04/09/19 09:58 Dose: 30 ml Ascorbic Acid (Vitamin C -) 250 mg PO DAILY [facility] Last Admin: 04/09/19 09:50 Dose: 250 mg Atorvastatin Calcium (Lipitor -) 20 mg PO HS [facility] Last Admin: 04/08/19 22:04 Dose: 20 mg Docusate Sodium (Colace -) 100 mg PO Q12H PRN PRN Reason: CONSTIPATION Ferrous Sulfate (Feosol -) 325 mg PO DAILY [facility] Last Admin: 04/09/19 09:51 Dose: 325 mg Heparin Sodium (Porcine) (Heparin -) 5,000 unit SQ BID [facility] Last Admin: 04/09/19 09:53 Dose: 5,000 unit Hydralazine HCl (Apresoline -) 50 mg PO BID [facility] Last Admin: 04/09/19 09:48 Dose: 50 mg Ceftriaxone Sodium 1 gm/ (Dextrose) 50 mls @ 200 mls/hr IVPB DAILY [facility]; Protocol Last Admin: 04/09/19 09:43 Dose: 200 mls/hr Losartan Potassium (Cozaar -) 100 mg PO DAILY [facility] Metoprolol Succinate (Toprol Xl -) 100 mg PO DAILY [facility] Last Admin: 04/09/19 09:49 Dose: 100 mg Multivitamins/Minerals (Certavite-Antioxidant Liquid) 15 ml PO DAILY [facility] Last Admin: 04/09/19 09:54 Dose: 15 ml Pantoprazole Sodium (Protonix -) 20 mg PO DAILY [facility] Last Admin: 04/09/19 09:50 Dose: 20 mg Zinc Sulfate (Orazinc -) 220 mg PO DAILY [facility] Last Admin: 04/09/19 09:49 Dose: 220 mg - Objective Vital Signs: Vital Signs Temperature 97.5 F L 04/09/19 14:00 Pulse Rate 64 04/09/19 14:00 Respiratory Rate 18 04/09/19 14:00 Blood Pressure 170/80 04/09/19 14:00 O2 Sat by Pulse Oximetry (%) 99 04/09/19 09:00 Constitutional: Yes: No Distress Eyes: Yes: Conjunctiva Clear Cardiovascular: Yes: Regular Rate and Rhythm, S1, S2 Respiratory: Yes: Diminished Gastrointestinal: Yes: Normal Bowel Sounds, Soft. No: Tenderness Integumentary: Yes: Other (VAC IN PLACE SACRUM) Labs: CBC, BMP 04/09/19 11:45 04/09/19 11:45 INR, PTT INR 1.04 (0.83-1.09) 04/06/19 06:00 Assessment/Plan PNEUMONIA IMPROVED CXR CLEARED S/P INFLUENZA AZOTEMIA PCN ALLERGY SUBSTITUTE CEFTIN 250MG PO BID X 3D
--- NOTE | 2019-04-09 16:19 | PN ---
Progress Note, Physician History of Present Illness: Pt seen and examined at bedside. She is awake and appears comfortable today. - Current Medication List Current Medications: Active Medications Amino Acids (Prosource No Carb Liquid Pkt) 30 ml PO BID@0800,1730 [facility] Last Admin: 04/09/19 09:58 Dose: 30 ml Ascorbic Acid (Vitamin C -) 250 mg PO DAILY [facility] Last Admin: 04/09/19 09:50 Dose: 250 mg Atorvastatin Calcium (Lipitor -) 20 mg PO HS [facility] Last Admin: 04/08/19 22:04 Dose: 20 mg Cefuroxime Axetil (Ceftin -) 250 mg PO BID [facility] Docusate Sodium (Colace -) 100 mg PO Q12H PRN PRN Reason: CONSTIPATION Ferrous Sulfate (Feosol -) 325 mg PO DAILY [facility] Last Admin: 04/09/19 09:51 Dose: 325 mg Heparin Sodium (Porcine) (Heparin -) 5,000 unit SQ BID [facility] Last Admin: 04/09/19 09:53 Dose: 5,000 unit Hydralazine HCl (Apresoline -) 50 mg PO BID [facility] Last Admin: 04/09/19 09:48 Dose: 50 mg Losartan Potassium (Cozaar -) 100 mg PO DAILY [facility] Metoprolol Succinate (Toprol Xl -) 100 mg PO DAILY [facility] Last Admin: 04/09/19 09:49 Dose: 100 mg Multivitamins/Minerals (Certavite-Antioxidant Liquid) 15 ml PO DAILY [facility] Last Admin: 04/09/19 09:54 Dose: 15 ml Pantoprazole Sodium (Protonix -) 20 mg PO DAILY [facility] Last Admin: 04/09/19 09:50 Dose: 20 mg Zinc Sulfate (Orazinc -) 220 mg PO DAILY [facility] Last Admin: 04/09/19 09:49 Dose: 220 mg - Objective Vital Signs: Vital Signs Temperature 97.5 F L 04/09/19 14:00 Pulse Rate 64 04/09/19 14:00 Respiratory Rate 18 04/09/19 14:00 Blood Pressure 170/80 04/09/19 14:00 O2 Sat by Pulse Oximetry (%) 99 04/09/19 09:00 Constitutional: Yes: Calm Eyes: Yes: Conjunctiva Clear HENT: Yes: Atraumatic Neck: Yes: Supple Cardiovascular: Yes: S1, S2 Respiratory: Yes: CTA Bilaterally Gastrointestinal: Yes: Soft Musculoskeletal: Yes: Muscle Weakness Edema: Yes Edema: LLE: 1+, RLE: 1+ Neurological: Yes: Oriented Psychiatric: Yes: Oriented Labs: CBC, BMP 04/09/19 11:45 04/09/19 11:45 INR, PTT INR 1.04 (0.83-1.09) 04/06/19 06:00 Problem List - Problems (1) CKD (chronic kidney disease) Code(s): N18.9 - CHRONIC KIDNEY DISEASE, UNSPECIFIED Assessment/Plan Current Medications Generic Name Dose Route Start Last Admin Trade Name Freq PRN Reason Stop Dose Admin Amino Acids 30 ml 04/07/19 17:30 04/09/19 09:58 Prosource No Carb Liquid Pkt PO 30 ml BID@0800,1730 [facility] Administration Ascorbic Acid 250 mg 04/08/19 10:00 04/09/19 09:50 Vitamin C - PO 250 mg DAILY [facility] Administration Atorvastatin Calcium 20 mg 04/05/19 22:00 04/08/19 22:04 Lipitor - PO 20 mg HS [facility] Administration Cefuroxime Axetil 250 mg 04/09/19 22:00 Ceftin - PO BID [facility] Docusate Sodium 100 mg 04/05/19 17:47 Colace - PO Q12H PRN CONSTIPATION Ferrous Sulfate 325 mg 04/06/19 10:00 04/09/19 09:51 Feosol - PO 325 mg DAILY [facility] Administration Heparin Sodium (Porcine) 5,000 unit 04/05/19 22:00 04/09/19 09:53 Heparin - SQ 5,000 unit BID [facility] Administration Hydralazine HCl 50 mg 04/08/19 10:26 04/09/19 09:48 Apresoline - PO 50 mg BID [facility] Administration Losartan Potassium 100 mg 04/10/19 10:00 Cozaar - PO DAILY [facility] Metoprolol Succinate 100 mg 04/06/19 10:00 04/09/19 09:49 Toprol Xl - PO 100 mg DAILY [facility] Administration Multivitamins/Minerals 15 ml 04/08/19 10:00 04/09/19 09:54 Certavite-Antioxidant Liquid PO 15 ml DAILY [facility] Administration Pantoprazole Sodium 20 mg 04/06/19 10:00 04/09/19 09:50 Protonix - PO 20 mg DAILY [facility] Administration Zinc Sulfate 220 mg 04/08/19 10:00 04/09/19 09:49 Orazinc - PO 220 mg DAILY [facility] Administration Impression 1. CKD 2. htn 3. dm 4. RA 5. hypernatremia 6. bilateral renal cysts 7. hypokalemia Plan - encourage po intake - monitor volume status - evaluate for lasix daily - will need outpt follow up - repeat bp after meds
[2019-04-09] MEDS ORDERED: Insulin (LOG) Aspart 100 UNITS/ML VIAL SQ ONE (20:29)
[2019-04-09] MEDS: INSULIN SLIDING SCALE (NOVOLOG) 1 VIAL SQ SCH (21:33)
[2019-04-09] MEDS: ATORVASTATIN CA 20 MG TABLET (FP) PO SCH (21:33)
[2019-04-09] MEDS: CEFUROXIME AXETIL 250 MG TABLET PO SCH (21:38)
[2019-04-10] MEDS: INSULIN SLIDING SCALE (NOVOLOG) 1 VIAL SQ SCH ×4 (06:07→22:10)
[2019-04-10] MEDS ORDERED: PT OWN MED DRAWER 7, Y5N ONE ×2 (06:34→09:19)
[2019-04-10] MEDS: hydrALAZINE HCL 50 MG TABLET (FP) PO SCH ×3 (09:21→22:09)
[2019-04-10] MEDS: ZINC SULFATE 220 MG CAPSULE (FP) PO SCH (09:21)
[2019-04-10] MEDS: FERROUS SO4 325 MG TABLET (FP) PO SCH (09:21)
[2019-04-10] MEDS: MULTIVIT-MINERALS ORAL LIQUID PO SCH (09:21)
[2019-04-10] MEDS: LOSARTAN POTASSIUM 50 MG TABLET (FP) PO SCH (09:21)
[2019-04-10] MEDS: ASCORBIC ACID 250 MG TABLET (FP) PO SCH (09:21)
[2019-04-10] MEDS: HEPARIN NA (PORCINE) 5,000 UNITS/ML 1ML VIAL SQ SCH ×2 (09:21→22:09)
[2019-04-10] MEDS: PANTOPRAZOLE 20 MG TABLET PO SCH (09:21)
[2019-04-10] MEDS: AMINO ACIDS/PROTEIN HYDROLYS 30 ML LIQUID.PKT PO SCH ×2 (09:30→16:59)
[2019-04-10] MEDS: CEFUROXIME AXETIL 250 MG TABLET PO SCH ×2 (09:30→22:09)
[2019-04-10] MEDS ORDERED: amLODIPine BESYLATE 5 MG TABLET (FP) PO ONE (09:39)
--- NOTE | 2019-04-10 09:53 | PN ---
Progress Note (short form) - Note Progress Note: PATIENT WAS CLEARED BY ID FOR DISCHARGE WOUND CARE WITH WOUNDVAC TO SNF. ABX PO CEFTIN BP ELEVATED TODAY WILL ADD [id number] X 1 THEN METOPROLOL XL SHOULD BE SWITCHED TO METOPROLOL TARTRTE CAN BE CRUSHED EASIER VIA GTUBE Problem List - Problems (1) Dementia Code(s): F03.90 - UNSPECIFIED DEMENTIA WITHOUT BEHAVIORAL DISTURBANCE Qualifiers: Dementia type: unspecified type (2) NSTEMI (non-ST elevated myocardial infarction) Code(s): I21.4 - NON-ST ELEVATION (NSTEMI) MYOCARDIAL INFARCTION (3) Pneumonia and influenza Code(s): J11.00 - FLU DUE TO UNIDENTIFIED FLU VIRUS W UNSP TYPE OF PNEUMONIA (4) Sacral decubitus ulcer Code(s): L89.159 - PRESSURE ULCER OF SACRAL REGION, UNSPECIFIED STAGE (5) Anemia Code(s): D64.9 - ANEMIA, UNSPECIFIED (6) CKD (chronic kidney disease) Code(s): N18.9 - CHRONIC KIDNEY DISEASE, UNSPECIFIED (7) HTN (hypertension) Code(s): I10 - ESSENTIAL (PRIMARY) HYPERTENSION Qualifiers: Hypertension type: essential hypertension Qualified Code(s): I10 - Essential (primary) hypertension
--- NOTE | 2019-04-10 10:29 | PN ---
Progress Note, Physician Chief Complaint: Events noted Nonverbal but responds by nodding her head History of Present Illness: Patient was seen and examined. Awake. Chart was reviewed Denies chest pain - Current Medication List Current Medications: Active Medications Amino Acids (Prosource No Carb Liquid Pkt) 30 ml PO BID@0800,1730 [facility] Last Admin: 04/10/19 09:30 Dose: Not Given Ascorbic Acid (Vitamin C -) 250 mg PO DAILY [facility] Last Admin: 04/10/19 09:21 Dose: 250 mg Atorvastatin Calcium (Lipitor -) 20 mg PO HS [facility] Last Admin: 04/09/19 21:33 Dose: 20 mg Cefuroxime Axetil (Ceftin -) 250 mg PO BID [facility] Last Admin: 04/10/19 09:30 Dose: Not Given Docusate Sodium (Colace -) 100 mg PO Q12H PRN PRN Reason: CONSTIPATION Ferrous Sulfate (Feosol -) 325 mg PO DAILY [facility] Last Admin: 04/10/19 09:21 Dose: 325 mg Heparin Sodium (Porcine) (Heparin -) 5,000 unit SQ BID [facility] Last Admin: 04/10/19 09:21 Dose: 5,000 unit Hydralazine HCl (Apresoline -) 50 mg PO TID [facility] Insulin Aspart (Novolog Vial Sliding Scale -) 1 vial SQ ACHS [facility]; Protocol Last Admin: 04/10/19 06:07 Dose: 2 units Losartan Potassium (Cozaar -) 100 mg PO DAILY [facility] Last Admin: 04/10/19 09:21 Dose: 100 mg Metoprolol Tartrate (Lopressor -) 50 mg PO BID [facility] Multivitamins/Minerals (Certavite-Antioxidant Liquid) 15 ml PO DAILY [facility] Last Admin: 04/10/19 09:21 Dose: 15 ml Pantoprazole Sodium (Protonix -) 20 mg PO DAILY [facility] Last Admin: 04/10/19 09:21 Dose: 20 mg Zinc Sulfate (Orazinc -) 220 mg PO DAILY [facility] Last Admin: 04/10/19 09:21 Dose: 220 mg - Objective Vital Signs: Vital Signs Temperature 97.9 F 04/10/19 09:30 Pulse Rate 74 04/10/19 09:30 Respiratory Rate 16 04/10/19 09:30 Blood Pressure 202/83 H 04/10/19 09:30 O2 Sat by Pulse Oximetry (%) 99 04/09/19 21:00 Neck: Yes: Supple Cardiovascular: Yes: Regular Rate and Rhythm, Murmur (SM), S1, S2 Respiratory: Yes: Diminished Gastrointestinal: Yes: Normal Bowel Sounds, Soft. No: Tenderness Edema: No Wound/Incision: Yes: Dressing Dry and Intact Labs: CBC, BMP 04/09/19 11:45 04/09/19 11:45 Problem List - Problems (1) Dementia Code(s): F03.90 - UNSPECIFIED DEMENTIA WITHOUT BEHAVIORAL DISTURBANCE Qualifiers: Dementia type: unspecified type (2) Sacral decubitus ulcer Code(s): L89.159 - PRESSURE ULCER OF SACRAL REGION, UNSPECIFIED STAGE (3) Anemia Code(s): D64.9 - ANEMIA, UNSPECIFIED (4) CKD (chronic kidney disease) Code(s): N18.9 - CHRONIC KIDNEY DISEASE, UNSPECIFIED (5) HTN (hypertension) Code(s): I10 - ESSENTIAL (PRIMARY) HYPERTENSION Qualifiers: Hypertension type: essential hypertension Qualified Code(s): I10 - Essential (primary) hypertension (6) Hypercholesterolemia Code(s): E78.00 - PURE HYPERCHOLESTEROLEMIA, UNSPECIFIED (7) Pressure injury of deep tissue of sacral region Code(s): L89.156 - PRESSURE-INDUCED DEEP TISSUE DAMAGE OF SACRAL REGION (8) Rheumatoid arthritis Code(s): M06.9 - RHEUMATOID ARTHRITIS, UNSPECIFIED (9) T2DM (type 2 diabetes mellitus) Code(s): E11.9 - TYPE 2 DIABETES MELLITUS WITHOUT COMPLICATIONS Qualifiers: 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 Coronary artery disease/coronary artery calcification, angina pectoris 2. Severe diastolic left ventricular dysfunction with elevated BNP level no clinical evidence of congestive heart failure 3. Moderate MR 4. Moderate 5. Severe pulmonary HTN 6. MAT 7. HTN - severely elevated BP 8. DM 9. Hypercholesterolemia 10. Acute exacerbation of CKD 11. Hypernatremia resolved 12. Anemia 13. Stage IV right sacral decubiti ulcer post recent debridement 14. Rheumatoid arthritis PLAN: 1. Continue Toprol XL 100 qd 2. Continue Cozaar 100 qd with close monitoring of renal function and K 3. Increased Hydralazine 50 mg TID with uptitration as needed. IV Hydralazine if SBP > 180 mmHg. Amlodipine added by PMD 4. Continue Lipitor 20 mg QHS 5. Diuretics as needed 6. Wound vac placement and wound care and complete empiric antibiotic course 7. DVT and GI prophylaxis Further plans are to follow Jamel Murrieta MD
[2019-04-10] MEDS: hydrALAZINE HCL 20 MG/ML VIAL IVPUSH PRN (11:22)
[2019-04-10] MEDS: METOPROLOL TARTRATE 50 MG TABLET (FP) PO SCH ×2 (11:24→22:10)
[2019-04-10] MEDS: ATORVASTATIN CA 20 MG TABLET (FP) PO SCH (22:09)
--- NOTE | 2019-04-10 22:23 | PN ---
Progress Note (short form) - Note Progress Note: covering dr coleman Problems 1. CKD 2. htn 3. dm 4. RA 5. hypernatremia 6. bilateral renal cysts 7. hypokalemia Current Medications Amino Acids (Prosource No Carb Liquid Pkt) 30 ml PO BID@0800,1730 [facility] Last Admin: 04/10/19 16:59 Dose: Not Given Ascorbic Acid (Vitamin C -) 250 mg PO DAILY [facility] Last Admin: 04/10/19 09:21 Dose: 250 mg Atorvastatin Calcium (Lipitor -) 20 mg PO HS [facility] Last Admin: 04/10/19 22:09 Dose: 20 mg Cefuroxime Axetil (Ceftin -) 250 mg PO BID [facility] Last Admin: 04/10/19 22:09 Dose: 250 mg Docusate Sodium (Colace -) 100 mg PO Q12H PRN PRN Reason: CONSTIPATION Ferrous Sulfate (Feosol -) 325 mg PO DAILY [facility] Last Admin: 04/10/19 09:21 Dose: 325 mg Heparin Sodium (Porcine) (Heparin -) 5,000 unit SQ BID [facility] Last Admin: 04/10/19 22:09 Dose: 5,000 unit Hydralazine HCl (Apresoline -) 50 mg PO TID [facility] Last Admin: 04/10/19 22:09 Dose: 50 mg Hydralazine HCl (Apresoline Injection -) 10 mg IVPUSH Q6H PRN PRN Reason: HYPERTENSION Last Admin: 04/10/19 11:22 Dose: 10 mg Insulin Aspart (Novolog Vial Sliding Scale -) 1 vial SQ ACHS [facility]; Protocol Last Admin: 04/10/19 22:10 Dose: 4 units Losartan Potassium (Cozaar -) 100 mg PO DAILY [facility] Last Admin: 04/10/19 09:21 Dose: 100 mg Metoprolol Tartrate (Lopressor -) 50 mg PO BID [facility] Last Admin: 04/10/19 22:10 Dose: 50 mg Multivitamins/Minerals (Certavite-Antioxidant Liquid) 15 ml PO DAILY [facility] Last Admin: 04/10/19 09:21 Dose: 15 ml Pantoprazole Sodium (Protonix -) 20 mg PO DAILY [facility] Last Admin: 04/10/19 09:21 Dose: 20 mg Zinc Sulfate (Orazinc -) 220 mg PO DAILY [facility] Last Admin: 04/10/19 09:21 Dose: 220 mg Last Vital Signs Temp Pulse Resp BP Pulse Ox 97.0 F L 77 17 195/92 H 99 04/10/19 18:00 04/10/19 18:00 04/10/19 18:00 04/10/19 18:00 04/10/19 10:00 awake non verbal Lungs clear Heart reg Abd soft nontender Ext min edema CBC, BMP 04/09/19 11:45 04/09/19 11:45 IMP- CKD Hypernatremia HTN Plan - encourage po intake - monitor volume status - evaluate for lasix daily - will need outpt follow up - follow BP
[2019-04-11 02:19] VITALS: TEMP 97.3
[2019-04-11] MEDS: hydrALAZINE HCL 20 MG/ML VIAL IVPUSH PRN (04:01)
[2019-04-11] MEDS: hydrALAZINE HCL 50 MG TABLET (FP) PO SCH (05:57)
[2019-04-11] MEDS: INSULIN SLIDING SCALE (NOVOLOG) 1 VIAL SQ SCH ×2 (06:02→12:03)
[2019-04-11 07:16] LABS: HEMATOCRIT 27.2 % (32.4-45.2); HEMOGLOBIN 9.1 GM/dL (10.7-15.3); MCH 27.8 pg (25.7-33.7); MCHC 33.4 g/dl (32.0-36.0); MEAN CELL VOLUME 83.1 fl (80-96); MEAN PLT VOLUME 9.7 fl (7.5-11.1); PLATELET COUNT 152 K/MM3 (134-434); RBC 3.28 M/mm3 (3.60-5.2); RDW 24.2 % (11.6-15.6); WHITE BLOOD COUNT 2.1 K/mm3 (4.0-10.0)
[2019-04-11 07:41] LABS: ALBUMIN 1.7 g/dl (3.4-5.0); BILIRUBIN,TOTAL 0.5 mg/dL (0.2-1); BLOOD UREA NITROGEN 57.1 mg/dL (7-18); CALCIUM 8.4 mg/dL (8.5-10.1); CREATININE 1.8 mg/dL (0.55-1.3); POTASSIUM 3.9 mmol/L (3.5-5.1); TOT PROT 5.7 g/dl (6.4-8.2)
[2019-04-11] MEDS: AMINO ACIDS/PROTEIN HYDROLYS 30 ML LIQUID.PKT PO SCH (08:35)
[2019-04-11] MEDS ORDERED: PT OWN MED DRAWER 7, Y5N ONE (09:09)
[2019-04-11 09:37] VITALS: BP 157/77; PULSE 79
[2019-04-11] MEDS: ASCORBIC ACID 250 MG TABLET (FP) PO SCH (09:38)
[2019-04-11] MEDS: ZINC SULFATE 220 MG CAPSULE (FP) PO SCH (09:38)
[2019-04-11] MEDS: MULTIVIT-MINERALS ORAL LIQUID PO SCH (09:38)
[2019-04-11] MEDS: CEFUROXIME AXETIL 250 MG TABLET PO SCH (09:38)
[2019-04-11] MEDS: LOSARTAN POTASSIUM 50 MG TABLET (FP) PO SCH (09:39)
[2019-04-11] MEDS: PANTOPRAZOLE 20 MG TABLET PO SCH (09:39)
[2019-04-11] MEDS: FERROUS SO4 325 MG TABLET (FP) PO SCH (09:39)
[2019-04-11] MEDS: HEPARIN NA (PORCINE) 5,000 UNITS/ML 1ML VIAL SQ SCH (09:39)
[2019-04-11] MEDS: METOPROLOL TARTRATE 50 MG TABLET (FP) PO SCH (09:39)
[2019-04-11] MEDS ORDERED: amLODIPine BESYLATE 5 MG TABLET (FP) PO ONE (09:51)
--- NOTE | 2019-04-11 09:59 | PN ---
Progress Note, Physician Chief Complaint: Events noted Nonverbal History of Present Illness: Patient was seen and examined. Awake. Chart was reviewed Denies chest pain Still with elevated BP - Current Medication List Current Medications: Active Medications Amino Acids (Prosource No Carb Liquid Pkt) 30 ml PO BID@0800,1730 [facility] Last Admin: 04/11/19 08:35 Dose: 30 ml Amlodipine Besylate (Norvasc -) 5 mg PO ONCE ONE Stop: 04/11/19 09:52 Amlodipine Besylate (Norvasc -) 5 mg PO DAILY [facility] Ascorbic Acid (Vitamin C -) 250 mg PO DAILY [facility] Last Admin: 04/11/19 09:38 Dose: 250 mg Atorvastatin Calcium (Lipitor -) 20 mg PO HS [facility] Last Admin: 04/10/19 22:09 Dose: 20 mg Cefuroxime Axetil (Ceftin -) 250 mg PO BID [facility] Last Admin: 04/11/19 09:38 Dose: 250 mg Docusate Sodium (Colace -) 100 mg PO Q12H PRN PRN Reason: CONSTIPATION Ferrous Sulfate (Feosol -) 325 mg PO DAILY [facility] Last Admin: 04/11/19 09:39 Dose: 325 mg Heparin Sodium (Porcine) (Heparin -) 5,000 unit SQ BID [facility] Last Admin: 04/11/19 09:39 Dose: 5,000 unit Hydralazine HCl (Apresoline -) 50 mg PO TID [facility] Last Admin: 04/11/19 05:57 Dose: 50 mg Hydralazine HCl (Apresoline Injection -) 10 mg IVPUSH Q6H PRN PRN Reason: HYPERTENSION Last Admin: 04/11/19 04:01 Dose: 10 mg Insulin Aspart (Novolog Vial Sliding Scale -) 1 vial SQ ACHS [facility]; Protocol Last Admin: 04/11/19 06:02 Dose: Not Given Losartan Potassium (Cozaar -) 100 mg PO DAILY [facility] Last Admin: 04/11/19 09:39 Dose: 100 mg Metoprolol Tartrate (Lopressor -) 50 mg PO BID [facility] Last Admin: 04/11/19 09:39 Dose: 50 mg Multivitamins/Minerals (Certavite-Antioxidant Liquid) 15 ml PO DAILY [facility] Last Admin: 04/11/19 09:38 Dose: 15 ml Pantoprazole Sodium (Protonix -) 20 mg PO DAILY [facility] Last Admin: 04/11/19 09:39 Dose: 20 mg Zinc Sulfate (Orazinc -) 220 mg PO DAILY [facility] Last Admin: 04/11/19 09:38 Dose: 220 mg - Objective Vital Signs: Vital Signs Temperature 97.3 F L 04/11/19 09:36 Pulse Rate 79 04/11/19 09:36 Respiratory Rate 18 04/11/19 09:36 Blood Pressure 157/77 04/11/19 09:36 O2 Sat by Pulse Oximetry (%) 99 04/10/19 21:00 Neck: Yes: Supple Cardiovascular: Yes: Regular Rate and Rhythm, S1, S2 Respiratory: Yes: CTA Bilaterally Gastrointestinal: Yes: Normal Bowel Sounds, Soft. No: Tenderness Edema: No Labs: CBC, BMP 04/11/19 05:45 04/11/19 05:45 Problem List - Problems (1) Dementia Code(s): F03.90 - UNSPECIFIED DEMENTIA WITHOUT BEHAVIORAL DISTURBANCE Qualifiers: Dementia type: unspecified type (2) Sacral decubitus ulcer Code(s): L89.159 - PRESSURE ULCER OF SACRAL REGION, UNSPECIFIED STAGE (3) Anemia Code(s): D64.9 - ANEMIA, UNSPECIFIED (4) CKD (chronic kidney disease) Code(s): N18.9 - CHRONIC KIDNEY DISEASE, UNSPECIFIED (5) HTN (hypertension) Code(s): I10 - ESSENTIAL (PRIMARY) HYPERTENSION Qualifiers: Hypertension type: essential hypertension Qualified Code(s): I10 - Essential (primary) hypertension (6) Hypercholesterolemia Code(s): E78.00 - PURE HYPERCHOLESTEROLEMIA, UNSPECIFIED (7) Pressure injury of deep tissue of sacral region Code(s): L89.156 - PRESSURE-INDUCED DEEP TISSUE DAMAGE OF SACRAL REGION (8) Rheumatoid arthritis Code(s): M06.9 - RHEUMATOID ARTHRITIS, UNSPECIFIED (9) T2DM (type 2 diabetes mellitus) Code(s): E11.9 - TYPE 2 DIABETES MELLITUS WITHOUT COMPLICATIONS Qualifiers: Diabetes mellitus alf insulin use: without alf use (10) Sepsis Code(s): A41.9 - SEPSIS, UNSPECIFIED ORGANISM Qualifiers: Sepsis type: sepsis due to unspecified organism Sepsis acute organ dysfunction status: with acute organ dysfunction Severe sepsis acute organ dysfunction type: acute renal failure Acute renal failure type: unspecified Severe sepsis shock status: without septic shock Qualified Code(s): A41.9 - Sepsis, unspecified organism; R65.20 - Severe sepsis without septic shock; N17.9 - Acute kidney failure, unspecified (11) Troponin level elevated Code(s): R74.8 - ABNORMAL LEVELS OF OTHER SERUM ENZYMES Assessment/Plan 1. Coronary artery disease/coronary artery calcification, angina pectoris 2. Severe diastolic left ventricular dysfunction with elevated BNP level no clinical evidence of congestive heart failure 3. Moderate MR 4. Moderate 5. Severe pulmonary HTN 6. MAT 7. HTN - severely elevated BP - improved 8. DM 9. Hypercholesterolemia 10. Acute exacerbation of CKD 11. Hypernatremia resolved 12. Anemia 13. Stage IV right sacral decubiti ulcer post recent debridement 14. Rheumatoid arthritis PLAN: 1. Continue Toprol XL 100 qd 2. Continue Cozaar 100 qd with close monitoring of renal function and K 3. Continue Hydralazine 50 mg TID with uptitration as needed. IV Hydralazine if SBP > 180 mmHg. Amlodipine added by PMD, but as BP was elevated last night, consider switching to Procardia XL 60 mg QD 4. Continue Lipitor 20 mg QHS 5. Diuretics as needed 6. Wound vac placement and wound care and complete empiric antibiotic course 7. DVT and GI prophylaxis Further plans are to follow Jamel Murrieta MD
[2019-04-11] MEDS ORDERED: NIFEdipine E.R 60 MG TABLET PO SCH (10:00)
[2019-04-11] MEDS ORDERED: amLODIPine BESYLATE 5 MG TABLET (FP) PO SCH (10:00)
== END 2019-04-11 12:35 | DRG 193 ==
LOC: JER 12:45 → JERBED 15:06 → J4S 04-06 00:10
PROVIDERS: ADMIT Family Medicine; ATTEND Family Medicine
PROC: 05HP33Z Insertion of Infusion Device into Right External Jugular Vein, Percutaneous Approach (ICD-10-PCS; principal; 2019-04-09)
PROC: 2W15X6Z Compression of Back using Pressure Dressing (ICD-10-PCS; 2019-04-09)
DX: J18.9 Pneumonia, unspecified organism (principal); L89.154 Pressure ulcer of sacral region, stage 4; I21.4 Non-ST elevation (NSTEMI) myocardial infarction; N17.9 Acute kidney failure, unspecified; E87.0 Hyperosmolality and hypernatremia; N39.0 Urinary tract infection, site not specified; J90 Pleural effusion, not elsewhere classified; I13.0 Hypertensive heart and chronic kidney disease with heart failure and stage 1 through stage 4 chronic kidney disease, or unspecified chronic kidney disease; F03.90 Unspecified dementia, unspecified severity, without behavioral disturbance, psychotic disturbance, mood disturbance, and anxiety; D72.819 Decreased white blood cell count, unspecified; M06.9 Rheumatoid arthritis, unspecified; D64.9 Anemia, unspecified; E11.22 Type 2 diabetes mellitus with diabetic chronic kidney disease; N18.9 Chronic kidney disease, unspecified; I50.9 Heart failure, unspecified; E87.6 Hypokalemia; I27.20 Pulmonary hypertension, unspecified; I08.0 Rheumatic disorders of both mitral and aortic valves; I25.10 Atherosclerotic heart disease of native coronary artery without angina pectoris; N28.1 Cyst of kidney, acquired; Z88.0 Allergy status to penicillin
CPT/HCPCS: 36415; 71045-TC-FY; 80053; 81003; 82550; 82962; 83735; 83880; 84443; 84484; 85025; 85027; 85610; 87040; 87086; 87899; 93005; 93010; 99285-25; J1644; J7030